=== PATIENT | female | born 1950 | race Caucasian/White ===

== ENCOUNTER → 2017-10-17 08:38 | Outpatient (CLI) | payer OTHER, SELFPAY ==
[2017-10-17 11:02] LABS: Anion Gap 6 (5-15); BUN 13 mg/dL (7-18); BUN/Creat Ratio 12.4 RATIO (10-20); Calcium,Total 8.7 mg/dL (8.5-10.1); Chloride 106 mmol/L (98-107); Cholesterol 219 mg/dL (200); Creatinine, Serum 1.05 mg/dL (0.55-1.02); EST Glomerular Filtration Rate 56 mL/min (>60); Est Glom Filt Rate - Afr Amer 68 mL/min (>60); Glucose 91 mg/dL (74-106); High Density Lipoprotein 78 mg/dL; Potassium 3.4 mmol/L (3.5-5.1); Sodium Level 141 mmol/L (136-145); Triglycerides 217 mg/dL; Very Low Density Lipoprotein 43 mg/dL (5-40)
== END ==
PROVIDERS: Family Provider Internal Medicine; PCP Internal Medicine; Visit Provider Internal Medicine
DX: I87.2 Venous insufficiency (chronic) (peripheral) (principal); E66.9 Obesity, unspecified
CPT/HCPCS: 36415; 80048; 80061

== ENCOUNTER → 2017-10-30 12:40 | Outpatient (CLI) | payer OTHER, SELFPAY | PROVIDERS: Family Provider Internal Medicine; PCP Internal Medicine; Visit Provider Internal Medicine | DX: G47.30 Sleep apnea, unspecified (principal) | CPT/HCPCS: 95806 ==

== ENCOUNTER → 2017-11-13 10:00 | Outpatient (CLI) | payer MEDICARE, SELFPAY ==
[2017-11-13 12:03] LABS: Absolute Lymphocyte Count 2.59 X10^3/ul (0.83-4.51); Absolute Neutrophil Count 4.7 X10^3/uL (2.0-7.7); Basophil# 0.02 X10^3/uL; Basophil% 0.2 % (0-1); Eosinophils% 2.4 % (0-5); Hematocrit 40.2 % (37-47); Hemoglobin 13.5 g/dl (12.0-15.0); Lymphocyte # 2.59 X10^3/ul (4.0); Lymphocyte % 31.5 % (19-41); Mean Corp Hgb Conc 33.6 g/gl (32-36); Mean Corpuscular Hgb 31.2 pg (27.0-32.0); Mean Corpuscular Volume 92.8 fL (81-99); Mean Platelet Vol. 9.8 fl (6.2-12.0); Monocyte% 8.5 % (0-10); Neutrophil # 4.69 X10^3/uL (2.7-7.7); Neutrophil % 57.3 % (47-70); Platelet Count 214 K/mm3 (150-450); RBC Distribution Width CV 12.5 % (11.6-14.6); RBC Distribution Width SD 41.5 fl (35.1-43.9); Red Blood Count 4.33 M/mm3 (4.2-5.4); White Blood Count 8.2 K/mm3 (4.4-11.0)
[2017-11-13 12:05] LABS: POSITIVE COUNT NO; POSITIVE DIFFERENTIAL NO; POSITIVE MORPHOLOGY NO
[2017-11-13 12:30] LABS: Hemoglobin A1c 5.5 % (4.2-6.3); PTHIN 61.5 pg/mL (18.4-80.1); Vitamin B12 421 pg/mL (211-911); Vitamin D,25 Hydroxy 15.9 ng/mL (29.95-100.01)
[2017-11-13 13:12] LABS: ALB/GLOB Ratio 0.8 RATIO (0.9-2.4); AST(SGOT) 15 U/L (15-37); Alanine Aminotransfer ALT/SGPT 19 U/L (13-56); Albumin, Serum 3.1 g/dL (3.2-5.0); Alkaline Phosphatase 85 U/L (45-117); Anion Gap 8 (5-15); BUN 18 mg/dL (7-18); BUN/Creat Ratio 17.1 RATIO (10-20); Chloride 103 mmol/L (98-107); Cholesterol 228 mg/dL (200); Creatinine, Serum 1.05 mg/dL (0.55-1.02); EST Glomerular Filtration Rate 56 mL/min (>60); Est Glom Filt Rate - Afr Amer 68 mL/min (>60); Ferritin 81 ng/mL (8-252); Globulin 4.1 g/dL (2.2-4.2); Glucose 78 mg/dL (74-106); High Density Lipoprotein 85 mg/dL; Iron 92 ug/dL (50-170); Iron Binding Capacity,Total 323 ug/dL (250-450); PERCENT IRON SATURATION 28.5 % (15.0-55.0); Potassium 3.1 mmol/L (3.5-5.1); Protein, Total 7.2 g/dL (6.4-8.2); Sodium Level 141 mmol/L (136-145); T4 Free Direct 1.13 ng/dL (0.76-1.46); Thyroid Stim Hormone (TSH) 2.27 uIU/mL (0.358-3.74); Triglycerides 178 mg/dL; Very Low Density Lipoprotein 36 mg/dL (5-40)
[2017-11-17 09:56] LABS: Copper, Serum or Plasma 122 ug/dL (72-166); Cotinine Screen Blood None Detected (.); Nicotine Blood None Detected (.); Vitamin A, Retinol 45.3 ug/dL (36.4-108.0); Zinc, Plasma or Serum 70 ug/dL (56-134)
[2017-11-21 16:26] LABS: Cannabinoid Negative (Cutoff=10)
== END ==
PROVIDERS: Family Provider Internal Medicine; PCP Internal Medicine
DX: M06.9 Rheumatoid arthritis, unspecified (principal); I10 Essential (primary) hypertension; R60.9 Edema, unspecified; R63.8 Other symptoms and signs concerning food and fluid intake; E55.9 Vitamin D deficiency, unspecified; E66.01 Morbid (severe) obesity due to excess calories; R73.9 Hyperglycemia, unspecified; M54.5 Low back pain; G25.81 Restless legs syndrome; G47.19 Other hypersomnia; K21.9 Gastro-esophageal reflux disease without esophagitis; Z98.84 Bariatric surgery status
CPT/HCPCS: 36415; 80053; 80061; 80307; 82306; 82525; 82607; 82728; 82746; 83036; 83540; 83550; 83970; 84425; 84439; 84443; 84590; 84630; 85025; 86140; G0478

== ENCOUNTER → 2017-11-14 09:35 | Outpatient (CLI) | payer MEDICARE, SELFPAY | PROVIDERS: Family Provider Internal Medicine; PCP Internal Medicine | DX: M06.9 Rheumatoid arthritis, unspecified (principal); I10 Essential (primary) hypertension; G25.81 Restless legs syndrome; M54.5 Low back pain; R60.9 Edema, unspecified; K21.9 Gastro-esophageal reflux disease without esophagitis; G47.19 Other hypersomnia; Z98.84 Bariatric surgery status ==

== ENCOUNTER → 2018-06-04 15:57 | Outpatient (CLI) | payer MEDICARE, SELFPAY ==
[2018-06-04 10:34] VITALS: BMI 29.8
[2018-06-04 16:21] LABS: Bacteria 0 SEEN /hpf (None Seen); Mucous, Urine 0 SEEN /hpf (<or=2+); Red Blood Cells-Urine 0 SEEN /hpf (0-5); Squamous Epithelial Cells - UA 0 SEEN /hpf (5-10)
[2018-06-04 16:38] LABS: Color, Urine Yellow (Yellow); Glucose, Dipstick Normal (Normal); Ketone-Dipstick Negative (Negative); Leukocyte Esterase-Dipstick 500 /ul (Negative); Nitrite-Dipstick Positive (Negative); Occult Blood-Urine 250 /ul (Negative); Protein-Dipstick 30 mg/dl (Negative); Urine Bilirubin Dipstick Negative (Negative); Urine Clarity Cloudy (Clear); Urine Urobilinogen Normal (Normal)
[2018-06-04 16:53] LABS: White Blood Cells >100 SEEN /hpf (0-5)
--- OUTSIDE RECORDS SUMMARY | 2018-08-09 15:32 | XMS RPT_ITS ---
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 Dispense: 90 Days ; #:90 Capsule Delayed Release; Refill: 3;For: GERD without esophagitis; RACQUEL = N; Verified Transmission to [facility] #0059; Last Updated By: Allyn Serrato; 09/22/2015 2:41:32 PM Omeprazole 40 MG Oral Capsule Delayed Release; TAKE 1 CAPSULE Daily Open capsule, sprinkle in SF applesauce or pudding, swallow. DO NOT CHEW; Therapy: 72Ihg7757 to (Evaluate:21Bkm6917) Requested for: 12Kbr5707; Last Rx:[id number] Ordered Rx By: Leann Thompson; Dispense: 30 Days ; #:30 Capsule Delayed Release; Refill: 2;For: GERD without esophagitis, Post-operative nausea and vomiting; RACQUEL = N; Verified Transmission to [facility] #3321 Calcium 600 MG Oral Tablet; Therapy: 75Opy2566 to Recorded Dispense: 0 Days ; #: Sufficient Tablet; Refill: 0; RACQUEL = N; Record; Last Updated By: Yuliana Mckeon; 05/08/2018 10:53:48 AM Multi Vitamin Oral Tablet; Therapy: 94Ago3669 to Recorded Dispense: 0 Days ; #: Sufficient Tablet; Refill: 0; RACQUEL = N; Record; Last Updated By: Yuliana Mckeon; 05/08/2018 10:53:48 AM Provider Impressions NAME: Celina Judithmarisabel DATE: 05.08.18 : [birth year] Surgery Date: 02.12.18 Surgeon: Jay Procedure: sleeve gastrectomy ASSESSMENT: Current weight: 176.0 Ht: 64.0 in. BMI: 30.2 Previous weight: 186.8 03.24.18 Initial start weight: 219.5 11.07.17 EBW: 74.5 Total we74.5ight change: 43.5 %EBW Lost: 58.3% PROGRESS: Nutrition Interventions for last encounter (date: 03.24.18) 1.You are not meeting your protein needs. Eat foods high in protein to help you meet your goal. Your snacks and meals should contain high protein foods. 2.Eat 60-70 g of protein per day 3.Continue to drink 64 oz. of zero calorie beverages per day 4.Continue no drinking 30 min before, during the meal and for 30 minutes after the meal 5.Continue to follow vit/min regimen. You are not taking enough calcium. Your goal is 9811-5418 mg per day. Take enough calcium to meet that goal 6.Continue to exercise. Change up your routine. Make it harder to do and add in strength training. CHANGES IN TREATMENT: Patient met goals: Partially Actions to meet previous goals: 1.Find time to exercise at least 3x/week 24 hour food recall: Pt on regular diet; consumes >64 oz protein and 64 oz fluid Breakfast: 2 egg omelet with peppers and onions Snack: none Lunch: 4 oz tuna and c green beans Snack: cheese stick Dinner: 4 oz chicken breast, c sweet potato, broccoli Snack: c cottage cheese Beverages: water or Crystal lite Alcohol: none Vitamins: 2 MVI, 1200 mg calcium, B12 Medications: see list Physical Activity: walking, but not much lately READINESS TO LEARN: Motivation to learn: Interested Understanding of instruction: Good Anticipated Compliance: Good Family Support: Unable to assess-family not present Patient presents with post-op weight loss surgery sleeve gastrectomy. Patient has lost 43.5 pounds since initial assessment accounting for 58.3% loss excess body weight. Tolerating a regular diet withou t difficulty. Protein intake is adequate for post-op individual. Fluid consumption is adequate. Patient is supplementing recommended vitamin/minerals. Pt states that raw veggies and fresh fruit cause di arrhea. Advised to eat cooked veggies for now and try raw vegies again in a month or so. Pt agree to try recommendations. Malnutrition Screening Significant unintentional weight loss? No Eating less than 75% of usual intake for more than 2 weeks? NO Nutrition Diagnosis: 1.Increased protein and nutrition needs related to altered GI function as evidenced by pt. s/p sleeve gastrectomy. Nutrition Interventions: 1.Modify type and amount of food and nutrients within meals and snacks. 2.Comprehensive Nutrition Education -Nutrition education materials: none Recommendations: 1.Continue to eat 60-70 g of protein per day 2.Continue to drink 64 oz. of zero calorie beverages per day 3.Continue no drinking 30 min before, during the meal and for 30 minutes after the meal 4.Continue to follow vit/min regimen 5.Find some to exercise at 3 times per week. Nutrition Monitoring and Evaluation: Weight loss1-2 pounds per week Criteria: weight check, food recall Need for Follow-up: 6 months post op Livia FREIRE, [facility] Bariatric Surgery Dietitian Patient Discussion/Summary Recommendations: 1.Continue to eat 60-70 g of protein per day 2.Continue to drink 64 oz. of zero calorie beverages per day 3.Continue no drinking 30 min before, during the meal and for 30 minutes after the meal 4.Continue to follow vit/min regimen 5.Find some to exercise at 3 times per week. Nutrition Monitoring and Evaluation: Weight loss1-2 pounds per week Criteria: weight check, food recall Need for Follow-up: 6 months post op Livia FREIRE, [facility] Bariatric Surgery Dietitian . Signatures Electronically signed by : Livia Canseco RD; May 08 2018 1:21PM EST (Author) BARIATRIC SURGERY - Observed: 05/08/2018 Status: UNK Source: [facility] 11:45 AM HOSPITALS REPOSITORY Chief Complaint The patient is having the following problems: patient states she is having diarrhea and cramping. The patient is being seen today for a 3 month post-op visit. Type of surgery: Sleeve Gastrectomy. Three-month postop visit after gastric sleeve History of Present Illness This is the patient's 3 month post op visit. Weight: Inital Weight: 219 lbs Current Weight: 176.4 lbs Total Weight Lost: 43 lbs. Food: Does not drink soda Breakfast: two wgg omlet Eating problems: no Lunch: 4oz tuna and green beans Snack: 1/2 cup of cottage chesse Time to eat meals: 20-30 minutes Dinner: grilled chicken breast , 1/2 sweet potato and califlower Fluid intake: 64 oz Diet Stage: Regular food. The patient exercises infrequently. 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 Exercise includes walking. 2x a week. Diet history reviewed and discussed with the patient. Weight loss/gains to date discussed with the patient. 67-year-old female status post gastric sleeve 3 months ago here for follow-up Review of Systems Constitutional: no chills, no fever and no night sweats. Eyes: no blurred vision and no eyesight problems. ENT: no hearing loss, no nasal congestion, no nasal discharge, no hoarseness and no sore throat. Cardiovascular: no chest pain, no intermittent leg claudication, no lower extremity edema, no palpitations and no syncope. Respiratory: no cough, no shortness of breath during exertion, no shortness of breath at rest and no wheezing. Gastrointestinal: no abdominal pain, no blood in stools, no constipation, no diarrhea, no melena, no nausea, no rectal pain and no vomiting. Genitourinary: no dysuria, no change in urinary frequency, no urinary hesitancy, no feelings of urinary urgency and no vaginal discharge. Musculoskeletal: no arthralgias, no back pain and no myalgias. Integumentary: no new skin lesions and no rashes. Neurological: no difficulty walking, no headache, no limb weakness, no numbness and no tingling. Psychiatric: no anxiety, no depression, no anhedonia and no substance use disorders. Endocrine: no recent weight gain and no recent weight loss. Hematologic/Lymphatic: no tendency for easy bruising and no swollen glands. Active Problems Acute postoperative pain of abdomen (338.18,789.00) (G89.18,R10.9) Bariatric surgery status (V45.86) (Z98.84) Benign hypertension (401.1) (I10) Edema (782.3) (R60.9) Excessive daytime sleepiness (780.54) (G47.19) GERD without esophagitis (530.81) (K21.9) Hernia, hiatal (553.3) (K44.9) Low back pain (724.2) (M54.5) Morbidly obese (278.01) (E66.01) Osteoporosis screening (V82.81) (Z13.820) Post-operative nausea and vomiting (787.01) (R11.2,Z98.890) Pre-bariatric surgery nutrition evaluation (V65.3) (Z71.3) Preoperative clearance (V72.84) (Z01.818) Rheumatoid arthritis (714.0) (M06.9) RLS (restless legs syndrome) (333.94) (G25.81) Rosacea (695.3) (L71.9) S/P laparoscopic cholecystectomy (V45.89) (Z90.49) 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) (Z98.84) S/P total abdominal hysterectomy (V88.01) (Z90.710) Vitamin D deficiency (268.9) (E55.9) Surgical History History of Breast Surgery Reduction Procedure 1998 History of Cervical Surgery (Fish Bin Tender) removal 2002 History of Gallbladder Surgery 2006 History of Gastrectomy Sleeve Laparoscopic History of Knee Arthroplasty bilateral 2000 History of Knee Replacement bilateral 2004 History of Rotator Cuff Repair 2013 and 2015 History of Total Abdominal Hysterectomy 2001 Family History Family history of lymphoma (V16.7) (Z80.7) Family history of substance abuse (V17.0) (Z81.4) Family history of arthritis (V17.7) (Z82.61) Family history of arthritis (V17.7) (Z82.61) Family history of arthritis (V17.7) (Z82.61) Family history of arthritis (V17.7) (Z82.61) Social History Never smoker Occasional alcohol use Occasional caffeine 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 Allergies No Known Drug Allergies Recorded By: Savannah Whaley; 09/22/2015 2:24:50 PM Current Meds Acetaminophen Extra Strength 500 MG/15ML Oral Liquid; TAKE 30 ML Every 8 hours as needed for pain; Therapy: 83Puz1082 to (Evaluate:78Nkh6440) Requested for: 92Drh3208; Last Rx:[id number] Ordered Rx By: Leann Thompson; Dispense: 8 Days ; #:3 X 237 ML Bottle; Refill: 1;For: Acute postoperative pain of abdomen, Bariatric surgery status; RACQUEL = N; Verified Transmission to [facility] #3321 Lansoprazole 30 MG Oral Capsule Delayed Release; TAKE 1 CAPSULE DAILY; Therapy: 47Tdv9479 to (Evaluate:16Sep2016) Requested for: 27Njj4547; Last Rx:[id number] Ordered Rx By: Daina Clark; Dispense: 90 Days ; #:90 Capsule Delayed Release; Refill: 3;For: GERD without esophagitis; RACQUEL = N; Verified Transmission to [facility] #1779; Last Updated By: Myke Serrato; 09/22/2015 2:41:32 PM Omeprazole 40 MG Oral Capsule Delayed Release; TAKE 1 CAPSULE Daily Open capsule, sprinkle in SF applesauce or pudding, swallow. DO NOT CHEW; Therapy: 55Arx1785 to (Evaluate:69Tyf7191) Requested for: 54Wpp7630; Last Rx:[id number] Ordered Rx By: Leann Thompson; Dispense: 30 Days ; #:30 Capsule Delayed Release; Refill: 2;For: GERD without esophagitis, Post-operative nausea and vomiting; RACQUEL = N; Verified Transmission to [facility] #3321 Ondansetron 4 MG Oral Tablet Disintegrating; TAKE 4 MG Every 6 hours PRN; Therapy: 10Dod7057 to (Last Rx:[id number]) Requested for: 25Itn6110 Ordered Rx By: Leann Thompson; Dispense: 0 Days ; #:30 Tablet Disintegrating; Refill: 1;For: Post-operative nausea and vomiting; RACQUEL = N; Verified Transmission to [facility] #3321 Vitamin D (Ergocalciferol) 28714 UNIT Oral Capsule; Take 1 capsule TWICE weekly for 3 mo; Therapy: 55Thk6066 to (Last Rx:[id number]) Requested for: 29Gpk5700 Ordered Rx By: Leann Thompson; Dispense: 0 Days ; #:8 Capsule; Refill: 2;For: Vitamin D deficiency; RACQUEL = N; Verified Transmission to [facility] #7978 Physical Exam Abdominal exam: soft and nontender. The surgical incision site is clean, dry and intact. Post-op, the patient is doing well, has excellent pain control and is showing no signs of infection. Instructions / Recommendations: instructed to call the office for concerns, questions, or problems. Diagnoses/Problems Bariatric surgery status (V45.86) (Z98.84) 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) (Z98.84) Provider Impressions Doing well overall Denies any nausea vomiting chest pain GERD abdominal pain Tolerating diet Some exercise Takes her supplements and PPI Examination is benign Recommendations: Continue low-carb diet Advance activity and increase exercise Continue supplements Okay to wean off PPI Follow-up with dietitian Next visit 3 months Bariatric labs Patient Discussion/Summary 3 Month P/O Visit You are 3 months s/p Gastric Sleeve Please have your 3 month lab work completed today, we will call with any abnormal results. Be sure to take your multivitamins, your B12 and your calcium daily. Continue to work on exercise, increase the intensity and variety of your exercise routine, aim for 300mins a week total. Come to support groups. Follow-up with the [employer] Professor as needed. Follow-up in 3 months for your 6 month visit. Signatures Electronically signed by : Leann Thompson MD; May 08 2018 11:45AM EST (Author) OBSOLETE Observed: 04/07/2018 Status: COMPLETED Source: [facility] 12:00 AM CLINIC OTHER CAMPUS REPOSITORY Refill (DARRENBA) CELINA PAT ([id number]) 1950 F T Date Time Provider Department 04/07/18 MICHAEL LOPEZ JR During your visit today, we recorded the following information about you: Penelope Beck CMA 04/07/2018 4:33 PM Signed Name: Pharmacy called today requesting medications refill(s). Patient's : 1950 Allergies: Codeine; Demerol [Meperidine (Pf)]; Sulfa (Sulfonamide Antibiotics) (home) [phone] (cell) Last appointment : 02/11/2018 The patients preferred pharmacy has been captured for this encounter. Patient phones requesting refills as follows: Pending Prescriptions Disp Refills GABAPENTIN 300 MG CAPSULE 180 capsule 0 Sig: TAKE 2 CAPSULES BY MOUTH AT BEDTIME IF NEEDED CAN INCREASE TO 4 CAPSULES RACQUEL: Yes Please review and advise. MARGOTH Davis RN 04/08/2018 9:43 AM Signed Left a message for patient to call back regarding: How is she taking the medication?? Is she out of medication? Awaiting return call. ELVIS Mcmullen RN 04/08/2018 9:49 AM Signed Patient returned call. Patient states I am good on medication and don't need a refill. Maggy Harris RN Allergies As of Date: 04/07/2018 Noted Allergy Reaction CODEINE 09/28/2002 Comments: nausea, vomiting DEMEROL (MEPERIDINE (PF)) 10/08/2005 SULFA (SULFONAMIDE ANTIBIOTICS) 09/28/2002 Comments: nausea, vomiting Date Reviewed: 02/11/2018 Reviewed by: Michael Lopez Jr. - Fully Assessed Reason for Visit: Refill Request [94] Prescriptions as of 04/07/2018 Sig: GABAPENTIN 300 MG CAPSULE Take 2 capsules by mouth lyubov* DEXAMETHASONE 4 MG/ML INJECTI* 4 mg as directed. 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 Restless leg syndrome [G25.81] Vitamin D deficiency [E55.9] Peroneal tendinitis of right lower extremity [M*INVALID FOR* Encounter Status:Closed by MAGGY HARRIS RN on 04/08/18 DIETITION NOTE Observed: 03/25/2018 Status: UNK Source: [facility] 9:19 AM [facility] REPOSIT[facility] Chief Complaint obesity 6 week post op nutrition follow up Active Problems Acute postoperative pain of abdomen (338.18,789.00) (G89.18,R10.9) Bariatric surgery status (V45.86) (Z98.84) Benign hypertension (401.1) (I10) Edema (782.3) (R60.9) Excessive daytime sleepiness (780.54) (G47.19) GERD without esophagitis (530.81) (K21.9) Hernia, hiatal (553.3) (K44.9) Low back pain (724.2) (M54.5) Morbidly obese (278.01) (E66.01) Osteoporosis screening (V82.81) (Z13.820) Post-operative nausea and vomiting (787.01) (R11.2,Z98.890) Pre-bariatric surgery nutrition evaluation (V65.3) (Z71.3) Preoperative clearance (V72.84) (Z01.818) Rheumatoid arthritis (714.0) (M06.9) RLS (restless legs syndrome) (333.94) (G25.81) Rosacea (695.3) (L71.9) S/P laparoscopic cholecystectomy (V45.89) (Z90.49) 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) (Z98.84) S/P total abdominal hysterectomy (V88.01) (Z90.710) Vitamin D deficiency (268.9) (E55.9) Surgical History History of Breast Surgery Reduction Procedure 1998 History of Cervical Surgery (Fish Bin Tender) removal 2001 History of Gallbladder Surgery 2006 History of Gastrectomy Sleeve Laparoscopic History of Knee Arthroplasty bilateral 2000 History of Knee Replacement bilateral 2004 History of Rotator Cuff Repair 2013 and 2015 History of Total Abdominal Hysterectomy 2001 Family History Family history of lymphoma (V16.7) (Z80.7) Family history of substance abuse (V17.0) (Z81.4) Family history of arthritis (V17.7) (Z82.61) Family history of arthritis (V17.7) (Z82.61) Family history of arthritis (V17.7) (Z82.61) Family history of arthritis (V17.7) (Z82.61) Social History Never smoker Occasional alcohol use 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 caffeine 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 Allergies No Known Drug Allergies Recorded By: Savannah Whaley; 09/22/2015 2:24:50 PM Current Meds Acetaminophen Extra Strength 500 MG/15ML Oral Liquid; TAKE 30 ML Every 8 hours as needed for pain; Therapy: 86Uxv3969 to (Evaluate:88Skw8321) Requested for: 90Saw5197; Last Rx:[id number] Ordered Rx By: Leann Thompson; Dispense: 8 Days ; #:3 X 237 ML Bottle; Refill: 1;For: Acute postoperative pain of abdomen, Bariatric surgery status; RACQUEL = N; Verified Transmission to [facility]3321 Lansoprazole 30 MG Oral Capsule Delayed Release (Prevacid); TAKE 1 CAPSULE DAILY; Therapy: 57Llx7749 to (Evaluate:10Dit4175) Requested for: 59Ulx9574; Last Rx:[id number] Ordered Rx By: Daina Clark; Dispense: 90 Days ; #:90 Capsule Delayed Release; Refill: 3;For: GERD without esophagitis; RACQUEL = N; Verified Transmission to [facility] #8049; Last Updated By: Allyn Serrato; 09/22/2015 2:41:32 PM Omeprazole 40 MG Oral Capsule Delayed Release; TAKE 1 CAPSULE Daily Open capsule, sprinkle in SF applesauce or pudding, swallow. DO NOT CHEW; Therapy: 81Ape3108 to (Evaluate:56Tlz1643) Requested for: 31Ucr4809; Last Rx:[id number] Ordered Rx By: Leann Thompson; Dispense: 30 Days ; #:30 Capsule Delayed Release; Refill: 2;For: GERD without esophagitis, Post-operative nausea and vomiting; RACQUEL = N; Verified Transmission to [facility]3321 Ondansetron 4 MG Oral Tablet Disintegrating; TAKE 4 MG Every 6 hours PRN; Therapy: 12Psj6277 to (Last Rx:[id number]) Requested for: 50Wwf6655 Ordered Rx By: Leann Thompson; Dispense: 0 Days ; #:30 Tablet Disintegrating; Refill: 1;For: Post-operative nausea and vomiting; RACQUEL = N; Verified Transmission to [facility]3321 Vitamin D (Ergocalciferol) 60995 UNIT Oral Capsule; Take 1 capsule TWICE weekly for 3 mo; Therapy: 44Lea3177 to (Last Rx:[id number]) Requested for: 52Jdy3248 Ordered Rx By: Leann Thompson; Dispense: 0 Days ; #:8 Capsule; Refill: 2;For: Vitamin D deficiency; RACQUEL = N; Verified Transmission to [facility] #3321 Estradiol 1 MG Oral Tablet; TAKE 1 TABLET BY MOUTH ONCE DAILY; Therapy: 70Xiz5851 to Recorded Rx By: ADELAIDA; Dispense: 90 Days ; #:90; Refill: 0; RACQUEL = N; Record; Last Updated By: Compa Rocha; 11/15/2017 10:23:23 AM Provider Impressions NAME: Celina Pat DATE: 03.24.18 : 3 Surgery Date: 02.12.18 Surgeon: Jay Procedure: sleeve gastrectomy ASSESSMENT: Current weight: 186.8 Ht: 64.0 in. BMI: 32.1 Previous weight: 210.2 02.20.18 Initial start weight: 219.5 EBW: 74.5 Total weight change: 32.7 %EBW Lost: 43.8% PROGRESS: Nutrition Interventions for last encounter (date: 02.20.18) 1.Increase protein intake. Eat Lebanese yogurt and blended cottage cheese to help you meet your goal. Drink your protein shakes to meet your goal of 60-70 g of protein per day. Begin measuring how much pro tein you can eat on the soft diet so that you know when to start weaning off of your protein shakes. 2.Increase your fluid intake. Keep your drink with you at all times to remind you to sip. Drink 64 oz. of zero calorie beverages per day 3.Continue no drinking 30 min before, during the meal and for 30 minutes after the meal 4.Continue to exercise 5.Advance to the puree diet for 1 week, then soft food for 3 weeks 6.Remember to eat slowly and chew thoroughly 7.Try one new food at a time to test for any intolerances. 8.Take all of your vitamins and minerals. Take enough calcium to meet your goal of 1200-1500mg per day CHANGES IN TREATMENT: Patient met goals: Partially Actions to meet previous goals: 1.You are not meeting your protein needs. Eat foods high in protein to help you meet your goal. Your snacks and meals should contain high protein foods. 2.You are not taking enough calcium. Your goal is 2468-7368 mg per day. Take enough calcium to meet that goal. 24 hour food recall: Pt on a soft diet; consumes <40 g protein daily and 64 oz fluid daily Breakfast: 1 egg, c applesauce, green peppers and onions Snack: none Lunch: 3 oz tuna w/ buckley and 5 saltines Snack: 1 bag 100 anil popcorn Dinner: 2 oz meatloaf, c sweet potato, c green beans Snack: c applesauce Beverages: water, Crystal light Alcohol: none Vitamins: 2 MVI, 400 mg calcium, B12 Medications: see list Physical Activity: walking on treadmill for 30 min 4x/week READINESS TO LEARN: Motivation to learn: Interested Understanding of instruction: Good Anticipated Compliance: Good Family Support: Unable to assess-family not present Patient presents with post-op weight loss surgery sleeve gastrectomy. Patient has lost 32.7 pounds since initial assessment accounting for 43.8% loss excess body weight. Tolerating a soft/regular diet w ithout difficulty. Protein intake is not adequate for post-op individual. Fluid consumption is adequate. Patient is not supplementing recommended vitamin/minerals. Reminded pt that she needs to take 120 0-1500 mg of calcium citrate daily. Pt states that she will purchase the [employer] brand soft chew and take 3 per day which will be 1500 mg. Review of intake shows she is eating foods low in protein and not u tilizing the space in her sleeve efficiently. Advised pt to stop eating popcorn and crackers. Reminded pt to eat protein first, veggies second and starch last if she has room. Advised to start changing up exercise by making it more intense and adding in strength training. Otherwise pt states no concerns/difficulties at this time. Malnutrition Screening Significant unintentional weight loss? n/a Eating less than 75% of usual intake for more than 2 weeks? n/a Nutrition Diagnosis: 1.Increased protein and nutrition needs related to altered GI function as evidenced by pt. s/p sleeve gastrectomy. 2.Food- and nutrition-related knowledge deficit related to lack of prior exposure to surgical weight loss information as evidenced by diet recall. Nutrition Interventions: 1.Modify type and amount of food and nutrients within meals and snacks. 2.Comprehensive Nutrition Education -Nutrition education materials: none Recommendations: 1.You are not meeting your protein needs. Eat foods high in protein to help you meet your goal. Your snacks and meals should contain high protein foods. 2.Eat 60-70 g of protein per day 3.Continue to drink 64 oz. of zero calorie beverages per day 4.Continue no drinking 30 min before, during the meal and for 30 minutes after the meal 5.Continue to follow vit/min regimen. You are not taking enough calcium. Your goal is 4289-2104 mg per day. Take enough calcium to meet that goal 6.Continue to exercise. Change up your routine. Make it harder to do and add in strength training. Nutrition Monitoring and Evaluation: Weight loss1-2 pounds per week Criteria: weight check, food recall Need for Follow-up: 3 month post op nutrition follow up Livia FREIRE, [facility] Bariatric Surgery Dietitian Patient Discussion/Summary Recommendations: 1.You are not meeting your protein needs. Eat foods high in protein to help you meet your goal. Your snacks and meals should contain high protein foods. 2.Eat 60-70 g of protein per day 3.Continue to drink 64 oz. of zero calorie beverages per day 4.Continue no drinking 30 min before, during the meal and for 30 minutes after the meal 5.Continue to follow vit/min regimen. You are not taking enough calcium. Your goal is 6297-5251 mg per day. Take enough calcium to meet that goal 6.Continue to exercise. Change up your routine. Make it harder to do and add in strength training. Nutrition Monitoring and Evaluation: Weight loss1-2 pounds per week Criteria: weight check, food recall Need for Follow-up: 3 month post op nutrition follow up Livia Canseco RDN , [facility] Bariatric Surgery Dietitian . Signatures Electronically signed by : Livia Canseco RD; Mar 25 2018 9:19AM EST (Author) BARIATRIC SURGERY - Observed: 03/24/2018 Status: UNK Source: [facility] FOLLOW-UP 11:07 AM HOSPITALS REPOSITORY Chief Complaint The patient is being seen today for a 6 week post-op visit. History of Present Illness This is the patient's 6 week post op visit. Weight: Inital Weight: 219 lbs Last Visit Weight: 210 lbs Current Weight: 186 lbs Total Weight Lost: 33 lbs. Food: Does not drink soda Breakfast: 1A, half a cup of applesauce Snack: Green pepper and onion Eating problems: no Lunch: 3 ounces of tuna with 5 saltine crackers Snack: Applesauce Time to eat meals: 20-30 minutes Dinner: 12 ounce slice of meat loaf half a cup this week potatoes half a cup of green P Fluid intake: 64 oz Diet Stage: Regular food. The patient exercises 3 times oer weel times per week. Exercise includes aerobic conditioning. Diet history reviewed and discussed with the patient. Weight loss/gains to date discussed with the patient. 67-year-old 6 weeks status post gastric sleeve for follow- up. Patient is doing well she has no complaints she is exercising. She is taking her multivitamins she is taking her omeprazole. She is not havi ng any pain. In review of the patient's diet she does need to increase her protein. Patient is working with dietitian. Review of Systems Constitutional: as noted in HPI. Active Problems Acute postoperative pain of abdomen (338.18,789.00) (G89.18,R10.9) Bariatric surgery status (V45.86) (Z98.84) Benign hypertension (401.1) (I10) Edema (782.3) (R60.9) Excessive daytime sleepiness (780.54) (G47.19) GERD without esophagitis (530.81) (K21.9) Hernia, hiatal (553.3) (K44.9) Low back pain (724.2) (M54.5) Morbidly obese (278.01) (E66.01) Osteoporosis screening (V82.81) (Z13.820) Post-operative nausea and vomiting (787.01) (R11.2,Z98.890) Pre-bariatric surgery nutrition evaluation (V65.3) (Z71.3) Preoperative clearance (V72.84) (Z01.818) Rheumatoid arthritis (714.0) (M06.9) RLS (restless legs syndrome) (333.94) (G25.81) Rosacea (695.3) (L71.9) S/P laparoscopic cholecystectomy (V45.89) (Z90.49) 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) (Z98.84) S/P total abdominal hysterectomy (V88.01) (Z90.710) Vitamin D deficiency (268.9) (E55.9) Surgical History History of Breast Surgery Reduction Procedure 1998 History of Cervical Surgery (Fish Bin Tender) removal 2002 History of Gallbladder Surgery 2006 History of Gastrectomy Sleeve Laparoscopic History of Knee Arthroplasty bilateral 2000 History of Knee Replacement bilateral 2004 History of Rotator Cuff Repair 2013 and 2015 History of Total Abdominal Hysterectomy 2001 Family History Family history of lymphoma (V16.7) (Z80.7) Family history of substance abuse (V17.0) (Z81.4) Family history of arthritis (V17.7) (Z82.61) Family history of arthritis (V17.7) (Z82.61) Family history of arthritis (V17.7) (Z82.61) Family history of arthritis (V17.7) (Z82.61) Social History Never smoker Occasional alcohol use Occasional caffeine 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 Allergies No Known Drug Allergies Recorded By: Savannah Whaley; 09/22/2015 2:24:50 PM Current Meds Acetaminophen Extra Strength 500 MG/15ML Oral Liquid; TAKE 30 ML Every 8 hours as needed for pain; Therapy: 89Tzd0157 to (Evaluate:62Wan9476) Requested for: 54Ysz6244; Last Rx:[id number] Ordered Rx By: Leann Thompson; Dispense: 8 Days ; #:3 X 237 ML Bottle; Refill: 1;For: Acute postoperative pain of abdomen, Bariatric surgery status; RACQUEL = N; Verified Transmission to [facility] Lansoprazole 30 MG Oral Capsule Delayed Release; TAKE 1 CAPSULE DAILY; Therapy: 24Egf4961 to (Evaluate:16Sep2016) Requested for: 68Lgh2682; Last Rx:[id number] Ordered Rx By: Daina Clark; Dispense: 90 Days ; #:90 Capsule Delayed Release; Refill: 3;For: GERD without esophagitis; RACQUEL = N; Verified Transmission to [facility] #[id number]; Last Updated By: Allyn Serrato reScrijarrod; 09/22/2015 2:41:32 PM Omeprazole 40 MG Oral Capsule Delayed Release; TAKE 1 CAPSULE Daily Open capsule, sprinkle in SF applesauce or pudding, swallow. DO NOT CHEW; Therapy: 27Znx5696 to (Evaluate:15Quv8161) Requested for: 53Ics9594; Last Rx:[id number] Ordered Rx By: Leann Thompson; Dispense: 30 Days ; #:30 Capsule Delayed Release; Refill: 2;For: GERD without esophagitis, Post-operative nausea and vomiting; RACQUEL = N; Verified Transmission to [facility] Ondansetron 4 MG Oral Tablet Disintegrating; TAKE 4 MG Every 6 hours PRN; Therapy: 35Keb4839 to (Last Rx:[id number]) Requested for: 58Spl3797 Ordered Rx By: Leann Thompson; Dispense: 0 Days ; #:30 Tablet Disintegrating; Refill: 1;For: Post-operative nausea and vomiting; RACQUEL = N; Verified Transmission to [facility] Vitamin D (Ergocalciferol) 66501 UNIT Oral Capsule; Take 1 capsule TWICE weekly for 3 mo; Therapy: 60Xkz6720 to (Last Rx:[id number]) Requested for: 09War8769 Ordered Rx By: Leann Thompson; Dispense: 0 Days ; #:8 Capsule; Refill: 2;For: Vitamin D deficiency; RACQUEL = N; Verified Transmission to [facility] Estradiol 1 MG Oral Tablet; TAKE 1 TABLET BY MOUTH ONCE DAILY; Therapy: 91Pkv3548 to Recorded Rx By: ADELAIDA; Dispense: 90 Days ; #:90; Refill: 0; RACQUEL = N; Record; Last Updated By: Compa Rocha; 11/15/2017 10:23:23 AM Vitals Vital Signs Recorded: 24Mar2018 11:05AM Muyfhqdd645 Zqvtnxmtb54 Height5 ft 4 in Tmawbw206 lb BMI Gzpgiwgmpf77.93 BSA Calculated1.9 Physical Exam Eyes: Conjunctiva non-icteric and eye lids are without obvious rash or drooping. Pupils are symmetric. Ears, Nose, Mouth, and Throat: External ears and nose appear to be without deformity or rash. No lesions or masses noted. Hearing is grossly intact. Neck:. No JVD noted, tracheal position is midline. No thyromegaly, no thyroid nodules Head and Face: Examination of the head and face revealed no abnormalities. Respiratory: No gasping or shortness of breath noted, no use of accessory muscles noted. Clear to auscultate bilaterally Cardiovascular: Examination for edema is normal. Regular rate and rhythm S1-S2 without murmurs GI: Abdomen nontender to palpation. Soft nontender bowel sounds present no hepatosplenomegaly, incisions are well-healed there are no hernias present patient has no pain on palpation Skin: No rashes or open lesions/ulcers identified on skin. Musk: Digits/nails show no clubbing or cyanosis. No asymmetry or masses noted of the musculature. Examination of the muscles/joints/bones show normal range of motion. Gait is grossly normally. Neurologic: Cranial nerves II-XII intact, motor strength 5/5 muscle strength of the lower extremities bilaterally and equal. Diagnoses/Problems 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) (Z98.84) Vitamin D deficiency (268.9) (E55.9) Provider Impressions 67-year-old female 6 weeks status post gastric sleeve. Patient's doing well. She has no complaints. Continue omeprazole Continue multivitamins, B12 and calcium Continue exercise Follow-up at 3 months Patient Discussion/Summary 6 Weeks P/O visit You are doing great six weeks s/p VSG/RYGBP Remember the Rules of 30 and 60. Remember to increase your fluids and protein to goals Do not eat and drink at the same time. Advance your diet according to the diet guidelines to regular food. See the data storage specialist as scheduled regularly. Slowly increase your exercise and activity, as you get all your protein you will be able to have more energy. Take your omeprazole, open the capsule and sprinkle onto applesauce. Do not swallow whole. Take your Multivitamin, B12 and calcium tablets. Follow-up in 6 weeks for your 3 month visit, we will draw labs at that time. Signatures Electronically signed by : JONO Stallings; Mar 24 2018 11:07AM EST (Author) INTERNAL MEDICINE Observed: 03/21/2018 Status: F Source: [facility] OFFICE VISIT 12:[address] [facility] [address] [place] [address] [place] [address] OFFICE VISIT Date of Service: 03/21/18 MR#: [id number] Acct: [id number] Name: CELINA PAT Rep #: [id number] : [id number] Provider: Swathi Lagunas MD Age/Sex: 67/F Location[place] [facility] Status: Signed Intake Vital Signs03/21/18 Height 5 ft 4 in 03/21/18 Weight: 191 lb 03/21/18 Body Mass Index (BMI) 32.8 03/21/18 Blood Pressure 113/72 03/21/18 Blood Pressure Location Lt brachial Intake Visit Reasons: 2 mo f/u Chief Complaint: 2 month FU - Post surgery Is patient in pain?: No Allergies adhesive tape Allergy (Intermediate, Verified 03/21/18 09:56) blisters Medications lansoprazole 30 mg capsule,delayed release 30 mg PO QDAY #90 cap 08/30/17 [Rx Confirmed 01/17/18] PFSH Medical History Arthritis (Acute) Back pain (Acute) History of hysterectomy (Acute) IBS (irritable bowel syndrome) (Acute) gallbladder removed (Acute) right rotaor cuff repair (Acute) Cancer, skin, squamous cell (Resolved) Gout (Resolved) Surgical History History of bilateral knee replacement (Acute) History of sleeve gastrectomy (Acute) Hx of breast reduction, elective (Acute) Status post left rotator cuff repair (Acute) Family History Mother Hypertension COPD (chronic obstructive pulmonary disease) Father Cancer lyphoma Grandmother Cancer, Onset Age: 90 Social History Smoking Status: Never smoker alcohol intake: current alcohol intake frequency: a few times a month Alcohol type: hard liquor substance use type: does not use what type of physical activity do you participate in: walking frequency: daily HPI HPI Chief Complaint: 2 month FU - Post surgery Details: CELINA PAT, is a 67yo F who presents to the office today for follow-up status post recent sleeve gastrectomy. She has done well since surgery. Initially had episodes of diarrhea however, this is said to have resolved. She denies any significant abdominal pain. She is tolerating her diet. ROS Const Constitutional: No chills, fatigue, fever(s), frequent falls, malaise, weakness, sleep problems or change in appetite Eyes Eyes: No blurry vision, change in vision, double vision, discharge or visual disturbances ENT ENT: No abnormal hearing, ear pain, ear pressure, tinnitus or dizziness/vertigo Resp Respiratory: No cough, shortness of breath or wheezing Cardio Cardiology: No chest pain at rest, chest pain with exertion, shortness of breath, dyspnea on exertion, generalized swelling, irregular heart rhythm, lightheadedness, orthopnea, fast heart rate or palpitations Gastro GI: No abdominal pain, change in bowel habits, constipation, diarrhea, nausea/dyspepsia or vomiting Genitourinary-Female: No difficulty urinating, burning urination, painful urination, urinary incontinence, urinary frequency, urinary urgency, urinary hesitancy, urinary retention, Frequent nighttime urination/ nocturia, sexual problems, genital lesions, abnormal vaginal bleeding, pelvic pain, vaginal dryness, vaginal odor or Vaginal Itching Musc Musculoskeletal: No joint pain, back pain, joint swelling, limited range of motion, numbness or tingling Skin Skin: No change in skin color, itching, rash or wounds Breast Breast: No breast lump or breast pain Neuro Neurology: No frequent falls, weakness, abnormal hearing, numbness, tingling, unsteady gait/balance, dizziness, loss of vision, memory loss or visual disturbances Psych Psychiatric: No memory loss, No anxiety, No change in appetite, No depression, No Thoughts of harming yourself/Others Endo Endocrine: No fatigue, heat intolerance, increased thirst/drinking, increased hunger or increased urination Aller/Imm Allergy/Immunologic: No wheezing, itchy eyes or seasonal allergy symptoms Patricio/Lymp Hematologic/Lymphatic: No easy bleeding, easy bruising or enlarged lymph nodes Exam Const General: cooperative, no acute distress Orientation: alert, awake, oriented x3 HENMT Head: normal to inspection, atraumatic, normocephalic Ears: hearing grossly normal bilaterally Neck Neck: normal visual inspection, full ROM Resp Effort AND Inspection: normal respiratory effort, able to speak in complete sentences Auscultation: Bilateral: Clear to Auscultation Cardio Rate: regular rate Rhythm: regular rhythm Heart Sounds: S1 normal, S2 normal GI Inspection: normal to inspection, obesity Palpation: soft, no hepatosplenomegaly Neuro General: alert, awake, oriented x3 Cranial Nerves: CN's II-XI intact bilaterally Extrem General: no clubbing, cyanosis or edema Other: Psych Appearance: grossly normal Mood: congruent mood Affect: normal affect Assessment AND Plan 1. Obesity (BMI 30-39.9) E66.9 Plan Status post recent sleeve gastrectomy. She has done well. No concerns at this time. Has lost about 20 pounds. Continue current management per bariatric surgery 2. Restless leg syndrome G25.81 Plan Plan was to switch to Requip due to upcoming surgery however, patient continue gabapentin. No concerns at this time. Continue current management. 3. Right ankle pain M25.571 Plan Resolved. During her postop. She was at rest most times and subsequently did not have any pain. She has been exercising on her treadmill about 4-5 times weekly and still has not had any pain. Will monitor. 4. Healthcare maintenance Z00.00 Plan Status post hysterectomy about 20 years ago. Mammogram ordered. Patient declined flu shot. This note was generated with [employer] dictation software. It may contain incorrect words, spelling, and punctuation that were not noted in checking the note before signing. Plan Detail Other Orders Orders: Coding Level of Care Code Off vis,est,level 3 Diagnoses Obesity (BMI 30-39.9) E66.9 Restless leg syndrome G25.81 Right ankle pain M25.571 Healthcare maintenance Z00.00 03/21/18 1220 <Electronically signed by Swathi Lagunas MD> Date Swathi Lagunas MD Cosigner Signature: Date (if applicable) CC: DIETITION NOTE Observed: 02/20/2018 Status: UNK Source: [place] 12:14 PM HOSPITALS REPOSITORY Chief Complaint obesity 1 week post op nutrition followup Active Problems Acute postoperative pain of abdomen (338.18,789.00) (G89.18,R10.9) Bariatric surgery status (V45.86) (Z98.84) Benign hypertension (401.1) (I10) Edema (782.3) (R60.9) Excessive daytime sleepiness (780.54) (G47.19) GERD without esophagitis (530.81) (K21.9) Hernia, hiatal (553.3) (K44.9) Low back pain (724.2) (M54.5) Morbidly obese (278.01) (E66.01) Osteoporosis screening (V82.81) (Z13.820) Post-operative nausea and vomiting (787.01) (R11.2,Z98.890) Pre-bariatric surgery nutrition evaluation (V65.3) (Z71.3) Preoperative clearance (V72.84) (Z01.818) Rheumatoid arthritis (714.0) (M06.9) RLS (restless legs syndrome) (333.94) (G25.81) Rosacea (695.3) (L71.9) S/P laparoscopic cholecystectomy (V45.89) (Z90.49) 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) (Z98.84) S/P total abdominal hysterectomy (V88.01) (Z90.710) Vitamin D deficiency (268.9) (E55.9) Surgical History History of Breast Surgery Reduction Procedure 1998 History of Cervical Surgery (Fish Bin Tender) removal 2001 History of Gallbladder Surgery 2006 History of Gastrectomy Sleeve Laparoscopic History of Knee Arthroplasty bilateral 2000 History of Knee Replacement bilateral 2004 History of Rotator Cuff Repair 2013 and 2015 History of Total Abdominal Hysterectomy 2001 Family History Family history of lymphoma (V16.7) (Z80.7) Family history of substance abuse (V17.0) (Z81.4) Family history of arthritis (V17.7) (Z82.61) Family history of arthritis (V17.7) (Z82.61) Family history of arthritis (V17.7) (Z82.61) Family history of arthritis (V17.7) (Z82.61) Social History Never smoker Occasional alcohol use 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 caffeine 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 Allergies No Known Drug Allergies Recorded By: Savannah Whaley; 09/22/2015 2:24:50 PM Current Meds Acetaminophen Extra Strength 500 MG/15ML Oral Liquid; TAKE 30 ML Every 8 hours as needed for pain; Therapy: 08Abv4581 to (Evaluate:67Eoy3172) Requested for: 72Xmt8244; Last Rx:[id number] Ordered Rx By: Leann Thompson; Dispense: 8 Days ; #:3 X 237 ML Bottle; Refill: 1;For: Acute postoperative pain of abdomen, Bariatric surgery status; RACQUEL = N; Verified Transmission to [facility] Lansoprazole 30 MG Oral Capsule Delayed Release (Prevacid); TAKE 1 CAPSULE DAILY; Therapy: 02Ghc5659 to (Evaluate:70Uuz6614) Requested for: 50Ewb5196; Last Rx:[id number] Ordered Rx By: Daina Clark; Dispense: 90 Days ; #:90 Capsule Delayed Release; Refill: 3;For: GERD without esophagitis; RACQUEL = N; Verified Transmission to [facility] #2009; Last Updated By: Allyn Serrato; 09/22/2015 2:41:32 PM Omeprazole 40 MG Oral Capsule Delayed Release; TAKE 1 CAPSULE Daily Open capsule, sprinkle in SF applesauce or pudding, swallow. DO NOT CHEW; Therapy: 06Fzs6690 to (Evaluate:37Kfv2636) Requested for: 42Hkb3915; Last Rx:[id number] Ordered Rx By: Leann Thompson; Dispense: 30 Days ; #:30 Capsule Delayed Release; Refill: 2;For: GERD without esophagitis, Post-operative nausea and vomiting; RACQUEL = N; Verified Transmission to [facility] Ondansetron 4 MG Oral Tablet Disintegrating; TAKE 4 MG Every 6 hours PRN; Therapy: 21Tol5659 to (Last Rx:[id number]) Requested for: 11Lla4773 Ordered Rx By: Leann Thompson; Dispense: 0 Days ; #:30 Tablet Disintegrating; Refill: 1;For: Post-operative nausea and vomiting; RACQUEL = N; Verified Transmission to [facility] Vitamin D (Ergocalciferol) 50930 UNIT Oral Capsule; Take 1 capsule TWICE weekly for 3 mo; Therapy: 48Edz4242 to (Last Rx:[id number]) Requested for: 12Scs4319 Ordered Rx By: Leann Thompson; Dispense: 0 Days ; #:8 Capsule; Refill: 2;For: Vitamin D deficiency; RACQUEL = N; Verified Transmission to [facility] Estradiol 1 MG Oral Tablet; TAKE 1 TABLET BY MOUTH ONCE DAILY; Therapy: 76Zmq7878 to Recorded Rx By: ADELAIDA; Dispense: 90 Days ; #:90 TABS; Refill: 0; RACQUEL = N; Record; Last Updated By: Compa Rocha; 11/15/2017 10:23:23 AM Provider Impressions NAME: Celina Pat DATE: 02.20.18 : [birth year] Surgery Date: 02.12.18 Surgeon: Kalen Procedure: sleeve gastrectomy ASSESSMENT: Current weight: 210.2Ht: 64 in. BMI: 36.1 Previous weight:209.5 9.13.18 Initial start weight: 219.5 6.21.18 EBW: 74.5 Total weight change: 9.3 %EBW Lost: 12.5% PROGRESS: Nutrition Interventions for last encounter (date): 1.Drink 64 oz of fluid daily. 2.Drink 60-70 g of protein daily 3.Take 2 chewable MVI, 4560-3286 mg calcium citrate, 500 mcg B12 and 50 mg B1 daily 4.Exercise as tolerated. CHANGES IN TREATMENT: Patient met goals:Partially Actions to meet previous goals: 1.Drink 64 oz of fluid daily. 2.Drink 60-70 g of protein daily 3.Take 9828-8646 mg calcium citrate daily 24 hour food recall: Pt on a full liquid diet; consumes 45 g protein and 50 oz fluid daily Beverages: protein shakes, water, herbal tea Alcohol: none Vitamins: 2 MVI, 1000 mg calcium and B12 Medications: see list Physical Activity: walking READINESS TO LEARN: Motivation to learn: Interested Understanding of instruction: Good Anticipated Compliance: Good Family Support: Unable to assess-family not present Patient presents with post-op weight loss surgery sleeve gastrectomy. Patient has lost 9.3 pounds since initial assessment accounting for 12.5% loss excess body weight. Tolerating full liquid diet witho ut difficulty. Protein intake is not adequate for post-op individual. Fluid consumption is not adequate. Patient is supplementing recommended vitamin/minerals but will need to increase calcium to meet h er goal of 1200-1500mg per day. Pt reports that she is having a hard time meeting fluid and protein goals. Pt did not bring anything with her to drink. Reminded her to keep a beverage in hand to remind her to keep sipping. Pt states that she does not like the taste of her protein shake and has tried others and does not like those either. Advised to find one she likes and drink enough to meet goal of 6 0-70 g per day. Suggested eating some Lebanese yogurt and blended cottage cheese to help increase protein intake. Reviewed the puree and soft food diets. Reminded pt. to eat slowly, chew thoroughly and to try one new food at a time. Malnutrition Screening Significant unintentional weight loss? n/a Eating less than 75% of usual intake for more than 2 weeks? n/a Nutrition Diagnosis: 1.Increased protein and nutrition needs related to altered GI function as evidenced by pt. s/p sleeve gastrectomy. Nutrition Interventions: 1.Modify type and amount of food and nutrients within meals and snacks. 2.Comprehensive Nutrition Education Recommendations: 1.Increase protein intake. Eat Lebanese yogurt and blended cottage cheese to help you meet your goal. Drink your protein shakes to meet your goal of 60-70 g of protein per day. Begin measuring how much pro tein you can eat on the soft diet so that you know when to start weaning off of your protein shakes. 2.Increase your fluid intake. Keep your drink with you at all times to remind you to sip. Drink 64 oz. of zero calorie beverages per day 3.Continue no drinking 30 min before, during the meal and for 30 minutes after the meal 4.Continue to exercise 5.Advance to the puree diet for 1 week, then soft food for 3 weeks 6.Remember to eat slowly and chew thoroughly 7.Try one new food at a time to test for any intolerances. 8.Take all of your vitamins and minerals. Take enough calcium to meet your goal of 1200-1500mg per day Nutrition Monitoring and Evaluation: 1-2 pounds weight loss per week Criteria: weight check, food recall Need for Follow-up: 6 weeks post op Livia FREIRE, [facility] Bariatric Surgery Dietitian Patient Discussion/Summary Recommendations: 1.Increase protein intake. Eat Lebanese yogurt and blended cottage cheese to help you meet your goal. Drink your protein shakes to meet your goal of 60-70 g of protein per day. Begin measuring how much pro tein you can eat on the soft diet so that you know when to start weaning off of your protein shakes. 2.Increase your fluid intake. Keep your drink with you at all times to remind you to sip. Drink 64 oz. of zero calorie beverages per day 3.Continue no drinking 30 min before, during the meal and for 30 minutes after the meal 4.Continue to exercise 5.Advance to the puree diet for 1 week, then soft food for 3 weeks 6.Remember to eat slowly and chew thoroughly 7.Try one new food at a time to test for any intolerances. 8.Take all of your vitamins and minerals. Take enough calcium to meet your goal of 1200-1500mg per day Nutrition Monitoring and Evaluation: 1-2 pounds weight loss per week Criteria: weight check, food recall Need for Follow-up: 6 weeks post op Livia FREIRE, [facility] Bariatric Surgery Dietitian .. End of Encounter Meds Acetaminophen Extra Strength 500 MG/15ML Oral Liquid; TAKE 30 ML Every 8 hours as needed for pain; Therapy: 67Zyq9714 to (Evaluate:71Tqy9134) Requested for: 93Ylq3824; Last Rx:[id number] Ordered Estradiol 1 MG Oral Tablet; TAKE 1 TABLET BY MOUTH ONCE DAILY; Therapy: 90Lro3538 to Recorded Lansoprazole 30 MG Oral Capsule Delayed Release (Prevacid); TAKE 1 CAPSULE DAILY; Therapy: 59Tlt6110 to (Evaluate:97Yhs9466) Requested for: 18Gyq5468; Last Rx:[id number] Ordered Omeprazole 40 MG Oral Capsule Delayed Release; TAKE 1 CAPSULE Daily Open capsule, sprinkle in SF applesauce or pudding, swallow. DO NOT CHEW; Therapy: 89Dsc3042 to (Evaluate:46Rhs8296) Requested for: 15Ugz6474; Last Rx:[id number] Ordered Ondansetron 4 MG Oral Tablet Disintegrating; TAKE 4 MG Every 6 hours PRN; Therapy: 34Tni0166 to (Last Rx:57Viv2576) Requested for: 13Caa9207 Ordered Vitamin D (Ergocalciferol) 84743 UNIT Oral Capsule; Take 1 capsule TWICE weekly for 3 mo; Therapy: 48Shf8494 to (Last Rx:02Pwj9670) Requested for: 73Mdv1831 Ordered Signatures Electronically signed by : Livia Canseco RD; Feb 20 2018 12:14PM EST (Author) BARIATRIC SURGERY - Observed: 02/20/2018 Status: UNK Source: [place] FOLLOW-UP 10:17 AM [facility] Chief Complaint The patient is having the following problems: trying to get all 64 oz of fluids in trying to get her protein in slight pain. The patient is being seen today 1 week. Type of surgery: Sleeve Gastrectomy. Concerns: diarrhea only yesterday also rash around her beely thinks its from the binder. 1 week pov History of Present Illness Weight: Inital Weight: 219.5 lbs Current Weight: 210 lbs Total Weight Lost: 9.5 lbs. Food: Breakfast: protein shake Snack: jello Eating problems: trying to do everything she is supposed to be doing Lunch: broth Snack: shake Dinner: sheke Snack: jello/pudding Fluid intake: 50 oz Exercise includes walking. 67 yo F, here today for her 1 week post-op visit s/p VSG with hiatal hernia repair. Review of Systems Constitutional: no chills, no fever and no night sweats. Eyes: no blurred vision and no eyesight problems. ENT: no hearing loss, no nasal congestion, no nasal discharge, no hoarseness and no sore throat. Cardiovascular: no chest pain, no intermittent leg claudication, no lower extremity edema, no palpitations and no syncope. Respiratory: no cough, no shortness of breath during exertion, no shortness of breath at rest and no wheezing. Gastrointestinal: no abdominal pain, no blood in stools, no constipation, no diarrhea, no melena, no nausea, no rectal pain and no vomiting. Genitourinary: no dysuria, no change in urinary frequency, no urinary hesitancy, no feelings of urinary urgency and no vaginal discharge. Musculoskeletal: no arthralgias, no back pain and no myalgias. Integumentary: no new skin lesions and no rashes. Neurological: no difficulty walking, no headache, no limb weakness, no numbness and no tingling. Psychiatric: no anxiety, no depression, no anhedonia and no substance use disorders. Endocrine: no recent weight gain and no recent weight loss. Hematologic/Lymphatic: no tendency for easy bruising and no swollen glands. 10-point ROS negative other than noted in HPI. Active Problems Acute postoperative pain of abdomen (338.18,789.00) (G89.18,R10.9) Bariatric surgery status (V45.86) (Z98.84) Benign hypertension (401.1) (I10) Edema (782.3) (R60.9) Excessive daytime sleepiness (780.54) (G47.19) GERD without esophagitis (530.81) (K21.9) Hernia, hiatal (553.3) (K44.9) Low back pain (724.2) (M54.5) Morbidly obese (278.01) (E66.01) Osteoporosis screening (V82.81) (Z13.820) Post-operative nausea and vomiting (787.01) (R11.2,Z98.890) Pre-bariatric surgery nutrition evaluation (V65.3) (Z71.3) Preoperative clearance (V72.84) (Z01.818) Rheumatoid arthritis (714.0) (M06.9) RLS (restless legs syndrome) (333.94) (G25.81) Rosacea (695.3) (L71.9) S/P laparoscopic cholecystectomy (V45.89) (Z90.49) S/P total abdominal hysterectomy (V88.01) (Z90.710) Vitamin D deficiency (268.9) (E55.9) Surgical History History of Breast Surgery Reduction Procedure 1999 History of Cervical Surgery (Fish Bin Tender) removal 2002 History of Gallbladder Surgery 2006 History of Gastrectomy Sleeve Laparoscopic History of Knee Arthroplasty bilateral 2000 History of Knee Replacement bilateral 2004 History of Rotator Cuff Repair 2013 and 2015 History of Total Abdominal Hysterectomy 2001 Family History Family history of lymphoma (V16.7) (Z80.7) Family history of substance abuse (V17.0) (Z81.4) Family history of arthritis (V17.7) (Z82.61) Family history of arthritis (V17.7) (Z82.61) Family history of arthritis (V17.7) (Z82.61) Family history of arthritis (V17.7) (Z82.61) Social History Never smoker Occasional alcohol use Occasional caffeine 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 Allergies No Known Drug Allergies Recorded By: Savannah Whaley; 09/22/2015 2:24:50 PM Current Meds Gabapentin 300 MG Oral Capsule; TAKE 1 CAPSULE 3 times daily open capsule, sprinkle over SF applesauce or pudding and swallow; Therapy: 16Vai8584 to (Evaluate:93Tsa3159) Requested for: 15Zut5714; Last Rx:[id number] Ordered Rx By: Leann Thompson; Dispense: 7 Days ; #:21 Capsule; Refill: 0;For: Acute postoperative pain of abdomen; RACQUEL = N; Verified Transmission to [facility] Acetaminophen Extra Strength 500 MG/15ML Oral Liquid; TAKE 30 ML Every 8 hours as needed for pain; Therapy: 35Rob0767 to (Evaluate:37Guv9309) Requested for: 75Cmv6019; Last Rx:[id number] Ordered Rx By: Leann Thompson; Dispense: 8 Days ; #:3 X 237 ML Bottle; Refill: 1;For: Acute postoperative pain of abdomen, Bariatric surgery status; RACQUEL = N; Verified Transmission to [facility] OxyCODONE HCl - 5 MG/5ML Oral Solution; TAKE 5 ML Every 4 hours PRN pain alternate with tylenol and heating pad; Therapy: 63Zpf9742 to (Evaluate:19Pev1325); Last Rx:49Mbd3925 Ordered Rx By: Leann Thompson; Dispense: 6 Days ; #:180 ML; Refill: 0;For: Acute postoperative pain of abdomen, Bariatric surgery status; RACQUEL = N; Print Rx Triamterene-HCTZ 75-50 MG Oral Tablet; TAKE 1 TABLET DAILY; Therapy: 64Qwf5831 to (Evaluate:16Sep2016) Requested for: 32Cvm9152; Last Rx:[id number] Ordered Rx By: Daina Clark; Dispense: 90 Days ; #:90 Tablet; Refill: 3;For: Benign hypertension, Edema; RACQUEL = N; Verified Transmission to [facility] #24[facility]; Last Updated By: Porter + Sail; 02/20/2018 9:53:59 AM Lansoprazole 30 MG Oral Capsule Delayed Release; TAKE 1 CAPSULE DAILY; Therapy: 22Ykn9636 to (Evaluate:16Sep2016) Requested for: 09Cpk9628; Last Rx:64Ero3587 Ordered Rx By: Daina Clark; Dispense: 90 Days ; #:90 Capsule Delayed Release; Refill: 3;For: GERD without esophagitis; RACQUEL = N; Verified Transmission to [facility] #24[facility]; Last Updated By: Idea Shower; 09/22/2015 2:41:32 PM Omeprazole 40 MG Oral Capsule Delayed Release; TAKE 1 CAPSULE Daily Open capsule, sprinkle in SF applesauce or pudding, swallow. DO NOT CHEW; Therapy: 37Hza2561 to (Evaluate:08Vir3155) Requested for: 01Dyz3837; Last Rx:[id number] Ordered Rx By: Leann Thompson; Dispense: 30 Days ; #:30 Capsule Delayed Release; Refill: 2;For: GERD without esophagitis, Post-operative nausea and vomiting; RACQUEL = N; Verified Transmission to [facility] Ondansetron 4 MG Oral Tablet Disintegrating; TAKE 4 MG Every 6 hours PRN; Therapy: 21Vsi2817 to (Last Rx:37Roa3910) Requested for: 78Pxx2708 Ordered Rx By: Leann Thompson; Dispense: 0 Days ; #:30 Tablet Disintegrating; Refill: 1;For: Post-operative nausea and vomiting; RACQUEL = N; Verified Transmission to [facility] Vitamin D (Ergocalciferol) 09438 UNIT Oral Capsule; Take 1 capsule TWICE weekly for 3 mo; Therapy: 07Cfd3436 to (Last Rx:13Qdo5803) Requested for: 68Vjn0193 Ordered Rx By: Leann Thompson; Dispense: 0 Days ; #:8 Capsule; Refill: 2;For: Vitamin D deficiency; RACQUEL = N; Verified Transmission to [facility] Estradiol 1 MG Oral Tablet; TAKE 1 TABLET BY MOUTH ONCE DAILY; Therapy: 53Fwc5296 to Recorded Rx By: ADELAIDA; Dispense: 90 Days ; #:90 TABS; Refill: 0; RACQUEL = N; Record; Last Updated By: Compa Rocha; 11/15/2017 10:23:23 AM Vitals Vital Signs Recorded: 20Feb2018 09:49AM Heart Rate64 Qdmwbhai325 Pkroajfbe44 Height5 ft 4 in Uovbvr063 lb 2 oz BMI Gldrhrwrqy07.07 BSA Calculated2 Physical Exam Abdominal exam: soft and nontender. The surgical incision site is clean, dry and intact. Post-op, the patient is doing well, has excellent pain control and is showing no signs of infection. Instructions / Recommendations: instructed to call the office for concerns, questions, or problems. Diagnoses/Problems Bariatric surgery status (V45.86) (Z98.84) Hernia, hiatal (553.3) (K44.9) 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) (Z98.84) History of Gastrectomy Sleeve Laparoscopic Provider Impressions doing well no acute issues exam benign incisions CDI recs: advance diet increase activity cont suppleemnts PPI RTC 5 weeks Patient Discussion/Summary You are doing great! You may shower, let soap and water run over incisions, pat dry. Things will get easier over time. Remember to increase your fluids and protein to goals follow the rules of 30 and 60! Do not eat and drink at the same time. Advance your diet to full liquids/pureed foods according to the diet guidelines. See the data storage specialist as must as you need too. Slowly increase your exercise and activity, as you get all your protein you will be able to have more energy. Take your omeprazole, open the capsule and sprinkle onto applesauce. Do not swallow whole. Take your Multivitamin, B12 and calcium tablets. Follow-up in 5 weeks for your 6 week post op visit. End of Encounter Meds Acetaminophen Extra Strength 500 MG/15ML Oral Liquid; TAKE 30 ML Every 8 hours as needed for pain; Therapy: 46Nnr0400 to (Evaluate:10Zao4978) Requested for: 69Rav8072; Last Rx:[id number] Ordered Estradiol 1 MG Oral Tablet; TAKE 1 TABLET BY MOUTH ONCE DAILY; Therapy: 34Ryq2595 to Recorded Lansoprazole 30 MG Oral Capsule Delayed Release (Prevacid); TAKE 1 CAPSULE DAILY; Therapy: 04Elb9633 to (Evaluate:61Ixr2486) Requested for: 23Lwp4324; Last Rx:55Ckz8813 Ordered Omeprazole 40 MG Oral Capsule Delayed Release; TAKE 1 CAPSULE Daily Open capsule, sprinkle in SF applesauce or pudding, swallow. DO NOT CHEW; Therapy: 32Cma2751 to (Evaluate:01Ena5671) Requested for: 68Bfx2705; Last Rx:10Rmb8649 Ordered Ondansetron 4 MG Oral Tablet Disintegrating; TAKE 4 MG Every 6 hours PRN; Therapy: 64Esh0918 to (Last Rx:59Div7966) Requested for: 10Ffh3397 Ordered Vitamin D (Ergocalciferol) 31056 UNIT Oral Capsule; Take 1 capsule TWICE weekly for 3 mo; Therapy: 98Ifi4163 to (Last Rx:46Hyj2335) Requested for: 53Cki9762 Ordered Signatures Electronically signed by : Leann Thompson MD; Feb 20 2018 10:17AM EST (Author) DISCHARGE SUMMARY Observed: 02/14/2018 Status: F Source: [place] 9:10 AM [facility] Patient: CELINA [address] MR#: [id number] [place], [place] [address] : 1950 Ord[address] Hung: Dept: PDOC Loc: 2JNT 205-1 Discharge Summary Service Dt: 02/14/18 Report#: [id number] Adm Dt: 02/12/18 Dis Dt: Discharge Summary - Narrative Summary Hospital Course: Patient underwent laparoscopic sleeve gastrectomy on 02/12/18 for morbid obesity. Postoperatively she had some hypotension to systolic of 80s and a bump in her creatinine as well as hypokalemia. She received 1.5L bolus and 80meq of KCl. UGI with no leak and tolerating bariatric FLD prior to discharge. Pain controlled, ambulating, voiding. - Vital Signs Vitals: Vital Signs (last response) Temperature 37.1 C 02/14/18 06:00 Pulse/Heart Rate 63 02/14/18 06:00 Respiratory Rate 16 02/14/18 06:00 Blood Pressure 101/63 02/14/18 06:00 O2 Sat by Pulse Oximetry 95 02/14/18 06:00 - Objective Narrative Patient Exam: Gen- awake, alert CV- RRR Lungs- unlabored Abd- soft, NTND, incisions c/d/i Extr- warm - Disposition Disposition: TO HOME - Other Patient Information Activity: Activity Ordered Ambulate in [place] Diet: Diet Full Liquid Diet - Consistency Start Ngozi Feb 13 Lunch Referrals: Leann Thompson MD [Courtesy] - (9:30am on 02/20/[address] 10:00 am on 02/20/[address] Thompson) - Discharge Medications Meds: Home Medications Medication Instructions Recorded Estrogens, Conjugated 1 tab PO DAILY 12/12/17 Gabapentin [Neurontin] 600 mg PO QHS 12/12/17 SURGICAL PROGRESS Observed: 02/14/2018 Status: F Source: [place]AR[place] NOTE 8:42 AM [facility] Patient: CELINA [address] [facility] MR#: [id number] [place], [place] [address] : 1950 Ord[address] : Dept: PDOC Loc: 2JNT 205-1 Surgical Progress Note Service Dt: 02/14/18 Report#: [id number] Adm Dt: 02/12/18 Dis Dt: Surgical Progress Note - Patient Visit Reason Visit Reason: MORBID OBESITY - Chief Complaint Chief Complaint: No acute events overnight. Blood pressure improving. Give 500cc bolus and 40meq K last night after pm labs. Tolerating PO, ambulating, voiding - I O/Vital Signs I O/VS: Intake/Output/Wt 02/11/18 02/12/18 02/13/18 02/14/18 23:59 23:59 23:59 23:59 Intake Total 1700 4867.5 1220 Output Total 100 575 Balance 1600 4292.5 1220 Intake: Intake 400 4507.5 1100 Kefzol Bag 2 GM In Iso- 100 Osmotic Dextrose 100 ml @ 200 mls/hr IVPB ONCE@ 2257 ONE Rx#:[id number] Lactated Ringers Solution 1557.5 1000 1,000 ml @ 150 mls/hr IV .Q6H40M PATTI Rx#:[id number] Lactated Ringers Solution 500 500 ml @ Wide Open IV . Q0M ONE Rx#:[id number] Potassium Chloride 40 mEq 100 IVPB Bolus (100 ml) 40 meq In 100 ml @ 25 mls/hr IVPB .Q4H ONE Rx#: [id number] Anesthesia Fluid Intake 1300 in OR Oral 360 120 Output: Urine 575 Void 575 Estimated Blood Loss 100 Vital Signs (last 24 hrs) Temp Pulse Resp BP Pulse Ox 02/14/18 06:00 37.1 C 63 16 101/63 95 02/14/18 02:00 36.4 C L 67 18 97/61 94 02/13/18 22:30 75 111/63 02/13/18 22:00 75 02/13/18 20:51 37.2 C 69 20 92/59 L 02/13/18 18:00 37.5 C 71 20 101/61 93 02/13/18 16:00 66 20 94/62 95 02/13/18 14:00 36.5 C 78 20 94/62 91 L 02/13/18 12:00 37.2 C 67 20 113/71 96 - Objective Narrative Patient Exam: gen- awake, alert cv- rrr lungs-unlabored breathing abd- soft, NTND, incisions c/d/i extr- warm - Lab Diagnostic Data Diagrams: 02/14/18 06:34 02/14/18 06:34 Labs: Hematology (last 24 hrs) 02/14/18 02/13/18 06:34 18:12 WBC 7.6 9.4 RBC 3.54 L 3.54 L Hgb 10.9 L 10.8 L Hct 33.6 L 33.3 L MCV 94.9 94.1 MCH 30.8 30.5 MCHC 32.4 L 32.4 L RDW 12.4 12.3 Plt Count 193 190 MPV 9.6 9.5 Immature Gran % (Auto) 0.3 0.2 Neut % (Auto) 50 56 Lymph % (Auto) 40 35 Swisher % (Auto) 7 7 Eos % (Auto) 2 1 Baso % (Auto) 0 0 Nucleat RBC Rel Count 0.0 0.0 Immature Gran # (Auto) 0.0 0.0 Neut # (Auto) 3.8 5.3 Lymph # (Auto) 3.0 3.3 Swisher # (Auto) 0.6 0.7 Eos # (Auto) 0.2 0.1 Baso # (Auto) 0.0 L 0.0 L Chemistry (last 24 hrs) 02/14/18 02/13/18 06:34 18:12 Sodium 144 140 Potassium 3.9 3.2 L Chloride 107 104 Carbon Dioxide 31 29 Anion Gap 9.9 L 10.2 BUN 12 15 Creatinine 1.16 H 1.19 H Estim Creat Clear Calc 42 L 41 L Est GFR ( Amer) >60 >60 Est GFR (Non-Af Amer) >60 >60 Fasting Glucose 79 97 Calcium 8.2 L 8.2 L - Medications Meds: Current Medications Heparin Sodium (Heparin Sodium) 5,000 units SC Q8 [facility] Last Admin: 02/14/18 06:13 Dose: 5,000 units Pantoprazole Sodium 40 mg/ (Sodium Chloride) 10 mls @ 300 mls/hr IV DAILY [facility] PRN Reason: Protocol Stop: 02/15/18 08:59 Last Admin: 02/13/18 08:49 Dose: 300 mls/hr Lactated Ringer's (Lactated Ringers Solution) 1,000 mls @ 150 mls/hr IV .Q6H40M [facility] Last Admin: 02/14/18 06:13 Dose: 150 mls/hr Metoclopramide HCl (Reglan) 10 mg IV Q6 PRN PRN Reason: Nausea/vomiting Morphine Sulfate (Morphine Sulfate) 2 mg IV Q2 PRN PRN Reason: Pain-moderate (4-6/10) Last Admin: 02/12/18 19:03 Dose: 2 mg Ondansetron HCl (Zofran) 4 mg IV Q6 [facility] Last Admin: 02/14/18 06:13 Dose: 4 mg Oxycodone HCl (Roxicodone Hcl) 5 - 10 mg PO Q4 PRN PRN Reason: Pain Last Admin: 02/14/18 06:13 Dose: 10 mg Allergies/Adv: Allergies Allergy/AdvReac Type Severity Reaction Status Date / Time No Known Allergies Allergy Unverified 12/12/17 11:13 - Comments Impression Comments: 67yo F POD2 s/p laparoscopic sleeve gastrectomy creatinine down this morning after fluid boluses yesterday potassium up to 3.9, s/p 80meq of KCl tolerating bariatric FLD ambulating pain controlled d/c home today COMPLETE BLOOD COUNT Collected: 02/14/2018 Status: F Source: [place] W/DIFF $$ 6:34 AM [facility] REPOSITORY TYPE CODE TESTS RESULT OUT OF REFERENCE UNITS RANGE LAB WBC 4.0-11.0 10 3/uL White Blood Count 7.6 LAB RBC 4.2-5.4 10 6/uL Low Red Blood Count 3.54 LAB HGB 12.0-16.0 g/dL Low Hemoglobin 10.9 LAB HCT 35-47 % Low Hematocrit 33.6 LAB MCV 80-100 fL Mean Corpuscular Volume 94.9 LAB MCH 27-34 pg Mean Corpuscular 30.8 Hemoglobin LAB MCHC 33-37 g/dL Low Mean Corpuscular Hgb 32.4 Conc LAB RDW 11.5-14.5 % Red Cell Distribution Width 12.4 LAB PLT 150-400 10 3/uL Platelet Count 193 LAB MPV 7.4-10.4 fL Mean Platelet Volume 9.6 LAB NE% 42-76 % Neutrophils (Auto) 50 LAB LY% 24-44 % Lymphocytes (Auto) 40 LAB MO% 1-8 % Monocytes (Auto) 7 LAB EO% 0-3 % Eosinophils (Auto) 2 LAB BA% 0-1 % Basophils (Auto) 0 LAB IG% 0.0-0.9 % Immature Granulocytes 0.3 (Auto) LAB NRBC% 0.0-0.0 % Nucleated RBC 0.0 LAB NE# 1.8-7.0 10 3/uL Neutrophils # (Auto) 3.8 LAB LY# 1-3.5 10 3/uL Lymphocytes # (Auto) 3.0 LAB MO# 0.04-0.9 10 3/uL Monocytes # (Auto) 0.6 LAB EO# 0.03-0.6 10 3/uL Eosinophils # (Auto) 0.2 LAB BA# 0.04-0.9 10 /uL Low Basophils # (Auto) 0.0 LAB IG# 10 3/uL Immature Gran# (Auto) 0.0 Performed By: #### CBC, BMP #### [address] [address] BASIC METABOLIC PANEL Collected: 02/14/2018 Status: F Source: [place] $$$ 6:34 AM [facility] REPOSITORY TYPE CODE TESTS RESULT OUT OF REFERENCE UNITS RANGE LAB NA 136-145 mmol/L Sodium 144 LAB K 3.5-5.3 mmol/L Potassium 3.9 LAB CL 98-107 mmol/L Chloride $ 107 LAB CO2 21-32 mmol/L Carbon Dioxide 31 $ LAB AGAP 10-20 mmol/L Low Anion Gap 9.9 LAB BUN 6-23 mg/dL Blood Urea Nitrogen 12 Result Comment: Please note new reference range as of September. LAB CRET 0.50-1.05 mg/dL Creatinine High 1.16 Result Comment: Please note new reference range as of September. LAB GFRAA GFR () >60 LAB GFRNAA GFR (Non ) >60 Result Comment: eGFR Units of measure: mL/min/1.73 m 2 LAB ECRCL 75-115 mL/min Estimated Low Creatinine Clearance 42 LAB GLUF 74-99 mg/dL Glucose, Fasting 79 LAB CA 8.6-10.3 mg/dL Calcium $ Low 8.2 Result Comment: Please note new reference range as of September. Performed By: #### CBC, BMP #### [address] [address] COMPLETE BLOOD COUNT Collected: 02/13/2018 Status: F Source: [place] W/DIFF $$ 6:12 PM [facility] REPOSITORY Order Comment: K STILL RUNNING. RETIME TO 1800 PER RN TYPE CODE TESTS RESULT OUT OF REFERENCE UNITS RANGE LAB WBC 4.0-11.0 10 3/uL White Blood Count 9.4 LAB RBC 4.2-5.4 10 6/uL Low Red Blood Count 3.54 LAB HGB 12.0-16.0 g/dL Low Hemoglobin 10.8 LAB HCT 35-47 % Low Hematocrit 33.3 LAB MCV 80-100 fL Mean Corpuscular Volume 94.1 LAB MCH 27-34 pg Mean Corpuscular 30.5 Hemoglobin LAB MCHC 33-37 g/dL Low Mean Corpuscular Hgb 32.4 Conc LAB RDW 11.5-14.5 % Red Cell Distribution Width 12.3 LAB PLT 150-400 10 3/uL Platelet Count 190 LAB MPV 7.4-10.4 fL Mean Platelet Volume 9.5 LAB NE% 42-76 % Neutrophils (Auto) 56 LAB LY% 24-44 % Lymphocytes (Auto) 35 LAB MO% 1-8 % Monocytes (Auto) 7 LAB EO% 0-3 % Eosinophils (Auto) 1 LAB BA% 0-1 % Basophils (Auto) 0 LAB IG% 0.0-0.9 % Immature Granulocytes 0.2 (Auto) LAB NRBC% 0.0-0.0 % Nucleated RBC 0.0 LAB NE# 1.8-7.0 10 3/uL Neutrophils # (Auto) 5.3 LAB LY# 1-3.5 10 3/uL Lymphocytes # (Auto) 3.3 LAB MO# 0.04-0.9 10 3/uL Monocytes # (Auto) 0.7 LAB EO# 0.03-0.6 10 3/uL Eosinophils # (Auto) 0.1 LAB BA# 0.04-0.9 10 /uL Low Basophils # (Auto) 0.0 LAB IG# 10 3/uL Immature Gran# (Auto) 0.0 Performed By: #### CBC, BMP #### [facility] [address] [place] [address] BASIC METABOLIC PANEL Collected: 02/13/2018 Status: F Source: [place] $$$ 6:12 PM [facility] REPOSITORY Order Comment: K STILL RUNNING. RETIME TO 1800 PER RN TYPE CODE TESTS RESULT OUT OF REFERENCE UNITS RANGE LAB NA 136-145 mmol/L Sodium 140 LAB K 3.5-5.3 mmol/L Low Potassium 3.2 LAB CL 98-107 mmol/L Chloride $ 104 LAB CO2 21-32 mmol/L Carbon Dioxide 29 $ LAB AGAP 10-20 mmol/L Anion Gap 10.2 LAB BUN 6-23 mg/dL Blood Urea Nitrogen 15 Result Comment: Please note new reference range as of September. LAB CRET 0.50-1.05 mg/dL Creatinine High 1.19 Result Comment: Please note new reference range as of September. LAB GFRAA GFR () >60 LAB GFRNAA GFR (Non ) >60 Result Comment: eGFR Units of measure: mL/min/1.73 m 2 LAB ECRCL 75-115 mL/min Estimated Low Creatinine Clearance 41 LAB GLUF 74-99 mg/dL Glucose, Fasting 97 LAB CA 8.6-10.3 mg/dL Calcium $ Low 8.2 Result Comment: Please note new reference range as of September. Performed By: #### CBC, BMP #### [address] [address] SURGICAL PROGRESS Observed: 02/13/2018 Status: F Source: SHARON NOTE 12:58 PM [facility] Patient: CELINA PAT [address] [facility] MR#: [id number] [place], [place] [address] : 1950 Ord[address] : Dept: PDOC Loc: 2JNT 205-1 Surgical Progress Note Service Dt: 02/13/18 Report#: [id number] Adm Dt: 02/12/18 Dis Dt: Surgical Progress Note - Patient Visit Reason Visit Reason: MORBID OBESITY - Review of Systems Constitutional: Reports: no symptoms. Denies: chills, fever Eyes: Reports: no symptoms ENT: Reports: no symptoms Respiratory: Denies: cough, shortness of breath Cardiovascular: Denies: chest pain, palpitations Gastrointestinal: Reports: no symptoms. Denies: nausea, vomiting, diarrhea Genitourinary: Reports: no symptoms Musculoskeletal: Reports: no symptoms Integumentary: Reports: no symptoms Neurological: Denies: weakness, numbness Psychiatric: Reports: no symptoms Endocrine: Reports: no symptoms reported Hematological/Lymphatic: Reports: no symptoms Allergic/Immunologic: Reports: no symptoms - I O/Vital Signs I O/VS: Intake/Output/Wt 02/10/18 02/11/18 02/12/18 02/13/18 23:59 23:59 23:59 23:59 Intake Total 1700 100 Output Total 100 575 Balance 1600 -475 Intake: Intake 400 100 Kefzol Bag 2 GM In Iso- 100 Osmotic Dextrose 100 ml @ 200 mls/hr IVPB ONCE@ 2257 ONE Rx#:[id number] Anesthesia Fluid Intake 1300 in OR Output: Urine 575 Void 575 Estimated Blood Loss 100 Vital Signs (last 24 hrs) Temp Pulse Resp BP Pulse Ox 02/13/18 06:00 37.1 C 60 16 83/53 L 92 02/13/18 02:19 36.5 C 49 L 16 87/61 L 95 02/13/18 00:12 37.0 C 61 16 88/54 L 94 02/12/18 22:51 36.0 C L 70 18 93/64 98 02/12/18 20:57 36.1 C L 62 18 100/70 98 02/12/18 17:50 36.3 C L 63 14 98/68 96 02/12/18 15:30 36.6 C 71 13 115/70 96 02/12/18 15:15 72 11 L 138/76 96 02/12/18 15:00 69 14 137/75 96 02/12/18 14:45 71 14 137/71 98 02/12/18 14:30 36.4 C L 71 18 136/72 99 - Patient Exam General appearance: Positive: alert Limitations: Positive: no limitations HEENT: Positive: head normal inspection Respiratory: Positive: normal lung sounds bilaterally Cardiovascular: Positive: regular rate GI/Abdominal: Positive: soft, nondistended Extremities: Positive: normal inspection Neurological: Positive: alert, oriented X3, CN II-XII intact Integumentary: Positive: warm - Lab Diagnostic Data Diagrams: 02/13/18 07:20 02/13/18 07:20 Labs: Hematology (last 24 hrs) 02/13/18 07:20 WBC 9.0 RBC 3.62 L Hgb 11.3 L D Hct 33.7 L D MCV 93.1 MCH 31.2 MCHC 33.5 RDW 12.2 Plt Count 198 MPV 9.6 Immature Gran % (Auto) 0.3 Neut % (Auto) 71 Lymph % (Auto) 20 L Swisher % (Auto) 8 Eos % (Auto) 0 Baso % (Auto) 0 Nucleat RBC Rel Count 0.0 Immature Gran # (Auto) 0.0 Neut # (Auto) 6.4 Lymph # (Auto) 1.8 Swisher # (Auto) 0.7 Eos # (Auto) 0.0 L Baso # (Auto) 0.0 L Chemistry (last 24 hrs) 02/13/18 07:20 Sodium 140 Potassium 3.0 L Chloride 102 Carbon Dioxide 29 Anion Gap 12.0 BUN 17 Creatinine 1.12 H Estim Creat Clear Calc 43 L Est GFR ( Amer) >60 Est GFR (Non-Af Amer) >60 Fasting Glucose 99 Calcium 8.0 L - Medications Meds: Current Medications Heparin Sodium (Heparin Sodium) 5,000 units SC Q8 [facility] Last Admin: 02/13/18 05:06 Dose: 5,000 units Hydromorphone HCl (Dilaudid) 1 mg IV Q10M PRN PRN Reason: Pain-severe (7-10/10) Stop: 02/13/18 15:02 Pantoprazole Sodium 40 mg/ (Sodium Chloride) 10 mls @ 300 mls/hr IV DAILY [facility] PRN Reason: Protocol Stop: 02/15/18 08:59 Last Admin: 02/13/18 08:49 Dose: 300 mls/hr Lactated Ringer's (Lactated Ringers Solution) 1,000 mls @ 150 mls/hr IV .Q6H40M [facility] Ketorolac Tromethamine (Toradol Inj) 15 mg IV Q6 PRN PRN Reason: Pain-breakthrough Stop: 02/17/18 14:14 Last Admin: 02/13/18 11:46 Dose: 15 mg Meperidine HCl (Demerol) 50 mg IV ONCE PRN PRN Reason: shivering Stop: 02/13/18 15:02 Last Admin: 02/12/18 15:11 Dose: 50 mg Metoclopramide HCl (Reglan) 10 mg IV Q6 PRN PRN Reason: Nausea/vomiting Metoclopramide HCl (Reglan) 10 mg IV ONCE PRN PRN Reason: Nausea/vomiting Stop: 02/13/18 15:02 Morphine Sulfate (Morphine Sulfate) 2 mg IV Q2 PRN PRN Reason: Pain-moderate (4-6/10) Last Admin: 02/12/18 19:03 Dose: 2 mg Morphine Sulfate (Morphine Sulfate) 1 mg IV Q5M PRN PRN Reason: Pain-moderate (4-6/10) Stop: 02/13/18 15:02 Ondansetron HCl (Zofran) 4 mg IV Q6 [facility] Last Admin: 02/13/18 11:48 Dose: 4 mg Oxycodone HCl (Roxicodone Hcl) 5 - 10 mg PO Q4 PRN PRN Reason: Pain Promethazine HCl (Phenergan) 6.25 mg IV ONCE PRN PRN Reason: Nausea/vomiting Stop: 02/13/18 15:02 Last Admin: 02/12/18 14:40 Dose: 6.25 mg Allergies/Adv: Allergies Allergy/AdvReac Type Severity Reaction Status Date / Time No Known Allergies Allergy Unverified 12/12/17 11:13 - Comments Impression Comments: 02/13/18 12:59 doing well hypotension but MAP > 60 and no ALVES, lightheadedness etc UGI negative for leak tolerated clears imp: doing well plan: IL IVF bolus advance diet will consider DC later today vs tomorrow based on progress. BASIC METABOLIC PANEL Collected: 02/13/2018 Status: CANCELLED Source: [facility] $$$ 12:00 PM [facility] REPOSITORY Order Comment: added to L302, also retimed due to pt needing bolus per rn dutch TYPE CODE TESTS RESULT OUT OF REFERENCE UNITS RANGE LAB NA 136-145 Sodium LAB K 3.5-5.1 Potassium LAB CL 98-107 Chloride $ LAB CO2 21-32 Carbon Dioxide $ LAB AGAP Anion Gap LAB BUN 7-18 Blood Urea Nitrogen LAB CRET 0.50-1.05 Creatinine LAB GFRAA GFR () LAB GFRNAA GFR (Non ) LAB ECRCL 75-115 Estimated Creatinine Clearance LAB GLUF 74-106 Glucose, Fasting LAB CA 8.6-10.3 Calcium $ Performed By: #### BMP #### [address] [place] [address] UPPER G.I. SERIES Observed: 02/13/2018 Status: F Source: [facility] 11:13 AM [facility] REPOSITORY [facility] Patient: CELINA PAT [address] [facility] MR#: [id number] [place], [place] [address] : 1950 Ord. : Maria Eugenia Davila MD Dept: Diagnostic Imaging Loc: 2JNT 205-1 DI REPORT Service Dt:02/13/18 Report#: [id number] Adm Dt: 02/12/18 Dis Dt: Comments: STUDY: CR Upper G.I. Series; 02/13/2018 10:55 am INDICATION: Bariatric Surgery Postoperative. COMPARISON: None. ACCESSION NUMBER(S): [id number] ORDERING CLINICIAN: Maria Eugenia Davila TECHNIQUE: Patient was administered approximately 10 mL Gastrografin orally and evaluation of the stomach was performed under fluoroscopy with spot fluoroscopic imaging obtained. FLUOROSCOPY TIME: 2.9 min. FINDINGS: Evidence of gastric sleeve procedure. Approximately half of the administered contrast passes readily from the esophagus into the stomach. The remainder of the administered contrast remains within the distal esophagus with some esophageal retropulsion noted. This contrast did eventually pass into the stomach within approximately 15 min. No definite contrast leakage is identified. There are distended gas-filled loops of bowel throughout the partially visualized abdomen. IMPRESSION: Postoperative changes as described. No definite contrast leakage is identified. Delayed emptying of some of the administered contrast from the esophagus into the stomach although eventually did pass into the stomach within 15 min. This is probably relating to postoperative edema. Correlate clinically and follow-up as indicated. Gas-filled distended bowel loops throughout the partially visualized abdomen for which clinical correlation is recommended. Dictated by: Angel Yarbrough Electronically Signed by: Angel Yarbrough 02/13/2018 11:17 AM COMPLETE BLOOD COUNT Collected: 02/13/2018 Status: F Source: [facility] W/DIFF $$ 7:20 AM [facility] REPOSITORY TYPE CODE TESTS RESULT OUT OF REFERENCE UNITS RANGE LAB WBC 4.0-11.0 10 3/uL White Blood Count 9.0 LAB RBC 4.2-5.4 10 6/uL Low Red Blood Count 3.62 LAB HGB 12.0-16.0 g/dL Low Hemoglobin 11.3 LAB HCT 35-47 % Low Hematocrit 33.7 LAB MCV 80-100 fL Mean Corpuscular Volume 93.1 LAB MCH 27-34 pg Mean Corpuscular 31.2 Hemoglobin LAB MCHC 33-37 g/dL Mean Corpuscular Hgb 33.5 Conc LAB RDW 11.5-14.5 % Red Cell Distribution Width 12.2 LAB PLT 150-400 10 3/uL Platelet Count 198 LAB MPV 7.4-10.4 fL Mean Platelet Volume 9.6 LAB NE% 42-76 % Neutrophils (Auto) 71 LAB LY% 24-44 % Low Lymphocytes (Auto) 20 LAB MO% 1-8 % Monocytes (Auto) 8 LAB EO% 0-3 % Eosinophils (Auto) 0 LAB BA% 0-1 % Basophils (Auto) 0 LAB IG% 0.0-0.9 % Immature Granulocytes 0.3 (Auto) LAB NRBC% 0.0-0.0 % Nucleated RBC 0.0 LAB NE# 1.8-7.0 10 3/uL Neutrophils # (Auto) 6.4 LAB LY# 1-3.5 10 3/uL Lymphocytes # (Auto) 1.8 LAB MO# 0.04-0.9 10 3/uL Monocytes # (Auto) 0.7 LAB EO# 0.03-0.6 10 3/uL Low Eosinophils # (Auto) 0.0 LAB BA# 0.04-0.9 10 /uL Low Basophils # (Auto) 0.0 LAB IG# 10 3/uL Immature Gran# (Auto) 0.0 Performed By: #### CBC, BMP #### [facility] [address] [place] [address] BASIC METABOLIC PANEL Collected: 02/13/2018 Status: F Source: [place] $$$ 7:20 AM [facility] REPOSITORY TYPE CODE TESTS RESULT OUT OF REFERENCE UNITS RANGE LAB NA 136-145 mmol/L Sodium 140 LAB K 3.5-5.3 mmol/L Low Potassium 3.0 LAB CL 98-107 mmol/L Chloride $ 102 LAB CO2 21-32 mmol/L Carbon Dioxide 29 $ LAB AGAP 10-20 mmol/L Anion Gap 12.0 LAB BUN 6-23 mg/dL Blood Urea Nitrogen 17 Result Comment: Please note new reference range as of September. LAB CRET 0.50-1.05 mg/dL Creatinine High 1.12 Result Comment: Please note new reference range as of September. LAB GFRAA GFR () >60 LAB GFRNAA GFR (Non ) >60 Result Comment: eGFR Units of measure: mL/min/1.73 m 2 LAB ECRCL 75-115 mL/min Estimated Low Creatinine Clearance 43 LAB GLUF 74-99 mg/dL Glucose, Fasting 99 LAB CA 8.6-10.3 mg/dL Calcium $ Low 8.0 Result Comment: Please note new reference range as of September. Performed By: #### CBC, BMP #### [facility] [address] [place], [place] [id number] POST-ANESTHESIA CARE NOTE Observed: 02/12/2018 Status: F Source: [facility] 4:37 PM [facility] Patient: CELINA PAT MR#: [id number] [place], [place] [address] : 1950 Ord. .: Dept: PDOC Loc: 2JNT 205-1 Procedure Note Service Dt: 02/12/18 Report#: [id number] Adm Dt: 02/12/18 Dis Dt: Anesthesia DC Evaluation - Discharge Evaluation Anesthesia Discharge Evaluation: Inpatient - Vital Signs Vital Signs: Vital Signs (last response) Temperature 36.6 C 02/12/18 15:30 Pulse/Heart Rate 71 02/12/18 15:30 Respiratory Rate 13 02/12/18 15:30 Blood Pressure 115/70 02/12/18 15:30 O2 Sat by Pulse Oximetry 96 02/12/18 15:30 - Airway Airway: Patient with unassisted respiration(s) - Cardiovascular Cardiovascular: CV stable without support - Mental Status Mental Status: Awake and oriented X 3 - Pain Pain: Adequately controlled - Nausea/Vomiting Nausea/Vomiting: Absent - Post-Op Hydration Post-Op Hydration: IV fluids infusing per orders POST PROCEDURE Observed: 02/12/2018 Status: F Source: [facility] PROGRESS NOTE 2:11 PM [facility] Patient: CELINA PAT MR#: [id number] [place], [place] [address] : 1950 Ord. : Dept: PDOC Loc: 1PACUHLD PACU2-2 Post Procedure Progress Note Service Dt: 02/12/18 Report#: [id number] Adm Dt: 02/12/18 Dis Dt: Immediate Post-Procedure - Progress Note Pre-Op Diagnosis: morbid obesity, hiatal hernia Post-Op Diagnosis: morbid obesity, hiatal hernia Procedure Description: laparoscopic sleeve gastrectomy and hiatal hernia repair Type of Anesthesia: General Surgeon: Leann Thompson Assistants: Maria Eugenia Davila Assistants: Cem Calzada Complications: No Specimen(s) Removed: Yes Specify: stomach Blood Administered: No EBL (ml amount): 50cc Condition of Patient: Good OPERATIVE REPORT Observed: 02/12/2018 Status: F Source: [facility] 12:00 AM [facility] Patient: CELINA [address] MR#: [id number] [place] [address] : 1950 [address] Leann Thompson MD Dept: Transcribed Reports Loc: 2JNT 205-1 Operative Report Service Dt: 02/12/18 Report#: [id number] Adm Dt: 02/12/18 Dis Dt: 02/14/18 OPERATIVE REPORT SURGEON: Leann Thompson MD ANESTHESIOLOGIST: DENTAL HYGIENIST MOBILE COORDINATOR(S): ECHO VASCULAR TECH SURGEON: Dr. Davila. PREOPERATIVE DIAGNOSES: 1. Morbid obesity. 2. Hiatal hernia. POSTOPERATIVE DIAGNOSES: 1. Morbid obesity. 2. Hiatal hernia. OPERATION PERFORMED: Laparoscopic sleeve gastrectomy with hiatal hernia repair with intraoperative endoscopy and tap block. ANESTHESIA: GETT COMPLICATIONS: None. DISPOSITION: To recovery room. CONDITION: Stable. ESTIMATED BLOOD LOSS: Minimal. FLUIDS GIVEN: Crystalloids. SPECIMEN: Stomach. DRAINS: None. CLINICAL NOTE: Details of the Procedure: The patient is a 67-year-old female with morbid obesity with hiatal hernia, who was scheduled on elective basis for a sleeve gastrectomy and hiatal hernia repair. PROCEDURE: On the day of surgery, after verification of informed consent, she was given subq heparin and preoperative antibiotics. She was taken to the OR, placed in supine position on the table. SCDs were placed. Time-out was done. General anesthesia was established. Standard, sterile preparation and draping of abdominal wall was performed. Entry into abdominal cavity was obtained using 5 mm optical trocar in the left upper quadrant without technical problems. Pneumoperitoneum was established to 15 mmHg. There were no iatrogenic injuries at the entry site. A 15 mm port was placed supraumbilical area, 5 mm port in the right upper quadrant and 5 mm port in the left anterior axillary line areas. A Nathansen liver retractor was placed through the epigastrium. A moderate to large hiatal hernia was obvious with intercrural diameter of 4-5 cm. The upper portion of the stomach was herniating through the hiatus. Dissection was started on the greater curvature of stomach and omentum was dissected from prepyloric area all the way to the fundus. Fundus was then completely mobilized and attachments of the fundus to the short gastric vessels were divided and then dissection was done to the right of the left briana and phrenoesophageal membrane and hernia sac was divided and the stomach was reduced back into abdominal cavity. Dissection was continued anteriorly. Phrenoesophageal membrane and hernia sac was divided and then dissection was completed medial to the right briana. Once this dissection was done, now posterior dissection was done in similar fashion and attachments of the hernia sac in that area were taken down. After circumferential dissection, we made sure that the vagus nerves were identified and preserved. There was a vessel in the hepatogastric ligament, which was left intact and dissection was done proximal and distal to that blood vessel in the hepatogastric ligament to gain access to the right briana. After the dissection was completed, a Dowell drain was passed around the GE junction area and then distal 5-6 cm esophagus in the lower chest was circumferentially dissected. There was evidence of scarring in that area, likely from previous reflux from inflammation from the reflux, etc. Once all the dissection was completed and we made sure at least 3 cm intraabdominal esophageal length was obtained. Now the residual attachments of the fundus to the medial corner of the spleen were taken down after dissection was completed. Now, cruroplasty was performed. Three [id number] Surgidac 0 sutures were placed using EndoStitch device posteriorly. A 36 Macedonian ViSiGi tube was passed through the esophagus to calibrate and enough space was left around the esophagus to make sure no narrowing was created. Now, a sleeve gastrectomy was created around the outer edge of the ViSiGi tube starting 5 cm from the pylorus. First Tri-Staple black load was fired, second black load was fired against the incisura and then serially purple loads all the way to the angle of His. Staple lines were inspected. No technical issues were noted and a leak test was performed through the ViSiGi tube. Pylorus was occluded. Sleeve was submerged underwater. Good amount of air was insufflated through the ViSiGi tube and good distention of the sleeve was obtained. There was no evidence of any air bubbles. The tube was removed and a gastroscope was passed and at this point the omentopexy was done to keep the sleeve into the abdominal cavity to prevent its herniation. Four interrupted 2-0 Polysorb sutures were placed at the staple line junctions and thus tacked edge of the omentum to the staple line of the sleeve. Once this was accomplished, now gastroscopy was performed. Pylorus was occluded. Once again, the scope was advanced all the way to the gastric antrum. There was no evidence of any air bubbles. There was no evidence of any internal bleeding, narrowing or kinks. Scope was removed. Fluid was aspirated. Tap block was performed in the anterior lines on both sides. The specimen was extracted through the 15-mm port site and fascial defect was closed with 2 interrupted 0 Vicryl sutures using suture passer under laparoscopic vision. After final satisfactory examination of abdominal cavity, trocars were removed. Liver retractor was removed. Pneumoperitoneum was discontinued. Specimen extraction site was copiously irrigated. Skin was closed with 4-0 Biosyn. Dermabond was applied. The patient tolerated the operation well, was extubated in the OR and transferred to recovery room in stable condition. Leann Thompson MD D#: [id number] C#: [id number] <Electronically signed by Leann Thompson MD> 02/19/18 1047 PATRICKOV Observed: 02/11/2018 Status: COMPLETED Source: [facility] 10:40 AM [facility] REPOSITORY Office Visit (NSAGBA) CELINA PAT ([id number]) 1950 [facility] Date Time Provider Department 02/11/18 10:40 AM MICHAEL LOPEZ JR During your visit today, we recorded the following information about you: Pulse Respiration Blood pressure Weight 65/minute 16/minute 115/82 94.3 kg Height 1.626 m Michael Lopez MD 02/11/2018 11:07 AM Signed ESTABLISHED PATIENT VISIT HISTORY OF PRESENT ILLNESS: Celina Pat is a 67 year old female, There were no vitals taken for this visit. with a PMH significant for: 1. RLS (restless legs syndrome) - ICD9: 333.94, ICD10: G25.81 Overall patient doing well with controlled symptoms on Gabapentin 600mg (1-2 tabs) QHS at time of last visit.. 2. Back pain (lumbar without radiation of claudication) Exacerbation of chronic condition at time of last visit. Follows with pain mgmt (Dr. Rachel). Patient reports she is doing well. Only needing gabapentin 600mg QHS for the RLS. Patient states she is to have gastric sleeve placed tomorrow. Also to have hiatal hernia repair. She states she can no longer take large pills anymore. Thus will need capsules or liquid. Still having low back pain. She is still getting injection therapy. Uses lidocaine patches. She does not want to be on pain pills daily. She will consider gabapentin through the day if pain worse. REVIEW OF SYSTEMS GENERAL:No weight loss, malaise or fevers. HEENT:Negative for frequent or significant headaches, No changes in hearing or vision, no nose bleeds or other nasal problems NECK:Negative for lumps, goiter, pain and significant neck swelling RESPIRATORY: Negative for cough, wheezing or shortness of breath. CARDIOVASCULAR: Negative for chest pain, leg swelling or palpitations. GASTROINTESTINAL: Negative for abdominal discomfort, blood in stools or black stools or change in bowel habits GENITOURINARY: No history of dysuria, frequency or incontinence MUSCULOSKELETAL: Negative for joint pain or swelling, back pain or muscle pain. NEUROLOGIC:Negative for focal numbness or weakness, headaches and dizziness or syncope, vision changes, speech/languag changes - EXCEPT that as per HPI above. SKIN:Negative for lesions, rash, and itching. PSYCHIATRIC: Negative for sleep disturbance, mood disorder and recent psychosocial stressors. HEMATOLOGIC/LYMPHATIC/IMMUNOLOGIC:Negative for prolonged bleeding, bruising easily or swollen nodes. ENDOCRINE: Negative for cold or heat intolerance, polyuria, polydipsia and goiter. The remainder of the ROS was reviewed and is negative. LAB/IMAGING: Those performed since patient's last visit have been reviewed. WBC (k/uL) Date Value 09/13/2016 7.53 RBC (m/uL) Date Value 09/13/2016 4.88 Hemoglobin (g/dL) Date Value 09/13/2016 15.1 Hematocrit (%) Date Value 09/13/2016 46.3 (H) MCV (fL) Date Value 09/13/2016 94.9 MCH (pG) Date Value 09/13/2016 30.9 MCHC (g/dL) Date Value 09/13/2016 32.6 RDW-CV (%) Date Value 09/13/2016 12.2 Platelet Count (k/uL) Date Value 09/13/2016 254 MPV (fL) Date Value 09/13/2016 9.9 Glucose (mg/dL) Date Value 09/13/2016 88 BUN (mg/dL) Date Value 09/13/2016 13 Creatinine (mg/dL) Date Value 09/13/2016 1.07 (H) Sodium (mmol/L) Date Value 09/13/2016 142 Potassium (mmol/L) Date Value 09/13/2016 3.2 (L) Chloride (mmol/L) Date Value 09/13/2016 101 CO2 (mmol/L) Date Value 09/13/2016 30 Calcium (mg/dL) Date Value 09/13/2016 9.3 Hep C Antibody IA (no units) Date Value 09/13/2016 Negative MEDICATIONS: gabapentin (NEURONTIN) 600 mg tablet Take 1-2 tablets by mouth daily at bedtime for 90 days. dexamethasone sodium phosphate (DECADRON) 4 mg/mL injection 4 mg as directed. for use by physical therapist for iontophoresis triamterene-hydrochlorothiazide (MAXZIDE) 75-50 mg per tablet Take 1 tablet by mouth once daily. lansoprazole (PREVACID) 30 mg capsule Take 1 capsule by mouth once daily. estradiol (ESTRACE) 1 mg tablet Take 1 tablet by mouth once daily. HISTORIES PAST MEDICAL HISTORY Diagnosis Date - Esophageal reflux Resolved - Generalized osteoarthrosis, unspecified site knee(BOTH) says RA on plaquenil as well - hx of BABITA resolved with sling - Other specified disorder of gallbladder - Postmenopausal HRT (hormone replacement therapy) 06/2014 normal E2 - Restless leg syndrome - Rheumatoid disease (HCC) sees local rheum was on MTX then plaquenil - Rosacea on tx - Rotator cuff disorder bilateral - Ruptured disk L1 - Squamous cell skin cancer - Symptomatic states associated with artificial menopause 2000 fibroids - Unspecified constipation - Vitamin D deficiency 06/2014 22.7 FAMILY HISTORY Problem Relation Age of Onset - Cancer Father - Macular Degen Paternal Grandfather - Stroke Paternal Aunt - Macular Degen Paternal Aunt - Heart Paternal Uncle SOCIAL HISTORY Social History Substance Use Topics - Smoking status: Never Smoker - Smokeless tobacco: Never Used - Alcohol use 1.5 oz/week 1 Glasses of Wine (5oz) per week PHYSICAL EXAMINATION Blood pressure 115/82, pulse 65, resp. rate 16, height 5' 4 (1.626 m), weight 208 lb (94.3 kg), SpO2 97 %. GENERAL EXAM: General appearance: NAD, pleasant. HEENT: NC/AT, nasal congestion absent, no oral lesions, membranes moist. NECK: No masses, supple. Lungs: CTA bilaterally. CV: RRR nl S1, S2. No carotid bruits. Abd: Soft, nontender, nondistended. Bowel sounds present. Extr: No cyanosis, clubbing or edema. Extremity pulses palpable and normal. Skin: Cool to touch. NEUROLOGICAL EXAM: General: Awake, alert, oriented x3 (person,place,time), speech fluent, no dysarthria; comprehension, naming, repetition intact. Short and group home memory intact. Fund of knowledge grossly normal by MOCA. CN: PERRL, fundi appear normal including no evidence of papilledema, EOMI and without nystagmus, VFF to confrontation, facial sensation and strength are normal and symmetric, hearing is intact to finger rub bilaterally, palate and tongue movements are intact and symmetric. SCM and trapezius strength normal. Motor: Normal tone, bulk and strength (5/5) bilaterally (throughout extremities x4). Reflexes: 2/4 and symmetric, plantar stimulation is flexor. Coordination: FNF, POOJA, HTS intact. No tremors. Sensation: LT, PP, vibration, temperature intact throughout. No evidence of neglect. Gait: Narrow based and stable with normal stride and arm swing. Normal tandem. Romberg normal. Assessment and Plan: ASSESSMENT/PLAN: 1. RLS (restless legs syndrome) - ICD9: 333.94, ICD10: G25.81 (primary diagnosis) Will continue gabapentin 600mg nightly (with occasional use of 1200mg prn). Will change from tablets to capsules due to GI issues above. If needed will change to liquid. Advised patient to inform those doing surgery and caring for patient in hospital need for meds while inpt. Can use ativan prn for symptoms if not po meds allowed. 2. Chronic low back pain, unspecified back pain laterality, with sciatica presence unspecified - ICD9: 724.2, 338.29, ICD10: M54.5, G89.29 Follows with pain mgmt. However, consider increasing gabapentin to all day med if needed for back pain. Does not want surgery. Michael Lopez MD I spent 25 minutes in the visit, with more than 50% of the total [id number] time of the visit in counseling / coordination of care. Michael Lopez MD 02/11/2018 11:10 AM Signed Addended by: MICHAEL LOPEZ on: 02/11/2018 11:10 AM Modules accepted: Orders Michael Lopez MD 02/11/2018 11:17 AM Signed Addended by: MICHAEL LOPEZ on: 02/11/2018 11:17 AM Modules accepted: Orders Referring Provider: SELF [200] Allergies As of Date: 02/11/2018 Noted Allergy Reaction CODEINE 09/28/2002 Comments: nausea, vomiting DEMEROL (MEPERIDINE (PF)) 10/08/2005 SULFA (SULFONAMIDE ANTIBIOTICS) 09/28/2002 Comments: nausea, vomiting Date Reviewed: 02/11/2018 Reviewed by: Michael Lopez Jr. - Fully Assessed Reason for Visit: Follow Up [171] Primary Visit Diagnosis:RLS (restless legs syndrome) [G25.81] Other Visit Diagnosis:Chronic low back pain, unspecified back pain laterality, with sciatica presence unspecified [M54.5, G89.29] Order(s):gabapentin (NEURONTIN) 300 mg capsuleTake 2 capsules by mouth daily at bedtime for 90 days. If needed can increase to 4 capsules at bedtime.Disp: 180 capsuleRfl: 0 Prescriptions as of 02/11/2018 Sig: TRIAMTERENE 75 MG-HYDROCHLORO* Take 1 tablet by mouth once d* LANSOPRAZOLE 30 MG CAPSULE,DE* Take 1 capsule by mouth once * ESTRADIOL 1 MG TABLET Take 1 tablet by mouth once d* GABAPENTIN 300 MG CAPSULE Take 2 capsules by mouth lyubov* DEXAMETHASONE 4 MG/ML INJECTI* 4 mg as directed. 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 Restless leg syndrome [G25.81] Vitamin D deficiency [E55.9] Peroneal tendinitis of right lower extremity [M*INVALID FOR* Prescriptions ordered this encounter Disp Refills Start End GABAPENTIN 300 MG CAPSULE 180 * 0 02/11/2018 02/11/2018 Route: ORAL Sig: Take 2 capsules by mouth daily at bedtime for 90 days. If needed can increase to 4 capsules at bedtime. GABAPENTIN 300 MG CAPSULE 180 * 0 02/11/2018 05/12/2018 Route: ORAL Sig: Take 2 capsules by mouth daily at bedtime for 90 days. If needed can increase to 4 capsules at bedtime. Medications Discontinued During This Encounter gabapentin (NEURONTIN) 600 mg tablet 180 * 0 11/27/2017 02/11/2018 Route: ORAL Sig: Take 1-2 tablets by mouth daily at bedtime for 90 days. Disc: Reason for discontinue is not on file. gabapentin (NEURONTIN) 300 mg capsule 180 * 0 02/11/2018 02/11/2018 Route: ORAL Sig: Take 2 capsules by mouth daily at bedtime for 90 days. If needed can increase to 4 capsules at bedtime. Disc: Reason for discontinue is not on file. Disposition: Return in about 1 year (around 02/11/2019). Follow-up and Disposition History Recorded Encounter Status:Closed by MICHAEL LOPEZ on 02/11/18 PROGRESS Observed: 02/11/2018 Status: COMPLETED Source: [place] 8:22 AM CLINIC OTHER CAMPUS REPOSITORY HNO ID: [id number] Author: Michael Lopez Jr. Service: (none) Author Type: Physician Type: Progress Notes Filed: 02/11/2018 11:07 AM Note Text: ESTABLISHED PATIENT VISIT HISTORY OF PRESENT ILLNESS: Celina Pat is a 67 year old female, There were no vitals taken for this visit. with a PMH significant for: 1. RLS (restless legs syndrome) - ICD9: 333.94, ICD10: G25.81 Overall patient doing well with controlled symptoms on Gabapentin 600mg (1-2 tabs) QHS at time of last visit.. 2. Back pain (lumbar without radiation of claudication) Exacerbation of chronic condition at time of last visit. Follows with pain mgmt (Dr. Rachel). Patient reports she is doing well. Only needing gabapentin 600mg QHS for the RLS. Patient states she is to have gastric sleeve placed tomorrow. Also to have hiatal hernia repair. She states she can no longer take large pills anymore. Thus will need capsules or liquid. Still having low back pain. She is still getting injection therapy. Uses lidocaine patches. She does not want to be on pain pills daily. She will consider gabapentin through the day if pain worse. REVIEW OF SYSTEMS GENERAL:No weight loss, malaise or fevers. HEENT:Negative for frequent or significant headaches, No changes in hearing or vision, no nose bleeds or other nasal problems NECK:Negative for lumps, goiter, pain and significant neck swelling RESPIRATORY: Negative for cough, wheezing or shortness of breath. CARDIOVASCULAR: Negative for chest pain, leg swelling or palpitations. GASTROINTESTINAL: Negative for abdominal discomfort, blood in stools or black stools or change in bowel habits GENITOURINARY: No history of dysuria, frequency or incontinence MUSCULOSKELETAL: Negative for joint pain or swelling, back pain or muscle pain. NEUROLOGIC:Negative for focal numbness or weakness, headaches and dizziness or syncope, vision changes, speech/languag changes - EXCEPT that as per HPI above. SKIN:Negative for lesions, rash, and itching. PSYCHIATRIC: Negative for sleep disturbance, mood disorder and recent psychosocial stressors. HEMATOLOGIC/LYMPHATIC/IMMUNOLOGIC:Negative for prolonged bleeding, bruising easily or swollen nodes. ENDOCRINE: Negative for cold or heat intolerance, polyuria, polydipsia and goiter. The remainder of the ROS was reviewed and is negative. LAB/IMAGING: Those performed since patient's last visit have been reviewed. WBC (k/uL) Date Value 09/13/2016 7.53 RBC (m/uL) Date Value 09/13/2016 4.88 Hemoglobin (g/dL) Date Value 09/13/2016 15.1 Hematocrit (%) Date Value 09/13/2016 46.3 (H) MCV (fL) Date Value 09/13/2016 94.9 MCH (pG) Date Value 09/13/2016 30.9 MCHC (g/dL) Date Value 09/13/2016 32.6 RDW-CV (%) Date Value 09/13/2016 12.2 Platelet Count (k/uL) Date Value 09/13/2016 254 MPV (fL) Date Value 09/13/2016 9.9 Glucose (mg/dL) Date Value 09/13/2016 88 BUN (mg/dL) Date Value 09/13/2016 13 Creatinine (mg/dL) Date Value 09/13/2016 1.07 (H) Sodium (mmol/L) Date Value 09/13/2016 142 Potassium (mmol/L) Date Value 09/13/2016 3.2 (L) Chloride (mmol/L) Date Value 09/13/2016 101 CO2 (mmol/L) Date Value 09/13/2016 30 Calcium (mg/dL) Date Value 09/13/2016 9.3 Hep C Antibody IA (no units) Date Value 09/13/2016 Negative MEDICATIONS: gabapentin (NEURONTIN) 600 mg tablet Take 1-2 tablets by mouth daily at bedtime for 90 days. dexamethasone sodium phosphate (DECADRON) 4 mg/mL injection 4 mg as directed. for use by physical therapist for iontophoresis triamterene-hydrochlorothiazide (MAXZIDE) 75-50 mg per tablet Take 1 tablet by mouth once daily. lansoprazole (PREVACID) 30 mg capsule Take 1 capsule by mouth once daily. estradiol (ESTRACE) 1 mg tablet Take 1 tablet by mouth once daily. HISTORIES PAST MEDICAL HISTORY Diagnosis Date - Esophageal reflux Resolved - Generalized osteoarthrosis, unspecified site knee(BOTH) says RA on plaquenil as well - hx of BABITA resolved with sling - Other specified disorder of gallbladder - Postmenopausal HRT (hormone replacement therapy) 06/2014 normal E2 - Restless leg syndrome - Rheumatoid disease (HCC) sees local rheum was on MTX then plaquenil - Rosacea on tx - Rotator cuff disorder bilateral - Ruptured disk L1 - Squamous cell skin cancer - Symptomatic states associated with artificial menopause 2000 fibroids - Unspecified constipation - Vitamin D deficiency 06/2014 22.7 FAMILY HISTORY Problem Relation Age of Onset - Cancer Father - Macular Degen Paternal Grandfather - Stroke Paternal Aunt - Macular Degen Paternal Aunt - Heart Paternal Uncle SOCIAL HISTORY Social History Substance Use Topics - Smoking status: Never Smoker - Smokeless tobacco: Never Used - Alcohol use 1.5 oz/week 1 Glasses of Wine (5oz) per week PHYSICAL EXAMINATION Blood pressure 115/82, pulse 65, resp. rate 16, height 5' 4 (1.626 m), weight 208 lb (94.3 kg), SpO2 97 %. GENERAL EXAM: General appearance: NAD, pleasant. HEENT: NC/AT, nasal congestion absent, no oral lesions, membranes moist. NECK: No masses, supple. Lungs: CTA bilaterally. CV: RRR nl S1, S2. No carotid bruits. Abd: Soft, nontender, nondistended. Bowel sounds present. Extr: No cyanosis, clubbing or edema. Extremity pulses palpable and normal. Skin: Cool to touch. NEUROLOGICAL EXAM: General: Awake, alert, oriented x3 (person,place,time), speech fluent, no dysarthria; comprehension, naming, repetition intact. Short and long term care administrator memory intact. Fund of knowledge grossly normal by MOCA. CN: PERRL, fundi appear normal including no evidence of papilledema, EOMI and without nystagmus, VFF to confrontation, facial sensation and strength are normal and symmetric, hearing is intact to finger rub bilaterally, palate and tongue movements are intact and symmetric. SCM and trapezius strength normal. Motor: Normal tone, bulk and strength (5/5) bilaterally (throughout extremities x4). Reflexes: 2/4 and symmetric, plantar stimulation is flexor. Coordination: FNF, POOJA, HTS intact. No tremors. Sensation: LT, PP, vibration, temperature intact throughout. No evidence of neglect. Gait: Narrow based and stable with normal stride and arm swing. Normal tandem. Romberg normal. Assessment and Plan: ASSESSMENT/PLAN: 1. RLS (restless legs syndrome) - ICD9: 333.94, ICD10: G25.81 (primary diagnosis) Will continue gabapentin 600mg nightly (with occasional use of 1200mg prn). Will change from tablets to capsules due to GI issues above. If needed will change to liquid. Advised patient to inform those doing surgery and caring for patient in hospital need for meds while inpt. Can use ativan prn for symptoms if not po meds allowed. 2. Chronic low back pain, unspecified back pain laterality, with sciatica presence unspecified - ICD9: 724.2, 338.29, ICD10: M54.5, G89.29 Follows with pain mgmt. However, consider increasing gabapentin to all day med if needed for back pain. Does not want surgery. Michael Lopez MD I spent 25 minutes in the visit, with more than 50% of the total [id number] time of the visit in counseling / coordination of care. HISTORY AND PHYSICAL Observed: 01/31/2018 Status: F Source: [facility] 8:10 AM [facility] REPOSITORY [facility] Patient: CELINA PAT7 [facility] MR#: [id number] [place], [place] [address] : 1950 OrdShanti Hung: Dept: PDOC Loc: PAT History Physical Service Dt: 01/31/18 Report#: [id number] Adm Dt: 01/30/18 Dis Dt: History and Physical - Date of Service Date of Service: 01/31/18 - PCP/Chief Complaint Chief Complaint: morbid obesity - Patient Information HPI/ROS/Exam: 67 yo female desire weight loss surgery.Patient has tried Weight Watcher's and a hospital supervised diet and loses only small amounts of weight and gains weight back.Has BMI 35.94. Has medical h/o HTN,RA,DONAVAN and GERD.Had EGD as part of pre op work up and hiatal hernia noted.Scheduled for laparoscopic sleeve gastrectomy /hiatal hernia repair. Cardiac: Edema, HTN Other Neurological Hx: RLS Respiratory: Sleep Apnea GI: Gall Bladder Removed (2005), GERD, Hiatal Hernia Other GI HX: EGD , Female: Breast Surgery (reduction 1998), Fish Bin Tender Surgery (cervical surgery 2001) , Hysterectomy (2000) Musculoskeletal: Knee replacement, left, Knee replacement, right, Orthopedic surgery (bilateral rotator cuff repair), Osteoarthritis, Rheumatoid Arthritis - Past Surgical History Surgical: EGD,breast reduction,cervical surgery,cholecystectomy,bilateral TKR,bilateral rotator cuff repair,BC severe post op N V - Social History Smoking Status: Never smoker Does Patient Dip or Chew Tobacco: No Alcohol Use: Yes Frequency: social Use of Substances/Recreational Drugs: No - Family Health History Father Family Member Hx: Cancer (lymphoma) Mother Family Member Hx: No Medical History - Allergies Allergies/Adverse Reactions: Allergies No Known Allergies Allergy (Unverified 12/12/17 11:13) - Medications Home Medications: Estrogens, Conjugated 1 tab PO DAILY 12/12/17 [History Last Taken Unknown] Gabapentin [Neurontin] 600 mg PO QHS 12/12/17 [History Last Taken Unknown] Hydrochlorothiazide 1 tab PO DAILY 12/12/17 [History Last Taken Unknown] Lansoprazole [Prevacid] 30 mg PO DAILY 12/12/17 [History Last Taken Unknown] - Diagnostic Studies Lab Data: Labs (last 24 hrs) 01/30/18 01/30/18 15:00 14:00 WBC 8.4 RBC 4.50 Hgb 13.8 Hct 42.1 MCV 93.6 MCH 30.7 MCHC 32.8 L RDW 12.2 Plt Count 247 MPV 9.4 Immature Gran % (Auto) 0.2 Neut % (Auto) 57 Lymph % (Auto) 36 Swisher % (Auto) 5 Eos % (Auto) 1 Baso % (Auto) 1 Nucleat RBC Rel Count 0.0 Immature Gran # (Auto) 0.0 Neut # (Auto) 4.7 Lymph # (Auto) 3.0 Swisher # (Auto) 0.4 Eos # (Auto) 0.1 Baso # (Auto) 0.1 Sodium 139 Potassium 3.7 Chloride 98 Carbon Dioxide 29 Anion Gap 15.7 BUN 22 Creatinine 1.05 Estim Creat Clear Calc No Ht and/or Wt Est GFR ( Amer) >60 Est GFR (Non-Af Amer) >60 Fasting Glucose 88 Calcium 9.3 Total Bilirubin 0.4 AST 17 ALT 13 Alkaline Phosphatase 85 Total Protein 7.6 Albumin 4.1 Urine Color Yellow Urine Clarity Clear Urine pH 6.0 Ur Specific Dorr 1.012 Urine Protein Negative Urine Glucose (UA) Negative Urine Ketones Negative Urine Blood Negative Urine Nitrate Negative Urine Bilirubin Negative Urine Urobilinogen Normal Ur Leukocyte Esterase Negative Urine RBC 0 Urine WBC 1-2 Ur Squamous Epith Cells Rare EKG: on chart - Subjective Narrative ROS: Review of Systems completed. 67 yo desire weight loss require surgical intervention - Vital Signs Vitals: 5'4 95 kg 36.7 64 146/87 99%RA - Objective Narrative Patient Exam: 67 yo is medically appropriate for scheduled procedure - Physical Exam Constitutional: Positive: alert, in no apparent distress HEENT: Positive: head normal inspection Neck: Positive: Supple Adenopathy: Positive: No Regional Adenopathy Respiratory: Positive: normal lung sounds bilaterally Cardiovascular: Positive: regular rate, normal rhythm, +S1, +S2, other (no c/o chest pain) GI/Abdominal: Positive: soft, nontender, nondistended : Positive: deferred Extremities: Positive: no edema Neurological: Positive: alert, oriented X3 Integumentary: Positive: warm, dry Psychiatric: Positive: normal affect, normal mood - Assessment and Plan (1) Morbid obesity Status: Acute Plan: 01/31/18 08:20 02/12/18 laparoscopic sleeve gastrectomy /hiatal hernia repair - Comments Impression Comments: 01/31/18 08:26 67 yo scheduled for surgery with Dr Thompson is medically appropriate for procedure.Patient denies acute cardiac issues.Has cardiac clearance from Dr Rocha Review and update is required if H P is greater than twenty- four hours. The patient was examined, the H P was reviewed. __ No Changes __ Changes noted below: Date/Time Attending Physician URINALYSIS Collected: 01/30/2018 Status: F Source: [facility] 3:00 PM [facility] REPOSITORY TYPE CODE TESTS RESULT OUT OF REFERENCE UNITS RANGE LAB UCOL Color, Urine Yellow LAB [facility] Clarity, Urine Clear LAB UPH 5.0-9.0 pH, Urine 6.0 LAB USPG 1.000-1.030 Specific Dorr, Urine 1.012 LAB UTP Negative Protein, Urine Negative LAB UGL Negative Glucose, Urine Negative LAB UKET Negative Ketones, Urine Negative LAB UBLD Negative Urine Blood Negative LAB UNIT Negative Nitrates, Urine Negative LAB UBIL Negative Bilirubin, Urine Negative LAB UROB <2.0 mg/dL Urobilinogen, Normal Urine LAB ULEU Negative Leukocyte Negative Esterase, Urine LAB URBC 0-3 /HPF RBC, 0 Urine LAB UWBC 0-2 /HPF WBC, Urine 1-2 LAB EPI 0-5 /HPF Epithelial Cells Rare Performed By: #### UR #### [facility] [address] [place] [address] COMPLETE BLOOD COUNT Collected: 01/30/2018 Status: F Source: [place] W/DIFF $$ 2:00 PM [facility] REPOSITORY TYPE CODE TESTS RESULT OUT OF REFERENCE UNITS RANGE LAB WBC 4.0-11.0 10 3/uL White Blood Count 8.4 LAB RBC 4.2-5.4 10 6/uL Red Blood Count 4.50 LAB HGB 12.0-16.0 g/dL Hemoglobin 13.8 LAB HCT 35-47 % Hematocrit 42.1 LAB MCV 80-100 fL Mean Corpuscular Volume 93.6 LAB MCH 27-34 pg Mean Corpuscular 30.7 Hemoglobin LAB MCHC 33-37 g/dL Low Mean Corpuscular Hgb 32.8 Conc LAB RDW 11.5-14.5 % Red Cell Distribution Width 12.2 LAB PLT 150-400 10 3/uL Platelet Count 247 LAB MPV 7.4-10.4 fL Mean Platelet Volume 9.4 LAB NE% 42-76 % Neutrophils (Auto) 57 LAB LY% 24-44 % Lymphocytes (Auto) 36 LAB MO% 1-8 % Monocytes (Auto) 5 LAB EO% 0-3 % Eosinophils (Auto) 1 LAB BA% 0-1 % Basophils (Auto) 1 LAB IG% 0.0-0.9 % Immature Granulocytes 0.2 (Auto) LAB NRBC% 0.0-0.0 % Nucleated RBC 0.0 LAB NE# 1.8-7.0 10 3/uL Neutrophils # (Auto) 4.7 LAB LY# 1-3.5 10 3/uL Lymphocytes # (Auto) 3.0 LAB MO# 0.04-0.9 10 3/uL Monocytes # (Auto) 0.4 LAB EO# 0.03-0.6 10 3/uL Eosinophils # (Auto) 0.1 LAB BA# 0.04-0.9 10 /uL Basophils # (Auto) 0.1 LAB IG# 10 3/uL Immature Gran# (Auto) 0.0 Performed By: #### CBC, PTINR, CMP12 #### [facility] [address] [place] [address] PROTIME INR Collected: 01/30/2018 Status: F Source: [facility] 2:00 PM [facility] REPOSITORY TYPE CODE TESTS RESULT OUT OF REFERENCE UNITS RANGE LAB PT 9.8-12.7 sec Prothrombin Time $$ 10.3 Result Comment: Please note new reference range OF 06/18/2017 LAB INR 0.9-1.1 INR 0.9 Result Comment: Please note new reference range OF 06/18/2017 Performed By: #### CBC, PTINR, CMP12 #### [address] [address] COMPREHENSIVE METABOLIC Collected: 01/30/2018 Status: F Source: [facility] PANEL 2:00 PM [facility] REPOSITORY TYPE CODE TESTS RESULT OUT OF REFERENCE UNITS RANGE LAB NA 136-145 mmol/L Sodium 139 LAB K 3.5-5.3 mmol/L Potassium 3.7 LAB CL 98-107 mmol/L Chloride $ 98 LAB CO2 21-32 mmol/L Carbon Dioxide 29 $ LAB AGAP 10-20 mmol/L Anion Gap 15.7 LAB BUN 6-23 mg/dL Blood Urea Nitrogen 22 Result Comment: Please note new reference range as of September. LAB CRET 0.50-1.05 mg/dL Creatinine 1.05 Result Comment: Please note new reference range as of September. LAB GFRAA GFR () >60 LAB GFRNAA GFR (Non ) >60 Result Comment: eGFR Units of measure: mL/min/1.73 m 2 LAB GLUF 74-99 mg/dL Glucose, Fasting 88 LAB CA 8.6-10.3 mg/dL Calcium $ 9.3 Result Comment: Please note new reference range as of September. LAB TBIL 0.0-1.2 mg/dL Total Bilirubin 0.4 LAB AST 9-39 U/L Aspartate Amino Transferase $ 17 Result Comment: Please note new reference range as of September. LAB ALT 4-45 U/L Alanine Aminotransferase $ 13 Result Comment: Please note new reference range as of September. LAB TP 6.4-8.2 g/dL Total Protein 7.6 LAB ALB 3.4-5.0 g/dL Albumin, Serum $ 4.1 LAB ALKP 33-136 U/L Alkaline Phosphatase $ 85 Result Comment: Please note new reference range as of September. Performed By: #### CBC, PTINR, CMP12 #### [facility] [address] [place] [address] Observed: 01/30/2018 Status: F Source: [facility] BLOOD BANK REPORT 2:00 [facility] REPOSITORY RUN DATE: 01/30/18 [facility] LAB LIVE PAGE 1 RUN TIME: 1855 Specimen Inquiry PATIENT: CELINA PAT ACCT: [id number] LOC: U: [id number] AGE/SX: 67/F ROOM: RE02/12/[address]: Leann Thompson MD : 1950 BED: DIS: STATUS: PRE IN TLOC: SPEC #: [id number] NU: 01/30/18 STATUS: SUNIL REEvelin #: [id number] RECD: 01/30/18-[address]: Leann Thompson MD ENTERED: 01/30/18-[address]: ORD PRODS: (NO ORDERED PRODUCTS) ORD TESTS: TS, ABO/Rh (RPT) COMMENTS: Spec expiration changed by [email or web address] on 01/30/18 Reason: PAT SURG DATE 02/12/18 Test Result Flag Reference ABO/Rh Type > Blood Type B POS ABO/Rh (RPT) > Repeat ABO/Rh B POS > Antibody Screen NEGATIVE END OF REPORT Performed By: #### NEVAEH #### [facility] [address] [place] [address] BARIATRIC SURGERY - Observed: 01/30/2018 Status: UNK Source: [facility] PRE [facility] 12:25 PM [facility] REPOSIT[facility] Chief Complaint The patient is being seen for a pre op visit, surgery is scheduled for. Type of surgery: Sleeve Gastrectomy. surgery date: 02/12/18 Concerns: with hiatal hernia repair. History of Present Illness The patient is scheduled for sleeve gastrectomy on 02/12/18. the patient's weight was 219.5 at initial visit. The following clearances were received Cardiac and Psych. 67 yo F, BMI of 37, here today for her final pre-op visit for a scheduled Sleeve gastrectomy with hiatal hernia repair on 02/12. She has PMHx significant for Obesity, HTN, GERD, Edema, Low Back Pain, Ost eoporosis, Rheumatoid Arthritis, RLS Patient has a PSH significant for Breast Reduction, Cervical Surgery, Gallbladder Surgery, Knee Arthroscopy, Total Hysterectomy, Knee Replacement, Rotator Cuff Repair She has been medically optimized and cleared for surgery. PCP: supportive Psych: Tamiko Parada- cleared Cardiac: cleared- low risk Dr. Rocha Sleep Study: very mild results, no need to repeat, no equipment Labs: Mild abnormalities, repeat in PAT Vitamin D low- supplemented Tox, H pylori and Nicotine negative Crp 15.9- RA EKG: NSR EGD: 12/06/17 Regular z line @ 35cm, CP at 38 CM,with medium sized hiatal hernia, diffuse mild inflammation with erythema, single 3mm semi- sessile polyp. Path: negative. Review of Systems Constitutional: no chills, no fever and no night sweats. Eyes: no blurred vision and no eyesight problems. ENT: no hearing loss, no nasal congestion, no nasal discharge, no hoarseness and no sore throat. Cardiovascular: no chest pain, no intermittent leg claudication, no lower extremity edema, no palpitations and no syncope. Respiratory: no cough, no shortness of breath during exertion, no shortness of breath at rest and no wheezing. Gastrointestinal: no abdominal pain, no blood in stools, no constipation, no diarrhea, no melena, no nausea, no rectal pain and no vomiting. Genitourinary: no dysuria, no change in urinary frequency, no urinary hesitancy, no feelings of urinary urgency and no vaginal discharge. Musculoskeletal: no arthralgias, no back pain and no myalgias. Integumentary: no new skin lesions and no rashes. Neurological: no difficulty walking, no headache, no limb weakness, no numbness and no tingling. Psychiatric: no anxiety, no depression, no anhedonia and no substance use disorders. Endocrine: no recent weight gain and no recent weight loss. Hematologic/Lymphatic: no tendency for easy bruising and no swollen glands. 10-point ROS negative other than noted in HPI. Active Problems Bariatric surgery status (V45.86) (Z98.84) Benign hypertension (401.1) (I10) Edema (782.3) (R60.9) Excessive daytime sleepiness (780.54) (G47.19) GERD without esophagitis (530.81) (K21.9) Low back pain (724.2) (M54.5) Morbidly obese (278.01) (E66.01) Osteoporosis screening (V82.81) (Z13.820) Preoperative clearance (V72.84) (Z01.818) Rheumatoid arthritis (714.0) (M06.9) RLS (restless legs syndrome) (333.94) (G25.81) Rosacea (695.3) (L71.9) S/P laparoscopic cholecystectomy (V45.89) (Z90.49) S/P total abdominal hysterectomy (V88.01) (Z90.710) Vitamin D deficiency (268.9) (E55.9) Surgical History History of Breast Surgery Reduction Procedure 1999 History of Cervical Surgery (Fish Bin Tender) removal 2002 History of Gallbladder Surgery 2006 History of Knee Arthroplasty bilateral 2000 History of Knee Replacement bilateral 2004 History of Rotator Cuff Repair 2013 and 2015 History of Total Abdominal Hysterectomy 2001 Family History Family history of lymphoma (V16.7) (Z80.7) Family history of substance abuse (V17.0) (Z81.4) Family history of arthritis (V17.7) (Z82.61) Family history of arthritis (V17.7) (Z82.61) Family history of arthritis (V17.7) (Z82.61) Family history of arthritis (V17.7) (Z82.61) Social History Never smoker Occasional alcohol use Occasional caffeine 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 Allergies No Known Drug Allergies Recorded By: Savannah Whaley; 09/22/2015 2:24:50 PM Current Meds Triamterene-HCTZ 75-50 MG Oral Tablet; TAKE 1 TABLET DAILY; Therapy: [id number] to (Evaluate:16Sep2016) Requested for: 59Yat1733; Last Rx:[id number] Ordered Rx By: Daina Clark; Dispense: 90 Days ; #:90 Tablet; Refill: 3;For: Benign hypertension, Edema; RACQUEL = N; Verified Transmission to [facility]ARM[facility] #[id number]; Last Updated By: Porter + Sail; 09/22/2015 2:43:18 PM Lansoprazole 30 MG Oral Capsule Delayed Release; TAKE 1 CAPSULE DAILY; Therapy: [id number] to (Evaluate:16Sep2016) Requested for: 22Veh9906; Last Rx:[id number] Ordered Rx By: Daina Clark; Dispense: 90 Days ; #:90 Capsule Delayed Release; Refill: 3;For: GERD without esophagitis; RACQUEL = N; Verified Transmission to [facility]/PHARMACY #2469; Last Updated By: Porter + Sail; 09/22/2015 2:41:32 PM Vitamin D (Ergocalciferol) 66596 UNIT Oral Capsule; Take 1 capsule TWICE weekly for 3 mo; Therapy: 75Nio0656 to (Last Rx:[id number]) Requested for: [id number] Ordered Rx By: Leann Thompson; Dispense: 0 Days ; #:8 Capsule; Refill: 2;For: Vitamin D deficiency; RACQUEL = N; Verified Transmission to [facility] #[id number] Estradiol 1 MG Oral Tablet; TAKE 1 TABLET BY MOUTH ONCE DAILY; Therapy: [id number] to Recorded Rx By: ADELAIDA; Dispense: 90 Days ; #:90 TABS; Refill: 0; RACQUEL = N; Record; Last Updated By: Compa Rocha; 11/15/2017 10:23:23 AM Gabapentin 600 MG Oral Tablet; TAKE 1 OR 2 TABLETS BY MOUTH AT BEDTIME; Therapy: 07Aug2016 to Recorded Rx By: PRASANNA; Dispense: 90 Days ; #:180 TABS; Refill: 0; RACQUEL = N; Record; Last Updated By: Paz Koroma; 11/15/2017 9:31:13 AM Vitals Vital Signs Recorded: 60Tge1617 11:41AM Heart Rate74 Tbfooweg352 Okmwoelho93 Height5 ft 4 in Vnrqas773 lb 7 oz BMI Dxrloquxbb14.95 BSA Calculated1.99 Physical Exam General appearance: In no acute distress, well appearing and well nourished. Obese with central distribution. Eyes Conjunctiva and lids: No erythema, swelling or discharge. Ocular Motility Exam: EOMI. Ears, Nose, Mouth, and Throat - External inspection of ears and nose: Normal. Oropharynx: Normal with no erythema, edema, exudate or lesions. Neck - Neck circumference: normal Thyroid Examination: Not enlarged and there were no palpable nodules. Pulmonary - Respiratory effort: Normal respiration. Cardiovascular - Examination of extremities for edema and/or varicosities: No peripheral edema. Abdomen - Abdomen: Non-tender, no abdominal masses. Liver and spleen: No hepato- splenomegaly. Anus, perineum, and rectum: Examination deferred. No hernias appreciated. Lymphatic - Palpation of lymph nodes: No lymphadenopathy. No lymphadema in the lower extremities. Musculoskeletal - Joints, bones, and muscles: Normal. Muscle strength/tone: Normal. Skin - Skin and subcutaneous tissue: Normal without rashes or lesions. Palpation of skin and subcutaneous tissue: Normal. no venous stasis. Neurologic - Cranial Nerve Exam: Normal. Coordination: Normal gait. Psychiatric - Orientation to person, place, and time: Normal. Mood and affect: Normal. Diagnoses/Problems Bariatric surgery status (V45.86) (Z98.84) GERD without esophagitis (530.81) (K21.9) Hernia, hiatal (553.3) (K44.9) Acute postoperative pain of abdomen (338.18,789.00) (G89.18,R10.9) Post-operative nausea and vomiting (787.01) (R11.2,Z98.890) Orders Start: Gabapentin 300 MG Oral Capsule; TAKE 1 CAPSULE 3 times daily open capsule, sprinkle over SF applesauce or pudding and swallow Rx By: Leann Thompson; Dispense: 7 Days ; #:21 Capsule; Refill: 0;For: Acute postoperative pain of abdomen; RACQUEL = N; Verified Transmission to [facility] #3321; Last Updated By: Rojelio Smart[employer]itat; 01/29/2018 11:44:32 AM Start: Acetaminophen Extra Strength 500 MG/15ML Oral Liquid; TAKE 30 ML Every 8 hours as needed for pain Rx By: Leann Thompson; Dispense: 8 Days ; #:3 X 237 ML Bottle; Refill: 1;For: Acute postoperative pain of abdomen, Bariatric surgery status; RACQUEL = N; Verified Transmission to [facility] #3321; Last Updated By: Rojelio [employer]; 01/29/2018 11:44:33 AM Start: OxyCODONE HCl - 5 MG/5ML Oral Solution; TAKE 5 ML Every 4 hours PRN pain alternate with tylenol and heating pad Rx By: Leann Thompson; Dispense: 6 Days ; #:180 ML; Refill: 0;For: Acute postoperative pain of abdomen, Bariatric surgery status; RACQUEL = N; Print Rx; Last Updated By: Yasmine Winston (RN); 01/29/2018 11:43:56 AM Start: Omeprazole 40 MG Oral Capsule Delayed Release; TAKE 1 CAPSULE Daily Open capsule, sprinkle in SF applesauce or pudding, swallow. DO NOT CHEW Rx By: Leann Thompson; Dispense: 30 Days ; #:30 Capsule Delayed Release; Refill: 2;For: GERD without esophagitis, Post-operative nausea and vomiting; RACQUEL = N; Verified Transmission to [facility] #3321; Last Updated By: Rojelio Smart[employer]itat; 01/29/2018 11:44:30 AM Start: Ondansetron 4 MG Oral Tablet Disintegrating; TAKE 4 MG Every 6 hours PRN Rx By: Leann Thompson; Dispense: 0 Days ; #:30 Tablet Disintegrating; Refill: 1;For: Post-operative nausea and vomiting; RACQUEL = N; Verified Transmission to [facility] #3321; Last Updated By: Rojelio [employer]; 01/29/2018 11:44:32 AM Provider Impressions Patient is ready for surgery She is scheduled for sleeve gastrectomy and hiatal hernia. Risk, benefit alternatives were discussed again Questions were answered Perioperative care was discussed Scripts were provided Consent was obtained Diet, exercise, lifestyle modification was emphasized Risks including and not limited to bleeding, infection, leak, sepsis, stricture, need for dilatation, post-op GERD, no weight loss, weight regain, nutritional deficiency, DVT, PE, , hair loss, lose skin, need for further procedures in case any complication arise etc discussed, all questions answered. Will proceed. Patient Discussion/Summary You are scheduled for a: Sleeve Gastrectomy and hiatal hernia with Dr. Thompson on 02/12/18 YOU DO NOT NEED TO DO A BOWEL PREP. You will receive a phone call the day prior to surgery with your OR arrival time. Be sure to read over your Pre-Op book for final preparation for surgery. Make a shopping list and picking supervisor your supplements prior to surgery. You have been provided with a pain Script today- TAKE THIS TODAY to your pharmacy as it may need a prior authorization. Electronic prescriptions were sent to your pharmacy. Prescriptions for Omeprazole (antacid), Enoxaparin (DVT Prophylaxis) and Ondansetron (anti- Nausea), Gabapentin( nerve pain) have been sent to your retail pharmacy. Pick these up, these are for after surgery. Be sure to take the omeprazole, open the capsule and sprinkle over SF applesauce and take every day. DO NOT MISS A DOSE. Call with any questions! [phone] for Yasmine. End of Encounter Meds Acetaminophen Extra Strength 500 MG/15ML Oral Liquid; TAKE 30 ML Every 8 hours as needed for pain; Therapy: 18Fxg9443 to (Evaluate:37Oof3142) Requested for: 82Nqb2336; Last Rx:[id number]; Status: ACTIVE - Retrospective By Protocol Authorization Ordered Estradiol 1 MG Oral Tablet; TAKE 1 TABLET BY MOUTH ONCE DAILY; Therapy: 23Rbe4672 to Recorded Gabapentin 300 MG Oral Capsule; TAKE 1 CAPSULE 3 times daily open capsule, sprinkle over SF applesauce or pudding and swallow; Therapy: 95Xwf8223 to (Evaluate:64Ovy4303) Requested for: 35Chk3287; Last Rx:[id number]; Status: ACTIVE - Retrospective By Protocol Authorization Ordered Gabapentin 600 MG Oral Tablet; TAKE 1 OR 2 TABLETS BY MOUTH AT BEDTIME; Therapy: 07Aug2016 to Recorded Lansoprazole 30 MG Oral Capsule Delayed Release (Prevacid); TAKE 1 CAPSULE DAILY; Therapy: 34Epx0351 to (Evaluate:16Sep2016) Requested for: 84Gvr8028; Last Rx:[id number] Ordered Omeprazole 40 MG Oral Capsule Delayed Release; TAKE 1 CAPSULE Daily Open capsule, sprinkle in SF applesauce or pudding, swallow. DO NOT CHEW; Therapy: 77Djb8160 to (Evaluate:01Sga5458) Requested for: 35Rvv7592; Last Rx:52Twg3571; Status: ACTIVE - Retrospective By Protocol Authorization Ordered Ondansetron 4 MG Oral Tablet Disintegrating; TAKE 4 MG Every 6 hours PRN; Therapy: 57Bjp7034 to (Last Rx:38Hkw8749) Requested for: 77Oja0426; Status: ACTIVE - Retrospective By Protocol Authorization Ordered OxyCODONE HCl - 5 MG/5ML Oral Solution; TAKE 5 ML Every 4 hours PRN pain alternate with tylenol and heating pad; Therapy: 59Iwb9615 to (Evaluate:15Pxq6507); Last Rx:76Fcb6648; Status: ACTIVE - Retrospective By Protocol Authorization Ordered Triamterene-HCTZ 75-50 MG Oral Tablet; TAKE 1 TABLET DAILY; Therapy: 22Kjh4697 to (Evaluate:16Sep2016) Requested for: 83Ygk8922; Last Rx:16Sjb3314 Ordered Vitamin D (Ergocalciferol) 81998 UNIT Oral Capsule; Take 1 capsule TWICE weekly for 3 mo; Therapy: 14Cbd3520 to (Last Rx:29Zui7949) Requested for: 76Khu8661 Ordered Signatures Electronically signed by : Leann Thompson MD; Jan 30 2018 12:25PM EST (Author) PROTIME INR Collected: 01/30/2018 Status: CANCELLED Source: [place] 12:21 PM [facility] REPOSITORY Order Comment: Cancelled via OM: Physician Order TYPE CODE TESTS RESULT OUT OF REFERENCE UNITS RANGE LAB PT 9.8-12.7 Prothrombin Time $$ LAB INR 0.9-1.1 INR Performed By: #### PTINR #### [facility] [address] [place] [address] URINALYSIS Collected: 01/30/2018 Status: CANCELLED Source: [place] 5:50 AM [facility] REPOSITORY Order Comment: Cancelled via OM: Physician Order TYPE CODE TESTS RESULT OUT OF REFERENCE UNITS RANGE LAB UCOL Color, Urine LAB [facility] Clarity, Urine LAB UPH 5.0-9.0 pH, Urine LAB USPG 1.000-1.030 Specific Dorr, Urine LAB UTP Negative Protein, Urine LAB UGL Negative Glucose, Urine LAB UKET Negative Ketones, Urine LAB UBLD Negative Urine Blood LAB UNIT Negative Nitrates, Urine LAB UBIL Negative Bilirubin, Urine LAB UROB <2.0 Urobilinogen, Urine LAB ULEU Negative Leukocyte Esterase, Urine LAB URBC 0-3 RBC, Urine LAB UWBC 0-2 WBC, Urine LAB EPI 0-5 Epithelial Cells LAB RODRIGUE 0 Bacteria, Urine LAB MUCS Mucus, Urine Performed By: #### UR #### [facility] [address] [place] [address] Observed: 01/30/2018 Status: CANCELLED Source: [place] BLOOD BANK REPORT 12:00 AM [facility] REPOSITORY Order Comment: Cancelled via OM: Physician Order RUN DATE: 01/30/18 [facility] LAB LIVE PAGE 1 RUN TIME: 0754 Specimen Inquiry PATIENT: CELINA PAT ACCT: [id number] LOC: U: [id number] AGE/SX: 67/F ROOM: RE02/12/[address]: Leann Thompson MD : 1950 BED: DIS: STATUS: PRE IN TLOC: SPEC #: [id number] NU: 01/30/18-UNK STATUS: CAN REQ #: [id number] RECD: - SUBM DR: Leann Thompson MD ENTERED: 01/30/18-[address]: CARLINE PRODS: (NO ORDERED PRODUCTS) ORD TESTS: TS Test Result Flag Reference CANCELLED Cancelled via OM: Physician Order END OF REPORT Performed By: #### NEVAEH #### [facility] [address] [place] [address] INTERNAL MEDICINE Observed: 01/17/2018 Status: F Source: [place] OFFICE VISIT 5:[address] [facility] [address] [place] [address] OFFICE VISIT Date of Service: 01/17/18 MR#: [id number] Acct: [id number] Name: CELINA PAT Rep #: [id number] : 1950 Provider: Swathi Lagunas MD Age/Sex: 67/F Location: [facility] Status: Signed Intake Vital Signs01/17/18 Height 5 ft 4 in 01/17/18 Weight: 211 lb 01/17/18 Body Mass Index (BMI) 36.2 01/17/18 Blood Pressure 111/77 Intake Visit Reasons: ANKLE PAIN Chief Complaint: Rt. ankle pain. Is patient in pain?: Yes (Rt ankle - goes up to a 10 by end of the day) Pain scale (1-10): 3 Allergies adhesive tape Allergy (Intermediate, Verified 01/17/18 08:17) blisters Medications estradiol 1 mg tablet 1 mg PO QDAY 04/23/17 [History Confirmed 01/17/18] lansoprazole 30 mg capsule,delayed release 30 mg PO QDAY #90 cap 08/30/17 [Rx Confirmed 01/17/18] triamterene 75 mg-hydrochlorothiazide 50 mg tablet 1 tab PO QDAY #90 tab 10/15/17 [Rx Confirmed 01/17/18] gabapentin ER 300 mg tablet,extended release 24 hr 300 mg PO QPM 0 Days #10 tab 01/17/18 [Rx Confirmed 01/17/18] ropinirole 0.25 mg tablet 0.25 mg PO QHS #30 tab 01/17/18 [Rx Confirmed 01/17/18] PFSH Medical History Arthritis (Acute) Back pain (Acute) IBS (irritable bowel syndrome) (Acute) gallbladder removed (Acute) right rotaor cuff repair (Acute) Cancer, skin, squamous cell (Resolved) Gout (Resolved) Surgical History History of bilateral knee replacement (Acute) History of hysterectomy (Acute) Hx of breast reduction, elective (Acute) Status post left rotator cuff repair (Acute) Family History Mother Hypertension COPD (chronic obstructive pulmonary disease) Father Cancer lyphoma Grandmother Cancer, Onset Age: 90 Social History Smoking Status: Never smoker alcohol intake: current alcohol intake frequency: a few times a month Alcohol type: hard liquor substance use type: does not use what type of physical activity do you participate in: walking frequency: daily HPI HPI Chief Complaint: Rt. ankle pain. Details: CELINA PAT, is a 67 F who presents to the office today for follow-up. She reports persistent right ankle/foot pain. She has been seen by 2 podiatrists and has tried both systemic and topical steroids without any significant improvement. Pain is said to significantly impact her daily activities. ROS Const Constitutional: No chills, fatigue, fever(s), frequent falls, malaise, weakness, sleep problems or change in appetite Eyes Eyes: No blurry vision, change in vision, double vision, discharge or visual disturbances ENT ENT: No abnormal hearing, ear pain, ear pressure, tinnitus or dizziness/vertigo Resp Respiratory: No cough, shortness of breath or wheezing Cardio Cardiology: No chest pain at rest, chest pain with exertion, shortness of breath, dyspnea on exertion, generalized swelling, irregular heart rhythm, lightheadedness, orthopnea, fast heart rate or palpitations Gastro GI: No abdominal pain, change in bowel habits, constipation, diarrhea, nausea/dyspepsia or vomiting Genitourinary-Female: No difficulty urinating, burning urination, painful urination, urinary incontinence, urinary frequency, urinary urgency, urinary hesitancy, urinary retention, Frequent nighttime urination/ nocturia, sexual problems, genital lesions, abnormal vaginal bleeding, pelvic pain, vaginal dryness, vaginal odor or Vaginal Itching Musc Musculoskeletal: Positive for joint pain (Rt ankle) and joint swelling (Rt ankle); no back pain, limited range of motion, numbness or tingling Skin Skin: No change in skin color, itching, rash or wounds Breast Breast: No breast lump or breast pain Neuro Neurology: No frequent falls, weakness, abnormal hearing, numbness, tingling, unsteady gait/balance, dizziness, loss of vision, memory loss or visual disturbances Psych Psychiatric: No memory loss, No anxiety, No change in appetite, No depression, No Thoughts of harming yourself/Others Endo Endocrine: No fatigue, heat intolerance, increased thirst/drinking, increased hunger or increased urination Aller/Imm Allergy/Immunologic: No wheezing, itchy eyes or seasonal allergy symptoms Patricio/Lymp Hematologic/Lymphatic: No easy bleeding, easy bruising or enlarged lymph nodes Exam Const General: cooperative, no acute distress Orientation: alert, awake, oriented x3 HENMT Head: normal to inspection, atraumatic, normocephalic Ears: hearing grossly normal bilaterally Nose: external nose normal Face and sinus: normal facial exam Mouth: oral mucosae normal Neck Neck: normal visual inspection, full ROM Resp Effort AND Inspection: normal respiratory effort, able to speak in complete sentences Auscultation: Bilateral: Clear to Auscultation Cardio Rate: regular rate Rhythm: regular rhythm Heart Sounds: S1 normal, S2 normal GI Inspection: normal to inspection, obesity Palpation: soft, no hepatosplenomegaly Neuro General: alert, awake, oriented x3 Cranial Nerves: CN's II-XI intact bilaterally Extrem Other: Trace bilateral pitting edema extending to the mid stafford. Psych Appearance: grossly normal Mood: congruent mood Affect: normal affect Assessment AND Plan 1. Right ankle pain M25.571 Plan Worsening. Systemic and topical steroids have not helped with symptoms. MRI ordered. Again referred to podiatry. Orders Orders: Referrals: 2. Restless leg syndrome G25.81 Plan Currently on gabapentin however she has been advised to switch her medications due to her impending surgery. Will switch to Requip. She has had success in the past until she developed tolerance. Started 0.25 mg nightly and titrate upwards. Taper off gabapentin. 3. Obesity (BMI 30-39.9) E66.9 Plan Scheduled for surgery on 12 February. Follow-up a month after surgery. 4. Healthcare maintenance Z00.00 Plan Mammogram due in a month. Follows up with Dr. Orlando for her Pap smears. Bone density scan ordered. This note was generated with [employer] dictation software. It may contain incorrect words, spelling, and punctuation that were not noted in checking the note before signing. Plan Detail Other Orders Orders: Other Medications New: Discontinued: Coding Level of Care Code Off vis,est,level 4 Diagnoses Right ankle pain M25.571 Restless leg syndrome G25.81 Obesity (BMI 30-39.9) E66.9 Healthcare maintenance Z00.00 01/17/18 1702 <Electronically signed by Swathi Lagunas MD> Date Swathi Lagunas MD Cosigner Signature: Date (if applicable) CC: GASTROINTESTINAL ENDOSCOPY Observed: 12/13/2017 Status: F Source: [place] 7:56 AM [facility] Dept: Diagnostic Att. Dr.: Leann Thompson MD Gastrointestinal Endoscopy Loc: ENDO Report #: [id number] Adm Dt: 12/13/17 Dis Dt: Patient Name: Celina Pat Procedure Date: 12/13/2017 7:17 AM Date of : 1950 Admit Type: Outpatient Ethnicity: Race: Unknown Attending MD: Leann Thompson MD Procedure: Upper GI endoscopy Indications: Heartburn, Preoperative assessment for bariatric surgery to treat morbid obesity, obesity Providers: Leann Thompson MD (Doctor) General Surgery, Lilia York RN (Nurse) , Roseline Mendez, Trash Hauler Referring: Rema Lagunas Medicines: Midazolam 4 mg IV, Fentanyl 100 micrograms IV Complications: No immediate complications. Procedure: Pre-Anesthesia Assessment: - Prior to the procedure, a History and Physical was performed, and patient medications and allergies were reviewed. The patient is competent. The risks and benefits of the procedure and the sedation options and risks were discussed with the patient. All questions were answered and informed consent was obtained. Patient identification and proposed procedure were verified by the physician, the nurse and the printer repair technician in the pre-procedure area in the procedure room in the endoscopy suite. Mental Status Examination: alert and oriented. Airway Examination: normal oropharyngeal airway and neck mobility. Respiratory Examination: clear to auscultation. CV Examination: normal. Prophylactic Antibiotics: The patient does not require prophylactic antibiotics. Prior Anticoagulants: The patient has taken no previous anticoagulant or antiplatelet agents. ASA Grade Assessment: II - A patient with mild systemic disease. After reviewing the risks and benefits, the patient was deemed in satisfactory condition to undergo the procedure. The anesthesia plan was to use moderate sedation / analgesia (conscious sedation). Immediately prior to administration of medications, the patient was re-assessed for adequacy to receive sedatives. The heart rate, respiratory rate, oxygen saturations, blood pressure, adequacy of pulmonary ventilation, and response to care were monitored throughout the procedure. The physical status of the patient was re- assessed after the procedure. After obtaining informed consent, the endoscope was passed under direct vision. Throughout the procedure, the patient's blood pressure, pulse, and oxygen saturations were monitored continuously. The endoscope was introduced through the mouth, and advanced to the second part of duodenum. The upper GI endoscopy was accomplished without difficulty. The patient tolerated the procedure well. Findings: Esophagus was normal lumen, regular z Line, Z line at 35 CM, Crural pinch at 38 CM c/w medium-sized hiatal hernia. Diffuse mild inflammation characterized by erythema was found in the gastric antrum. Biopsies were taken with a cold forceps for Helicobacter pylori testing. Estimated blood loss was minimal. A single 3 mm semi-sessile polyp with no bleeding and no stigmata of recent bleeding was found on the greater curvature of the stomach closer to antrum. Biopsies were taken with a cold forceps for histology. Estimated blood loss was minimal. A medium-sized hiatal hernia was present on retroflexion. The ampulla, duodenal bulb, first portion of the duodenum and second portion of the duodenum were normal. Moderate Sedation: Moderate (conscious) sedation was administered by the endoscopy nurse and supervised by the endoscopist. The following parameters were monitored: oxygen saturation, heart rate, blood pressure, respiratory rate, EKG, adequacy of pulmonary ventilation, and response to care. Total physician intraservice time was 22 minutes. Impression: - Medium-sized hiatal hernia. - Gastritis. Biopsied. - A single gastric polyp. Biopsied. - Normal ampulla, duodenal bulb, first portion of the duodenum and second portion of the duodenum. Recommendation: - Patient has a contact number available for emergencies. The signs and symptoms of potential delayed complications were discussed with the patient. Return to normal activities tomorrow. Written discharge instructions were provided to the patient. - Discharge patient to home (ambulatory). - Await pathology results. - Return to Bariatric clinic as previously scheduled. - Telephone nurse practitioner for pathology results in 1 week. Procedure Code(s): --- Professional --- 77505, Esophagogastroduodenoscopy, flexible, transoral; with biopsy, single or multiple 95638, Moderate sedation services provided by the same physician or other qualified health long term care pharmacist performing the diagnostic or therapeutic service that the sedation supports, requiring the presence of an independent trained observer to assist in the monitoring of the patient's level of consciousness and physiological status; initial 15 minutes of intraservice time, patient age 5 years or older Diagnosis Code(s): --- Professional --- K44.9, Diaphragmatic hernia without obstruction or gangrene K29.70, Gastritis, unspecified, without bleeding K31.7, Polyp of stomach and duodenum R12, Heartburn Z01.818, Encounter for other preprocedural examination E66.01, Morbid (severe) obesity due to excess calories CPT copyright 2016 [employer]. All rights reserved. The codes documented in this report are preliminary and upon commissioning specialist review may be revised to meet current compliance requirements. Leann Thompson MD 12/13/2017 7:55:48 AM This report has been signed electronically. Number of Addenda: 0 Note Initiated On: 12/13/2017 7:17 AM 0756 CNCO Observed: 12/05/2017 Status: COMPLETED Source: [place] 12:00 AM [facility] REPOSITORY Letter Text Michael Lopez MD [facility] [address] [place] [address] Celina Pat December 05, 2017 Celina Pat [address] [facility] [address] Dear Celina Pat: Due to a change in your provider's schedule, it has become necessary to reschedule the following appointment: Michael Lopez MD Date: 02/11/2018 Time: 10:40 AM We apologize for any inconvenience to you, however your provider would still like to see you. Please call us at [phone] to reschedule your appointment. Sincerely, Appointment Staff OFFICE VISIT Observed: 11/15/2017 Status: UNK Source: [place] (CARDIOLOGY) 10:28 AM [facility]IT[facility] REPOSITORY Chief Complaint CELINA PAT is being seen for a cardiovascular evaluation. History of Present Illness Ms. Pat is a delightful 67-year-old woman who visits us at the [facility] for perioperative cardiovascular risk stratification prior to sleeve gastrectomy (bariatric surgery). In the office today, she states that she's doing well clinically. She denies symptoms of chest pain, shortness of breath, nausea, diaphoresis, palpitations, dizziness, lightheadedness or syncope. She does not have a histor y of epicardial obstructive coronary artery disease, congestive heart failure, valvular heart disease, or cardiac dysrhythmias. Her past medical history is as mentioned below. There are no spiritual/cultural practices/values/needs that are important to know Initial Fall Risk Screening: CELINA has not fallen in the last 6 months. Advance directives: Living Will: No living will on file. Healthcare POA: No healthcare proxy on file. Declaration of Mental Health Treatment: No mental health treatment on file. Domestic Violence Screen: Does not feel threatened or abused physically, emotionally or sexually. Do you feel UNSAFE? The patient feels safe in the home. Depression/Suicide Screening: During the past 2 weeks, the patient has not felt down, depressed or hopeless. During the past 2 weeks, the patient has not felt little interest or pleasure in doing things. She has no thoughts of harming self. She has not had thoughts of harming others. Single alcohol screening question: In the past year the patient has had 5 or more drinks (men) or 4 or more drinks (women)? 0 time(s). Single substance abuse screening question: In the past year the patient has used a recreational drug or used a prescription drug for non-medical reasons? 0 time(s). Procedure or Sedation Areas: patient has not had alcohol, recreational drugs, or prescription drugs for non-medical reasons this morning. Nutrition Screening: In the past month, there was not a day when I or anyone in my family went hungry because there was not enough food. Patient Education: The patient denies that they or the person with them has problems with hearing, speaking, seeing, moving around or learning The patient is comfortable filling out medical forms. Tobacco Screening: CELINA does not use tobacco. Has not used tobacco in the past 6 months. Active Problems Bariatric surgery status (V45.86) (Z98.84) Benign hypertension (401.1) (I10) Edema (782.3) (R60.9) Excessive daytime sleepiness (780.54) (G47.19) GERD without esophagitis (530.81) (K21.9) Low back pain (724.2) (M54.5) Morbidly obese (278.01) (E66.01) Osteoporosis screening (V82.81) (Z13.820) Preoperative clearance (V72.84) (Z01.818) Rheumatoid arthritis (714.0) (M06.9) RLS (restless legs syndrome) (333.94) (G25.81) Rosacea (695.3) (L71.9) S/P laparoscopic cholecystectomy (V45.89) (Z90.49) S/P total abdominal hysterectomy (V88.01) (Z90.710) Surgical History History of Breast Surgery Reduction Procedure 1998 History of Cervical Surgery (Fish Bin Tender) removal 2001 History of Gallbladder Surgery 2006 History of Knee Arthroplasty bilateral 2000 History of Knee Replacement bilateral 2004 History of Rotator Cuff Repair 2013 and 2015 History of Total Abdominal Hysterectomy 2001 Current Meds Triamterene-HCTZ 75-50 MG Oral Tablet; TAKE 1 TABLET DAILY; Therapy: 15Iaa9317 to (Evaluate:16Sep2016) Requested for: 68Yxp8552; Last Rx:[id number] Ordered Rx By: Daina Clark; Dispense: 90 Days ; #:90 Tablet; Refill: 3;For: Benign hypertension, Edema; RACQUEL = N; Verified Transmission to [facility] #[id number]; Last Updated By: Myke Serrato; 09/22/2015 2:43:18 PM Lansoprazole 30 MG Oral Capsule Delayed Release; TAKE 1 CAPSULE DAILY; Therapy: [id number] to (Evaluate:16Sep2016) Requested for: [id number]; Last Rx:[id number] Ordered Rx By: Daina Clark; Dispense: 90 Days ; #:90 Capsule Delayed Release; Refill: 3;For: GERD without esophagitis; RACQUEL = N; Verified Transmission to [id number]; Last Updated By: Allyn Serrato; 09/22/2015 2:41:32 PM Allergies No Known Drug Allergies Recorded By: Savannah Whaley; 09/22/2015 2:24:50 PM Family History Family history of lymphoma (V16.7) (Z80.7) Family history of substance abuse (V17.0) (Z81.4) Family history of arthritis (V17.7) (Z82.61) Family history of arthritis (V17.7) (Z82.61) Family history of arthritis (V17.7) (Z82.61) Family history of arthritis (V17.7) (Z82.61) Social History Never smoker Occasional alcohol use Occasional caffeine 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 Vitals Vital Signs Recorded: 15Nov2017 09:33AM Heart Rate71 Rmjqbjeendm15 Cidtqhej253 Maskkglji33 Height5 ft 4 in Cpbeeh272 lb BMI Chiftlzyes86.56 BSA Calculated2.01 O2 Jesssdynfy51 Physical Exam General: Sitting up comfortably in chair; in no apparent distress. HEENT: Normocephalic; atraumatic. Eyes: Anicteric. Neck: Supple; no thyromegaly; normal jugular venous pressure. Respiratory: Bilateral air entry equal. Cardiovascular: Normal S1, S2; no murmurs auscultated. Abdomen: Nondistended; nontender. Extremities: No peripheral edema present. Neurological: Oriented to time, place, and person; nonfocal. Psychiatric: Normal affect. Results/Data A twelve-lead electrocardiogram in the office today has demonstrated normal sinus rhythm. Diagnoses/Problems Preoperative clearance (V72.84) (Z01.818) Benign hypertension (401.1) (I10) Impressions Ms. Pat does not have a history of epicardial obstructive coronary artery disease, congestive heart failure, valvular heart disease, or cardiac dysrhythmias. Her activity levels are at least 4 metaboli c equivalents. She does not merit downstream workup for cardiovascular risk stratification prior to planned sleeve gastrectomy. Compa Rocha MD, FACP, FACC, [facility] Clinical Nursing Program Managerservice promoter salesperson (Cardiology) Division of Cardiovascular Medicine, Department of Medicine [facility] [employer] Medicine Structural Heart Computing Consultant [facility] Email: [email or web address] Facsimile: Orders Preoperative clearance Electrocardiogram EKG; Status:Complete; Done: 15Nov2017 09:32AM Perform:[facility]; Due:25Ahy0100; Last Updated By:Paz Koroma; 11/15/2017 9:32:21 AM;Ordered; For:Preoperative clearance; Ordered By:Compa Rocha; Unlinked Continue: Estradiol 1 MG Oral Tablet; TAKE 1 TABLET BY MOUTH ONCE DAILY Rx By: ADELAIDA; Dispense: 90 Days ; #:90 TABS; Refill: 0; RACQUEL = N; Record; Last Updated By: Compa Rocha; 11/15/2017 10:23:23 AM Patient Instructions No additional/downstream testing is indicated for cardiovascular risk stratification. We wish you all the best for planned bariatric surgery. Compa Rocha MD, MARIANAP, MARIANAC, [facility] Clinical Nursing Program Managerservice promoter salesperson (Cardiology) Division of Cardiovascular Medicine, Department of Medicine [facility] [employer] [facility] Medicine Structural Heart Computing Consultant [facility] Email: [email or web address] Facsimile: . End of Encounter Meds Lansoprazole 30 MG Oral Capsule Delayed Release (Prevacid); TAKE 1 CAPSULE DAILY; Therapy: 37Hpr6710 to (Evaluate:64Hxz1412) Requested for: 59Mqa1104; Last Rx:[id number] Ordered Triamterene-HCTZ 75-50 MG Oral Tablet; TAKE 1 TABLET DAILY; Therapy: 20Hhz6262 to (Evaluate:64Kkn5755) Requested for: 74Iis1547; Last Rx:[id number] Ordered Signatures Electronically signed by : Compa Rocha MD; Nov 15 2017 10:28AM EST (Author) MISCELLANEOUS LAB Collected: 11/14/2017 Status: F Source: [place] PROCEDURE 9:57 AM [facility] REPOSITORY Order Comment: Test(s) Ordered: H PYLORI BREATH TEST KIT SEND OUT TYPE CODE TESTS RESULT OUT OF RANGE REFERENCE UNITS LAB L801.1541 Normal [facility] LAB TEST Result Comment: TEST RESULT LIMITS H pylori Breath Test Negative Negative [facility] ORIGINAL REPORT ON FILE IN LAB CONTAINS ADDITIONAL TEST SITE INFORMATION. Performed By: #### L801.1541 #### [facility] [address] [place], [address] CBC W/DIFF, AUTOMATED Collected: 11/13/2017 Status: F Source: [place] 10:08 AM [facility] REPOSITORY TYPE CODE TESTS RESULT OUT OF RANGE REFERENCE UNITS LAB L100.1000 4.4-11.0 K/mm3 Normal WBC 8.2 LAB L100.1200 4.2-5.4 M/mm3 Normal RBC 4.33 LAB L100.1300 12.0-15.0 g/dl Normal HGB 13.5 LAB L100.1400 37-47 % Normal HCT 40.2 LAB L100.1500 81-99 fL Normal MCV 92.8 LAB L100.1600 27.0-32.0 pg Normal MCH 31.2 LAB L100.1700 32-36 g/gl Normal MCHC 33.6 LAB L100.1810 11.6-14.6 % Normal RDW CV 12.5 LAB L100.1820 35.1-43.9 fl Normal RDW SD 41.5 LAB L100.1900 150-450 K/mm3 Normal PLT 214 LAB L100.2000 6.2-12.0 fl Normal MPV 9.8 LAB L100.2100 47-70 % Normal NEUT% 57.3 LAB L100.2200 19-41 % Normal LY% 31.5 LAB L100.2300 0-10 % Normal MONO% 8.5 LAB L100.2400 0-5 % Normal EO% 2.4 LAB L100.2500 0-1 % Normal BASO% 0.2 LAB L100.2550 0.0-0.9 % Normal IM GRAN % 0.100 Result Comment: IG% - Immature Granulocytes (promyelocytes, myelocytes and metamyelocytes) > 1% indicates that a LEFT SHIFT is Present. LAB L100.2620 2.0-7.7 X10 3/uL Normal Absolute Neut 4.7 LAB L100.2720 0.83-4.51 X10 3/ul Normal Absolute Lymph 2.59 Performed By: #### L100.0100 #### [facility] [address] [place], [address] HEMOGLOBIN A1C Collected: 11/13/2017 Status: F Source: [place] 10:08 AM [facility] REPOSITORY TYPE CODE TESTS RESULT OUT OF RANGE REFERENCE UNITS LAB L501.9985 4.2-6.3 % Normal HGB A1C 5.5 Performed By: #### L501.9985 #### [facility] [address] [place], [address] PTHIN Collected: 11/13/2017 Status: F Source: [place] 10:08 AM [facility] REPOSITORY TYPE CODE TESTS RESULT OUT OF RANGE REFERENCE UNITS LAB L509.1000 18.4-80.1 pg/mL Normal PTHIN 61.5 Performed By: #### L509.1000 #### [facility] [address] [place], [address] VITAMIN B12 Collected: 11/13/2017 Status: F Source: [place] 10:08 AM [facility] REPOSITORY TYPE CODE TESTS RESULT OUT OF RANGE REFERENCE UNITS LAB L503.0105 211-911 pg/mL Normal Vitamin B12 421 Performed By: #### L503.0105, L506.1000 #### [facility] [address] [place], [address] VITAMIN D,25 HYDROXY Collected: 11/13/2017 Status: F Source: [place] 10:08 AM [facility] REPOSITORY TYPE CODE TESTS RESULT OUT OF REFERENCE UNITS RANGE LAB L506.1000 29.95-100.01 ng/mL Low Vitamin D 15.9 25-OH Result Comment: Vitamin D 25(OH) Status Range Deficiency <20 ng/mL (50nmol/L) Insuffciency 20 - 30 ng/mL (50 - 75 nmol/L) Sufficiency 30 - 100 ng/mL (75 - 250 nmol/L) Toxicity >100 ng/mL (>250 nmol/L) Performed By: #### L503.0105, L506.1000 #### [facility] [address] [place], [place], [address] COMPREHENSIVE METABOLIC Collected: 11/13/2017 Status: F Source: [place] [facility] 10:08 AM [facility] REPOSITORY Order Comment: Comments: [id number] DRUG SCREEN SERUM/WB REF Is Patient Taking Vitamins or Folic Acid Supplements? N TYPE CODE TESTS RESULT OUT OF RANGE REFERENCE UNITS LAB L501.0100 74-106 mg/dL Normal GLU 78 Result Comment: Please note revised GLUCOSE reference range effective 2017. LAB L501.1000 7-18 mg/dL Normal BUN 18 LAB L501.1100 0.55-1.02 mg/dL High CREAT,SERUM 1.05 Result Comment: The validity of the calculated GFR AND GFRAA in patients over 70 years has not been determined. Clinical correlation is essential. LAB L501.1110 >60 mL/min Low EST GFR 56 Result Comment: Non- GFR Calc LAB L501.1115 >60 mL/min Normal EST GFR - AA 68 Result Comment: GFR Calc LAB L501.1300 10-20 RATIO Normal BUN/CRE 17.1 LAB L501.1500 6.4-8.2 g/dL T Normal PROT 7.2 LAB L501.1800 3.2-5.0 g/dL Low ALB 3.1 LAB L501.1950 2.2-4.2 g/dL Normal GLOB 4.1 LAB L501.2000 0.9-2.4 RATIO Low A/G 0.8 LAB L501.2200 8.5-10.1 mg/dL CA Normal 9.0 LAB L501.4100 15-37 U/L Normal AST 15 LAB L501.4305 45-117 U/L Normal ALK P 85 LAB L501.4405 13-56 U/L Normal ALT 19 LAB L501.4600 0.20-1.00 mg/dL T Normal BILI 0.40 LAB L501.5300 136-145 mmol/L NA Normal 141 LAB L501.5600 3.5-5.1 mmol/L Low K 3.1 LAB L501.5900 98-107 mmol/L CL Normal 103 LAB L501.6100 21.0-32.0 mmol/L Normal CO2 30.0 LAB L501.6200 5-15 Normal GAP 8 Performed By: #### L500.4050, L500.4100, L501.6710, L501.9520, L503.6030, L503.6550, L506.0250, L506.0400 #### [facility] [address] [place], [address] LIPID PROFILE Collected: 11/13/2017 Status: F Source: [place] 10:08 AM [facility] REPOSITORY Order Comment: Comments: [id number] DRUG SCREEN SERUM/WB REF Is Patient Taking Vitamins or Folic Acid Supplements? N TYPE CODE TESTS RESULT OUT OF RANGE REFERENCE UNITS LAB L501.4900 200 mg/dL High CHOL 228 Result Comment: <200 mg/dL Desirable 200-240 mg/dL Borderline >240 mg/dL High Risk LAB L501.5000 mg/dL Normal TRIG 178 Result Comment: The drugs N-Acetylcysteine and Metamizole may falsely depress this assay. Serum Triglycerides Reference Interval Normal <150 mg/dL Borderline high 150 - 199 mg/dL High 200 - 499 mg/dL Very High > or = 500 mg/dL LAB L501.6400 mg/dL Normal HDL 85 Result Comment: The drugs N-Acetylcysteine and Metamizole may falsely depress this assay. Reference Range HDL <40 mg/dL Low HDL Cholesterol HDL >or= 60 mg/dL High HDL Cholesterol LAB L501.6500 0-130 mg/dL Normal LDL 107 LAB L501.6600 5-40 mg/dL Normal VLDL 36 Performed By: #### L500.4050, L500.4100, L501.6710, L501.9520, L503.6030, L503.6550, L506.0250, L506.0400 #### [facility] [address] [facility] [address] [place], [place], [address] (648) CRP Collected: 11/13/2017 Status: F Source: [place] 10:08 AM [facility] REPOSITORY Order Comment: Comments: [id number] DRUG SCREEN SERUM/WB REF Is Patient Taking Vitamins or Folic Acid Supplements? N TYPE CODE TESTS RESULT OUT OF RANGE REFERENCE UNITS LAB L501.6710 0.0-3.0 mg/L High 16.50 C-REACTIVE PROT Result Comment: C-Reactive Protein (CRP) provides useful information for the diagnosis, therapy and monitoring of inflammatory processes and associated diseases. For the evaluation of Relative Risk for Cardiovascular Disease, a High Sensitivity CRP (HSCRP) should be ordered. Performed By: #### L500.4050, L500.4100, L501.6710, L501.9520, L503.6030, L503.6550, L506.0250, L506.0400 #### [facility] [address] [facility] [place], [address] THYROID STIM HORMONE Collected: 11/13/2017 Status: F Source: [place] (TSH) 10:08 AM [facility] REPOSITORY Order Comment: Comments: [id number] DRUG SCREEN SERUM/WB REF Is Patient Taking Vitamins or Folic Acid Supplements? N TYPE CODE TESTS RESULT OUT OF RANGE REFERENCE UNITS LAB L501.9520 0.358-3.74 uIU/mL Normal TSH 2.27 Performed By: #### L500.4050, L500.4100, L501.6710, L501.9520, L503.6030, L503.6550, L506.0250, L506.0400 #### [facility] [address] [facility] [place], [place], [address] IRON+IRON BINDING Collected: 11/13/2017 Status: F Source: [place] CAPAC[place] 10:08 AM [facility] REPOSITORY Order Comment: Comments: [id number] DRUG SCREEN SERUM/WB REF Is Patient Taking Vitamins or Folic Acid Supplements? N TYPE CODE TESTS RESULT OUT OF RANGE REFERENCE UNITS LAB L503.6075 250-450 ug/dL TIBC Normal 323 LAB L503.6150 50-170 ug/dL IRON Normal 92 LAB L503.6250 15.0-55.0 % IRON Normal SATURATION 28.5 Performed By: #### L500.4050, L500.4100, L501.6710, L501.9520, L503.6030, L503.6550, L506.0250, L506.0400 #### [facility] [address] [place], [place], [address] (570) FERRITIN Collected: 11/13/2017 Status: F Source: [place] 10:08 AM [facility] REPOSITORY Order Comment: Comments: [id number] DRUG SCREEN SERUM/WB REF Is Patient Taking Vitamins or Folic Acid Supplements? N TYPE CODE TESTS RESULT OUT OF RANGE REFERENCE UNITS LAB L503.6550 8-252 ng/mL Normal FERRITIN 81 Performed By: #### L500.4050, L500.4100, L501.6710, L501.9520, L503.6030, L503.6550, L506.0250, L506.0400 #### [facility] [address] [place], [place], [address] (257) FOLATES, (FOLIC ACID) Collected: 11/13/2017 Status: F Source: [place] 10:08 AM [facility] REPOSITORY Order Comment: Comments: [id number] DRUG SCREEN SERUM/WB REF Is Patient Taking Vitamins or Folic Acid Supplements? N TYPE CODE TESTS RESULT OUT OF RANGE REFERENCE UNITS LAB L506.0250 3.1-55.4 ng/mL Normal FOLATES 19.90 Performed By: #### L500.4050, L500.4100, L501.6710, L501.9520, L503.6030, L503.6550, L506.0250, L506.0400 #### [facility] [address] [place], [place], [address] (918) T4 FREE DIRECT Collected: 11/13/2017 Status: F Source: [place] 10:08 AM [facility] REPOSITORY Order Comment: Comments: [id number] DRUG SCREEN SERUM/WB REF Is Patient Taking Vitamins or Folic Acid Supplements? N TYPE CODE TESTS RESULT OUT OF RANGE REFERENCE UNITS LAB L506.0400 0.76-1.46 ng/dL Normal T4 FREE 1.13 DIRECT Performed By: #### L500.4050, L500.4100, L501.6710, L501.9520, L503.6030, L503.6550, L506.0250, L506.0400 #### [facility] [place], [address] COPPER, SERUM OR Collected: 11/13/2017 Status: F Source: [place] PLASMA 10:08 AM [facility] REPOSITORY Order Comment: Comments: [id number] DRUG SCREEN WB ROONEY RTEMP TYPE CODE TESTS RESULT OUT OF RANGE REFERENCE UNITS LAB L3300.0100 72-166 ug/dL Normal COPPER 122 Result Comment: Detection Limit = 5 Performed By: #### L3300.0100, L3300.8000, L3300.9900, L3400.0920, L3600.3400 #### [facility] (refer to report for specific site) refer to report for address and phone number VITAMIN B1, THIAMINE Collected: 11/13/2017 Status: F Source: [place] 10:08 AM [facility] REPOSITORY Order Comment: Comments: [id number] DRUG SCREEN WB ROONEY RTEMP TYPE CODE TESTS RESULT OUT OF RANGE REFERENCE UNITS LAB L3300.8000 66.5-200.0 nmol/L Normal VIT B1 155.0 Result Comment: This test was developed and its performance characteristics determined by [facility]. It has not been cleared or approved by the Food and Drug Administration. Performed By: #### L3300.0100, L3300.8000, L3300.9900, L3400.0920, L3600.3400 #### [facility] (refer to report for specific site) refer to report for address and phone number ZINC, PLASMA OR Collected: 11/13/2017 Status: F Source: [place] SERUM 10:08 AM [facility] REPOSITORY Order Comment: Comments: [id number] DRUG SCREEN WB ROONEY RTEMP TYPE CODE TESTS RESULT OUT OF RANGE REFERENCE UNITS LAB L3300.9900 56-134 ug/dL Normal ZINC 70 Plasma/Ser Result Comment: Detection Limit = 5 Performed at: [address] [id number] Midwife Practitioner: Michael Godinez MD, Phone: [phone] Performed By: #### L3300.0100, L3300.8000, L3300.9900, L3400.0920, L3600.3400 #### [facility] (refer to report for specific site) refer to report for address and phone number VITAMIN A, RETINOL Collected: 11/13/2017 Status: F Source: [place] 10:08 AM [facility] REPOSITORY Order Comment: Comments: [id number] DRUG SCREEN WB ROONEY RTEMP TYPE CODE TESTS RESULT OUT OF RANGE REFERENCE UNITS LAB L3400.0920 36.4-108.0 ug/dL Normal VIT A, 883192 45.3 Result Comment: Reference intervals for vitamin A determined from National Health and Nutrition Examination Survey, 2870-9685. Individuals with vitamin A less than 20 ug/dL are considered vitamin A deficient and those with serum concentrations less than 10 ug/dL are considered severely deficient. This test was developed and its performance characteristics determined by [facility]. It has not been cleared or approved by the Food and Drug Administration. Performed By: #### L3300.0100, L3300.8000, L3300.9900, L3400.0920, L3600.3400 #### [facility] (refer to report for specific site) refer to report for address and phone number NICOTINE SCREEN BLOOD Collected: 11/13/2017 Status: F Source: [place] 10:08 AM [facility] REPOSITORY Order Comment: Comments: [id number] DRUG SCREEN WB ROONEY RTEMP TYPE CODE TESTS RESULT OUT OF RANGE REFERENCE UNITS LAB L3600.3410 . ng/mL Normal NICOTINE BLD None Detected Result Comment: Nicotine levels greater than 2.0 are consistent with the use of tobacco or tobacco cessation products. LAB L3600.3425 . ng/mL Normal COTININE BLD None Detected Result Comment: Cotinine levels greater than 20.0 are consistent with the use of tobacco or tobacco cessation products. Performed By: #### L3300.0100, L3300.8000, L3300.9900, L3400.0920, L3600.3400 #### [facility] (refer to report for specific site) refer to report for address and phone number CANNABINOID CONF Collected: 11/13/2017 Status: F Source: [place] 10:08 AM [facility] REPOSITORY Order Comment: Comments: [id number] DRUG SCREEN WB ROONEY RTEMP List of Drugs Taken or Suspected? UNK TYPE CODE TESTS RESULT OUT OF REFERENCE UNITS RANGE LAB L3380.4107 Cutoff=10 CANNABINOID Normal Negative Result Comment: Performed at: [facility] [address], [facility], [place] [id number] Midwife Practitioner: Luisito Tolbert MD, Phone: [phone] Performed By: #### L3380.7000 #### [facility] (refer to report for specific site) refer to report for address and phone number MISCELLANEOUS LAB Collected: 11/13/2017 Status: F Source: [place] PROCEDURE 10:08 AM [facility] REPOSITORY Order Comment: Comments: [id number] DRUG SCREEN WB ROONEY RTEMP Test(s) Ordered: [id number] DRUG SCREEN WB ROONEY RTEMP TYPE CODE TESTS RESULT OUT OF RANGE REFERENCE UNITS LAB L801.1541 Normal [facility] LAB TEST Result Comment: TEST RESULT LIMITS Drugs of Abuse Scr ONLY, 10,WB Amphetamines Negative REFERENCE RANGE: thrshold: 50 ng/mL Barbiturates Negative REFERENCE RANGE: thrshold: 100 ng/mL Benzodiazepines Negative REFERENCE RANGE: thrshold: 20 ng/mL Cocaine Metabolite Negative REFERENCE RANGE: thrshold: 25 ng/mL Opiates Negative REFERENCE RANGE: thrshold: 10 ng/mL Oxycodone Negative REFERENCE RANGE: thrshold: 10 ng/mL Phencyclidine Negative REFERENCE RANGE: thrshold: 8 ng/mL THC (Marijuana) Metabolite Negative REFERENCE RANGE: thrshold: 5 ng/mL Methadone Negative REFERENCE RANGE: thrshold: 25 ng/mL Propoxyphene Negative REFERENCE RANGE: thrshold: 50 ng/mL Specimen Type WHOLE BLOOD This specimen was screened by immunoassay at the thresholds listed above. Presumptive positive results have not been confirmed by an alternate method. Please contact the laboratory if confirmatory testing is desired. This test was developed and its performance characteristics determined by [facility]. It has not been cleared or approved by the Food and Drug Administration. [facility]. ORIGINAL REPORT ON FILE IN LAB CONTAINS ADDITIONAL TEST SITE INFORMATION. Performed By: #### L801.1541 #### [facility] [address] [place], [address] BARIATRIC SURGERY - Observed: 11/07/2017 Status: UNK Source: [facility] 2:25 PM [facility]IT[facility] REPOSITORY Chief Complaint The patient is being seen because she is considering bariatric surgery. Type of surgery: Sleeve Gastrectomy. History of Present Illness Their goal for surgery is to lose weight. The patient has tried multiple diets to lose weight including Atkins Diet, Physician's and Weight Watchers Diet. optifast, xenical, cabbage soup diet, xenicl. The patient was most successful with Weight Watchers Diet. The patient considers portion size as their dietary weakness. Severity of obesity is Class 3 which is a BMI of greather than or equal to 40. Ms. Pat is a 67 y.o. female interested in WLS with a medical history significant for Obesity, HTN, GERD, Edema, Low Back Pain, Osteoporosis, Rheumatoid Arthritis, RLS Patient has a PSH significant for Breast Reduction, Cervical Surgery, Gallbladder Surgery, Knee Arthroscopy, Total Hysterectomy, Knee Replacement, Rotator Cuff Repair No history of postoperative wound infection, exposure to MRSA Patient has a Family History significant for lymphoma (father), Arthritis (family), Substance Abuse (brother). Patient is a non smoker, drinks alcohol occasionally, denies illicit drug use, currently , retired GERD well controlled on PPI daily, relates it mostly to food choices, has not had EGD. Review of Systems Constitutional: no chills, no fever and no night sweats. Eyes: no blurred vision and no eyesight problems. ENT: no hearing loss, no nasal congestion, no nasal discharge, no hoarseness and no sore throat. Cardiovascular: no chest pain, no intermittent leg claudication, no lower extremity edema, no palpitations and no syncope. Respiratory: no cough, no shortness of breath during exertion, no shortness of breath at rest and no wheezing. Gastrointestinal: no abdominal pain, no blood in stools, no constipation, no diarrhea, no melena, no nausea, no rectal pain and no vomiting. Genitourinary: no dysuria, no change in urinary frequency, no urinary hesitancy, no feelings of urinary urgency and no vaginal discharge. Musculoskeletal: no arthralgias, no back pain and no myalgias. Integumentary: no new skin lesions and no rashes. Neurological: no difficulty walking, no headache, no limb weakness, no numbness and no tingling. Psychiatric: no anxiety, no depression, no anhedonia and no substance use disorders. Endocrine: no recent weight gain and no recent weight loss. Hematologic/Lymphatic: no tendency for easy bruising and no swollen glands. Active Problems Bariatric surgery status (V45.86) (Z98.84) Benign hypertension (401.1) (I10) Edema (782.3) (R60.9) Excessive daytime sleepiness (780.54) (G47.19) GERD without esophagitis (530.81) (K21.9) Low back pain (724.2) (M54.5) Osteoporosis screening (V82.81) (Z13.820) Preoperative clearance (V72.84) (Z01.818) Rheumatoid arthritis (714.0) (M06.9) RLS (restless legs syndrome) (333.94) (G25.81) Rosacea (695.3) (L71.9) Surgical History History of Breast Surgery Reduction Procedure 1999 History of Cervical Surgery (Fish Bin Tender) removal 2002 History of Gallbladder Surgery 2006 History of Knee Arthroplasty bilateral 2000 History of Knee Replacement bilateral 2004 History of Rotator Cuff Repair 2013 and 2015 History of Total Abdominal Hysterectomy 2001 Family History Family history of lymphoma (V16.7) (Z80.7) Family history of substance abuse (V17.0) (Z81.4) Family history of arthritis (V17.7) (Z82.61) Family history of arthritis (V17.7) (Z82.61) Family history of arthritis (V17.7) (Z82.61) Family history of arthritis (V17.7) (Z82.61) Social History Never smoker Occasional alcohol use Occasional caffeine 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 Allergies No Known Drug Allergies Recorded By: Savannah Whaley; 09/22/2015 2:24:50 PM Current Meds Triamterene-HCTZ 75-50 MG Oral Tablet; TAKE 1 TABLET DAILY; Therapy: 44Mjb8768 to (Evaluate:16Sep2016) Requested for: 46Eyg4025; Last Rx:[id number] Ordered Rx By: Daina Clark; Dispense: 90 Days ; #:90 Tablet; Refill: 3;For: Benign hypertension, Edema; RACQUEL = N; Verified Transmission to [id number]; Last Updated By: Rut SerratoFlocasts; 09/22/2015 2:43:18 PM Lansoprazole 30 MG Oral Capsule Delayed Release; TAKE 1 CAPSULE DAILY; Therapy: 83Fal3258 to (Evaluate:16Sep2016) Requested for: 56Xig3734; Last Rx:[id number] Ordered Rx By: Daina Clark; Dispense: 90 Days ; #:90 Capsule Delayed Release; Refill: 3;For: GERD without esophagitis; RACQUEL = N; Verified Transmission to [facility] #[id number]; Last Updated By: Allyn SerratoriFlocasts; 09/22/2015 2:41:32 PM Doxycycline 40 MG Oral Capsule Delayed Release; 1 po qd; Therapy: [id number] to Recorded Dispense: 0 Days ; #: Sufficient Capsule Delayed Release; Refill: 0; RACQUEL = N; Record; Last Updated By: Savannah Whaley; 11/07/2017 12:32:20 PM Gabapentin 300 MG Oral Capsule; Therapy: [id number] to Recorded Dispense: 0 Days ; #: Sufficient Capsule; Refill: 0; RACQUEL = N; Record; Last Updated By: Savannah Whaley; 09/22/2015 2:24:49 PM Physical Exam General appearance: In no acute distress, well appearing and well nourished. Eyes Conjunctiva and lids: No erythema, swelling or discharge. Ophthalmoscopic examination: Normal fundi and optic discs. Ears, Nose, Mouth, and Throat - External inspection of ears and nose: Normal. Oropharynx: Normal with no erythema, edema, exudate or lesions. Neck - Neck circumference: normal Thyroid Examination: Not enlarged and there were no palpable nodules. Pulmonary - Respiratory effort: Normal respiration. Auscultation of lungs: Clear to auscultation. Cardiovascular - Auscultation of heart: Normal rate and rhythm, no murmurs. Examination of Abdominal Aorta: abdominal aorta was normal. Examination of Pedal Pulses: pedal pulses were normal. Examination of extremities for edema and/or varicosities: No peripheral edema. Abdomen - Abdomen: Non-tender, no abdominal masses. Liver and spleen: No hepato- splenomegaly. Laparoscopy scars on abdomen. Pfannenstiel incision. No evidence of abdominal wall hernia No hernias appreciated. Lymphatic - Palpation of lymph nodes: No lymphadenopathy. No lymphadema in the lower extremities. Musculoskeletal - Bilateral surgical scars over her knees. Joints, bones, and muscles: Normal. Range of motion: Normal. Muscle strength/tone: Normal. Skin - Skin and subcutaneous tissue: Normal without rashes or lesions. Palpation of skin and subcutaneous tissue: Normal. no venous stasis. Neurologic - Cranial Nerve Exam: Normal. Reflexes: Normal. Coordination: Normal gait. Psychiatric - Orientation to person, place, and time: Normal. Mood and affect: Normal. Diagnoses/Problems GERD without esophagitis (530.81) (K21.9) Morbidly obese (278.01) (E66.01) Bariatric surgery status (V45.86) (Z98.84) S/P laparoscopic cholecystectomy (V45.89) (Z90.49) S/P total abdominal hysterectomy (V88.01) (Z90.710) Provider Impressions Patient is candidate for bariatric surgery. I again stressed the bariatric surgery is a total treatment of chronic disease and morbid obesity. Stress the need for lifelong dietary and behavior modificat ion. Stress the goal of 100 2240 minutes per week of cardiovascular exercise. Discussed the option of sleeve gastrectomy Boase versus David-en-Y gastric bypass. In the event of absence of Oneal's esoph eloy would recommend sleeve gastrectomy. Questions answered. Patient Discussion/Summary The following are some lifestyle changes you should begin to prepare you for your. eliminate soda and other carbonated beverages from your diet. Carbonation will not be well tolerated after surgery. Try Propel, Vitamin Water Zero, Sobe Lifewater, Crystal Light or water. Drinking is no t recommended 30 min before eating, during meals or 30 min after meals. Increase fluid consumption of the items in #1 to 64 ounces per day between meals only. exercise daily for 30-60 minutes daily. Aleyda sk walking, bike riding and swimming are all examples of healthy exercise. If you are unable to exercise we recommend seated exercise. take a multivitamin daily. Lose weight. In preparation for your timbo jack it is important that you begin making healthier food choices now. Our dietcian will meet with you to help you select foods lower in calories and higher in nutrition. increase your protein intake to 60 grams per day. slow down your eating. Set your fork or spoon down between bites and chew more. Eat five fruits and vegetables per day. stop smoking. The following are required before surgery: letter from your doctor and or any other physician supporting your decision to have surgery, Psychological Evaluation (Drs. Sanches or Dionne [phone], o r a professional of your choice), nutritional evaluation, sleep study, TSH blood test, Cardiac clearance and H-pylori Blood Test [employer] phone number [phone]. Please fax all documents to the insurance claim representative [phone]. Eliminate any pop, if you havent already, from your diet. Begin an exercise regimen with a daily goal of 1 hour. Start taking a multivitamin daily- Try Flintstones complete. Lose at least 10 lbs. by next visit. End of Encounter Meds Gabapentin 300 MG Oral Capsule; Therapy: 28Gcx2931 to Recorded Lansoprazole 30 MG Oral Capsule Delayed Release (Prevacid); TAKE 1 CAPSULE DAILY; Therapy: 03Caf3692 to (Evaluate:68Mul1273) Requested for: 66Kwd1152; Last Rx:[id number] Ordered Triamterene-HCTZ 75-50 MG Oral Tablet; TAKE 1 TABLET DAILY; Therapy: 71Ynh4838 to (Evaluate:31Akb0526) Requested for: 90Dgu1665; Last Rx:[id number] Ordered Signatures Electronically signed by : John Higuera MD,; Nov 07 2017 2:25PM EST (Author) DIETITION NOTE Observed: 11/07/2017 Status: UNK Source: [place] 2:13 PM [facility] REPOSITORY Chief Complaint obesity initial nutrition assessment Active Problems Bariatric surgery status (V45.86) (Z98.84) Benign hypertension (401.1) (I10) Edema (782.3) (R60.9) Excessive daytime sleepiness (780.54) (G47.19) GERD without esophagitis (530.81) (K21.9) Low back pain (724.2) (M54.5) Morbidly obese (278.01) (E66.01) Osteoporosis screening (V82.81) (Z13.820) Preoperative clearance (V72.84) (Z01.818) Rheumatoid arthritis (714.0) (M06.9) RLS (restless legs syndrome) (333.94) (G25.81) Rosacea (695.3) (L71.9) Surgical History History of Breast Surgery Reduction Procedure 1998 History of Cervical Surgery (Fish Bin Tender) removal 2001 History of Gallbladder Surgery 2006 History of Knee Arthroplasty bilateral 2000 History of Knee Replacement bilateral 2004 History of Rotator Cuff Repair 2013 and 2015 History of Total Abdominal Hysterectomy 2001 Family History Family history of lymphoma (V16.7) (Z80.7) Family history of substance abuse (V17.0) (Z81.4) Family history of arthritis (V17.7) (Z82.61) Family history of arthritis (V17.7) (Z82.61) Family history of arthritis (V17.7) (Z82.61) Family history of arthritis (V17.7) (Z82.61) Social History Never smoker Occasional alcohol use Occasional caffeine 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 Allergies No Known Drug Allergies Recorded By: Savannah Whaley; 09/22/2015 2:24:50 PM Current Meds Triamterene-HCTZ 75-50 MG Oral Tablet; TAKE 1 TABLET DAILY; Therapy: 78Ibt8609 to (Evaluate:16Sep2016) Requested for: 15Mgy0842; Last Rx:[id number] Ordered Rx By: Daina Clark; Dispense: 90 Days ; #:90 Tablet; Refill: 3;For: Benign hypertension, Edema; RACQUEL = N; Verified Transmission to [facility] #[id number]; Last Updated By: Myke Serrato; 09/22/2015 2:43:18 PM Lansoprazole 30 MG Oral Capsule Delayed Release (Prevacid); TAKE 1 CAPSULE DAILY; Therapy: 74Gxs6668 to (Evaluate:43Tlq9066) Requested for: 26Bfq3235; Last Rx:[id number] Ordered Rx By: Daina Clark; Dispense: 90 Days ; #:90 Capsule Delayed Release; Refill: 3;For: GERD without esophagitis; RACQUEL = N; Verified Transmission to [facility] #[id number]; Last Updated By: Allyn Serrato; 09/22/2015 2:41:32 PM Gabapentin 300 MG Oral Capsule; Therapy: [id number] to Recorded Dispense: 0 Days ; #: Sufficient Capsule; Refill: 0; RACQUEL = N; Record; Last Updated By: Savannah Whaley; 09/22/2015 2:24:49 PM Provider Impressions NAME: Celina Pat DATE: 11.07.17 : [birth year] Surgeon: Kalen Patient is considering: sleeve gastrectomy ASSESSMENT: Current weight: 219.5Ht:64.0 in BMI37.7 Initial start weight: 219.5 Pre-Op Excess Body Weight (EBW): 74.5 Target Post-Op weight goal: 171.1-182.2 Food allergies/intolerances: none Chewing/Swallowing/Dentition: has upper dentures; able to chew well Nausea / Vomiting / Hx Gastroparesis: none Diarrhea/ Constipation: none Exercise level: none, has tendonitis in right foot, currently being treated for it. Smoking/Tobacco use: none Vitamins/Minerals supplements: none Medications: see list Past diet attempts: Optifast, RD supervised, PWLC, WW, Atkins, cabbage soup diet, Xenical Hours of sleep/night: 7 24 HOUR RECALL/DIET HISTORY: Breakfast: scrambled egg with [facility] [place], tomato Snack: none Lunch: c macaroni salad Snack: none Dinner: hamburger with tomato, green beans, new red potatoes Snack: Cheetos Night snack: donut- 2-3am Beverages: 12 c carbonated water/day, 1 c skim every other day, 48 oz water/day, 1 c coffee/day Alcohol: occasional glass of wine Person responsible for cooking AND shopping? Self How often do you eat sweet snacks? 2x/day How often do you eat savory snacks? 1x/day How often do you eat out? 1x/week Do you feel overly stuffed? No Binge Eating? No Night Eating? Yes; 3x/week; wakes up to use bathroom and will eat something sweet or leftover pizza Emotional Eating? Yes, eats sweets when bored READINESS TO LEARN: Motivation to learn: Interested Understanding of instruction: Good- scored 22/22 on dietary progression quiz Anticipated Compliance: Good Family Support: Unable to assess-family not present. Pt states that her , Catarino, is supportive. Educational Materials Provided: Pre-op Diet and sample menus Nutrition Guidelines for Gastric Bypass and Sleeve Gastrectomy Schedules for MSWL and bariatric support group 1400 calorie meal plan Goals sheet This session included both group education, discussion and individual assessment. Discussed exercise goals, fluid goals, protein goals, vitamin regimen, and stages 1-4 of the post-op dietary progression in depth. Patient presents with excessive calorie obesity seeking Sleeve Gastrectomy weight loss surgery. Patient was receptive to nutritional recommendations, asked numerous questions, and verbalized understanding of the weight loss surgery diet. Patient expressed understanding about the importance of stri ct dietary compliance post-surgery to avoid nutritional deficiencies and achieve optimal weight loss and verbalized intent to follow dietary recommendations. Pt states that she has tried every diet. She was able to lose but could not maintain. She feels that carbs, grazing and night eating are were downfalls. Pt will work on following a 1400 calorie meal dameon n incorporating healthy carbs and balancing her meals to contain protein. Malnutrition Screening: Significant unintentional weight loss? No Eating less than 75% of usual intake for more than 2 weeks? No Nutrition Diagnosis: 1.Overweight/obesity related to excess energy intake as evidenced by BMI = 35 kg/m2. 2.Food- and nutrition-related knowledge deficit related to lack of prior exposure to surgical weight loss information as evidenced by pt new to surgical program. Nutrition Interventions: 1.Modify type and amount of food and nutrients within meals and snacks. 2.Comprehensive Nutrition Education Recommendations: 1.Follow your 1400 calorie meal plan. Measure all of your food and record daily in a food journal. 2.Structure meal patterns, eating three meals and 1-2 snacks per day. 3.Have a good source of protein at every meal AND snack. Aim for 60-70 grams/day. 4.Drink 64oz of calorie-free, caffeine-free, and non-carbonated beverages. Wean off of carbonation and caffeine. 5.Practice no drinking 30 minutes before meals, nothing with meals and wait 30 minutes after meals to drink again. Make meals last 30 minutes-chew thoroughly. 6.Limit or omit eating out/sweets/savory snacks to 1-2 times per week. 7.Begin taking a multivitamin. 8.Begin doing exercise of choice. Increase physical activity by 10-15 minutes as tolerated to an end goal of 60 minutes 5 x per week. Consistency is the parisi. 9.Start the pre-op diet 2 weeks before surgery and follow the post-op diet progression after surgery Pre-op Goal weight: lose 5% of body weight Nutrition Monitoring and Evaluation: 1-2 pound weight loss per week Criteria: weight check Need for Follow-up: Patient meets NIH guidelines for weight loss surgery and has been thoroughly evaluated and educated on good dietary practices. Patient is capable of following these guidelines pre-and post-surgically. F rom nutrition standpoint, the patient is cleared for weight loss surgery. If the patient desires, may continue to follow-up with the dietitian on a monthly basis until all surgical requirements are met. Livia FREIRE, [facility] Bariatric Surgery Dietitian Patient Discussion/Summary Recommendations: 1.Follow your 1400 calorie meal plan. Measure all of your food and record daily in a food journal. 2.Structure meal patterns, eating three meals and 1-2 snacks per day. 3.Have a good source of protein at every meal AND snack. Aim for 60-70 grams/day. 4.Drink 64oz of calorie-free, caffeine-free, and non-carbonated beverages. Wean off of carbonation and caffeine. 5.Practice no drinking 30 minutes before meals, nothing with meals and wait 30 minutes after meals to drink again. Make meals last 30 minutes-chew thoroughly. 6.Limit or omit eating out/sweets/savory snacks to 1-2 times per week. 7.Begin taking a multivitamin. 8.Begin doing exercise of choice. Increase physical activity by 10-15 minutes as tolerated to an end goal of 60 minutes 5 x per week. Consistency is the parisi. 9.Start the pre-op diet 2 weeks before surgery and follow the post-op diet progression after surgery Pre-op Goal weight: lose 5% of body weight Nutrition Monitoring and Evaluation: 1-2 pound weight loss per week Criteria: weight check Need for Follow-up: Patient meets NIH guidelines for weight loss surgery and has been thoroughly evaluated and educated on good dietary practices. Patient is capable of following these guidelines pre-and post-surgically. F rom nutrition standpoint, the patient is cleared for weight loss surgery. If the patient desires, may continue to follow-up with the dietitian on a monthly basis until all surgical requirements are met. Livia Canseco RDN , [facility] Bariatric Surgery Dietitian .. End of Encounter Meds Gabapentin 300 MG Oral Capsule; Therapy: [id number] to Recorded Lansoprazole 30 MG Oral Capsule Delayed Release (Prevacid); TAKE 1 CAPSULE DAILY; Therapy: [id number] to (Evaluate:16Sep2016) Requested for: 33Dcw3643; Last Rx:[id number] Ordered Triamterene-HCTZ 75-50 MG Oral Tablet; TAKE 1 TABLET DAILY; Therapy: 24Nhu2944 to (Evaluate:34Lic4046) Requested for: [id number]; Last Rx:[id number] Ordered Signatures Electronically signed by : Livia Canseco RD; Nov 07 2017 2:13PM EST (Author) INTERNAL MEDICINE Observed: 10/29/2017 Status: F Source: [place] OFFICE VISIT 1:[address] [facility] [address] [place] [address] [place] [address] OFFICE VISIT Date of Service: 10/15/17 MR#: [id number] Acct: [id number] Name: CELINA PAT Rep #: [id number] : 1950 Provider: Swathi Lagunas MD Age/Sex: 67/F Location: [facility] Status: Signed Intake Vital Signs10/15/17 Height 5 ft 4 in 10/15/17 Weight: 219 lb 10/15/17 Body Mass Index (BMI) 37.5 10/15/17 Blood Pressure 111/75 Intake Visit Reasons: 1 mo fu Chief Complaint: Rt. ankle pain AND also F/U on BP meds Is patient in pain?: Yes (Rt ankle) Pain scale (1-10): 1 Allergies adhesive tape Allergy (Intermediate, Verified 10/15/17 13:53) blisters Medications estradiol 1 mg tablet 1 mg PO QDAY 04/23/17 [History Confirmed 10/15/17] lansoprazole 30 mg capsule,delayed release 30 mg PO QDAY #90 cap 08/30/17 [Rx Confirmed 10/15/17] gabapentin ER 600 mg tablet,extended release 24 hr 600 mg PO BID tab 09/16/17 [History Confirmed 10/15/17] triamterene 75 mg-hydrochlorothiazide 50 mg tablet 1 tab PO QDAY #90 tab 10/15/17 [Rx Confirmed 10/15/17] PFSH Medical History Arthritis (Acute) Back pain (Acute) IBS (irritable bowel syndrome) (Acute) gallbladder removed (Acute) right rotaor cuff repair (Acute) Cancer, skin, squamous cell (Resolved) Gout (Resolved) Surgical History History of bilateral knee replacement (Acute) History of hysterectomy (Acute) Hx of breast reduction, elective (Acute) Status post left rotator cuff repair (Acute) Family History Mother Hypertension COPD (chronic obstructive pulmonary disease) Father Cancer lyphoma Grandmother Cancer, Onset Age: 90 Social History Smoking Status: Never smoker alcohol intake: current alcohol intake frequency: a few times a month Alcohol type: hard liquor substance use type: does not use what type of physical activity do you participate in: walking frequency: daily HPI HPI Chief Complaint: Rt. ankle pain AND also F/U on BP meds Details: CELINA APT, is a 67yo F who presents to the office today for follow up of lower extremity pain and swelling. 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 She was started on a medro dose pack at her last visit however patient states that she did not get much relief. She is also scheduled to follow-up at the [facility]. Patient is considering bariatric surgery. She has tried several programs and medications in the past without any sustained benefits. She currently has a history of sleep apnea and a significant family history of diabetes. ROS Const Constitutional: No chills, fatigue, fever(s), frequent falls, malaise, weakness, sleep problems or change in appetite Eyes Eyes: No blurry vision, change in vision, double vision, discharge or visual disturbances ENT ENT: No abnormal hearing, ear pain, ear pressure, tinnitus or dizziness/vertigo Resp Respiratory: No cough, shortness of breath or wheezing Cardio Cardiology: No chest pain at rest, chest pain with exertion, shortness of breath, dyspnea on exertion, generalized swelling, irregular heart rhythm, lightheadedness, orthopnea, fast heart rate or palpitations Gastro GI: No abdominal pain, change in bowel habits, constipation, diarrhea, nausea/dyspepsia or vomiting Genitourinary-Female: No difficulty urinating, burning urination, painful urination, urinary incontinence, urinary frequency, urinary urgency, urinary hesitancy, urinary retention, Frequent nighttime urination/ nocturia, sexual problems, genital lesions, abnormal vaginal bleeding, pelvic pain, vaginal dryness, vaginal odor or Vaginal Itching Musc Musculoskeletal: Positive for joint pain (Rt ankle - worse when walking) and abnormal walking; no back pain, joint swelling, limited range of motion, numbness, tingling or muscle weakness Skin Skin: No change in skin color, itching, rash or wounds Breast Breast: No breast lump or breast pain Neuro Neurology: Positive for abnormal walking; no frequent falls, weakness, abnormal hearing, numbness, tingling, unsteady gait/balance, dizziness, loss of vision, memory loss or visual disturbances Psych Psychiatric: No memory loss, No anxiety, No change in appetite, No depression, No Thoughts of harming yourself/Others Endo Endocrine: No fatigue, heat intolerance, increased thirst/drinking, increased hunger or increased urination Aller/Imm Allergy/Immunologic: No wheezing, itchy eyes or seasonal allergy symptoms Patricio/Lymp Hematologic/Lymphatic: No easy bleeding, easy bruising or enlarged lymph nodes Exam Const General: cooperative, healthy appearing, comfortable, no acute distress, well groomed [facility] Ears: hearing grossly normal bilaterally, external ears normal Nose: external nose normal Face and sinus: normal facial exam Mouth: oral mucosae normal Eyes General: appearance normal, both eyes and all related structures Neck Neck: normal visual inspection, full ROM Resp Effort AND Inspection: normal respiratory effort, able to speak in complete sentences, symmetric chest movement Auscultation: Bilateral: Clear to Auscultation Cardio Rate: regular rate Rhythm: regular rhythm Heart Sounds: S1 normal, S2 normal GI Inspection: normal to inspection, obesity Palpation: soft, no hepatosplenomegaly Musc Musculoskeletal: No muscle weakness Neuro General: alert, awake, oriented x3, gait normal Cranial Nerves: CN's II-XI intact bilaterally Cognition: normal cognition Speech: speech normal Extrem Other: Trace bilateral pitting edema extending to the mid stafford. Psych Appearance: grossly normal Mood: congruent mood Affect: normal affect Assessment AND Plan 1. Right ankle pain M25.571 Plan Secondary to tendinitis. Persistent. Had been started on Medrol Dosepak however patient states that it had no effect on her pain. History of similar pain on the left for which she was in the context ofstarted on steroid patches which was said to help after about 6 weeks. Recently restarted these on the right and has used for only 2 weeks so far. Continue current management and follow-up with podiatry. Follow-up in 2 months. 2. Venous insufficiency of both lower extremities I87.2 Plan Patient states that she noted worsening swelling with dose adjustments of her triamterene hydrochlorothiazide. Restarted on her previous dose of 75/50 mg. Compression stockings, leg elevation and exercise also recommended. Follow-up at next visit. Orders Orders: 3. Obesity (BMI 30-39.9) E66.9 Plan Patient has tried several weight loss programs without any sustained benefit. Positive history of sleep apnea however not on CPAP. Now open to bariatric surgery. Scheduled to follow-up at the [facility] on 04 November. Lipid profile and BMP ordered per recommendations. Follow-up. This note was generated with [employer] dictation software. It may contain incorrect words, spelling, and punctuation that were not noted in checking the note before signing. Orders Orders: Plan Detail Other Orders Orders: Other Medications New: Discontinued: triamterene-hydrochlorothiazid 50-25 mg Discontinued Reason: Order Chan1 cap PO QDAY ged Coding Level of Care Code Off vis,est,level 3 Diagnoses Right ankle pain M25.571 Venous insufficiency of both lower extremities I87.2 Obesity (BMI 30-39.9) E66.9 10/29/17 1355 <Electronically signed by Swathi Lagunas MD> Date Swathi Bebo Gar Signature: Date (if applicable) CC: BASIC METABOLIC Collected: 10/17/2017 Status: F Source: [place] PROFILE (BMP) 8:45 AM [facility] REPOSITORY Order Comment: Comments: Fasting Comments: Fasting Comments: Fasting TYPE CODE TESTS RESULT OUT OF RANGE REFERENCE UNITS LAB L501.0100 74-106 mg/dL Normal GLU 91 Result Comment: Please note revised GLUCOSE reference range effective 2017. LAB L501.1000 7-18 mg/dL Normal BUN 13 LAB L501.1100 0.55-1.02 mg/dL High CREAT,SERUM 1.05 Result Comment: The validity of the calculated GFR AND GFRAA in patients over 70 years has not been determined. Clinical correlation is essential. LAB L501.1110 >60 mL/min Low EST GFR 56 Result Comment: Non- GFR Calc LAB L501.1115 >60 mL/min Normal EST GFR - AA 68 Result Comment: GFR Calc LAB L501.1300 10-20 RATIO Normal BUN/CRE 12.4 LAB L501.2200 8.5-10.1 mg/dL CA Normal 8.7 LAB L501.5300 136-145 mmol/L NA Normal 141 LAB L501.5600 3.5-5.1 mmol/L Low K 3.4 LAB L501.5900 98-107 mmol/L CL Normal 106 LAB L501.6100 21.0-32.0 mmol/L Normal CO2 29.0 LAB L501.6200 5-15 Normal GAP 6 Performed By: #### L500.2500, L500.4100 #### [facility] [address] [place], [address] LIPID PROFILE Collected: 10/17/2017 Status: F Source: [place] 8:45 AM [facility] REPOSITORY Order Comment: Comments: Fasting Comments: Fasting Comments: Fasting TYPE CODE TESTS RESULT OUT OF RANGE REFERENCE UNITS LAB L501.4900 200 mg/dL High CHOL 219 Result Comment: <200 mg/dL Desirable 200-240 mg/dL Borderline >240 mg/dL High Risk LAB L501.5000 mg/dL High TRIG 217 Result Comment: The drugs N-Acetylcysteine and Metamizole may falsely depress this assay. Serum Triglycerides Reference Interval Normal <150 mg/dL Borderline high 150 - 199 mg/dL High 200 - 499 mg/dL Very High > or = 500 mg/dL LAB L501.6400 mg/dL Normal HDL 78 Result Comment: The drugs N-Acetylcysteine and Metamizole may falsely depress this assay. Reference Range HDL <40 mg/dL Low HDL Cholesterol HDL >or= 60 mg/dL High HDL Cholesterol LAB L501.6500 0-130 mg/dL Normal LDL 98 LAB L501.6600 5-40 mg/dL High VLDL 43 Performed By: #### L500.2500, L500.4100 #### [facility] [address] [place], [address] PROGRESS Observed: 09/27/2017 Status: COMPLETED Source: [place] 11:09 AM [facility] REPOSITORY O ID: [id number] Author: Elis Pack Service: (none) Author Type: Physician Type: Progress Notes Filed: 10/06/2017 10:28 PM Note Text: The patient is seen and examined by Dr. Pack and the following reflects his service. Scribed by Nieves Reardon Ma Celina Pat returns today to follow up/discuss results of their right ankle Do you have a metal allergy?: No Current Dx: Peroneal tendinitis Injury:No Pt. Feels their overall condition is the same. Is the patient having any pain? Yes LOCATION: right ankle PAIN SCALE: 10 on a scale of 0-10 PAIN CHARACTER: burning and stabbing DURATION: (How long have you had the pain?) 2 months FREQUENCY: (How often does the pain occur?) occurs constantly AGGRAVATING FACTORS: activity, standing, walking, evenings, stairs and pain is constant ALLEVIATING FACTORS: resting Medications: See medication reconciliation list in [facility] MEDICATIONS: none Have you ever seen a pain management physician: No Have you ever taken any pain medications (Narcotics): No Current treatment plan includes: Weight Bearing Status: FWB Weight bearing status:Full Ambulatory Aids:N/A Physical Therapy:Not for right ankle. PT for left 2017 Home Exercise Program: No NSAIDS: Ibuprofen 600mg: Taking as directed and feels it is not helping. Pain medication: None Activity Levels: Normal PHYSICAL EXAM: right ankle Physical examination reveals an alert and oriented patient who is in no acute distress while sitting and is of normal mood and affect. Ht 162.6 cm (5' 4) Wt 97.5 kg (215 lb) BMI 36.90 kg/m? Gait Cycle: Normal No, Limp: antalgic:right. Inspection: Alignment: neutral Symmetry: Swelling: yes. Redness: no. Ecchymosis: no Effusion: 0 Palpation: Warmth: no, Tenderness:Yes: Ankle: Peroneal Tendon ROM: Ankle- Normal Foot- Normal. Strength: 5 Stability: Ligamentous instability: no Specialized Tests: negative Neurologic Status: normal. Vascular Status: normal Skin: Normal XRAYS: 3 weeks ago (pt did not bring in films and states xray was normal) DX: Persistent peroneal tendinitis Plan: We discussed immobilization, rest, icing, and iontophoresis. Follow up in 4 weeks HPI explored in detail with patient and edited as necessary. At the conclusion of the visit the patient voiced understanding and agreement with the plan. The patient knows to call us or present to the nearest Emergency Department if the patients pain increases. Patient knows how to reach us if there are any questions or problems. Elis Pack M.D. CNOV Observed: 09/27/2017 Status: COMPLETED Source: [place] 10:00 AM [facility] REPOSITORY Office Visit (MARY) CELINA PAT ([id number]) 1950 [facility] Date Time Provider Department 09/27/17 10:00 AM ELIS PACK During your visit today, we recorded the following information about you: Weight Height 97.5 kg 1.626 m Elis Pack MD 10/06/2017 10:28 PM Signed The patient is seen and examined by Dr. Pack and the following reflects his service. Scribed by Nieves Reardon Ma Celina Pat returns today to follow up/discuss results of their right ankle Do you have a metal allergy?: No Current Dx: Peroneal tendinitis Injury:No Pt. Feels their overall condition is the same. Is the patient having any pain? Yes LOCATION: right ankle PAIN SCALE: 10 on a scale of 0-10 PAIN CHARACTER: burning and stabbing DURATION: (How long have you had the pain?) 2 months FREQUENCY: (How often does the pain occur?) occurs constantly AGGRAVATING FACTORS: activity, standing, walking, evenings, stairs and pain is constant ALLEVIATING FACTORS: resting Medications: See medication reconciliation list in [facility] MEDICATIONS: none Have you ever seen a pain management physician: No Have you ever taken any pain medications (Narcotics): No Current treatment plan includes: Weight Bearing Status: FWB Weight bearing status:Full Ambulatory Aids:N/A Physical Therapy:Not for right ankle. PT for left 2017 Home Exercise Program: No NSAIDS: Ibuprofen 600mg: Taking as directed and feels it is not helping. Pain medication: None Activity Levels: Normal PHYSICAL EXAM: right ankle Physical examination reveals an alert and oriented patient who is in no acute distress while sitting and is of normal mood and affect. Ht 162.6 cm (5' 4) Wt 97.5 kg (215 lb) BMI 36.90 kg/m? Gait Cycle: Normal No, Limp: antalgic:right. Inspection: Alignment: neutral Symmetry: Swelling: yes. Redness: no. Ecchymosis: no Effusion: 0 Palpation: Warmth: no, Tenderness:Yes: Ankle: Peroneal Tendon ROM: Ankle- Normal Foot- Normal. Strength: 5 Stability: Ligamentous instability: no Specialized Tests: negative Neurologic Status: normal. Vascular Status: normal Skin: Normal XRAYS: 3 weeks ago (pt did not bring in films and states xray was normal) DX: Persistent peroneal tendinitis Plan: We discussed immobilization, rest, icing, and iontophoresis. Follow up in 4 weeks HPI explored in detail with patient and edited as necessary. At the conclusion of the visit the patient voiced understanding and agreement with the plan. The patient knows to call us or present to the nearest Emergency Department if the patients pain increases. Patient knows how to reach us if there are any questions or problems. Elis Pack M.D. Referring Provider: SELF [200] Allergies As of Date: 09/27/2017 Noted Allergy Reaction CODEINE 09/28/2002 Comments: nausea, vomiting DEMEROL (MEPERIDINE (PF)) 10/08/2005 SULFA (SULFONAMIDE ANTIBIOTICS) 09/28/2002 Comments: nausea, vomiting Date Reviewed: 09/27/2017 Reviewed by: Nieves Reardon Ma - Fully Assessed Reason for Visit: Established Patient [175] Cmt: right ankle pain Primary Visit Diagnosis:Peroneal tendinitis of right lower extremity [M76.71] Order(s):dexamethasone sodium phosphate (DECADRON) 4 mg/mL injection4 mg as directed. for use by physical therapist for iontophoresisDisp: 30 mLRfl: 2 Prescriptions as of 09/27/2017 Sig: TRIAMTERENE 75 MG-HYDROCHLORO* Take 1 tablet by mouth once d* LANSOPRAZOLE 30 MG CAPSULE,DE* Take 1 capsule by mouth once * ESTRADIOL 1 MG TABLET Take 1 tablet by mouth once d* DEXAMETHASONE 4 MG/ML INJECTI* 4 mg as directed. 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 Restless leg syndrome [G25.81] Vitamin D deficiency [E55.9] Prescriptions ordered this encounter Disp Refills Start End DEXAMETHASONE 4 MG/ML INJECTION SOLU* 30 mL 2 09/27/2017 Route: OTHER Si mg as directed. for use by physical therapist for iontophoresis Medications Discontinued During This Encounter gabapentin (NEURONTIN) 600 mg tablet 180 * 0 07/23/2017 09/27/2017 Sig: TAKE 1 TO 2 TABLETS BY MOUTH AT BEDTIME Disc: Course of therapy completed dexamethasone sodium phosphate (DECA* 30 mL 0 10/29/2016 09/27/2017 Route: OTHER Si mg as directed. for use by physical therapist for iontophoresis Disc: Course of therapy completed Encounter Status:Closed by ELIS PACK MD on 10/06/17 INTERNAL MEDICINE Observed: 09/17/2017 Status: F Source: [place] OFFICE VISIT 3:[address] [facility] [place] [address] [place] [address] OFFICE VISIT Date of Service: 09/16/17 MR#: [id number] Acct: [id number] Name: CELINA PAT Rep #: [id number] : 1950 Provider: Swathi Lagunas MD Age/Sex: 67/F Location: [facility] Status: Signed Intake Vital Signs09/16/17 Height 5 ft 4 in Intake Visit Reasons: ANKLE SWELLING Chief Complaint: Rt. ankle pain Is patient in pain?: Yes (Right ankle) Pain scale (1-10): 5 Allergies adhesive tape Allergy (Intermediate, Verified 04/23/17 10:41) blisters Medications estradiol 1 mg tablet 1 mg PO QDAY 04/23/17 [History Confirmed 04/23/17] lansoprazole 30 mg capsule,delayed release 30 mg PO QDAY #90 cap 08/30/17 [Rx] gabapentin ER 600 mg tablet,extended release 24 hr 600 mg PO BID tab 09/16/17 [History Confirmed 09/16/17] methylprednisolone 4 mg tablets in a dose pack See Label Instructions PO PER PKG DIR #21 tab 09/16/17 [Rx Confirmed 09/16/17] triamterene 50 mg-hydrochlorothiazide 25 mg capsule 1 cap PO QDAY #90 cap 09/16/17 [Rx Confirmed 09/16/17] PFSH Medical History Arthritis (Acute) Back pain (Acute) IBS (irritable bowel syndrome) (Acute) gallbladder removed (Acute) right rotaor cuff repair (Acute) Cancer, skin, squamous cell (Resolved) Gout (Resolved) Surgical History History of bilateral knee replacement (Acute) History of hysterectomy (Acute) Hx of breast reduction, elective (Acute) Status post left rotator cuff repair (Acute) Family History Mother Hypertension COPD (chronic obstructive pulmonary disease) Father Cancer lyphoma Grandmother Cancer, Onset Age: 90 Social History Smoking Status: Never smoker alcohol intake: current alcohol intake frequency: a few times a month Alcohol type: hard liquor substance use type: does not use what type of physical activity do you participate in: walking frequency: daily HPI HPI Chief Complaint: Rt. ankle pain Details: CELINA PAT, is a 67yo F who presents to the office today due to persisting right ankle pain. 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 She reports similar pain in the past which responded well to topical dexamethasone. ROS Const Constitutional: No weight change, body ache, chills, fatigue, sleep problems, fever(s), change in appetite, snoring, weakness, frequent falls, headache(s) or excessive sweating Eyes Eyes: No change in vision, eye pain, light sensitivity or blurry vision ENT ENT: No headache(s), abnormal hearing, ear pain, tinnitus, nasal congestion, sore throat or neck pain Resp Respiratory: No snoring, cough, shortness of breath or wheezing Cardio Cardiology: No excessive sweating, chest pain at rest, chest pain with exertion, shortness of breath, dyspnea on exertion, palpitations, orthopnea or lightheadedness Gastro GI: No abdominal pain, change in bowel habits, constipation, diarrhea, vomiting, nausea/dyspepsia or cramping Genitourinary-Female: No burning urination, painful urination, urinary incontinence, urinary frequency, abnormal vaginal bleeding, pelvic pain or other Musc Musculoskeletal: Positive for other (right ankle pain) and joint swelling (right ankle at night); no neck pain, abnormal walking, joint pain, back pain, limited range of motion, numbness, tingling or muscle weakness Skin Skin: No redness, dry skin, itching, lesions, wounds or rash Neuro Neurology: No weakness, frequent falls, headache(s), abnormal hearing, abnormal walking, numbness, tingling, abnormal speech, dizziness or memory loss Psych Psychiatric: No change in appetite, No memory loss, No anxiety, No depression, No Thoughts of harming yourself/Others Endo Endocrine: No fatigue, excessive sweating, cold intolerance, increased thirst/drinking, heat intolerance, flushing or increased hunger Aller/Imm Allergy/Immunologic: No wheezing, itchy eyes, hives or seasonal allergy symptoms Patricio/Lymp Hematologic/Lymphatic: No easy bleeding, easy bruising or enlarged lymph nodes Exam Const General: cooperative, healthy appearing, comfortable, no acute distress, well groomed [facility] Ears: hearing grossly normal bilaterally, external ears normal Nose: external nose normal Face and sinus: normal facial exam Mouth: oral mucosae normal Eyes General: appearance normal, both eyes and all related structures Neck Neck: normal visual inspection, full ROM Resp Effort AND Inspection: normal respiratory effort, able to speak in complete sentences, symmetric chest movement Auscultation: Bilateral: Clear to Auscultation Cardio Rate: regular rate Rhythm: regular rhythm Heart Sounds: S1 normal, S2 normal GI Inspection: normal to inspection, obesity Auscultation: normal bowel sounds Percussion: normal to percussion Palpation: soft Musc Musculoskeletal: No muscle weakness Neuro General: alert, awake, oriented x3, gait normal Cranial Nerves: CN's II-XI intact bilaterally Cognition: normal cognition Speech: speech normal Extrem General: no clubbing, cyanosis or edema, other (Tenderness below the lateral malleolus of the right foot.) Assessment AND Plan 1. Right ankle pain M25.571 Plan Chronic and persistent. Possibly Tendinitis Followed up with podiatry however, still no relief per patient. Successful resolution with dexamethasone with similar pain on the left. Prescription for Medrol dose pack given. Follow up in 1 month 2. Chronic diarrhea K52.9 Plan Resolved. Stress related. Will monitor. 3. Venous insufficiency of both lower extremities I87.2 Plan Chronic. No recent worsening. Has been on Triamterene - HCTZ ( 75 - 50mg ) for a long time. A new prescription for 50 -25mg given. Follow up in 1 month. This note was generated with [employer] dictation software. It may contain incorrect words, spelling, and punctuation that were not noted in checking the note before signing. Plan Detail Other Medications New: Discontinued: triamterene-hydrochlorothiazid 75-50 mg Discontinued Reason: Order Cha1 tab PO DAILY nged Follow Up 1 Month Coding Level of Care Code Off vis,est,level 4 Diagnoses Right ankle pain M25.571 Chronic diarrhea K52.9 Venous insufficiency of both lower extremities I87.2 09/17/17 1525 <Electronically signed by Efewongbe Oleghe MD> Date Swathi Lagunas MD Cosigner Signature: Date (if applicable) CC: ALLERGIES ALLERGIES DATE TYPE / CODE NAME / CODE REACTION SEVERITY SOURCE 06/09/2018 Drug adhesive blisters [place] Allergy/416 tape/[id number]([facility] 633796([facility]) Repository 12/12/2017 Drug No Known Unknown [facility] Allergy/416 Allergies/S970513 [facility] 020171(SNOM 388(RXNORM) Repository ED CT) 10/08/2005 DRUG/578967 MEPERIDINE (PF) [facility] 003(SNOMED [facility] [place] [facility]) Repository 09/28/2002 DRUG CODEINE [facility] INGREDI/419 [facility] [place] 988360(SNOM Repository ED CT) 09/28/2002 Drug SULFA [facility] Class/63413 (SULFONAMIDE [facility] [place] 1003(SNOMED ANTIBIOTICS) Repository CT) NG/78485391 CODEINE [facility] 6(SNOMED [facility]) Repository NG/39513036 MEPERIDINE (PF) [facility] 6(SNOMED [facility]) Repository NG/61426368 SULFA [facility] 6(SNOMED (SULFONAMIDE [facility]) ANTIBIOTICS) Repository ENCOUNTERS ENCOUNTERS ADMIT/DISCHARGE ACCOUNT NUMBER ADMITTING ENCOUNTER LOCATION SOURCE CLASS 06/09/2018/06/09/19 [id number] Emergency [address] ding:ED Repository 06/04/2018 [id number] Ambulatory [facility] ding:LABSPEC Repository 06/04/2018/06/04/19 [id number] Ambulatory BMSBuilding: [place] Repository 05/08/2018 [id number] Ambulatory [address] [facility] Repository 05/08/2018 [id number] [place], Ambulatory [address] [facility]lica Bolanos [facility] Repository 03/24/2018 [id number] [place], Ambulatory 9545 Ang[address]lica Bolanos [facility] Repository 03/21/2018/03/21/20 [id number] Ambulatory BMSBuilding: [place] 18 BMS.[facility] Repository 02/20/2018 [id number] Ambulatory PCGBuilding: [facility] Repository 02/13/2018 [id number] Ambulatory [address] [place] [address] Repository 02/12/2018 [id number] Ambulatory [address] [place] [address] Repository 02/12/2018/02/15/20 [id number] Jay, Inpatient PCGBuilding: [place] 18 Mujjahid Encounter 2JNTRoom: [facility] 205Bed: [address] [place] [address] Repository 02/12/2018 [id number] Ambulatory [address] [place] [address] Repository 02/11/2018/02/12/20 [id number] Ambulatory [address] Repository 02/11/2018/02/12/20 [id number] Ambulatory [address] MEDICAL Repository CENTERBuildi ng:NEUSAGHB 01/31/2018 [id number] Ambulatory [address] [place] [address] Repository 01/30/2018 [id number] Ambulatory PCGBuilding: [facility] Repository 01/30/2018 [id number] Ambulatory PCGBuilding: [facility] Repository 01/17/2018/01/18/20 [id number] Ambulatory BMSBuilding: [place] 18 BMS.[facility] Repository 01/13/2018/01/14/20 [id number] Ambulatory BMSBuilding: [place] 18 BMS.[facility] Repository 12/13/2017 [id number] Ambulatory [address] [place] [address] Repository 12/13/2017 [id number] Ambulatory PCGBuilding: [facility] Repository 11/15/[id number] Aj Ambulatory [facility] Repository 11/14/2017 [id number] Ambulatory [facility] ding:LAB Repository 11/13/2017 [id number] Ambulatory [facility] ding:MTLAB Repository 11/07/2017 [id number] Ambulatory PCGBuilding: [facility] Repository 10/30/2017 [id number] Ambulatory [facility] ding:SL Repository 10/17/2017 [id number] Ambulatory [place] [facility] ding:MTLAB Repository 10/15/2017/10/16/19 [id number] Ambulatory BMSBuilding: [place] 18 BMS.[facility] Repository 09/27/2017/10/08/19 [id number] Ambulatory [address] Repository 09/16/2017/09/17/19 [id number] Ambulatory BMSBuilding: [place] 18 BMS.[facility] Repository PAYERS PAYERS ENCOUNTER GUARANTOR PAYER SUBSCRIBER SOURCE 06/09/2018 CELINA F [id number] S Primary CELINA F PADODOB: [place], Insurance:[employer] [id number] [facility] [address]Huc: [place] [phone]) [phone] [facility] Number: Repository () [id number] e Date:2360-56-73[address] [address]SM: 06/09/2018 Secondary NOT GIVENUNK [place] Insurance:SELF PAY [facility] Number: Effective Repository Date:2018-06-09 06/04/2018 CELINA F [id number] S Primary CELINA F PADODOB: [place], Insurance:[employer] [id number] [facility] [address]Whl: [facility] Number: Repository () [id number] e Date:1362-55-69[address]X [address], [place] [address]HS: 06/04/2018 Secondary NOT GIVENUNK [place] Insurance:SELF PAY [facility] Number: Effective Repository Date:2018-06-04 06/04/2018 CELINA F [id number] S Primary CELINA F PADODOB: [place], Insurance:[employer] [id number] [facility] [address]Okp: [facility] Number: Repository () [id number] e Date:7395-92-79[place] [address]WD: 06/04/2018 Secondary NOT GIVENUNK [place] Insurance:SELF PAY [facility] Number: Effective Repository Date:2018-06-04 05/08/2018 CELINA PADODOB: Primary CELINA PADODOB: [place] S Insurance:[facility] [id number] [facility] Rep[facility] [place] [id number]: Number: [place] [id number]: () e Date:Plan Name:HealthPO Box () [facility] [place], [place] [address]MH: 05/08/2018 Secondary CELINA PADODOB: [place] Insurance:[facility] [id number] [address] icy Number: S [place] Repository [id number] [place], [place] e Date:Plan [id number]: Name:[address] () 05/08/2018 CELINA PADODOB: Primary CELINA PADODOB: [place] S Insurance:[facility] [id number], [facility] Repository [place] [id number]: Number: [place] [id number] [id number]: (HP) e Date:Plan Name:HealthPO Box () 69[address]C[facility] [place] [address]CE: 05/08/2018 Secondary CELINA PADODOB: [place] Insurance:[facility] [id number] [address] icy Number: S [place] Repository [id number] [place] e Date:Plan [id number]: Name:[place] [address] () 03/24/2018 CELINA PADODOB: Primary CELINA PADODOB: [facility] S Insurance:[facility] [id number] [facility] RDWSHY, icy Number: S [place] Repository [place] [id number]: [id number] [place] e Date:Plan [id number]: () Name:[place] [address] () 03/21/2018 CELINA F [id number] S Primary CELINA F PADODOB: [place] YS [place]DWOOSTJO[place], Insurance:[employer] [id number] Community Hospital [facility] [address]Mgp: [facility] Number: Repository () [id number] e Date:1786-60-07[address], [place] [address]FK: 03/21/2018 Secondary NOT GIVENUNK [place] Insurance:SELF PAY [facility] Number: Effective Repository Date:2018-03-18 02/20/2018 CELINA [id number] Primary CELINA PADODOB: [facility] Insurance:[facility] [id number] General [place] icy Number: [facility] [address]Bkp: (330) [id number] [place], [place] Repository [phone] () e Date:[address] [address]Upf: [phone]) [place], [place] [phone] () [address]HW: 02/13/2018 CELINA PADODOB: Primary CELINA PADODOB: [place] Insurance:[facility] [id number] [facility] Repository [address], [place] Number: [place], [place] [address]Tnn: (330) [id number] [id number]: (HP) e Date:Plan () Name:[facility] Cammy [address], [place] [address]KN: 02/12/2018 CELINA PADODOB: Primary CELINA PADODOB: [place] Insurance:[facility] [id number] [place] [address] icy Number: [place], [place] [id number] [place], [place] [address]Hcc: (971) e Date:Plan [address]Zhc: () Name:[place] [id number] () 02/12/2018 CELINA [id number] [facility] CELINA PADODOB: [facility] Insurance:[facility] [id number] [place] [address] icy Number: [facility] [address]Ahi: (330) [id number] [place], [place] Repository [phone] () e Date:[address] [address]Tkj: [phone]) [address], [place] [phone] () [address]IW: 02/12/2018 CELINA PADODOB: Primary CELINA PADODOB: [place] Insurance:[facility] [id number] [place] [address] icy Number: [place], [place] [id number] [place], [place] [address]Dbz: (636) e Date:Plan [address]Fgj: () Name:[address] () 02/11/2018 CELINA PADODOB: Primary CELINA PADODOB: [facility] Insurance:[employer]IM[employer]IME [id number] [facility] Repository [place], [place] Number: [id number]: (371) [id number] [phone] (HP) e Date: 01/31/2018 CELINA PADODOB: Primary CELINA PADODOB: University Insurance:Self [id number] [facility] PayPolicy Number: ys Repository [place], [place] Effective Date:[place], [place] [address]Sac: (330) Name:[place] [address]Tel: () [phone] () 01/30/2018 CELINA [id number] EAST Primary CELINA PADODOB: [facility] [id number] General [place], [place] icy Number: [facility] [address]Alw: (330) [id number] RDWAxis, [place] Repository [phone] () e Date:[address] [address]Imc: 330) [address], [place] [phone] () [address]NS: 01/30/2018 CELINA [id number] Primary CELINA PADODOB: [facility] [id number] [place], [place] icy Number: [facility] [address]Gbk: [phone]) [id number] [place] Repository [phone] (HP) e Date:[address] [address]Tqv: [phone] [address], [place] [phone] () 10345RQ: 01/17/2018 CELINA F [id number] S Primary CELINA F PADODOB: [place] [facility] Insurance:[employer] [id number] [facility] [address]Wyd: [facility] HMOPolicy Number: Repository (HP) [id number] e Date:4851-53-38OL [address] [address]QB: 01/17/2018 Secondary NOT GIVENUNK [place] Insurance:SELF PAY [facility] Number: Effective Repository Date:2018-01-17 01/13/2018 CELINA F [id number] E Primary CELINA F PADODOB: [place] WREN Insurance:[employer] [id number] Center[facility] [address]Lto: 330 HMOPolic Number: Repository [phone] () Effective Date:2139-58-05WZ [address] [address]BT: 01/13/2018 Secondary NOT GIVENUNK [place] Insurance:SELF PAY [facility] Number: Effective Repository Date:2018-01-13 12/13/2017 CELINA PADODOB: Primary CELINA PADODOB: [place] [id number] Insurance:[facility] [id number] [facility] ic Number: [facility], [id number], [place] [address]Hsf: e Date:[facility] [address]Dfn: Name:[place] [phone] () (HP) 12/13/2017 CELINA [id number] EAST Primary CELINA PADODOB: [place] [facility] Insurance:[facility] [id number] [place] icy Number: [facility] [address]Okj: [phone]) [id number] [place] Repository [phone] (HP) e Date:[address] [address]Lvm: [phone] [phone] [phone] () [address]DR: 11/15/2017 CELINA PADODOB: Primary CELINA PADODOB: [place] [id number] Insurance:[facility] [id number] [place], [place] Number: [facility], [place] [address]Nkx: (330) [id number] [id number]: () e Date:Plan [id number] () Name:[address] [address]KH: 11/14/2017 CELINA F [id number] E Primary CELINA F PADODOB: [place] Insurance:[employer] [id number] [facility] [address]Efz: (129) [facility]: Repository [phone] () [id number] e Date:4642-55-45PS [address] [place] [address]LI: 11/14/2017 Secondary NOT GIVENUNK [place] Insurance:SELF PAY [facility] Number: Effective Repository Date:2017-11-14 11/13/2017 CELINA F [id number] E Primary CELINA F PADODOB: [place] Insurance:[employer] [id number] [facility] [address]Yhn: (455) [facility] Number: Repository [phone] () [id number] e Date:9205-73-22PR [address] [place] [address]OX: 11/13/2017 Secondary NOT GIVENUNK [place] Insurance:SELF PAY [facility] Number: Effective Repository Date:2017-11-13 11/07/2017 CELINA [id number] Primary CELINA PADODOB: [facility] Insurance:[employer] [id number] [place] icy Number: [facility] [id number]: (437) [id number] [place] Repository [phone] () e Date:[address] [address]Ttr: [phone] [phone] () 679[address]OT: 10/30/2017 CELINA F [id number] E Primary CELINA F PADODOB: [place] Insurance:[employer] [id number] icy Number: Hospital [id number]: (330) [id number] Repository [phone] (HP) e Date:4798-38-21VH [address] [address]UL: 10/30/2017 Secondary NOT GIVENUNK [place] Insurance:SELF PAY [facility] Number: Effective Repository Date:2017-10-16 10/17/2017 CELINA F [id number] E Primary CELINA F PADODOB: [place] Insurance:[employer] [id number] [place] icy Number: Hospital [id number]: (330) [id number] Repository [phone] () e Date:5889-93-60NP [address] [address]TT: 10/17/2017 Secondary NOT GIVENUNK [place] Insurance:SELF PAY [facility] Number: Effective Repository Date:2017-10-17 10/15/2017 CELINA F [id number] E Primary CELINA F PADODOB: [place] Insurance:[employer] [id number] [place] icy Number: Hospital [id number]: (330) [id number] Repository [phone] () e Date:9394-33-22TC [address] [address]PF: 10/15/2017 Secondary NOT GIVENUNK [place] Insurance:SELF PAY [facility] Number: Effective Repository Date:2017-10-15 09/16/2017 CELINA F [id number] E Primary CELINA F PADODOB: [place] Insurance:[employer] [id number] icy Number: Hospital [id number]: (330) [id number] Repository [phone] () e Date:4055-59-53GI [address] [address]AU: 09/16/2017 Secondary NOT GIVENUNK [place] Insurance:SELF PAY [facility] Number: Effective Repository Date:2017-09-16
== END ==
PROVIDERS: Family Provider Internal Medicine; PCP Internal Medicine; Referring Provider Nurse Practitioner Family; Visit Provider Nurse Practitioner Family
DX: R30.0 Dysuria (principal)
CPT/HCPCS: 81001; 87086; 87088; 87186

== ENCOUNTER 2018-06-09 12:10 | Emergency (ER) | payer MEDICARE, SELFPAY ==
[2018-06-04 10:34] VITALS: BMI 29.8
[2018-06-09 12:11] VITALS: BP 124/75; PULSE 66; RESP 16; TEMP 36.3; O2SAT 99; BMI 30.1
[2018-06-09 12:13] VITALS: BP 124/75; PULSE 66; RESP 16; TEMP 36.3; O2SAT 99
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
[2018-06-09] MEDS: Diphth,Pertuss(Acell),Tet Vac 0.5 ML Vial IM (13:07)
--- OUTSIDE RECORDS SUMMARY | 2018-08-11 23:41 | XMS RPT_ITS ---
:1950 Author Organization OHIP Support Name Relationship Address Phone CONNOR PAT Unavailable [address] + [place] [address] R Unavailable Unavailable Unavailable CONNOR PAT Unavailable [address] + [place] [address] R Unavailable Unavailable Unavailable CONNOR PAT Unavailable [address] + [place] [address] R Unavailable Unavailable Unavailable PADO, CATARINO Unavailable Unavailable + PADO, CURTIS Unavailable Unavailable + PADO, CATARINO Unavailable Unavailable + PADO, CURTIS Unavailable Unavailable + PADO, CATARINO Unavailable Unavailable + PADO, CURTIS Unavailable Unavailable + ADILIA CONNOR Unavailable [address] + [place] [address] R Unavailable Unavailable Unavailable PADO, CATARINO Unavailable [address] + [place] [address] PADO, CATARINO Unavailable Unavailable + PADO, CURTIS Unavailable Unavailable + PADO, CATARINO Unavailable Unavailable + PADO, CURTIS Unavailable Unavailable + PADO, CATARINO Unavailable [address] + [place] [address] PADO, CATARINO Unavailable Unavailable + PADO, CURTIS Unavailable Unavailable + PADO, CATARINO Unavailable [address] + [place] [address] PADO, CATARINO Unavailable [address] + [place] [address] PADO, CONNOR Unavailable [address] + [place] [address] R Unavailable Unavailable Unavailable PADO, CONNOR Unavailable [address] + [place] [address] R Unavailable Unavailable Unavailable PADO, CATARINO Unavailable Unavailable + PADO CURTIS Unavailable Unavailable + PADO, CATARINO Unavailable [address] [place] + [place] [address] PADO, CATARINO Unavailable Unavailable + PADO, CURTIS Unavailable Unavailable + PADO, CONNOR Unavailable [address] + [place] [address] R Unavailable Unavailable Unavailable PADO, CONNOR Unavailable [address] + [place] [address] R Unavailable Unavailable Unavailable PADO, CONNOR Unavailable [address] + [place] [address] R Unavailable Unavailable Unavailable PADO, CONNOR Unavailable [address] + [place] [address] R Unavailable Unavailable Unavailable PADO, CONNOR Unavailable [address] + [place] [address] R Unavailable Unavailable Unavailable PADO, CONNOR Unavailable [address] + [place] [address] R Unavailable Unavailable Unavailable Care Team Providers Name Role Phone John Higuera Attending Unavailable Leann Thompson Attending Unavailable Leann Thompson Attending Unavailable Leann Thompson Admitting Unavailable Leann Thompson Attending Unavailable Leann Thompson Attending Unavailable Leann Thompsno Attending Unavailable MICHAEL LOPEZ Attending Unavailable IMCA Referring Unavailable IMCA Primary Care Unavailable ELIS PACK Attending Unavailable MICHAEL LOPEZ JR Attending Unavailable Dr. Compa Rocha Admitting Unavailable Dr. Compa Rocha Attending Unavailable *SELF, REFERRED Referring Unavailable Miranda Mustafa Primary Care Unavailable KAISI, MARIA INES Attending Unavailable KAISI, MARIA INES Referring Unavailable Bonezzi, Miranda Zafar Primary Care Unavailable Castillo, Ms. EastmanDamari Attending Unavailable Bonezzi, Miranda Zafar Primary Care Unavailable Bonezzi, Miranda Zafar Primary Care Unavailable Steve-Caicedo, Carline Attending Unavailable Steve-Caicedo, Carline Referring Unavailable Boneinés, Miranda Zafar Primary Care Unavailable Darbydale, Mrs. Cici Vargas Admitting Unavailable Wilner, Mrs. Cici Vargas Attending Unavailable Bonezzi, Dr. Miranda Zafar Primary Care Unavailable Wilner, Mrs. Cici Vargas Admitting Unavailable Darbydale, Mrs. Cici Vargas Attending Unavailable Darbydale, Mrs. Cici Vargas Referring Unavailable Bonezzi, Dr. Miranda Zafar Primary Care Unavailable Abbas, Dr. Noriega Attending Unavailable Bonezzi, Dr. Miranda Zafar Primary Care Unavailable Oleghe, Efewongbe Attending Unavailable [...] Unavailable Oleghe, Efewongbe Referring Unavailable Dani Rivers CHAR DUST CLEANER AND SALVAGER-C Attending Unavailable Oleghe, Efewongbe Referring Unavailable RiversDani CHAR DUST CLEANER AND SALVAGER-C Attending Unavailable Dani Rivers CHAR DUST CLEANER AND SALVAGER-C Referring Unavailable Oleghe, Efewongbe Primary Care Unavailable Oleghe, Efewongbe Primary Care Unavailable Topete, Lencho Attending Unavailable PROBLEMS PROBLEMS DATE TYPE CONDITION / CODE ATTENDING STATUS SOURCE 06/04/2018 Unknown R30.0 - Dysuria / Dani Rivers Active [place] R30.0(ICD-10) CHAR DUST CLE[employer]ER AND SALVAGER-C [facility] Repository 05/08/[address] Jay Active [facility] diagnosis status / [facility] Z98.84(ICD-10) Repository 03/24/2018 Final diagnosis Vitamin D Mrs. Wilner Active [facility] (discharge) deficiency, [facility] unspecified / Repository E55.9(ICD-10) 03/24/2018 Final diagnosis Bariatric surgery Mrs. 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 / [facility] Other G25.81(ICD-10) [place] Repository 02/11/2018 Active Low back pain / PRASANNA OLIVIER, Active [place] M54.5(ICD-10) [facility] Other [place] Repository 02/11/2018 Active Other chronic pain PRASANNA JR, Active Man / G89.29(ICD-10) [facility] Other [place] Repository 02/11/2018 Admitting Robin / MICHAEL LOPEZ Active [place] General diagnosis UNK(Unknown) [facility] Repository 01/17/2018 Unknown M25.571 - Pain in Oleghe, Active [place] right ankle and Efewongbe [facility] joints of right Hospital foot / Repository M25.571(ICD-10) 01/17/2018 Unknown Z78.0 - Oleghe, Active [place] Asymptomatic [facility] menopausal state / Hospital Z78.0(ICD-10) Repository 11/15/2017 Final diagnosis Encounter for akosua Rocha Dr. Active [place] [facility] Z01.818(ICD-10) 11/15/2017 Final diagnosis Essential (primary) Aj, [facility] (discharge) hypertension / [facility] I10(ICD-10) Repository 11/29/2017 Unknown M06.9 - Rheumatoid KOTA CHOI Active [place] arthritis, Community unspecified / Hospital M06.9(ICD-10) Repository 11/01/2017 Unknown G47.30 - Sleep Oleghe, Active [place] apnea, unspecified [facility] / G47.30(ICD-10) Hospital Repository 10/17/2017 Unknown E66.9 - Obesity, Oleghe, Active [place] unspecified / [facility] E66.9(ICD-10) Hospital Repository 10/17/2017 Unknown I87.2 - Venous Oleghe, Active [place] insufficiency [facility] (chronic) Hospital (peripheral) / Repository I87.2(ICD-10) PROCEDURES PROCEDURES No Procedure Records FoundRESULTS RESULTS EMERGENCY DEPARTMENT Observed: 06/09/2018 Status: F Source: [place] SUMMARY 12:[address] [facility] REPOSITORY [facility] Medical Records Department [address] [place] [address] Emergency Department Summary 06/09/18 1226 MR#: [id number] Acct: [id number] Name: CELINA PAT Rep #: [id number] : 1950 67 From: Lencho Topete MD [...] head trauma This note was generated with TripShake dictation software. It may contain incorrect words, [...] your Primary Care Provider. Call [facility] ([phone]) or report to the closest Emergency Room. Call 911 if necessary. 06/09/18 1244 <Electronically signed by Lencho Topete MD> Date Lencho Topete MD Cosigner Signature (If Indicated): Date CC: Swathi Lagunas MD INTERNAL MEDICINE Observed: 06/04/2018 Status: F Source: [place] OFFICE VISIT 5:10 PM [facility] Internal Medicine [address] [address] [place] [address] OFFICE VISIT Date of Service: 06/04/18 MR#: [id number] Acct: [id number] Name: CELINA PAT Rep #: [id number] : 1950 Provider: Dani Rivers NP Age/Sex: 67/F Location: [facility] Status: Signed Intake Vital Signs06/04/18 Height 5 [...] not improved. This note was generated with TripShake dictation software. It may contain incorrect words, [...] 06/04/2018 Status: F Source: [place] 4:[address] [facility] REPOSITORY Order Comment: How was Urine Obtained? INTERNET MARKETING ANALYST TO SPECIFY TYPE CODE TESTS RESULT OUT [...] 0 SEEN Performed By: #### L400.0001 #### [facility] [address] [place], [address] Observed: 06/04/2018 Status: F Source: [place] CULTURE, URINE 4:[address] [facility] REPOSITORY Urine Culture ORGANISM 1: Presumptive E. coli [place] Count >100,000 Presumptive E. coli: REACTION Ampicillin [...] <=20 S (NF) indicates non-formulary drug at [facility]. Approval by Infectious Disease Specialist required before non-formulary drugs may be ordered and/or dispensed. Performed By: #### M100.0650 #### [facility] [address] [place], [address] OBSOLETE Observed: 05/23/2018 Status: COMPLETED Source: [place] 12:00 AM CLINIC OTHER [place] REPOSITORY Refill (KIANA) CELINA PAT ([id number]) 1950 [facility] Date Time Provider Department 05/23/18 MICHAEL LOPEZ JR During your visit today, we recorded the following information about you: Gregory Tijerina MA 05/23/2018 2:27 PM Signed Name: patient requesting medications refill(s). 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 #4169; Last Updated By: Allyn Serrato; 09/22/2015 2:41:32 PM Omeprazole 40 MG Oral Capsule Delayed Release; TAKE 1 CAPSULE Daily Open capsule, sprinkle in SF applesauce or pudding, swallow. DO NOT CHEW; Therapy: 65Ree3549 to (Evaluate:69Imi5613) Requested for: 85Fdf2019; Last Rx:[id number] Ordered Rx By: Leann Thompson; Dispense: 30 Days ; #:30 Capsule Delayed Release; Refill: 2;For: GERD without esophagitis, Post-operative nausea and vomiting; RACQUEL = N; Verified Transmission to [facility] #3321 Calcium 600 MG Oral Tablet; Therapy: 20Lse7753 to Recorded Dispense: 0 Days ; #: Sufficient Tablet; Refill: 0; RACQUEL = N; Record; Last Updated By: Yuliana Mckeon; 05/08/2018 10:53:48 AM Multi Vitamin Oral Tablet; Therapy: 57Ptu8414 to Recorded Dispense: 0 Days ; #: [...] not taking enough calcium. Your goal is 0824-7207 mg per day. Take enough calcium to [...] Follow-up: 6 months post op Livia FREIRE, [facility] Bariatric Surgery Dietitian Patient Discussion/Summary Recommendations: 1.Continue [...] Follow-up: 6 months post op Livia FREIRE, [facility] Bariatric Surgery Dietitian . 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 Lansoprazole 30 MG Oral Capsule Delayed Release; TAKE 1 CAPSULE DAILY; Therapy: 06Bql2627 to (Evaluate:16Sep2016) Requested for: 24Asn1662; Last Rx:97Kfx2681 Ordered Rx By: Daina Clark; Dispense: 90 Days ; #:90 Capsule Delayed Release; Refill: 3;For: GERD without esophagitis; RACQUEL = N; Verified Transmission to [facility] #8339; Last Updated By: Myke Serrato; 09/22/2015 2:41:32 PM Omeprazole 40 MG Oral Capsule Delayed Release; TAKE 1 CAPSULE Daily Open capsule, sprinkle in SF applesauce or pudding, swallow. DO NOT CHEW; Therapy: 78Lsf2969 to (Evaluate:35Aqr2204) Requested for: 25Hmu2841; Last Rx:71Stv5857 Ordered Rx By: Leann Thompson; Dispense: 30 Days ; #:30 Capsule Delayed Release; Refill: 2;For: GERD without esophagitis, Post-operative nausea and vomiting; RACQUEL = N; Verified Transmission to [facility] Ondansetron 4 MG Oral Tablet Disintegrating; TAKE 4 MG Every 6 hours PRN; Therapy: 99Tfl2857 to (Last Rx:33Ury7037) Requested for: 95Xfu1428 Ordered Rx By: Leann Thompson; Dispense: 0 Days ; #:30 Tablet Disintegrating; Refill: 1;For: Post-operative nausea and vomiting; RACQUEL = N; Verified Transmission to [facility]3321 Vitamin D (Ergocalciferol) 11502 UNIT Oral Capsule; Take 1 capsule TWICE weekly for 3 mo; Therapy: 43Mfl5453 to (Last Rx:49Fdx7941) Requested for: 16Byx3163 Ordered Rx By: Leann Thompson; Dispense: 0 Days ; #:8 Capsule; Refill: 2;For: Vitamin D deficiency; RACQUEL = N; Verified Transmission to [facility] #7708 Physical Exam Abdominal exam: soft and nontender. [...] Come to support groups. Follow-up with the Cloth Cutting Inspector as needed. Follow-up in 3 months for your 6 month visit. Signatures Electronically signed by : Leann Thompson MD; May 08 2018 11:45AM EST (Author) OBSOLETE Observed: 04/07/2018 Status: COMPLETED Source: [place] 12:00 AM CLINIC OTHER CAMPUS REPOSITORY Refill (DARRENBA) CELINA PAT ([id number]) 1950 F T Date Time Provider Department 04/07/18 MICHAEL LOPEZ JR During your visit today, we recorded the following information about you: Penelope Beck CMA 04/07/2018 4:33 PM Signed Name: Pharmacy called today requesting medications refill(s). 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3321 Lansoprazole 30 MG Oral Capsule Delayed Release (Prevacid); TAKE 1 CAPSULE DAILY; Therapy: 63Gta5713 to (Evaluate:24Zaq4593) Requested for: 73Onk2308; Last Rx:77Gtq8694 Ordered Rx By: Daina Clark; Dispense: 90 Days ; #:90 Capsule Delayed Release; Refill: 3;For: GERD without esophagitis; RACQUEL = N; Verified Transmission to [facility] #5919; Last Updated By: Allyn Serrato; 09/22/2015 2:41:32 PM Omeprazole 40 MG Oral Capsule Delayed Release; TAKE 1 CAPSULE Daily Open capsule, sprinkle in SF applesauce or pudding, swallow. DO NOT CHEW; Therapy: 07Kci7661 to (Evaluate:24Tym0898) Requested for: 01Sxn1906; Last Rx:49Ptv8855 Ordered Rx By: Leann Thompson; Dispense: 30 Days ; #:30 Capsule Delayed Release; Refill: 2;For: GERD without esophagitis, Post-operative nausea and vomiting; RACQUEL = N; Verified Transmission to [facility]3321 Ondansetron 4 MG Oral Tablet Disintegrating; TAKE 4 MG Every 6 hours PRN; Therapy: 97Mot8537 to (Last Rx:62Nbj9752) Requested for: 13Ntv6553 Ordered Rx By: Leann Thompson; Dispense: 0 Days ; #:30 Tablet Disintegrating; Refill: 1;For: Post-operative nausea and vomiting; RACQUEL = N; Verified Transmission to [facility] Vitamin D (Ergocalciferol) 51339 UNIT Oral Capsule; Take 1 capsule TWICE weekly for 3 mo; Therapy: 45Cqn2040 to (Last Rx:93Cgi6259) Requested for: 10Iol9211 Ordered Rx By: Leann Thompson; Dispense: 0 Days ; #:8 Capsule; Refill: 2;For: Vitamin D deficiency; RACQUEL = N; Verified Transmission to [facility] Estradiol 1 MG Oral Tablet; TAKE 1 TABLET BY MOUTH ONCE DAILY; Therapy: 52Kom4528 to Recorded Rx By: ADELAIDA; Dispense: 90 [...] encounter (date: 02.20.18) 1.Increase protein intake. Eat Ugand[place] yogurt and blended cottage cheese to help [...] not taking enough calcium. Your goal is 1088-9773 mg per day. Take enough calcium to [...] Pt states that she will purchase the [employer] brand soft chew and take 3 per [...] not taking enough calcium. Your goal is 9717-5302 mg per day. Take enough calcium to meet that goal 6.Continue to exercise. Change up your routine. Make it harder to do and add in strength training. Nutrition Monitoring and Evaluation: Weight loss1-2 pounds per week Criteria: weight check, food recall Need for Follow-up: 3 month post op nutrition follow up Livia FREIRE, [facility] Bariatric Surgery Dietitian Patient Discussion/Summary Recommendations: 1.You [...] not taking enough calcium. Your goal is 4137-5450 mg per day. Take enough calcium to meet that goal 6.Continue to exercise. Change up your routine. Make it harder to do and add in strength training. Nutrition Monitoring and Evaluation: Weight loss1-2 pounds per week Criteria: weight check, food recall Need for Follow-up: 3 month post op nutrition follow up Livia Canseco RDN , [facility] Bariatric Surgery Dietitian . 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3321 Lansoprazole 30 MG Oral Capsule Delayed Release; TAKE 1 CAPSULE DAILY; Therapy: 25Bqa9302 to (Evaluate:16Sep2016) Requested for: 71Vnb8688; Last Rx:73Rgv5420 Ordered Rx By: Daina Clark; Dispense: 90 Days ; #:90 Capsule Delayed Release; Refill: 3;For: GERD without esophagitis; RACQUEL = N; Verified Transmission to [facility] #2469; Last Updated By: Allyn Serrato reScrijarrod; 09/22/2015 2:41:32 PM Omeprazole 40 MG Oral Capsule Delayed Release; TAKE 1 CAPSULE Daily Open capsule, sprinkle in SF applesauce or pudding, swallow. DO NOT CHEW; Therapy: 29Vum0731 to (Evaluate:51Qvd2754) Requested for: 98Nwj1839; Last Rx:07Mgf5090 Ordered Rx By: Leann Thompson; Dispense: 30 Days ; #:30 Capsule Delayed Release; Refill: 2;For: GERD without esophagitis, Post-operative nausea and vomiting; RACQUEL = N; Verified Transmission to [facility] Ondansetron 4 MG Oral Tablet Disintegrating; TAKE 4 MG Every 6 hours PRN; Therapy: 79Tek2524 to (Last Rx:58Qhy9398) Requested for: 88Aco6926 Ordered Rx By: Leann Thompson; Dispense: 0 Days ; #:30 Tablet Disintegrating; Refill: 1;For: Post-operative nausea and vomiting; RACQUEL = N; Verified Transmission to [facility] Vitamin D (Ergocalciferol) 42750 UNIT Oral Capsule; Take 1 capsule TWICE weekly for 3 mo; Therapy: 98Iwb5113 to (Last Rx:67Rrz5476) Requested for: 03Miv5603 Ordered Rx By: Leann Thompson; Dispense: 0 Days ; #:8 Capsule; Refill: 2;For: Vitamin D deficiency; RACQUEL = N; Verified Transmission to [facility]3321 Estradiol 1 MG Oral Tablet; TAKE 1 TABLET BY MOUTH ONCE DAILY; Therapy: 79Ijl5547 to Recorded Rx By: ADELAIDA; Dispense: 90 Days ; #:90; Refill: 0; RACQUEL = N; Record; Last Updated By: Compa Rocha; 11/15/2017 10:23:23 AM Vitals Vital Signs Recorded: 24Mar2018 11:05AM Annqibjl258 Xkywaizpx54 Height5 ft 4 in Ekhebl173 lb BMI Aidbybyhqt62.93 BSA Calculated1.9 Physical Exam Eyes: Conjunctiva non-icteric [...] diet guidelines to regular food. See the oil pipe inspector as scheduled regularly. Slowly increase your exercise [...] F Source: [place] OFFICE VISIT 12:20 PM [facility] Internal Medicine [address] [place] [address] OFFICE VISIT Date of Service: 03/21/18 MR#: [id number] Acct: [id number] Name: CELINA PAT Rep #: [id number] : 1950 Provider: Swathi Lagunas MD Age/Sex: 67/F Location: [facility] Status: Signed Intake Vital Signs03/21/18 Height 5 [...] flu shot. This note was generated with TripShake dictation software. 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 Lansoprazole 30 MG Oral Capsule Delayed Release (Prevacid); TAKE 1 CAPSULE DAILY; Therapy: 72Fwf7713 to (Evaluate:20Rjj8706) Requested for: 22Xfj3020; Last Rx:78Amt5849 Ordered Rx By: Daina Clark; Dispense: 90 Days ; #:90 Capsule Delayed Release; Refill: 3;For: GERD without esophagitis; RACQUEL = N; Verified Transmission to [facility]7559; Last Updated By: Allyn Serrato; 09/22/2015 2:41:32 PM Omeprazole 40 MG Oral Capsule Delayed Release; TAKE 1 CAPSULE Daily Open capsule, sprinkle in SF applesauce or pudding, swallow. DO NOT CHEW; Therapy: 67Rkd8114 to (Evaluate:77Kip0192) Requested for: 12Ygp4248; Last Rx:54Ysz3582 Ordered Rx By: Leann Thompson; Dispense: 30 Days ; #:30 Capsule Delayed Release; Refill: 2;For: GERD without esophagitis, Post-operative nausea and vomiting; RACQUEL = N; Verified Transmission to [facility] Ondansetron 4 MG Oral Tablet Disintegrating; TAKE 4 MG Every 6 hours PRN; Therapy: 87Dvq0969 to (Last Rx:52Mxl1586) Requested for: 11Zwn1467 Ordered Rx By: Leann Thompson; Dispense: 0 Days ; #:30 Tablet Disintegrating; Refill: 1;For: Post-operative nausea and vomiting; RACQUEL = N; Verified Transmission to [facility] #3321 Vitamin D (Ergocalciferol) 84793 UNIT Oral Capsule; Take 1 capsule TWICE weekly for 3 mo; Therapy: 00Ssg0042 to (Last Rx:00Xlm9695) Requested for: 73Bvq5608 Ordered Rx By: Leann Thompson; Dispense: 0 Days ; #:8 Capsule; Refill: 2;For: Vitamin D deficiency; RACQUEL = N; Verified Transmission to [facility] #3321 Estradiol 1 MG Oral Tablet; TAKE 1 TABLET BY MOUTH ONCE DAILY; Therapy: 75Djd7689 to Recorded Rx By: ADELAIDA; Dispense: 90 [...] of protein daily 3.Take 2 chewable MVI, 3276-9520 mg calcium citrate, 500 mcg B12 and 50 mg B1 daily 4.Exercise as tolerated. CHANGES IN TREATMENT: Patient met goals:Partially Actions to meet previous goals: 1.Drink 64 oz of fluid daily. 2.Drink 60-70 g of protein daily 3.Take 8636-0116 mg calcium citrate daily 24 hour food [...] 0-70 g per day. Suggested eating some Ugandan yogurt and blended cottage cheese to help [...] Nutrition Education Recommendations: 1.Increase protein intake. Eat Ugandan yogurt and blended cottage cheese to help [...] Follow-up: 6 weeks post op Livia FREIRE, [facility] Bariatric Surgery Dietitian Patient Discussion/Summary Recommendations: 1.Increase protein intake. Eat Ugandan yogurt and blended cottage cheese to help [...] Follow-up: 6 weeks post op Livia FREIRE, [facility] Bariatric Surgery Dietitian .. End of Encounter Meds Acetaminophen Extra Strength 500 MG/15ML Oral Liquid; TAKE 30 ML Every 8 hours as needed for pain; Therapy: 05Kle0326 to (Evaluate:52Fwj7610) Requested for: 36Hhy2225; Last Rx:09Iss7227 Ordered Estradiol 1 MG Oral Tablet; TAKE 1 TABLET BY MOUTH ONCE DAILY; Therapy: 49Uyw3229 to Recorded Lansoprazole 30 MG Oral Capsule Delayed Release (Prevacid); TAKE 1 CAPSULE DAILY; Therapy: 78Zwa4900 to (Evaluate:35Cav6231) Requested for: 42Agq0951; Last Rx:42Htc3784 Ordered Omeprazole 40 MG Oral Capsule Delayed Release; TAKE 1 CAPSULE Daily Open capsule, sprinkle in SF applesauce or pudding, swallow. DO NOT CHEW; Therapy: 81Rrc7032 to (Evaluate:59Dht1823) Requested for: 79Kec6308; Last Rx:14Fav1883 Ordered Ondansetron 4 MG Oral Tablet Disintegrating; TAKE 4 MG Every 6 hours PRN; Therapy: 47Pyj9411 to (Last Rx:00Con7158) Requested for: 77Arm8804 Ordered Vitamin D (Ergocalciferol) 01112 UNIT Oral Capsule; Take 1 capsule TWICE weekly for 3 mo; Therapy: 97Tbd7108 to (Last Rx:59Hio8035) Requested for: 56Nrs8371 Ordered Signatures Electronically signed by : Livia Canseco RD; Feb 20 2018 12:14PM EST (Author) BARIATRIC SURGERY - Observed: 02/20/2018 Status: UNK Source: [facility] FOLLOW-UP 10:17 AM [facility] REPOSITORY Chief Complaint [...] Reduction Procedure 1999 History of Cervical Surgery (Sash Installer) removal 2002 History of Gallbladder Surgery 2006 [...] Occasional alcohol use 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 #3321 Acetaminophen Extra Strength 500 MG/15ML Oral Liquid; TAKE 30 ML Every 8 hours as needed for pain; Therapy: 40Gkk8798 to (Evaluate:07Fyt7945) Requested for: 46Skk4778; Last Rx:24Oxz8911 Ordered Rx By: Leann Thompson; Dispense: 8 Days ; #:3 X 237 ML Bottle; Refill: 1;For: Acute postoperative pain of abdomen, Bariatric surgery status; RACQUEL = N; Verified Transmission to [facility] #3321 OxyCODONE HCl - 5 MG/5ML Oral Solution; TAKE 5 ML Every 4 hours PRN pain alternate with tylenol and heating pad; Therapy: 64Syo1836 to (Evaluate:28Zkw9575); Last Rx:40Krn1618 Ordered Rx By: Leann Thompson; Dispense: 6 Days ; #:180 ML; Refill: 0;For: Acute postoperative pain of abdomen, Bariatric surgery status; RACQUEL = N; Print Rx Triamterene-HCTZ 75-50 MG Oral Tablet; TAKE 1 TABLET DAILY; Therapy: 82Ced9588 to (Evaluate:16Sep2016) Requested for: 68Gzd1743; Last Rx:68Ejd6748 Ordered Rx By: Daina Clark; Dispense: 90 Days ; #:90 Tablet; Refill: 3;For: Benign hypertension, Edema; RACQUEL = N; Verified Transmission to [facility] #2469; Last Updated By: Omiro; 02/20/2018 9:53:59 AM Lansoprazole 30 MG Oral Capsule Delayed Release; TAKE 1 CAPSULE DAILY; Therapy: 31Zwe8601 to (Evaluate:16Sep2016) Requested for: 81Zlq8505; Last Rx:37Uty7919 Ordered Rx By: Daina Clark; Dispense: 90 Days ; #:90 Capsule Delayed Release; Refill: 3;For: GERD without esophagitis; RACQUEL = N; Verified Transmission to [facility] #2469; Last Updated By: Hydrobolt; 09/22/2015 2:41:32 PM Omeprazole 40 MG Oral Capsule Delayed Release; TAKE 1 CAPSULE Daily Open capsule, sprinkle in SF applesauce or pudding, swallow. DO NOT CHEW; Therapy: 95Geq1241 to (Evaluate:74Joa6569) Requested for: 06Lbz1509; Last Rx:56Urz2534 Ordered Rx By: Leann Thompson; Dispense: 30 Days ; #:30 Capsule Delayed Release; Refill: 2;For: GERD without esophagitis, Post-operative nausea and vomiting; RACQUEL = N; Verified Transmission to [facility] #3321 Ondansetron 4 MG Oral Tablet Disintegrating; TAKE 4 MG Every 6 hours PRN; Therapy: 06Huv5657 to (Last Rx:73Aqx0879) Requested for: 50Xvr2421 Ordered Rx By: Leann Thompson; Dispense: 0 Days ; #:30 Tablet Disintegrating; Refill: 1;For: Post-operative nausea and vomiting; RACQUEL = N; Verified Transmission to [facility] #3321 Vitamin D (Ergocalciferol) 19650 UNIT Oral Capsule; Take 1 capsule TWICE weekly for 3 mo; Therapy: 13Tuj5944 to (Last Rx:81Vkx8254) Requested for: 52Gur0973 Ordered Rx By: Leann Thompson; Dispense: 0 Days ; #:8 Capsule; Refill: 2;For: Vitamin D deficiency; RACQUEL = N; Verified Transmission to [facility] #3321 Estradiol 1 MG Oral Tablet; TAKE 1 TABLET BY MOUTH ONCE DAILY; Therapy: 63Abb1900 to Recorded Rx By: ADELAIDA; Dispense: 90 Days ; #:90 TABS; Refill: 0; RACQUEL = N; Record; Last Updated By: Compa Rocha; 11/15/2017 10:23:23 AM Vitals Vital Signs Recorded: 20Feb2018 09:49AM Heart Rate64 Kvuoklqj097 Ezhcwipij68 Height5 ft 4 in Oinkxn420 lb 2 oz BMI Evxjpdyxjm90.07 BSA Calculated2 Physical Exam Abdominal exam: soft [...] according to the diet guidelines. See the oil pipe inspector as must as you need too. Slowly [...] 8 hours as needed for pain; Therapy: 94Xfo7133 to (Evaluate:91Fln7928) Requested for: 76Zpf9441; Last Rx:71Xaz5426 Ordered Estradiol 1 MG Oral Tablet; TAKE 1 TABLET BY MOUTH ONCE DAILY; Therapy: 73Exz2269 to Recorded Lansoprazole 30 MG Oral Capsule Delayed Release (Prevacid); TAKE 1 CAPSULE DAILY; Therapy: 81Hty3353 to (Evaluate:15Agd5576) Requested for: 57Syl7641; Last Rx:54Nhe7172 Ordered Omeprazole 40 MG Oral Capsule Delayed Release; TAKE 1 CAPSULE Daily Open capsule, sprinkle in SF applesauce or pudding, swallow. DO NOT CHEW; Therapy: 93Xyt5518 to (Evaluate:92Pni9465) Requested for: 79Wgc5117; Last Rx:65Tmh4999 Ordered Ondansetron 4 MG Oral Tablet Disintegrating; TAKE 4 MG Every 6 hours PRN; Therapy: 48Vrf0387 to (Last Rx:44Nox4940) Requested for: 83Lhw2825 Ordered Vitamin D (Ergocalciferol) 92282 UNIT Oral Capsule; Take 1 capsule TWICE weekly for 3 mo; Therapy: 66Aup0355 to (Last Rx:65Bwn5110) Requested for: 86Iif9058 Ordered Signatures Electronically signed by : Leann Thompson MD; Feb 20 2018 10:17AM EST (Author) DISCHARGE SUMMARY Observed: 02/14/2018 Status: F Source: [place] 9:10 AM [facility] Patient: CELINA [address] MR#: [id number] [place], [place] [address] : 1950 Ord[address] Hung: Dept: PDOC Loc: 2JNT 205-1 Discharge Summary Service Dt: 02/14/18 Report#: [id number] Adm Dt: 02/12/18 Dis Dt: Discharge Summary [...] SURGICAL PROGRESS Observed: 02/14/2018 Status: F Source: [place] NOTE 8:42 AM [facility] Patient: CELINA PAT[address] [facility] MR#: [id number] [place], [place] [address] : 1950 Ord. : Dept: PDOC Loc: 2JNT 205-1 Surgical Progress Note Service Dt: 02/14/18 Report#: [id number] Adm Dt: 02/12/18 Dis Dt: Surgical Progress [...] @ 200 mls/hr IVPB ONCE@ 2257 ONE Rx#:[id number] Lactated Ringers Solution 1557.5 1000 1,000 ml @ 150 mls/hr IV .Q6H40M PATTI Rx#:[id number] Lactated Ringers Solution 500 500 ml @ Wide Open IV . Q0M ONE Rx#:[id number] Potassium Chloride 40 mEq 100 IVPB Bolus (100 ml) 40 meq In 100 ml @ 25 mls/hr IVPB .Q4H ONE Rx#: [id number] Anesthesia Fluid Intake 1300 in OR Oral [...] 50 56 Lymph % (Auto) 40 35 Hudson % (Auto) 7 7 Eos % (Auto) 2 1 Baso % (Auto) 0 0 Nucleat RBC Rel Count 0.0 0.0 Immature Gran # (Auto) 0.0 0.0 Neut # (Auto) 3.8 5.3 Lymph # (Auto) 3.0 3.3 Hudson # (Auto) 0.6 0.7 Eos # (Auto) [...] Sodium (Heparin Sodium) 5,000 units SC Q8 [facility] Last Admin: 02/14/18 06:13 Dose: 5,000 units Pantoprazole Sodium 40 mg/ (Sodium Chloride) 10 mls @ 300 mls/hr IV DAILY [facility] PRN Reason: Protocol Stop: 02/15/18 08:59 Last Admin: 02/13/18 08:49 Dose: 300 mls/hr Lactated Ringer's (Lactated Ringers Solution) 1,000 mls @ 150 mls/hr IV .Q6H40M [facility] Last Admin: 02/14/18 06:13 Dose: 150 mls/hr Metoclopramide HCl (Reglan) 10 mg IV Q6 PRN PRN Reason: Nausea/vomiting Morphine Sulfate (Morphine Sulfate) 2 mg IV Q2 PRN PRN Reason: Pain-moderate (4-6/10) Last Admin: 02/12/18 19:03 Dose: 2 mg Ondansetron HCl (Zofran) 4 mg IV Q6 [facility] Last Admin: 02/14/18 06:13 Dose: 4 [...] F Source: [place] W/DIFF $$ 6:34 AM [facility] REPOSITORY TYPE CODE TESTS RESULT OUT [...] 0.0 Performed By: #### CBC, BMP #### [address] [address] BASIC METABOLIC PANEL Collected: 02/14/2018 Status: F Source: [place] $$$ 6:34 AM [facility] REPOSITORY TYPE CODE TESTS RESULT OUT [...] September. Performed By: #### CBC, BMP #### [address] [address] COMPLETE BLOOD COUNT Collected: 02/13/2018 Status: F Source: [place] W/DIFF $$ 6:12 PM [facility] REPOSITORY Order Comment: K STILL RUNNING. [...] 0.0 Performed By: #### CBC, BMP #### [facility] [address] [place] [address] BASIC METABOLIC PANEL Collected: 02/13/2018 Status: F Source: [place] $$$ 6:12 PM [facility] REPOSITORY Order Comment: K STILL RUNNING. [...] September. Performed By: #### CBC, BMP #### [address] [address] SURGICAL PROGRESS Observed: 02/13/2018 Status: F Source: [place] NOTE 12:58 PM [facility] Patient: CELINA PAT [address] [facility] MR#: [id number] [place], [place] [address] : 1950 Ord. : Dept: PDOC Loc: 2JNT 205-1 Surgical Progress Note Service Dt: 02/13/18 Report#: [id number] Adm Dt: 02/12/18 Dis Dt: Surgical Progress [...] @ 200 mls/hr IVPB ONCE@ 2257 ONE Rx#:[id number] Anesthesia Fluid Intake 1300 in OR Output: [...] (Auto) 71 Lymph % (Auto) 20 L Hudson % (Auto) 8 Eos % (Auto) 0 Baso % (Auto) 0 Nucleat RBC Rel Count 0.0 Immature Gran # (Auto) 0.0 Neut # (Auto) 6.4 Lymph # (Auto) 1.8 Hudson # (Auto) 0.7 Eos # (Auto) 0.0 [...] Sodium (Heparin Sodium) 5,000 units SC Q8 [facility] Last Admin: 02/13/18 05:06 Dose: 5,000 units Hydromorphone HCl (Dilaudid) 1 mg IV Q10M PRN PRN Reason: Pain-severe (7-10/10) Stop: 02/13/18 15:02 Pantoprazole Sodium 40 mg/ (Sodium Chloride) 10 mls @ 300 mls/hr IV DAILY [facility] PRN Reason: Protocol Stop: 02/15/18 08:59 Last Admin: 02/13/18 08:49 Dose: 300 mls/hr Lactated Ringer's (Lactated Ringers Solution) 1,000 mls @ 150 mls/hr IV .Q6H40M [facility] Ketorolac Tromethamine (Toradol Inj) 15 mg [...] METABOLIC PANEL Collected: 02/13/2018 Status: CANCELLED Source: [place] $$$ 12:00 PM [facility] REPOSITORY Order Comment: added to L302, [...] Calcium $ Performed By: #### BMP #### [id number] [place] [address] UPPER G.I. SERIES Observed: 02/13/2018 Status: F Source: [facility] 11:13 AM [facility] REPOSITORY [facility] Patient: CELINA PAT [address] [facility] MR#: [id number] [place], [place] [address] : 1950 Ord. : Maria Eugenia Davila MD Dept: Diagnostic Imaging Loc: 2JNT 205-1 DI REPORT Service Dt:02/13/18 Report#: [id number] Adm Dt: 02/12/18 Dis Dt: Comments: STUDY: CR Upper G.I. Series; 02/13/2018 10:55 am INDICATION: Bariatric Surgery Postoperative. COMPARISON: None. ACCESSION NUMBER(S): [id number] ORDERING CLINICIAN: Maria Eugenia Davila TECHNIQUE: Patient [...] F Source: [place] W/DIFF $$ 7:20 AM [facility] REPOSITORY TYPE CODE TESTS RESULT OUT [...] 0.0 Performed By: #### CBC, BMP #### [facility] [address] [place] [address] BASIC METABOLIC PANEL Collected: 02/13/2018 Status: F Source: [place] $$$ 7:20 AM [facility] REPOSITORY TYPE CODE TESTS RESULT OUT [...] September. Performed By: #### CBC, BMP #### [facility] [address] [place], [place] [address] POST-ANESTHESIA CARE NOTE Observed: 02/12/2018 Status: F Source: [place] 4:37 PM [facility] Patient: CELINA PAT MR#: [id number] [place], [place] [address] : 1950 Ord[address] .: Dept: PDOC Loc: 2JNT 205-1 Procedure Note Service Dt: 02/12/18 Report#: [id number] Adm Dt: 02/12/18 Dis Dt: Anesthesia DC [...] POST PROCEDURE Observed: 02/12/2018 Status: F Source: [place] PROGRESS NOTE 2:11 PM [facility] Patient: CELINA PAT MR#: [id number] [place], [place] [address] : 1950 Ord[address] : Dept: PDOC Loc: 1PACUHLD PACU2-2 Post Procedure Progress Note Service Dt: 02/12/18 Report#: [id number] Adm Dt: 02/12/18 Dis Dt: Immediate Post-Procedure [...] OPERATIVE REPORT Observed: 02/12/2018 Status: F Source: [place] 12:[address] [facility] Patient: CELINA [address] MR#: [id number] [place] [address] : 1950 [address] Leann Thompson MD Dept: Transcribed Reports Loc: 2JNT 205-1 Operative Report Service Dt: 02/12/18 Report#: [id number] Adm Dt: 02/12/18 Dis Dt: 02/14/18 OPERATIVE REPORT SURGEON: Leann Thomspon MD ANESTHESIOLOGIST: NON FERROUS MATERIAL HANDLER(S): ASSOCIATION EXECUTIVE SURGEON: Dr. Davila. PREOPERATIVE DIAGNOSES: 1. Morbid [...] briana. After the dissection was completed, a [place] drain was passed around the GE junction [...] was completed. Now, cruroplasty was performed. Three wbvden-gu-kebgc Surgidac 0 sutures were placed using EndoStitch device posteriorly. A 36 Armenian ViSiGi tube was passed through the esophagus [...] in stable condition. Leann Thompson MD D#: [id number] C#: [id number] <Electronically signed by Leann Thompson MD> 02/19/18 1047 PATRICKOV Observed: 02/11/2018 Status: COMPLETED Source: MAN 10:40 AM [facility] REPOSITORY Office Visit (NSAGBA) CELINA PAT ([id number]) 1950 F [facility] Date Time Provider Department 02/11/18 [...] dysarthria; comprehension, naming, repetition intact. Short and senior care memory intact. Fund of knowledge grossly normal [...] with more than 50% of the total kncr-qz-oakl time of the visit in counseling / [...] 02/11/18 PROGRESS Observed: 02/11/2018 Status: COMPLETED Source: [facility] 8:22 AM [facility] REPOSITORY HNO ID: [id number] Author: Michael Lopez Jr. Service: (none) Author [...] dysarthria; comprehension, naming, repetition intact. Short and terminal block assembler memory intact. Fund of knowledge grossly normal [...] for back pain. Does not want surgery. Mihcael Lopez MD I spent 25 minutes in the visit, with more than 50% of the total fvub-ef-kray time of the visit in counseling / coordination of care. HISTORY AND PHYSICAL Observed: 01/31/2018 Status: F Source: [place] 8:10 AM [facility] REPOSITORY [facility] Patient: CELINA PAT[address] [facility] MR#: [id number] [place], [place] [address] : 1950 OrdShanti Hung: Dept: PDOC Loc: PAT History Physical Service Dt: 01/31/18 Report#: [id number] Adm Dt: 01/30/18 Dis Dt: History and [...] EGD , Female: Breast Surgery (reduction 1998), Sash Installer Surgery (cervical surgery 2001) , Hysterectomy (2000) [...] % (Auto) 57 Lymph % (Auto) 36 Hudson % (Auto) 5 Eos % (Auto) 1 Baso % (Auto) 1 Nucleat RBC Rel Count 0.0 Immature Gran # (Auto) 0.0 Neut # (Auto) 4.7 Lymph # (Auto) 3.0 Hudson # (Auto) 0.4 Eos # (Auto) 0.1 [...] Clarity Clear Urine pH 6.0 Ur Specific [place] 1.012 Urine Protein Negative Urine Glucose (UA) [...] Physician URINALYSIS Collected: 01/30/2018 Status: F Source: [place] 3:00 PM [facility] REPOSITORY TYPE CODE TESTS RESULT OUT OF REFERENCE UNITS RANGE LAB UCOL Color, Urine Yellow LAB [facility] Clarity, Urine Clear LAB UPH 5.0-9.0 pH, Urine 6.0 LAB USPG 1.000-1.030 Specific [place], Urine 1.012 LAB UTP Negative Protein, Urine [...] Cells Rare Performed By: #### UR #### [facility] [address] [place] [address] COMPLETE BLOOD COUNT Collected: 01/30/2018 Status: F Source: [place] W/DIFF $$ 2:00 PM [facility] REPOSITORY TYPE CODE TESTS RESULT OUT [...] Performed By: #### CBC, PTINR, CMP12 #### [facility] [address] [place] [address] PROTIME INR Collected: 01/30/2018 Status: F Source: [place] 2:00 PM [facility] REPOSITORY TYPE CODE TESTS RESULT OUT OF REFERENCE UNITS RANGE LAB PT 9.8-12.7 sec Prothrombin Time $$ 10.3 Result Comment: Please note new reference range OF 06/18/2017 LAB INR 0.9-1.1 INR 0.9 Result Comment: Please note new reference range OF 06/18/2017 Performed By: #### CBC, PTINR, CMP12 #### [address] [address] COMPREHENSIVE METABOLIC Collected: 01/30/2018 Status: F Source: [place] PANEL 2:00 PM [facility] REPOSITORY TYPE CODE TESTS RESULT OUT [...] Performed By: #### CBC, PTINR, CMP12 #### [facility] [address] [place] [address] Observed: 01/30/2018 Status: F Source: [facility] BLOOD BANK REPORT 2:00 [facility] REPOSITORY RUN DATE: 01/30/18 [facility] LAB LIVE PAGE 1 RUN TIME: 1855 Specimen Inquiry PATIENT: CELINA PAT ACCT: [id number] LOC: U: [id number] AGE/SX: 67/F ROOM: RE02/12/[address]: Leann Thompson MD : 1950 BED: DIS: STATUS: PRE IN TLOC: SPEC #: [id number] NU: 01/30/18 STATUS: SUNIL REEvelin #: [id number] RECD: 01/30/18-[address]: Leann Thompson MD [...] OF REPORT Performed By: #### NEVAEH #### [facility] [address] [place] [address] BARIATRIC SURGERY - Observed: 01/30/2018 Status: UNK Source: [facility] PRE OP 12:25 PM [facility] REPOSITORY Chief [...] Reduction Procedure 1999 History of Cervical Surgery (Sash Installer) removal 2002 History of Gallbladder Surgery 2006 [...] Occasional alcohol use 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 #2469; Last Updated By: Omiro; 09/22/2015 2:43:18 PM Lansoprazole 30 MG Oral Capsule Delayed Release; TAKE 1 CAPSULE DAILY; Therapy: 53Xni8885 to (Evaluate:16Sep2016) Requested for: 09Mhd5538; Last Rx:41Zyw9701 Ordered Rx By: Daina Clark; Dispense: 90 Days ; #:90 Capsule Delayed Release; Refill: 3;For: GERD without esophagitis; RACQUEL = N; Verified Transmission to [facility]/PHARMACY #2469; Last Updated By: Omiro; 09/22/2015 2:41:32 PM Vitamin D (Ergocalciferol) 50929 UNIT Oral Capsule; Take 1 capsule TWICE weekly for 3 mo; Therapy: 69Auc0241 to (Last Rx:[address]5627) Requested for: 89Aob2475 Ordered Rx By: Leann Thompson; Dispense: 0 Days ; #:8 Capsule; Refill: 2;For: Vitamin D deficiency; RACQUEL = N; Verified Transmission to [facility] #3321 Estradiol 1 MG Oral Tablet; TAKE [...] 11/15/2017 9:31:13 AM Vitals Vital Signs Recorded: 99Uob3591 11:41AM Heart Rate74 Jsqdjxlv372 Yfktbwrwu81 Height5 ft 4 in Kzqeor188 lb 7 oz BMI Ubyqbvtayq40.95 BSA Calculated1.99 Physical Exam General appearance: In [...] abdomen; RACQUEL = N; Verified Transmission to [facility] #3321; Last Updated By: Rojelio [employer]; 01/29/2018 11:44:32 AM Start: Acetaminophen Extra Strength 500 MG/15ML Oral Liquid; TAKE 30 ML Every 8 hours as needed for pain Rx By: Leann Thompson; Dispense: 8 Days ; #:3 X 237 ML Bottle; Refill: 1;For: Acute postoperative pain of abdomen, Bariatric surgery status; RACQUEL = N; Verified Transmission to [facility] #3321; Last Updated By: Rojelio [employer]; 01/29/2018 11:44:33 AM Start: OxyCODONE HCl - [...] vomiting; RACQUEL = N; Verified Transmission to [facility]/PHARMACY #3321; Last Updated By: Rojelio [employer]; 01/29/2018 11:44:30 AM Start: Ondansetron 4 MG Oral Tablet Disintegrating; TAKE 4 MG Every 6 hours PRN Rx By: Leann Thompson; Dispense: 0 Days ; #:30 Tablet Disintegrating; Refill: 1;For: Post-operative nausea and vomiting; RACQUEL = N; Verified Transmission to [facility]/PHARMACY #3321; Last Updated By: Rojelio [employer]; 01/29/2018 11:44:32 AM Provider Impressions Patient is [...] for surgery. Make a shopping list and orange picker your supplements prior to surgery. You have [...] MISS A DOSE. Call with any questions! [phone] for Yasmine. End of Encounter Meds Acetaminophen Extra Strength 500 MG/15ML Oral Liquid; TAKE 30 ML Every 8 hours as needed for pain; Therapy: 23Uzg0195 to (Evaluate:72Boo4498) Requested for: 33Suk0407; Last Rx:69Raq2227; Status: ACTIVE - Retrospective By Protocol Authorization Ordered Estradiol 1 MG Oral Tablet; TAKE 1 TABLET BY MOUTH ONCE DAILY; Therapy: 97Dek7082 to Recorded Gabapentin 300 MG Oral Capsule; TAKE 1 CAPSULE 3 times daily open capsule, sprinkle over SF applesauce or pudding and swallow; Therapy: 93Rwq4036 to (Evaluate:73Uly5758) Requested for: 46Vxw1701; Last Rx:43Nzj6376; Status: ACTIVE - Retrospective By Protocol Authorization Ordered Gabapentin 600 MG Oral Tablet; TAKE 1 OR 2 TABLETS BY MOUTH AT BEDTIME; Therapy: 07Aug2016 to Recorded Lansoprazole 30 MG Oral Capsule Delayed Release (Prevacid); TAKE 1 CAPSULE DAILY; Therapy: 86Bjp9179 to (Evaluate:16Sep2016) Requested for: 63Vqs7496; Last Rx:24Sac2052 Ordered Omeprazole 40 MG Oral Capsule Delayed Release; TAKE 1 CAPSULE Daily Open capsule, sprinkle in SF applesauce or pudding, swallow. DO NOT CHEW; Therapy: 92Vog8495 to (Evaluate:21Thu3478) Requested for: 98Gzo9942; Last Rx:49Khm9896; Status: ACTIVE - Retrospective By Protocol Authorization Ordered Ondansetron 4 MG Oral Tablet Disintegrating; TAKE 4 MG Every 6 hours PRN; Therapy: 15Kht9924 to (Last Rx:00Aat1826) Requested for: 38Bxw6126; Status: ACTIVE - Retrospective By Protocol Authorization Ordered OxyCODONE HCl - 5 MG/5ML Oral Solution; TAKE 5 ML Every 4 hours PRN pain alternate with tylenol and heating pad; Therapy: 96Hdy8944 to (Evaluate:05Dzr2982); Last Rx:08Dic2181; Status: ACTIVE - Retrospective By Protocol Authorization Ordered Triamterene-HCTZ 75-50 MG Oral Tablet; TAKE 1 TABLET DAILY; Therapy: 22Lri4534 to (Evaluate:16Sep2016) Requested for: 13Ezl1086; Last Rx:13Duy6168 Ordered Vitamin D (Ergocalciferol) 81099 UNIT Oral Capsule; Take 1 capsule TWICE weekly for 3 mo; Therapy: 60Baq3786 to (Last Rx:59Anb7360) Requested for: 17Jsr3098 Ordered Signatures Electronically signed by : Leann Thompson MD; Jan 30 2018 12:25PM EST (Author) PROTIME INR Collected: 01/30/2018 Status: CANCELLED Source: [place] 12:21 PM [facility] REPOSITORY Order Comment: Cancelled via OM: Physician Order TYPE CODE TESTS RESULT OUT OF REFERENCE UNITS RANGE LAB PT 9.8-12.7 Prothrombin Time $$ LAB INR 0.9-1.1 INR Performed By: #### PTINR #### [facility] [address] [place] [address] URINALYSIS Collected: 01/30/2018 Status: CANCELLED Source: [place] 5:50 AM [facility] REPOSITORY Order Comment: Cancelled via OM: Physician Order TYPE CODE TESTS RESULT OUT OF REFERENCE UNITS RANGE LAB UCOL Color, Urine LAB [facility] Clarity, Urine LAB UPH 5.0-9.0 pH, Urine LAB USPG 1.000-1.030 Specific [place], Urine LAB UTP Negative Protein, Urine LAB [...] Mucus, Urine Performed By: #### UR #### [facility] [address] [place] [address] Observed: 01/30/2018 Status: CANCELLED Source: [place] BLOOD BANK REPORT 12:00 AM [facility] REPOSITORY Order Comment: Cancelled via OM: Physician Order RUN DATE: 01/30/18 [facility] LAB LIVE PAGE 1 RUN TIME: 0754 Specimen Inquiry PATIENT: CELINA PAT ACCT: [id number] LOC: U: [id number] AGE/SX: 67/F ROOM: RE02/12/[address]: Leann Thompson MD : 1950 BED: DIS: STATUS: PRE IN TLOC: SPEC #: [id number] NU: 01/30/18-UNK STATUS: CAN REQ #: [id number] RECD: - SUBM DR: Leann Thompson MD ENTERED: 01/30/18-[address]: CARLINE PRODS: (NO ORDERED PRODUCTS) ORD TESTS: TS Test Result Flag Reference CANCELLED Cancelled via OM: Physician Order END OF REPORT Performed By: #### NEVAEH #### [facility] [address] [place] [address] INTERNAL MEDICINE Observed: 01/17/2018 Status: F Source: MILES OFFICE VISIT 5:02 PM [facility] Internal Medicine [address] [place] [address] OFFICE VISIT Date of Service: 01/17/18 MR#: [id number] Acct: [id number] Name: CELINA PAT Rep #: [id number] : 1950 Provider: Swathi Lagunas MD Age/Sex: 67/F Location: [facility] Status: Signed Intake Vital Signs01/17/18 Height 5 [...] scan ordered. This note was generated with TripShake dictation software. It may contain incorrect words, [...] GASTROINTESTINAL ENDOSCOPY Observed: 12/13/2017 Status: F Source: EV[place] 7:56 AM [facility] Dept: Diagnostic Att. Dr.: Leann Thompson MD Gastrointestinal Endoscopy Loc: ENDO Report #: [id number] Adm Dt: 12/13/17 Dis Dt: Patient Name: Celina Pat Procedure Date: 12/13/2017 7:17 AM Date of : 1950 Admit Type: Outpatient Ethnicity: Race: Unknown Attending MD: Leann Thompson MD Procedure: Upper GI endoscopy Indications: Heartburn, Preoperative assessment for bariatric surgery to treat morbid obesity, obesity Providers: Leann Thompson MD (Doctor) General Surgery, Lilia York RN (Nurse) , Roseline Mendez, Mechanical System Technician Referring: Rema Lagunas Medicines: Midazolam 4 mg [...] by the physician, the nurse and the thin film technician in the pre-procedure area in the [...] 1 week. Procedure Code(s): --- Professional --- 58607, Esophagogastroduodenoscopy, flexible, transoral; with biopsy, single or multiple 50281, Moderate sedation services provided by the same physician or other qualified health adult caregiver performing the diagnostic or therapeutic service that [...] due to excess calories CPT copyright 2016 [employer]. All rights reserved. The codes documented in this report are preliminary and upon remote inpatient coder review may be revised to meet current compliance requirements. Leann Thompson MD 12/13/2017 7:55:48 AM This report has been signed electronically. Number of Addenda: 0 Note Initiated On: 12/13/2017 7:17 AM 0756 CNCO Observed: 12/05/2017 Status: COMPLETED Source: LONGBRANCH 12:00 AM [facility] REPOSITORY Letter Text Michael Lopez MD [facility] [address] [place] [address] Celina Pat December 05, 2017 Celina Pat [address] [facility] [address] Dear Celina Pat: Due to a change in your provider's schedule, it has become necessary to reschedule the following appointment: Michael Lopez MD Date: 02/11/2018 Time: 10:40 AM We apologize for any inconvenience to you, however your provider would still like to see you. Please call us at [phone] to reschedule your appointment. Sincerely, Appointment Staff OFFICE VISIT Observed: 11/15/2017 Status: UNK Source: [place] (CARDIOLOGY) 10:28 AM [facility] REPOSITORY Chief Complaint CELINA PAT is being seen for a cardiovascular evaluation. History of Present Illness Ms. Pat is a delightful 67-year-old woman who visits us at the [facility] for perioperative cardiovascular risk stratification prior to [...] Reduction Procedure 1998 History of Cervical Surgery (Sash Installer) removal 2001 History of Gallbladder Surgery 2006 History of Knee Arthroplasty bilateral 2000 History of Knee Replacement bilateral 2004 History of Rotator Cuff Repair 2013 and 2015 History of Total Abdominal Hysterectomy 2001 Current Meds Triamterene-HCTZ 75-50 MG Oral Tablet; TAKE 1 TABLET DAILY; Therapy: 73Yhs4885 to (Evaluate:16Sep2016) Requested for: 94Gbu8317; Last Rx:[id number] Ordered Rx By: Daina Clark; Dispense: 90 Days ; #:90 Tablet; Refill: 3;For: Benign hypertension, Edema; RACQUEL = N; Verified Transmission to [facility]; Last Updated By: Myke Serrato; 09/22/2015 2:43:18 PM Lansoprazole 30 MG Oral Capsule Delayed Release; TAKE 1 CAPSULE DAILY; Therapy: 30Zhz3309 to (Evaluate:16Sep2016) Requested for: 22Tmx1715; Last Rx:[id number] Ordered Rx By: Daina Clark; Dispense: 90 Days ; #:90 Capsule Delayed Release; Refill: 3;For: GERD without esophagitis; RACQUEL = N; Verified Transmission to 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 Vitals Vital Signs Recorded: 15Nov2017 09:33AM Heart Rate71 Bpsmjajcvup94 Qrbaplcd582 Hkfalzlhp31 Height5 ft 4 in Grevvw980 lb BMI Aiehwtqhax95.56 BSA Calculated2.01 O2 Sepvgmnxuw12 Physical Exam General: Sitting up comfortably in [...] sleeve gastrectomy. Compa Rocha MD, FACP, FACC, [facility] Clinical Ct Scan Techplant pathology teacher (Cardiology) Division of Cardiovascular Medicine, Department of Medicine [facility] School Medicine Structural Heart Sheet [facility] Vascular [facility] Email: [email or web address] Facsimile: Orders Preoperative clearance Electrocardiogram EKG; Status:Complete; Done: 15Nov2017 09:32AM Perform:[facility]; Due:52Bjw6340; Last Updated By:Paz Koroma; 11/15/2017 9:32:21 AM;Ordered; [...] bariatric surgery. Compa Rocha MD, MARIANAP, MARIANAC, [facility] Clinical Ct Scan Techplant pathology teacher (Cardiology) Division of Cardiovascular Medicine, Department of Medicine [facility] School of Medicine Structural Heart Sheet [facility] Email: [email or web address] Facsimile: . End of Encounter Meds Lansoprazole 30 MG Oral Capsule Delayed Release (Prevacid); TAKE 1 CAPSULE DAILY; Therapy: 56Ohg2077 to (Evaluate:96Tbp7211) Requested for: 95Sqo6999; Last Rx:[id number] Ordered Triamterene-HCTZ 75-50 MG Oral Tablet; TAKE 1 TABLET DAILY; Therapy: 56Jwt8790 to (Evaluate:76Yob2544) Requested for: 96Wbe0277; Last Rx:[id number] Ordered Signatures Electronically signed by : Compa Rocha MD; Nov 15 2017 10:28AM EST (Author) MISCELLANEOUS LAB Collected: 11/14/2017 Status: F Source: [place] PROCEDURE 9:[address] [facility] REPOSITORY Order Comment: Test(s) Ordered: H PYLORI BREATH TEST KIT SEND OUT TYPE CODE TESTS RESULT OUT OF RANGE REFERENCE UNITS LAB L801.1541 Normal [facility] LAB TEST Result Comment: TEST RESULT LIMITS H pylori Breath Test Negative Negative [facility] AT [facility]. ORIGINAL REPORT ON FILE IN LAB CONTAINS ADDITIONAL TEST SITE INFORMATION. Performed By: #### L801.1541 #### [facility] Laboratory [address] [place], [address] CBC W/DIFF, AUTOMATED Collected: 11/13/2017 Status: F Source: MILES 10:[address] [facility] REPOSITORY TYPE CODE TESTS RESULT OUT OF [...] Lymph 2.59 Performed By: #### L100.0100 #### [facility] [address] [place], [address] HEMOGLOBIN A1C Collected: 11/13/2017 Status: F Source: [place]EM[place] 10:[address] [facility] REPOSITORY TYPE CODE TESTS RESULT OUT OF RANGE REFERENCE UNITS LAB L501.9985 4.2-6.3 % Normal HGB A1C 5.5 Performed By: #### L501.9985 #### [facility] [address] [place], [address] PTHIN Collected: 11/13/2017 Status: F Source: [place]EM[place] 10:[address] [facility] REPOSITORY TYPE CODE TESTS RESULT OUT OF RANGE REFERENCE UNITS LAB L509.1000 18.4-80.1 pg/mL Normal PTHIN 61.5 Performed By: #### L509.1000 #### [facility] [address] [place], [address] VITAMIN B12 Collected: 11/13/2017 Status: F Source: [place]EMLOCK 10:[address] [facility] REPOSITORY TYPE CODE TESTS RESULT OUT OF RANGE REFERENCE UNITS LAB L503.0105 211-911 pg/mL Normal Vitamin B12 421 Performed By: #### L503.0105, L506.1000 #### [facility] [address] [place], [address] VITAMIN D,25 HYDROXY Collected: 11/13/2017 Status: F Source: MILES 10:[address] [facility] REPOSITORY TYPE CODE TESTS RESULT OUT OF REFERENCE UNITS RANGE LAB L506.1000 29.95-100.01 ng/mL Low Vitamin D 15.9 25-OH Result Comment: Vitamin D 25(OH) Status Range Deficiency <20 ng/mL (50nmol/L) Insuffciency 20 - 30 ng/mL (50 - 75 nmol/L) Sufficiency 30 - 100 ng/mL (75 - 250 nmol/L) Toxicity >100 ng/mL (>250 nmol/L) Performed By: #### L503.0105, L506.1000 #### [facility] [address] [place], [place], [address] COMPREHENSIVE METABOLIC Collected: 11/13/2017 Status: F Source: [place] [facility] 10:[address] [facility] REPOSITORY Order Comment: Comments: [id number] DRUG SCREEN SERUM/WB REF Is Patient Taking [...] L501.6710, L501.9520, L503.6030, L503.6550, L506.0250, L506.0400 #### [facility] [address] [place], [address] LIPID PROFILE Collected: 11/13/2017 Status: F Source: [place] 10:[address] [facility] REPOSITORY Order Comment: Comments: [id number] DRUG SCREEN SERUM/WB REF Is Patient Taking [...] L501.6710, L501.9520, L503.6030, L503.6550, L506.0250, L506.0400 #### [facility] [address] [facility] [address] [place], [place], [address] (350) CRP Collected: 11/13/2017 Status: F Source: [place] 10:[address] [facility] REPOSITORY Order Comment: Comments: [id number] DRUG SCREEN SERUM/WB REF Is Patient Taking [...] L501.6710, L501.9520, L503.6030, L503.6550, L506.0250, L506.0400 #### [facility] [address] [place], [address] THYROID STIM HORMONE Collected: 11/13/2017 Status: F Source: [place] (TSH) 10:[address] [facility] REPOSITORY Order Comment: Comments: [id number] DRUG SCREEN SERUM/WB REF Is Patient Taking Vitamins or Folic Acid Supplements? N TYPE CODE TESTS RESULT OUT OF RANGE REFERENCE UNITS LAB L501.9520 0.358-3.74 uIU/mL Normal TSH 2.27 Performed By: #### L500.4050, L500.4100, L501.6710, L501.9520, L503.6030, L503.6550, L506.0250, L506.0400 #### [facility] Laboratory [address] [facility] [place], [place], [address] IRON+IRON BINDING Collected: 11/13/2017 Status: F Source: [place] CAPACITY 10:[address] [facility] REPOSITORY Order Comment: Comments: [id number] DRUG SCREEN SERUM/WB REF Is Patient Taking Vitamins or Folic Acid Supplements? N TYPE CODE TESTS RESULT OUT OF RANGE REFERENCE UNITS LAB L503.6075 250-450 ug/dL TIBC Normal 323 LAB L503.6150 50-170 ug/dL IRON Normal 92 LAB L503.6250 15.0-55.0 % IRON Normal SATURATION 28.5 Performed By: #### L500.4050, L500.4100, L501.6710, L501.9520, L503.6030, L503.6550, L506.0250, L506.0400 #### [facility] [address] [place], [place], [address] (365) FERRITIN Collected: 11/13/2017 Status: F Source: [place] 10:[address] [facility] REPOSITORY Order Comment: Comments: [id number] DRUG SCREEN SERUM/WB REF Is Patient Taking Vitamins or Folic Acid Supplements? N TYPE CODE TESTS RESULT OUT OF RANGE REFERENCE UNITS LAB L503.6550 8-252 ng/mL Normal FERRITIN 81 Performed By: #### L500.4050, L500.4100, L501.6710, L501.9520, L503.6030, L503.6550, L506.0250, L506.0400 #### [facility] [address] [place], [place], [address] (558) FOLATES, (FOLIC ACID) Collected: 11/13/2017 Status: F Source: [place] 10:[address] [facility] REPOSITORY Order Comment: Comments: [id number] DRUG SCREEN SERUM/WB REF Is Patient Taking Vitamins or Folic Acid Supplements? N TYPE CODE TESTS RESULT OUT OF RANGE REFERENCE UNITS LAB L506.0250 3.1-55.4 ng/mL Normal FOLATES 19.90 Performed By: #### L500.4050, L500.4100, L501.6710, L501.9520, L503.6030, L503.6550, L506.0250, L506.0400 #### [facility] [address] [place], [place], [address] (344) T4 FREE DIRECT Collected: 11/13/2017 Status: F Source: [place] 10:[address] [facility] REPOSITORY Order Comment: Comments: [id number] DRUG SCREEN SERUM/WB REF Is Patient Taking Vitamins or Folic Acid Supplements? N TYPE CODE TESTS RESULT OUT OF RANGE REFERENCE UNITS LAB L506.0400 0.76-1.46 ng/dL Normal T4 FREE 1.13 DIRECT Performed By: #### L500.4050, L500.4100, L501.6710, L501.9520, L503.6030, L503.6550, L506.0250, L506.0400 #### [facility] [place], [address] COPPER, SERUM OR Collected: 11/13/2017 Status: F Source: [place] PLASMA 10:[address] [facility] REPOSITORY Order Comment: Comments: [id number] DRUG SCREEN WB ROONEY RTEMP TYPE CODE TESTS RESULT OUT OF RANGE REFERENCE UNITS LAB L3300.0100 72-166 ug/dL Normal COPPER 122 Result Comment: Detection Limit = 5 Performed By: #### L3300.0100, L3300.8000, L3300.9900, L3400.0920, L3600.3400 #### [facility] (refer to report for specific site) refer to report for address and phone number VITAMIN B1, THIAMINE Collected: 11/13/2017 Status: F Source: [place] 10:[address] [facility] REPOSITORY Order Comment: Comments: [id number] DRUG SCREEN WB ROONEY RTEMP TYPE CODE [...] PLASMA OR Collected: 11/13/2017 Status: F Source: [place] SERUM 10:[address] [facility] REPOSITORY Order Comment: Comments: [id number] DRUG SCREEN WB ROONEY RTEMP TYPE CODE TESTS RESULT OUT OF RANGE REFERENCE UNITS LAB L3300.9900 56-134 ug/dL Normal ZINC 70 Plasma/Ser Result Comment: Detection Limit = 5 Performed at: [address] [id number] Pastoral Assistant: Michael Godinez MD, Phone: [phone] Performed By: #### L3300.0100, L3300.8000, L3300.9900, L3400.0920, L3600.3400 #### [facility] (refer to report for specific site) refer to report for address and phone number VITAMIN A, RETINOL Collected: 11/13/2017 Status: F Source: [place] 10:[address] [facility] REPOSITORY Order Comment: Comments: [id number] DRUG SCREEN WB ROONEY RTEMP TYPE CODE TESTS RESULT OUT OF RANGE REFERENCE UNITS LAB L3400.0920 36.4-108.0 ug/dL Normal VIT A, 658196 45.3 Result Comment: Reference intervals for vitamin A determined from National Health and Nutrition Examination Survey, 4502-0753. Individuals with vitamin A less than 20 [...] 11/13/2017 Status: F Source: [place] 10:[address] [facility] REPOSITORY Order Comment: Comments: [id number] DRUG SCREEN WB ROONEY RTEMP TYPE CODE [...] CANNABINOID CONF Collected: 11/13/2017 Status: F Source: [place]SE 10:[address] [facility] REPOSITORY Order Comment: Comments: [id number] DRUG SCREEN WB ROONEY RTEMP List of Drugs Taken or Suspected? UNK TYPE CODE TESTS RESULT OUT OF REFERENCE UNITS RANGE LAB L3380.9776 Cutoff=10 CANNABINOID Normal Negative Result Comment: Performed at: [facility] [address], [facility], [place] [id number] Pastoral Assistant: Luisito Tolbert MD, Phone: [phone] Performed By: #### L3380.7000 #### [facility] (refer to report for specific site) refer to report for address and phone number MISCELLANEOUS LAB Collected: 11/13/2017 Status: F Source: [place] PROCEDURE 10:[address] [facility] REPOSITORY Order Comment: Comments: [id number] DRUG SCREEN WB ROOENY RTEMP Test(s) Ordered: [id number] DRUG SCREEN WB ROONEY RTEMP TYPE CODE TESTS RESULT OUT OF RANGE REFERENCE UNITS LAB L801.1541 Normal [facility] LAB TEST Result Comment: TEST RESULT LIMITS [...] Food and Drug Administration. TESTING PERFORMED AT [facility]. ORIGINAL REPORT ON FILE IN LAB CONTAINS ADDITIONAL TEST SITE INFORMATION. 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2469; Last Updated By: Rut SerratoViraloid; 09/22/2015 2:43:18 PM Lansoprazole 30 MG Oral Capsule Delayed Release; TAKE 1 CAPSULE DAILY; Therapy: 51Vqz2149 to (Evaluate:16Sep2016) Requested for: 68Apu6943; Last Rx:75Odg7768 Ordered Rx By: Daina Clark; Dispense: 90 Days ; #:90 Capsule Delayed Release; Refill: 3;For: GERD without esophagitis; RACQUEL = N; Verified Transmission to [facility]24[facility]; Last Updated By: Allyn SerratoriViraloid; 09/22/2015 2:41:32 PM Doxycycline 40 MG Oral Capsule Delayed Release; 1 po qd; Therapy: 35Qfw0281 to Recorded Dispense: 0 Days ; #: Sufficient Capsule Delayed Release; Refill: 0; RACQUEL = N; Record; Last Updated By: Savannah Whaley; 11/07/2017 12:32:20 PM Gabapentin 300 MG Oral Capsule; Therapy: 31Axi8978 to Recorded Dispense: 0 Days ; #: [...] surgery, Psychological Evaluation (Drs. Sanches or Dionne [phone], o r a professional of your choice), nutritional evaluation, sleep study, TSH blood test, Cardiac clearance and H-pylori Blood Test [employer] phone number [phone]. Please fax all documents to the healthcare insurance sales agent [phone]. Eliminate any pop, if you havent already, from your diet. Begin an exercise regimen with a daily goal of 1 hour. Start taking a multivitamin daily- Try Flintstones complete. Lose at least 10 lbs. by next visit. End of Encounter Meds Gabapentin 300 MG Oral Capsule; Therapy: 20Gns3056 to Recorded Lansoprazole 30 MG Oral Capsule Delayed Release (Prevacid); TAKE 1 CAPSULE DAILY; Therapy: 21Rji7986 to (Evaluate:27Jbn3647) Requested for: 48Ztp8828; Last Rx:[id number] Ordered Triamterene-HCTZ 75-50 MG Oral Tablet; TAKE 1 TABLET DAILY; Therapy: 90Sgi3327 to (Evaluate:52Svp6266) Requested for: 69Fpw0578; Last Rx:[id number] Ordered Signatures Electronically signed by : John Higuera MD,; Nov 07 2017 2:25PM EST (Author) DIETITION NOTE Observed: 11/07/2017 Status: UNK Source: [place] 2:13 PM [facility]PITALS REPOSITORY Chief Complaint obesity [...] Reduction Procedure 1998 History of Cervical Surgery (Sash Installer) removal 2001 History of Gallbladder Surgery 2006 [...] Occasional alcohol use 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; Last Updated By: Myke Serrato; 09/22/2015 2:43:18 PM Lansoprazole 30 MG Oral Capsule Delayed Release (Prevacid); TAKE 1 CAPSULE DAILY; Therapy: 06Kwn0030 to (Evaluate:25Zcn9261) Requested for: 34Paj3097; Last Rx:52Jwq4247 Ordered Rx By: Daina Clark; Dispense: 90 Days ; #:90 Capsule Delayed Release; Refill: 3;For: GERD without esophagitis; RACQUEL = N; Verified Transmission to [facility]; Last Updated By: Allyn Serrato; 09/22/2015 2:41:32 PM Gabapentin 300 MG Oral Capsule; Therapy: 92Nmx8848 to Recorded Dispense: 0 Days ; #: [...] HOUR RECALL/DIET HISTORY: Breakfast: scrambled egg with [place] kinsey, tomato Snack: none Lunch: c macaroni [...] all surgical requirements are met. Livia FREIRE, [facility] Bariatric Surgery Dietitian Patient Discussion/Summary Recommendations: 1.Follow [...] requirements are met. Livia Canseco RDN , [facility] Bariatric Surgery Dietitian .. End of Encounter Meds Gabapentin 300 MG Oral Capsule; Therapy: 29Bmi2411 to Recorded Lansoprazole 30 MG Oral Capsule Delayed Release (Prevacid); TAKE 1 CAPSULE DAILY; Therapy: 70Cja6230 to (Evaluate:16Sep2016) Requested for: 81Lir8882; Last Rx:[id number] Ordered Triamterene-HCTZ 75-50 MG Oral Tablet; TAKE 1 TABLET DAILY; Therapy: 84Puy1155 to (Evaluate:65Rdq9216) Requested for: 08Oze5713; Last Rx:[id number] Ordered Signatures Electronically signed by : Livia Canseco RD; Nov 07 2017 2:13PM EST (Author) INTERNAL MEDICINE Observed: 10/29/2017 Status: F Source: [place] OFFICE VISIT 1:55 PM [facility] Internal Medicine [address] [address] [place] [address] OFFICE VISIT Date of Service: 10/15/17 MR#: [id number] Acct: [id number] Name: CELINA PAT Rep #: [id number] : 1950 Provider: Swathi Lagunas MD Age/Sex: 67/F Location: [facility] Status: Signed Intake Vital Signs10/15/17 Height [...] also F/U on BP meds Details: CELINA PAT, is a 67yo F who presents to the office today for follow up of lower extremity pain and swelling. 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 She was started on a medro dose pack at her last visit however patient states that she did not get much relief. She is also scheduled to follow-up at the [facility]. Patient is considering bariatric surgery. She has [...] appearing, comfortable, no acute distress, well groomed [facility] Ears: hearing grossly normal bilaterally, external ears [...] bariatric surgery. Scheduled to follow-up at the [facility] on 04 November. Lipid profile and BMP ordered per recommendations. Follow-up. This note was generated with TripShake dictation software. It may contain incorrect words, [...] F Source: [place] PROFILE (BMP) 8:[address] [facility] REPOSITORY Order Comment: Comments: Fasting Comments: Fasting [...] 6 Performed By: #### L500.2500, L500.4100 #### [facility] [address], [address] LIPID PROFILE Collected: 10/17/2017 Status: F Source: [place] [facility] [facility] [facility] RE[facility] Order Comment: Comments: Fasting Comments: Fasting [...] 43 Performed By: #### L500.2500, L500.4100 #### [facility] Laboratory [address] [place], [address] PROGRESS Observed: 09/27/2017 Status: COMPLETED Source: LONGBRANCH 11:09 AM [facility] REPOSITORY O ID: [id number] Author: Elis Pack Service: (none) Author Type: [...] resting Medications: See medication reconciliation list in [facility] MEDICATIONS: none Have you ever seen a [...] M.D. CNOV Observed: 09/27/2017 Status: COMPLETED Source: LONGBRANCH 10:00 AM [facility] REPOSITORY Office Visit (MARY) CELINA PAT ([id number]) 1950 F [facility] Date Time Provider Department 09/27/17 [...] resting Medications: See medication reconciliation list in [facility] MEDICATIONS: none Have you ever seen a [...] F Source: [place]ES OFFICE VISIT 3:25 PM [facility] Internal Medicine [facility] [address] [place] [address] OFFICE VISIT Date of Service: 09/16/17 MR#: [id number] Acct: [id number] Name: CELINA PAT Rep #: [id number] : 1950 Provider: Swathi Lagunas MD Age/Sex: 67/F Location: [facility] Status: Signed Intake Vital Signs09/16/17 Height 5 [...] pain. She was seen recently by her engraver pantograph however, patient states pain still persists despite [...] appearing, comfortable, no acute distress, well groomed [facility] Ears: hearing grossly normal bilaterally, external ears [...] 1 month. This note was generated with TripShake dictation software. It may contain incorrect words, [...] SEVERITY SOURCE 06/09/2018 Drug adhesive blisters [place] Allergy/416 tape/[id number]([facility] 929471[facility] Repository 12/12/2017 Drug No Known Unknown [facility] Allergy/416 Allergies/O133767 [facility] 890668(SNOM 388(RXNORM) Repository ED CT) 10/08/2005 DRUG/928926 MEPERIDINE (PF) [facility] 003(SNOMED [facility] [place] [facility]) Repository 09/28/2002 DRUG CODEINE [facility] INGREDI/419 [facility] [place] 168390(SNOM Repository ED CT) 09/28/2002 Drug SULFA [facility] Class/18402 (SULFONAMIDE [facility] [place] 1003(SNOMED ANTIBIOTICS) Repository CT) NG/79426312 CODEINE [facility] 6(SNOMED [facility]) Repository NG/58448531 MEPERIDINE (PF) [facility] 6(SNOMED [facility]) Repository NG/66815195 SULFA [facility] 6(SNOMED (SULFONAMIDE [facility] CT) ANTIBIOTICS) Repository ENCOUNTERS ENCOUNTERS ADMIT/DISCHARGE ACCOUNT NUMBER ADMITTING ENCOUNTER LOCATION SOURCE CLASS 06/09/2018/06/09/19 [id number] Emergency [address] ding:ED Repository 06/04/2018 [id number] Ambulatory [facility] ding:LABSPEC Repository 06/04/2018/06/04/19 [id number] Ambulatory BMSBuilding: [place] Repository 05/08/2018 [id number] Ambulatory [facility]45 [facility] Repository 05/08/2018 [id number] [place], Ambulatory 9545 [facility]lic[facility] Repository 03/24/2018 [id number] [place], Ambulatory 9545 Angélica Bolanos [facility] Repository 03/21/2018/03/21/20 [id number] Ambulatory BMSBuilding: [place] 18 BMS.[facility] Repository 02/20/2018 [id number] Ambulatory PCGBuilding: [facility] Repository 02/13/2018 [id number] Ambulatory [address] [place] [address] Repository 02/12/2018 [id number] Ambulatory [address] [place] [address] Repository 02/12/2018/02/15/20 [id number] [place], Inpatient PCGBuilding: [place] 18 Mujjahid Encounter 2JNTRoom: [facility] 205Bed: [address] [place] [address] Repository 02/12/2018 [id number] Ambulatory [address] [place] [address] Repository 02/11/2018/02/12/20 [id number] Ambulatory [address] Repository 02/11/2018/02/12/20 [id number] Ambulatory [address] MEDICAL Repository CENTERBuildi ng:NEUSAGHB 01/31/2018 [id number] Ambulatory [address] [place] [address] Repository 01/30/2018 [id number] Ambulatory PCGBuilding: [facility] Repository 01/30/2018 [id number] Ambulatory PCGBuilding: [facility] Repository 01/17/2018/01/18/20 [id number] Ambulatory BMSBuilding: [place] 18 BMS.[facility] Repository 01/13/2018/01/14/20 [id number] Ambulatory BMSBuilding: [place] 18 BMS.[facility] Repository 12/13/2017 [id number] Ambulatory [address] [place] [address] Repository 12/13/2017 [id number] Ambulatory PCGBuilding: [facility] Repository 11/15/[id number] Aj Ambulatory [facility] Repository 11/14/2017 [id number] Ambulatory [facility] ding:LAB Repository 11/13/2017 [id number] Ambulatory [facility] ding:MTLAB Repository 11/07/2017 [id number] Ambulatory PCGBuilding: [facility] Repository 10/30/2017 [id number] Ambulatory [facility] ding:SL Repository 10/17/2017 [id number] Ambulatory [place] [facility] ding:MTLAB Repository 10/15/2017/10/16/19 [id number] Ambulatory BMSBuilding: [place] 18 BMS.[facility] Repository 09/27/2017/10/08/19 [id number] Ambulatory [address] Repository 09/16/2017/09/17/19 [id number] Ambulatory BMSBuilding: [place] 18 BMS.[facility] Repository PAYERS PAYERS ENCOUNTER GUARANTOR PAYER SUBSCRIBER SOURCE 06/09/2018 CELINA F [id number] S Primary CELINA F PADODOB: [place], Insurance:WIRT [id number] by [facility] [id number]: [place] [phone] [facility] Number: Repository () [id number] e Date:2946-73-54KV [address], [place] [address]KW: 06/09/2018 Secondary NOT GIVENUNK [place] Insurance:SELF PAY [facility] Number: Effective Repository Date:2018-06-09 06/04/2018 CELINA F [id number] S Primary CELINA F PADODOB: [place], Insurance:WIRT [id number] by [facility] [id number]: [facility] Number: Repository () [id number] e Date:1170-15-48BV [address], [place] [address]YO: 06/04/2018 Secondary NOT GIVENUNK [place] Insurance:SELF PAY [facility] Number: Effective Repository Date:2018-06-04 06/04/2018 CELINA F [id number] S Primary CELINA F PADODOB: [place], Insurance:WIRT [id number] by [facility] [id number]: [facility] Number: Repository () [id number] e Date:8653-97-08ZJ [place] [address]EN: 06/04/2018 Secondary NOT GIVENUNK [place] Insurance:SELF PAY [facility] Number: Effective Repository Date:2018-06-04 05/08/2018 CELINA PADODOB: Primary CELINA PADODOB: [place] S Insurance[facility] [id number] [facility] Repository [place] [id number]: Number: [place] [id number] [id number]: () e Date:Plan Name:HealthPO Box () 690Up Health SystemalexEDDYV[place], [place] [address]ZK: 05/08/2018 Secondary CELINA PADODOB: [place] Insurance:[facility] [id number] icy Number: S SMYSER Repository [id number] [place] e Date:Plan [id number]: Name:[address] () 05/08/2018 CELINA PADODOB: Primary CELINA PADODOB: [place] S Insurance:[facility] [id number], [facility] Center[facility] Repository [place] [id number]: Number: [place] [id number] [id number]: (HP) e Date:Plan Name:HealthPO Box () [address] [place], [place] [address]NJ: 05/08/2018 Secondary CELINA PADODOB: [place] Insurance:[facility] [id number] icy Number: S [place] Repository [id number] [place] e Date:Plan [id number]: Name:[place] [address] () 03/24/2018 CELINA PADODOB: Primary CELINA PADODOB: [facility] S Insurance:[facility] [id number] [facility] RDWSHY, icy Number: S [place]ository [place] [id number]: [id number] [place] e Date:Plan [id number]: () Name:[place] [address] () 03/21/2018 CELINA F [id number] S Primary CELINA F PADODOB: [place] YS [place], Insurance:WIRT [id number] by [facility] [address]Fmj: [facility] Number: Repository () [id number] e Date:9600-09-46CC [address] [address]DN: 03/21/2018 Secondary NOT GIVENUNK [place] Insurance:SELF PAY [facility] Number: Effective Repository Date:2018-03-18 02/20/2018 CELINA [id number] Primary CELINA PADODOB: [facility] Insurance:[facility] [id number] General [place] hi icy Number: [facility] [address]Pfc: [phone]) [id number] [place] Repository [phone] () e Date:[address] [address]Qqm: [phone] 2671[place]KZ[place], [place] [phone] () [address]HK: 02/13/2018 CELINA PADODOB: Primary CELINA PADODOB: [place] Insurance:[facility] [id number] [facility] Repository [place], [place] Number: [place], [place] [address]Wiu: (330) [id number] [address]Rxd: (HP) e Date:Plan () Name:[facility] Cammy [address], [place] [address]EP: 02/12/2018 CELINA PADODOB: Primary CELINA PADODOB: [place] Insurance:[facility] [id number] [place] [address] icy Number: [place], [place] [id number] [place], [place] [address]Ggq: (478) e Date:Plan [address]Zwe: () Name:[place] [address] () 02/12/2018 CELINA [id number] [facility] CELINA PADODOB: [facility] Insurance:[facility] [id number] [place] [address] icy Number: [facility] [address]Mks: (330) [id number] [place] Repository [phone] () e Date:[address] [address]Tyj: [phone], [place] [phone] () [address]VE: 02/12/2018 CELINA PADODOB: Primary CELINA PADODOB: [place] Insurance:[facility] [id number] [place] [address] icy Number: [place], [place] [id number] [place], [place] [address]Rkk: (807) e Date:Plan [address]Juz: () Name:[address]8018 () 02/11/2018 CELINA PADODOB: Primary CELINA PADODOB: [facility] Insurance:PRIMETIME [id number] [facility] Repository [place], [place] Number: [address]Hvo: (100) [id number] [phone] (HP) e Date: 01/31/2018 CELINA PADODOB: Primary CELINA PADODOB: University Insurance:Self [id number] [facility] PayPolicy Number: ys Repository [place], [place] Effective Date:[place], [place] [address]Nit: (330) Name:[place] [address]Tel: () [phone] () 01/30/2018 CELINA [id number] EAST Primary CELINA PADODOB: [facility] [id number] General [place] icy Number: [facility] [address]Mnf: (330) [id number] [place] Repository [phone] () e Date:[address] [address]Esp: [phone]) [address], [place] [phone] () [address]EI: 01/30/2018 CELINA [id number] Primary CELINA PADODOB: [facility] [id number] [place], [place] icy Number: [facility] [address]Pos: (330) [id number] [place] Repository [phone] (HP) e Date:[address] [address]Wsb: 330 [address], [place] [phone] () [address]PJ: 01/17/2018 CELINA F [id number] S Primary CELINA F PADODOB: [place] [facility], Insurance:WIRT [id number] by [facility] [address]Jmo: [facility] HMOPolicy Number: Repository (HP) [id number] e Date:2673-85-58SI [address] [address]WQ: 01/17/2018 Secondary NOT GIVENUNK [place] Insurance:SELF PAY [facility] Number: Effective Repository Date:2018-01-17 01/13/2018 CELINA F [id number] E Primary CELINA F PADODOB: [place] KEMAH Insurance:WIRT [id number] Golisano Children's HospitalOOH[facility] [address]Ymd: 330 HMOPolic Number: Repository [phone] () Effective Date:5606-94-59DX [address] [address]GL: 01/13/2018 Secondary NOT GIVENUNK [place] Insurance:SELF PAY [facility] Number: Effective Repository Date:2018-01-13 12/13/2017 CELINA PADODOB: Primary CELINA PADODOB: [place] [id number] Insurance:[facility] [id number] [facility] ic Number: [facility], [id number], [place] [address]Bpu: e Date:[facility] [address]Ikj: Name:[place] [address] () (HP) 12/13/2017 CELINA [id number] EAST Primary CELINA PADODOB: [place] [facility] Insurance:[facility] [id number] [place] icy Number: [facility] [address]Vvg: (330) [id number] [place] Repository [phone] (HP) e Date:[address] [address]Quy: [phone] [place] [phone] () [address]RV: 11/15/2017 CELINA PADODOB: Primary CELINA PADODOB: [place] [id number] Insurance[facility] [id number] [place], [place] Number: [facility] [place], [place] [address]Pwm: (330) [id number] [address]Vri: () e Date:Plan [id number] () Name:[address] [address]TO: 11/14/2017 CELINA F [id number] E Primary CELINA F PADODOB: [place] Insurance:WIRT [id number] Grant Medical Center [address]Myj: (523) [facility] Number: Repository [phone] () [id number] e Date:7101-29-29GF [address] [place] [address]UH: 11/14/2017 Secondary NOT GIVENUNK [place] Insurance:SELF PAY [facility] Hospital Number: Effective Repository Date:2017-11-14 11/13/2017 CELINA F [id number] E Primary CELINA F PADODOB: [place] Insurance:WIRT [id number] Grant Medical Center [address]Glm: (105) [facility] Number: Repository [phone] () [id number] e Date:8312-02-93OI [address] [place] [address]YD: 11/13/2017 Secondary NOT GIVENUNK [place] Insurance:SELF PAY [facility] Hospital Number: Effective Repository Date:2017-11-13 11/07/2017 CELINA [id number] Primary CELINA PADODOB: [facility] Insurance:AULTCAREPol [id number] [place], [place] icy Number: [facility] [address]Qcb: (572) [id number] [place] Repository [phone] () e Date:[address] [address]Mzv: [phone] [address], [place] [phone] () [address]RU: 10/30/2017 CELINA F [id number] E Primary CELINA F PADODOB: [place] Insurance:AULTCAREPol [id number] icy Number: Hospital [address]Npv: (330) [id number] Repository [phone] (HP) e Date:1002-22-62PG [address] [address]UM: 10/30/2017 Secondary NOT GIVENUNK [place] Insurance:SELF PAY [facility] Number: Effective Repository Date:2017-10-16 10/17/2017 CELINA F [id number] E Primary CELINA F PADODOB: [place] Insurance:AULTCARE[place] [id number] [place] icy Number: Hospital [id number]: (330) [id number] Repository [phone] () e Date:7325-70-12YN [address] [address]ME: 10/17/2017 Secondary NOT GIVENUNK [place] Insurance:SELF PAY [facility] Number: Effective Repository Date:2017-10-17 10/15/2017 CELINA F [id number] E Primary CELINA F PADODOB: [place] Insurance:AULTCAREPol [id number] [place] icy Number: Hospital [address]Mpn: (330) [id number] Repository [phone] () e Date:2688-59-85FJ [address] [address]SF: 10/15/2017 Secondary NOT GIVENUNK [place] Insurance:SELF PAY Community [facility] Number: Effective Repository Date:2017-10-15 09/16/2017 CELINA F [id number] E Primary CELINA F PADODOB: [place] Insurance:AULTCAREPol [id number] [place], [place] icy Number: Hospital [address]Iau: (330) [id number] Repository [phone] () e Date:5556-64-97FT [address] [address]EB: 09/16/2017 Secondary NOT GIVENUNK [place] Insurance:SELF PAY [facility] Number: Effective Repository Date:2017-09-16
== END 2018-06-09 13:26 | disposition home or self-care (01) ==
PROVIDERS: Emergency Provider Emergency Medicine; Family Provider Internal Medicine; PCP Internal Medicine
DX: S01.01XA Laceration without foreign body of scalp, initial encounter (principal); W22.8XXA Striking against or struck by other objects, initial encounter; Y93.9 Activity, unspecified; Y92.9 Unspecified place or not applicable; Y99.9 Unspecified external cause status; Z23 Encounter for immunization; K21.9 Gastro-esophageal reflux disease without esophagitis; E66.9 Obesity, unspecified
CPT/HCPCS: 12002; 90471; 90715; 99284

== ENCOUNTER → 2018-07-11 10:50 | Outpatient (CLI) | payer MEDICARE, SELFPAY ==
--- NOTE | 2018-07-11 10:52 | BI_ITS ---
MAMMOGRAPHY - BILATERAL SCREENING REASON FOR EXAM: Female, 67 years old. Routine annual screening examination. PERTINENT HISTORY: Grandmother with breast cancer. TECHNIQUE: Digital bilateral breast shahram (3D mammographic acquisition) in the CC and MLO projections. 2-D mediolateral oblique (MLO) and craniocaudad (CC) views of both breasts were obtained. CAD: Full Field Digital Mammography with Computer Added Detection was performed. COMPARISON: Comparison is made with prior study dated August 16, 2015 and December 17, 2016. FINDINGS: Breast Composition: There are scattered areas of fibroglandular density. There are no dominant masses or suspicious calcifications. Stable small bilateral axillary lymph nodes. No other significant abnormalities are identified. There has been no significant change since the prior study. BI/SCREENING MAMM (CAD), BILAT IMPRESSION: Stable bilateral screening mammogram. Yearly follow-up mammogram recommended. (A) ASSESSMENT CATEGORY: BIRADS Category 2: Benign. A letter regarding these results will be sent to the patient by the facility within 30 days. Approximately 10% of breast cancers are not detected by mammography. A normal mammogram should not delay biopsy of a clinically suspicious abnormality. [id number] Electronically Signed: Genaro Chou MD at 13:36 EST , Service support ,
== END ==
PROVIDERS: Family Provider Internal Medicine; PCP Internal Medicine; Referring Provider Internal Medicine; Visit Provider Internal Medicine
DX: Z12.31 Encounter for screening mammogram for malignant neoplasm of breast (principal); Z80.3 Family history of malignant neoplasm of breast
CPT/HCPCS: 77063; 77067

== ENCOUNTER → 2019-01-16 16:31 | Outpatient (CLI) | payer MEDICARE, SELFPAY ==
[2019-01-16 14:44] VITALS: BMI 30.1
[2019-01-16 16:33] LABS: Bacteria 0 SEEN /hpf (None Seen); Mucous, Urine 0 SEEN /hpf (<or=2+); Red Blood Cells-Urine 0 SEEN /hpf (0-5); Squamous Epithelial Cells - UA 0 SEEN /hpf (5-10)
[2019-01-16 17:50] LABS: Color, Urine Straw (Yellow); Glucose, Dipstick Normal (Normal); Ketone-Dipstick Negative (Negative); Leukocyte Esterase-Dipstick 500 /ul (Negative); Nitrite-Dipstick Negative (Negative); Occult Blood-Urine 250 /ul (Negative); Protein-Dipstick 30 mg/dl (Negative); Specific Gravity, Urine 1.005 (1.002-1.030); Urine Bilirubin Dipstick Negative (Negative); Urine Clarity Cloudy (Clear); Urine Urobilinogen Normal (Normal)
[2019-01-16 18:10] LABS: White Blood Cells >100 SEEN /hpf (0-5)
== END ==
PROVIDERS: Family Provider Internal Medicine; PCP Internal Medicine; Visit Provider Internal Medicine
DX: N39.0 Urinary tract infection, site not specified (principal)
CPT/HCPCS: 81001; 87086

== ENCOUNTER → 2019-01-27 08:21 | Outpatient (CLI) | payer MEDICARE, SELFPAY ==
[2019-01-26 13:46] VITALS: BMI 30.1
[2019-01-27 08:37] LABS: Mucous, Urine 0 SEEN /hpf (<or=2+); Red Blood Cells-Urine 0 SEEN /hpf (0-5)
[2019-01-27 09:02] LABS: Absolute Lymphocyte Count 2.79 X10^3/uL (0.83-4.51); Absolute Neutrophil Count 3.2 X10^3/uL (2.0-7.7); Basophil# 0.02 X10^3/uL; Basophil% 0.3 % (0-1); Eosinophil# 0.17 X10^3/uL; Eosinophils% 2.6 % (0-5); Hematocrit 41.3 % (37-47); Hemoglobin 13.5 g/dL (12.0-15.0); Lymphocyte # 2.79 X10^3/ul (4.0); Lymphocyte % 41.9 % (19-41); Mean Corp Hgb Conc 32.7 g/dL (32-36); Mean Corpuscular Volume 94.9 fL (81-99); Mean Platelet Vol. 9.5 fl (6.2-12.0); Monocyte# 0.51 X10^3/uL; Monocyte% 7.7 % (0-10); NRBC Flagged by Analyzer 0 % (0-5); Neutrophil # 3.15 X10^3/uL (2.7-7.7); Neutrophil % 47.2 % (47-70); Platelet Count 206 K/mm3 (150-450); RBC Distribution Width CV 12.5 % (11.6-14.6); RBC Distribution Width SD 43.4 fl (35.1-43.9); Red Blood Count 4.35 M/mm3 (4.2-5.4); White Blood Count 6.7 K/mm3 (4.4-11.0)
[2019-01-27 09:04] LABS: Color, Urine Yellow (Yellow); Glucose, Dipstick Normal (Normal); Ketone-Dipstick 5 mg/dl (Negative); Leukocyte Esterase-Dipstick 25 /ul (Negative); Nitrite-Dipstick Negative (Negative); Occult Blood-Urine Negative /ul (Negative); Protein-Dipstick 15 mg/dl (Negative); Urine Bilirubin Dipstick Negative (Negative); Urine Clarity Sl. Cloudy (Clear); Urine Urobilinogen 1 mg/dl (Normal)
[2019-01-27 09:19] LABS: Bacteria 1+ /hpf (None Seen); Squamous Epithelial Cells - UA 5-10 SEEN /hpf (5-10); White Blood Cells 0-5 SEEN /hpf (0-5); Yeast-Urine 1+ /hpf (None Seen)
[2019-01-27 09:31] LABS: ALB/GLOB Ratio 0.8 RATIO (0.9-2.4); AST(SGOT) 21 U/L (15-37); Alanine Aminotransfer ALT/SGPT 18 U/L (13-56); Albumin, Serum 3.3 g/dL (3.2-5.0); Alkaline Phosphatase 96 U/L (45-117); Anion Gap 7 (5-15); BUN 20 mg/dL (7-18); BUN/Creat Ratio 15.3 RATIO (10-20); Calcium,Total 8.6 mg/dL (8.5-10.1); Chloride 105 mmol/L (98-107); Creatinine, Serum 1.31 mg/dL (0.55-1.02); EST Glomerular Filtration Rate 43 mL/min (>60); Est Glom Filt Rate - Afr Amer 52 mL/min (>60); Globulin 4.1 g/dL (2.2-4.2); Glucose 83 mg/dL (74-106); Potassium 3.8 mmol/L (3.5-5.1); Protein, Total 7.4 g/dL (6.4-8.2); Sodium Level 143 mmol/L (136-145)
[2019-01-27 09:34] LABS: Vitamin B12 800 pg/mL (211-911); Vitamin D,25 Hydroxy 34.4 ng/mL (29.95-100.01)
== END ==
PROVIDERS: Family Provider Internal Medicine; PCP Internal Medicine; Referring Provider Internal Medicine; Visit Provider Internal Medicine
DX: K90.9 Intestinal malabsorption, unspecified (principal); Z98.84 Bariatric surgery status; E56.9 Vitamin deficiency, unspecified; R82.90 Unspecified abnormal findings in urine
CPT/HCPCS: 36415; 80053; 81001; 82306; 82607; 85025

== ENCOUNTER → 2019-04-13 11:07 | Outpatient (CLI) | payer MEDICARE, SELFPAY ==
[2019-04-09 09:37] VITALS: BMI 30.6
--- NOTE | 2019-04-13 11:36 | EKG12_ITS ---
Test Reason : Blood Pressure : / mmHG Vent. Rate : 062 BPM Atrial Rate : 062 BPM P-R Int : 188 ms QRS Dur : 084 ms QT Int : 404 ms P-R-T Axes : 059 -03 053 degrees QTc Int : 410 ms Normal sinus rhythm Normal ECG Confirmed by JAIR ARAGON, PERCY ([id number]), editor school photograph VICTORIA LUNA ([id number]) on 04/14/2019 9:50:28 AM Referred By: Dani Rivers Confirmed By:PERCY ADAM MD
[2019-04-13 12:16] LABS: Absolute Lymphocyte Count 2.83 X10^3/uL (0.83-4.51); Absolute Neutrophil Count 2.1 X10^3/uL (2.0-7.7); Basophil# 0.02 X10^3/uL; Basophil% 0.4 % (0-1); Eosinophil# 0.12 X10^3/uL; Eosinophils% 2.1 % (0-5); Hematocrit 43.2 % (37-47); Hemoglobin 14.2 g/dL (12.0-15.0); Lymphocyte # 2.83 X10^3/ul (4.0); Lymphocyte % 50.1 % (19-41); Mean Corp Hgb Conc 32.9 g/dL (32-36); Mean Corpuscular Hgb 31.6 pg (27.0-32.0); Mean Corpuscular Volume 96.2 fL (81-99); Mean Platelet Vol. 9.4 fl (6.2-12.0); Monocyte# 0.51 X10^3/uL; NRBC Flagged by Analyzer 0 % (0-5); Neutrophil # 2.12 X10^3/uL (2.7-7.7); Neutrophil % 37.5 % (47-70); Platelet Count 199 K/mm3 (150-450); RBC Distribution Width CV 12.1 % (11.6-14.6); RBC Distribution Width SD 43.2 fl (35.1-43.9); Red Blood Count 4.49 M/mm3 (4.2-5.4); White Blood Count 5.7 K/mm3 (4.4-11.0)
[2019-04-13 13:06] LABS: ALB/GLOB Ratio 0.8 RATIO (0.9-2.4); AST(SGOT) 19 U/L (15-37); Alanine Aminotransfer ALT/SGPT 16 U/L (13-56); Albumin, Serum 3.4 g/dL (3.2-5.0); Alkaline Phosphatase 96 U/L (45-117); Anion Gap 6 (5-15); BUN 18 mg/dL (7-18); BUN/Creat Ratio 14.1 RATIO (10-20); Calcium,Total 8.9 mg/dL (8.5-10.1); Chloride 104 mmol/L (98-107); Creatinine, Serum 1.28 mg/dL (0.55-1.02); EST Glomerular Filtration Rate 44 mL/min (>60); Est Glom Filt Rate - Afr Amer 54 mL/min (>60); Globulin 4.2 g/dL (2.2-4.2); Glucose 87 mg/dL (74-106); Potassium 3.8 mmol/L (3.5-5.1); Protein, Total 7.6 g/dL (6.4-8.2); Sodium Level 140 mmol/L (136-145); Thyroid Stim Hormone (TSH) 2.27 uIU/mL (0.358-3.74)
== END ==
PROVIDERS: Family Provider Internal Medicine; PCP Internal Medicine; Referring Provider Nurse Practitioner Family; Visit Provider Nurse Practitioner Family
DX: Z01.818 Encounter for other preprocedural examination (principal); R68.89 Other general symptoms and signs
CPT/HCPCS: 36415; 80053; 84443; 85025; 93005

== ENCOUNTER → 2019-07-02 12:04 | Outpatient (CLI) | payer MEDICARE, SELFPAY ==
[2019-04-09 09:37] VITALS: BMI 30.6
[2019-07-02 13:55] LABS: CRP, High Sensitivity Cardiac 3.12 mg/L; Cholesterol 193 mg/dL (200); Estradiol 50.9 pg/mL; High Density Lipoprotein 72 mg/dL; Triglycerides 81 mg/dL; Very Low Density Lipoprotein 16 mg/dL (5-40)
[2019-07-03 04:07] LABS: DHEA Sulfate 23.1 ug/dL (20.4-186.6)
[2019-07-03 11:29] LABS: Sex Hormone-binding Globulin 52.5 nmol/L (17.3-125.0)
== END ==
PROVIDERS: PCP Internal Medicine; Visit Provider Obstetrics & Gynecology
DX: N95.1 Menopausal and female climacteric states (principal); Z13.228 Encounter for screening for other metabolic disorders; R68.82 Decreased libido
CPT/HCPCS: 36415; 80061; 82627; 82670; 84270; 84403; 86141; 82626

== ENCOUNTER 2019-07-08 14:21 | Emergency (ER) | payer MEDICARE, SELFPAY ==
[2019-04-09 09:37] VITALS: BMI 30.6
[2019-07-08 14:22] VITALS: BP 130/77; PULSE 64; RESP 18; TEMP 36.5; O2SAT 100; BMI 29.9
--- NOTE | 2019-07-08 14:26 | RAD_ITS ---
STUDY: X-RAY CHEST REASON FOR EXAM: Female, 68 years old. Chest pain since last night. TECHNIQUE: Single AP portable view of the chest. COMPARISON: Comparison is made with prior study in April 07, 2013. FINDINGS: The lungs are clear and expanded. There is no demonstrated pleural abnormality. Normal size heart. Normal mediastinum and bernard. Normal visualized pulmonary arteries. Normal visualized aortic arch and descending thoracic aorta. Normal visualized thoracic spine. Evidence of prior bilateral rotator cuff surgery. There is no demonstrated abnormality of the visualized soft tissue structures of the upper abdomen. RAD/Chest 1 View (Portable) IMPRESSION: No acute abnormality is seen. Electronically Signed: Genaro Chou, at 15:07 EST , Service support ,
--- NOTE | 2019-07-08 14:26 | EKG12_ITS ---
Test Reason : CP Blood Pressure : / mmHG Vent. Rate : 062 BPM Atrial Rate : 062 BPM P-R Int : 170 ms QRS Dur : 084 ms QT Int : 410 ms P-R-T Axes : 021 -13 034 degrees QTc Int : 416 ms Normal sinus rhythm Normal ECG Confirmed by ROSE MARY ARAGON, CRUZ ([id number]), order editor TIFF RAO ([id number]) on 07/13/2019 2:30:37 PM Referred By: REA Confirmed By:MARYJO BAZZI MD
[2019-07-08 14:32] VITALS: BP 123/102; PULSE 66; RESP 14; O2SAT 98
[2019-07-08 14:35] VITALS: O2SAT 98
[2019-07-08 14:50] LABS: Absolute Lymphocyte Count 3.64 X10^3/uL (0.83-4.51); Absolute Neutrophil Count 4.1 X10^3/uL (2.0-7.7); Basophil# 0.04 X10^3/uL; Basophil% 0.5 % (0-1); Eosinophil# 0.22 X10^3/uL; Eosinophils% 2.6 % (0-5); Hematocrit 41.8 % (37-47); Lymphocyte # 3.64 X10^3/ul (4.0); Lymphocyte % 42.2 % (19-41); Mean Corp Hgb Conc 33.5 g/dL (32-36); Mean Corpuscular Volume 95.4 fL (81-99); Mean Platelet Vol. 9.2 fl (6.2-12.0); Monocyte# 0.59 X10^3/uL; Monocyte% 6.8 % (0-10); NRBC Flagged by Analyzer 0 % (0-5); Neutrophil # 4.12 X10^3/uL (2.7-7.7); Neutrophil % 47.8 % (47-70); Platelet Count 225 K/mm3 (150-450); RBC Distribution Width CV 12.2 % (11.6-14.6); RBC Distribution Width SD 43.4 fl (35.1-43.9); Red Blood Count 4.38 M/mm3 (4.2-5.4); White Blood Count 8.6 K/mm3 (4.4-11.0)
[2019-07-08] MEDS: 0.9% Normal Saline 1,000 ML 150 ML IV (14:50)
[2019-07-08] MEDS: Aspirin 81 MG TAB.CHEW 324 MG PO (14:50)
[2019-07-08 15:08] LABS: Anion Gap 4 (5-15); BUN 20 mg/dL (7-18); BUN/Creat Ratio 14.6 RATIO (10-20); Calcium,Total 9.4 mg/dL (8.5-10.1); Chloride 104 mmol/L (98-107); Creatinine, Serum 1.37 mg/dL (0.55-1.02); EST Glomerular Filtration Rate 41 mL/min (>60); Est Glom Filt Rate - Afr Amer 50 mL/min (>60); Estimated Creatinine Clearance 34.88 ml/min; Glucose 91 mg/dL (74-106); Potassium 3.6 mmol/L (3.5-5.1); Sodium Level 139 mmol/L (136-145)
--- NOTE | 2019-07-08 15:42 | CT_ITS ---
STUDY: CTA CHEST REASON FOR EXAM: Female, 68 years old. Back pain, chest pressure RADIATION DOSAGE (If Supplied By Facility): CTDIvol = ( 6.42 ) mGy, DLP = ( 216.35 ) mGycm TECHNIQUE: The examination was performed with the intravenous administration of IV 75mL Isovue-370. Post-processing of the angiographic images was performed, with multiplanar reformation and 3D reconstruction. Individualized dose optimization techniques were used for this CT. COMPARISON: None. FINDINGS: Normal enhancement of the main pulmonary artery and right and left pulmonary arteries. Normal enhancement of the bilateral peripheral pulmonary arteries. There is no demonstrated pulmonary embolism. Normal thoracic aorta and visualized great vessels. There is no demonstrated aortic dissection. Normal heart and pericardium. Normal mediastinum. Normal hilar regions. Normal visualized trachea and bronchi. The lungs are well expanded. There are several small pulmonary nodules including 2 at the right lower lobe measuring up to 5 and 5 mm respectively series 2 image 101. An 8 mm nodule is noted right middle lobe series 2 image 112. A 4 mm nodule is noted within the lingula series 2 image 131. Normal pleura. Normal chest wall structures. Normal osseous structures. Normal visualized upper abdomen. CT/CTA Chest W/WO Contrast IMPRESSION: No evidence of pulmonary embolism or aortic dissection. Several pulmonary nodules largest of which measures up to 8 mm in the right middle lobe. Fleischner Society Recommendations for Follow-up and Management of Nodules Smaller than 8 mm Detected Incidentally at Nonscreening CT. Nodule size < or = 4 mm: Low-Risk Patient - No follow-up needed. High-Risk Patient - Follow-up CT at 12 months; if unchanged, no further follow-up. Nodule size > 4-6 mm: Low-Risk Patient - Follow-up CT at 12 months; if unchanged, no further follow-up. High-Risk Patient - Initial follow-up CT at 6-12 months then at 18-24 months if no change. Nodule size > 6-8 mm: Low-Risk Patient - Initial follow-up CT at 6-12 months then at 18-24 months if no change. High-Risk Patient - Initial follow-up CT at 3-6 months then at 9-12 and 24 months if no change. Nodule size > 8 mm: Low-Risk Patient - Follow-up CT at around 3,9 and 24 months. Dynamic contrast-enhanced CT, PET and/or biopsy. High-Risk Patient - Same as for low-risk patient. Low-Risk = Minimal or absent history of smoking and of other known risk factors. High-Risk = History of smoking or of other known risk factors. Electronically Signed: Pavan Ponce, at 16:21 EST Tel , Service support ,
[2019-07-08 15:49] VITALS: BP 107/76; PULSE 57; RESP 13; O2SAT 100
[2019-07-08 16:25] VITALS: PULSE 60; RESP 16; O2SAT 97
--- NOTE | 2019-07-08 16:40 | ED.DCSUM_ITS ---
- ER Visit Summary Date of Service: 07/08/19 Chief Complaint: Chest pain History of Present Illness: The patient is a [address] Lagunas. She reports that at noon today while at rest she had the onset of a substernal pressure lasted approximately 30 minutes. It was 5 out of 10 at worst. She is pain-free currently. It was worsened by nothing including exertion, movement, or deep breaths. It was also relieved by nothing. She reports that it made her nauseated and diaphoretic. She denied any vomiting or shortness of breath. Patient reports that she has upper back pain that began last night while she was in bed. She states that she was unable to get comfortable. Is been a constant pain is 7 out of 10 in severity. She does report that she has lower back problems. However, she is never had upper back pain like this. Patient reports her last stress test was years ago. She has no risk factors for coronary artery disease other than age. Physical Examination: Vitals: Stable. Afebrile. General: Well-nourished and well-developed. Head: Normocephalic atraumatic. Neck: Supple, no lymphadenopathy. No JVD. Nontender. Cardiovascular: Regular rate and rhythm. No murmurs. Respiratory: No respiratory distress. Clear to auscultation bilaterally. Abdominal: Soft, nontender, nondistended, normal bowel sounds. No guarding, rebound, or peritoneal signs. Back: Nontender. Unable to reproduce her pain with palpation. Extremities: Nontender, no edema. Skin: Normal color, no rash. Neurologic: Alert and oriented ?3. Cranial nerves II through XII are intact. Normal strength and sensation. Psych: Normal affect. Test Results: EKG is sinus at 62. Is unchanged from March 2019. Troponin is negative. Chem-7 shows a BUN of 20 and creatinine 1.37. CBC shows lymphocytes 42. Clinical Impression(s) from Imaging Studies Chest X-Ray 07/08/19 14:26 IMPRESSION: No acute abnormality is seen. Electronically Signed: Genaro Chou, at 15:07 EST , Service support , Chest CTA 07/08/19 15:42 IMPRESSION: No evidence of pulmonary embolism or aortic dissection. Several pulmonary nodules largest of which measures up to 8 mm in the right middle lobe. Fleischner Society Recommendations for Follow-up and Management of Nodules Smaller than 8 mm Detected Incidentally at Nonscreening CT. Nodule size < or = 4 mm: Low-Risk Patient - No follow-up needed. High-Risk Patient - Follow-up CT at 12 months; if unchanged, no further follow-up. Nodule size > 4-6 mm: Low-Risk Patient - Follow-up CT at 12 months; if unchanged, no further follow-up. High-Risk Patient - Initial follow-up CT at 6-12 months then at 18-24 months if no change. Nodule size > 6-8 mm: Low-Risk Patient - Initial follow-up CT at 6-12 months then at 18-24 months if no change. High-Risk Patient - Initial follow-up CT at 3-6 months then at 9-12 and 24 months if no change. Nodule size > 8 mm: Low-Risk Patient - Follow-up CT at around 3,9 and 24 months. Dynamic contrast-enhanced CT, PET and/or biopsy. High-Risk Patient - Same as for low-risk patient. Low-Risk = Minimal or absent history of smoking and of other known risk factors. High-Risk = History of smoking or of other known risk factors. Electronically Signed: Pavan Ponce, at 16:21 EST Tel , Service support , Emergency Department Course and Treatment: Patient was given aspirin p.o. She is resting comfortably. I discussed the results of the CT with the patient. She understands that she needs to get a repeat CT in 3 to 6 months to reassess these pulmonary nodules. I discussed the patient that with her intermittent chest pain she should be admitted to the hospital and ruled out and stress. She is refused this. She does understand that she is at risk of this being cardiac in etiology. She understands risk of heart attack, heart failure, disability, or even . She does have the capacity to make this decision and still would like to go home. Treatment Plan: Patient will be discharged instructions take baby aspirin a day. Follow-up with her primary care physician as soon as possible. Return to emerge department for worsening chest pain or if she even just change her mind. Disposition: To home in improved and stable condition. Impression: 1. Chest pain. 2. Pulmonary nodules. 3. Left AGAINST MEDICAL ADVICE. This note was generated with [employer] dictation software. It may contain incorrect words, spelling, and punctuation that were not noted in review of the chart prior to signing ED Disposition - Plan for ED Patient: Disposition: Against Medical Advice Instructions: CHEST PAIN, Uncertain Cause Referrals: Swathi Lagunas MD [Primary Care Provider] - As soon as possible
[2019-07-08 16:46] VITALS: BP 107/76; PULSE 54; RESP 16; O2SAT 99
== END 2019-07-08 16:57 | disposition left against medical advice (07) ==
PROVIDERS: Emergency Provider Emergency Medicine; PCP Internal Medicine
DX: R07.9 Chest pain, unspecified (principal); R91.8 Other nonspecific abnormal finding of lung field; Z53.29 Procedure and treatment not carried out because of patient's decision for other reasons; K21.9 Gastro-esophageal reflux disease without esophagitis
CPT/HCPCS: 71045; 71275; 80048; 84484; 85025; 93005; 96360; 96361; 99284; J7030; Q9967

== ENCOUNTER → 2019-07-13 12:46 | Outpatient (CLI) | payer MEDICARE, SELFPAY ==
[2019-04-09 09:37] VITALS: BMI 30.6
[2019-07-08 14:22] VITALS: BMI 29.9
--- NOTE | 2019-07-13 12:48 | BI_ITS ---
MAMMOGRAPHY - BILATERAL SCREENING REASON FOR EXAM: Female, 68 years old. Routine annual screening examination. PERTINENT HISTORY: Bilateral breast reduction in 2000 BILATERAL DIGITAL MAMMOGRAM WITH TOMOSYNTHESIS: Mediolateraloblique and craniocaudal views demonstrate no evidence of dominant parenchymal masses. No cluster of microcalcification or architectural distortion is seen. No evidence of skin thickening. No significant change since 07/11/2018 . Breast Density: There are scattered areas of fibroglandular density. CAD was used to assist in final assessment. IMPRESSION: NORMAL MAMMOGRAM BILATERALLY. FINAL ASSESSMENT: BIRAD 1 (NEGATIVE) YEARLY MAMMOGRAM RECOMMENDED Electronically Signed: Juan A Page, at 18:09 EST Tel , Service support , BI/SCREEN MAMM (CAD) W/TAMMIE LARKIN
== END ==
PROVIDERS: PCP Internal Medicine; Referring Provider Internal Medicine; Visit Provider Obstetrics & Gynecology
DX: Z12.31 Encounter for screening mammogram for malignant neoplasm of breast (principal); Z78.0 Asymptomatic menopausal state
CPT/HCPCS: 77063; 77067

== ENCOUNTER → 2019-09-18 13:00 | Outpatient (CLI) | payer MEDICARE, SELFPAY ==
[2019-07-30 10:02] VITALS: BMI 29.9
[2019-09-18 15:29] LABS: Estradiol 25.3 pg/mL
[2019-09-20 13:57] LABS: Sex Hormone-binding Globulin 79.4 nmol/L (17.3-125.0)
== END ==
PROVIDERS: PCP Internal Medicine; Referring Provider Obstetrics & Gynecology; Visit Provider Obstetrics & Gynecology
DX: N95.1 Menopausal and female climacteric states (principal); R68.82 Decreased libido
CPT/HCPCS: 36415; 82670; 84270; 84403

== ENCOUNTER → 2019-10-23 14:45 | Outpatient (CLI) | payer MEDICARE, SELFPAY ==
[2019-10-13 09:38] VITALS: BMI 29.9
[2019-10-22 13:16] VITALS: BMI 29.9
[2019-10-29 14:08] LABS: Testosterone, Total 17 ng/dL (3-41)
[2019-10-29 15:30] LABS: Testosterone, % Free 1.17 % (0.50-2.80)
== END ==
PROVIDERS: PCP Internal Medicine; Referring Provider Obstetrics & Gynecology
DX: N95.1 Menopausal and female climacteric states (principal); R68.82 Decreased libido
CPT/HCPCS: 36415; 84402; 84403

== ENCOUNTER → 2020-02-02 14:03 | Outpatient (CLI) | payer MEDICARE, SELFPAY ==
[2019-10-22 13:16] VITALS: BMI 29.9
--- NOTE | 2020-02-02 14:04 | CT_ITS ---
STUDY: CT CHEST WITHOUT CONTRAST REASON FOR EXAM: Female, 69 years old. LUNG NODULE/ABD AND BACK PAIN RADIATION DOSAGE (If Supplied By Facility): CTDIvol = ( 13.71 ) mGy, DLP = ( 1253.09 ) mGycm TECHNIQUE: Transaxial imaging was performed without the administration of intravenous contrast material. Multiplanar coronal and sagittal images were reformatted. Individualized dose optimization techniques were used for this CT. COMPARISON: Comparison is made with prior study dated 07/08/2019. FINDINGS: Small benign-appearing bilateral axillary lymph nodes. There are 2 stable adjacent nodules measuring 5 mm in the lateral aspect of the right lower lobe as seen on axial image #71. A similar appearing 4 mm nodule is also seen in the anterior aspect of the right middle lobe as seen on axial image #71. A 4 mm nodule is also seen in the lingular segment of the left upper lobe. There is no demonstrated pleural abnormality. Minimal pericardial thickening. There are multiple small lymph nodes within the mediastinum, which are normal in size and morphology most compatible with reactive lymph hyperplasia. Normal hilar regions. Normal unenhanced pulmonary arteries. Normal aorta arch and descending thoracic aorta. There are mild degenerative changes of the thoracic spine. Postsurgical changes at the gastroesophageal junction. CT/Chest without Contrast IMPRESSION: Stable examination. A repeat examination in 12 months is recommended. Electronically Signed: Genaro Chou, at 14:50 EDT , Service support ,
--- NOTE | 2020-02-02 14:04 | CT_ITS ---
STUDY: CT ABDOMEN AND PELVIS WITHOUT CONTRAST REASON FOR EXAM: Female, 69 years old. LUNG NODULE/ABD AND BACK PAIN and rt flank pain. Hx of kidney stones. Prior hysterectomy, cholecystectomy and breast reduction RADIATION DOSAGE (If Supplied By Facility): CTDIvol = ( 13.71 ) mGy, DLP = ( 1253.09 ) mGycm TECHNIQUE: Transaxial images were obtained from the dome of the diaphragm to the symphysis pubis without oral contrast, and without intravenous contrast. Sagittal and coronal images were reconstructed. Individualized dose optimization techniques were used for this CT. COMPARISON: Comparison is made with prior study dated 05/17/2010. FINDINGS: The visualized lung bases are unremarkable. The visualized portions of the heart are within normal limits. Normal liver. The patient is status post cholecystectomy. Normal spleen. Normal pancreas. Normal bilateral adrenal glands. Normal right kidney. Normal left kidney. Surgical changes in the body of the stomach and at the level of the gastroesophageal junction. Normal small intestine. There are scattered colonic diverticula consistent with diverticulosis. The appendix is visualized and appears normal. Normal abdominal aorta. Normal inferior vena cava. Normal retroperitoneum. Normal urinary bladder. There is absence of the uterus consistent with a prior hysterectomy. Normal abdominal wall. There are mild degenerative changes of the visualized lumbar spine. CT/Abdomen/Pelvis without Cont IMPRESSION: Scattered sigmoid diverticula. Electronically Signed: Genaro Chou, at 14:47 EDT , Service support ,
== END ==
PROVIDERS: PCP Internal Medicine; Referring Provider Internal Medicine; Visit Provider Internal Medicine
DX: N20.0 Calculus of kidney (principal); R91.1 Solitary pulmonary nodule
CPT/HCPCS: 71250; 74176

== ENCOUNTER → 2020-02-22 10:22 | Outpatient (CLI) | payer MEDICARE, SELFPAY ==
[2020-02-22 10:09] VITALS: BMI 29.9
[2020-02-22 10:24] LABS: Bacteria 0 SEEN /hpf (None Seen); Mucous, Urine 0 SEEN /hpf (<or=2+)
[2020-02-22 12:31] LABS: Color, Urine Yellow (Yellow); Glucose, Dipstick Normal (Normal); Ketone-Dipstick Negative (Negative); Leukocyte Esterase-Dipstick 500 /ul (Negative); Nitrite-Dipstick Negative (Negative); Occult Blood-Urine 250 /ul (Negative); Protein-Dipstick 100 mg/dl (Negative); Specific Gravity, Urine 1.015 (1.002-1.030); Urine Bilirubin Dipstick Negative (Negative); Urine Clarity Sl. Cloudy (Clear); Urine Urobilinogen Normal (Normal)
[2020-02-22 12:44] LABS: Red Blood Cells-Urine 25-50 SEEN /hpf (0-5); Squamous Epithelial Cells - UA 0-5 SEEN /hpf (5-10); White Blood Cells 25-50 SEEN /hpf (0-5)
[2020-02-22 12:50] LABS: Anion Gap 3 (5-15); BUN 19 mg/dL (7-18); BUN/Creat Ratio 16.4 RATIO (10-20); Chloride 106 mmol/L (98-107); Creatinine, Serum 1.16 mg/dL (0.55-1.02); EST Glomerular Filtration Rate 49 mL/min (>60); Est Glom Filt Rate - Afr Amer 60 mL/min (>60); Glucose 82 mg/dL (74-106); Potassium 3.9 mmol/L (3.5-5.1); Sodium Level 139 mmol/L (136-145)
== END ==
PROVIDERS: PCP Internal Medicine; Visit Provider Internal Medicine
DX: R30.0 Dysuria (principal); R10.9 Unspecified abdominal pain; N39.0 Urinary tract infection, site not specified
CPT/HCPCS: 36415; 80048; 81001; 87077; 87086; 87088; 87186

== ENCOUNTER → 2020-03-21 17:32 | Outpatient (CLI) | payer MEDICARE, SELFPAY ==
[2020-03-02 10:04] VITALS: BMI 30.2
== END ==
PROVIDERS: PCP Internal Medicine; Referring Provider Internal Medicine; Visit Provider Internal Medicine
DX: U07.1 COVID-19 (principal); J06.9 Acute upper respiratory infection, unspecified
CPT/HCPCS: 87632; 87635; C9803; U0003

== ENCOUNTER → 2020-04-26 11:04 | Outpatient (CLI) | payer MEDICARE, SELFPAY ==
[2020-04-26 12:58] LABS: T4 Free Direct 1.07 ng/dL (0.76-1.46); Thyroid Stim Hormone (TSH) 2.26 uIU/mL (0.358-3.74)
== END ==
PROVIDERS: PCP Internal Medicine; Referring Provider Internal Medicine; Visit Provider Internal Medicine
DX: F32.9 Major depressive disorder, single episode, unspecified (principal)
CPT/HCPCS: 36415; 84439; 84443

== ENCOUNTER → 2020-05-18 10:24 | Outpatient (CLI) | payer MEDICARE, SELFPAY ==
[2020-05-23 08:06] LABS: Testosterone, % Free 1.82 % (0.50-2.80); Testosterone, Free 0.07 ng/dL (0.10-0.85); Testosterone, Total 4 ng/dL (3-41)
[2020-05-23 12:56] LABS: Sex Hormone-binding Globulin 95.9 nmol/L (17.3-125.0)
== END ==
PROVIDERS: PCP Internal Medicine; Visit Provider Obstetrics & Gynecology
DX: N95.1 Menopausal and female climacteric states (principal); R68.82 Decreased libido
CPT/HCPCS: 36415; 82670; 84270; 84402; 84403

== ENCOUNTER → 2020-07-10 | Outpatient (CLI) | payer MEDICARE, SELFPAY ==
[2020-07-10 09:28] VITALS: BMI 31.0
[2020-07-11 10:07] LABS: Mucous, Urine 0 SEEN /hpf (<or=2+); Squamous Epithelial Cells - UA 0 SEEN /hpf (5-10)
[2020-07-11 10:28] LABS: Color, Urine Yellow (Yellow); Glucose, Dipstick Normal (Normal); Ketone-Dipstick 5 mg/dl (Negative); Leukocyte Esterase-Dipstick 500 /ul (Negative); Nitrite-Dipstick Positive (Negative); Occult Blood-Urine 250 /ul (Negative); Protein-Dipstick 100 mg/dl (Negative); Specific Gravity, Urine 1.015 (1.002-1.030); Urine Bilirubin Dipstick Negative (Negative); Urine Clarity Cloudy (Clear); Urine Urobilinogen Normal (Normal)
[2020-07-11 10:56] LABS: White Blood Cells >100 SEEN /hpf (0-5)
[2020-07-11 10:57] LABS: Bacteria 1+ /hpf (None Seen); Red Blood Cells-Urine 0-5 SEEN /hpf (0-5)
== END | disposition home or self-care (01) ==
LOC: LABSPEC 07-11 10:01
PROVIDERS: PCP Internal Medicine; Referring Provider Nurse Practitioner Family; Visit Provider Nurse Practitioner Family
DX: N39.0 Urinary tract infection, site not specified (principal)
CPT/HCPCS: 81001; 87077; 87086; 87088; 87186

== ENCOUNTER → 2020-07-15 11:04 | Outpatient (CLI) | payer MEDICARE, SELFPAY ==
[2020-07-10 09:28] VITALS: BMI 31.0
--- NOTE | 2020-07-15 11:05 | RAD_ITS ---
STUDY: X-RAY CHEST REASON FOR EXAM: Female, 69 years old. Cough, sob TECHNIQUE: PA and lateral views of the chest. COMPARISON: Comparison is made with prior study dated 07/08/2019. FINDINGS: There is evidence of increased interstitial markings in keeping with curly B lines. Mild degree of CHF. There is no demonstrated pleural abnormality. Normal size heart. Normal mediastinum and bernard. Normal visualized pulmonary arteries. Normal visualized aortic arch and descending thoracic aorta. There is demineralization of the osseous structures. Prior rotator cuff surgery in the left shoulder. There is no demonstrated abnormality of the visualized soft tissue structures of the upper abdomen. RAD/Chest PA and Lateral IMPRESSION: Findings in keeping with a mild degree of CHF. Electronically Signed: Genrao Chou MD at 12:07 EST , Service support ,
[2020-07-15 15:17] LABS: Absolute Lymphocyte Count 1.66 X10^3/uL (0.83-4.51); Absolute Neutrophil Count 4.5 X10^3/uL (2.0-7.7); Basophil# 0.05 X10^3/uL; Basophil% 0.6 % (0-1); Eosinophil# 0.72 X10^3/uL; Eosinophils% 9.4 % (0-5); Hematocrit 41.1 % (37-47); Hemoglobin 13.5 g/dL (12.0-15.0); Lymphocyte # 1.66 X10^3/ul (4.0); Lymphocyte % 21.6 % (19-41); Mean Corp Hgb Conc 32.8 g/dL (32-36); Mean Corpuscular Volume 94.5 fL (81-99); Mean Platelet Vol. 9.6 fl (6.2-12.0); Monocyte# 0.75 X10^3/uL; Monocyte% 9.7 % (0-10); NRBC Flagged by Analyzer 0 % (0-5); Neutrophil % 58.4 % (47-70); Platelet Count 244 K/mm3 (150-450); Red Blood Count 4.35 M/mm3 (4.2-5.4); White Blood Count 7.7 K/mm3 (4.4-11.0)
[2020-07-15 15:28] LABS: ALB/GLOB Ratio 0.8 RATIO (0.9-2.4); AST(SGOT) 14 U/L (15-37); Alanine Aminotransfer ALT/SGPT 19 U/L (13-56); Alkaline Phosphatase 101 U/L (45-117); Anion Gap 6 (5-15); BUN 19 mg/dL (7-18); BUN/Creat Ratio 15.8 RATIO (10-20); Calcium,Total 8.6 mg/dL (8.5-10.1); Chloride 103 mmol/L (98-107); EST Glomerular Filtration Rate 48 mL/min (>60); Est Glom Filt Rate - Afr Amer 58 mL/min (>60); Globulin 3.8 g/dL (2.2-4.2); Glucose 79 mg/dL (74-106); Potassium 3.5 mmol/L (3.5-5.1); Protein, Total 6.8 g/dL (6.4-8.2); Sodium Level 140 mmol/L (136-145)
[2020-07-15 15:54] LABS: BNP,B-Type NATRIURETIC PEPTIDE 25.8 pg/mL (0-100)
== END ==
PROVIDERS: PCP Internal Medicine; Referring Provider Nurse Practitioner Family; Visit Provider Nurse Practitioner Family
DX: I50.9 Heart failure, unspecified (principal)
CPT/HCPCS: 36415; 71046; 80053; 83880; 85025; 87635; U0005; U0003

== ENCOUNTER → 2020-08-03 12:27 | Outpatient (CLI) | payer MEDICARE, SELFPAY ==
[2020-05-31 13:23] VITALS: BMI 30.9
[2020-07-10 09:28] VITALS: BMI 31.0
--- NOTE | 2020-08-03 12:29 | BI_ITS ---
MAMMOGRAPHY - BILATERAL SCREENING REASON FOR EXAM: Female, 69 years old. Routine annual screening examination. PERTINENT HISTORY: Grandmother with breast cancer. History of prior bilateral breast reduction surgery. TECHNIQUE: Digital bilateral breast tammie (3D mammographic acquisition) in the CC and MLO projections. 2-D mediolateral oblique (MLO) and craniocaudad (CC) views of both breasts were obtained. CAD: Full Field Digital Mammography with Computer Added Detection was performed. COMPARISON: Comparison is made with prior study dated 07/13/2019 and 07/11/2018. FINDINGS: Breast Composition: There are scattered areas of fibroglandular density. There are no dominant masses or suspicious calcifications. Stable small benign-appearing bilateral axillary lymph nodes. No other significant abnormalities are identified. There has been no significant change since the prior study. BI/SCRN MAMM (CAD)W/TAMMIE BILAT IMPRESSION: Stable bilateral screening mammogram. Yearly follow-up mammogram recommended. (A) ASSESSMENT CATEGORY: BIRADS Category 2: Benign. A letter regarding these results will be sent to the patient by the facility within 30 days. Approximately 10% of breast cancers are not detected by mammography. A normal mammogram should not delay biopsy of a clinically suspicious abnormality. [id number] Electronically Signed: Genaro Chou MD at 13:53 EDT , Service support ,
== END ==
PROVIDERS: PCP Internal Medicine; Referring Provider Obstetrics & Gynecology; Visit Provider Obstetrics & Gynecology
DX: Z12.31 Encounter for screening mammogram for malignant neoplasm of breast (principal); Z80.3 Family history of malignant neoplasm of breast
CPT/HCPCS: 77063; 77067

== ENCOUNTER → 2020-11-02 14:07 | Outpatient (CLI) | payer MEDICARE, SELFPAY ==
[2020-07-10 09:28] VITALS: BMI 31.0
--- NOTE | 2020-11-02 14:12 | RAD_ITS ---
STUDY: X-RAY - RIGHT SHOULDER REASON FOR EXAM: Female, 70 years old. pain radiating to right shoulder TECHNIQUE: 4 view(s) of the shoulder. COMPARISON: None. FINDINGS: Normal glenohumeral articulation. Normal acromioclavicular joint. Normal acromion. Normal humeral head and visualized proximal humerus. Surgical anchor in the humeral head. The soft tissue structures are unremarkable. Normal visualized pulmonary apex. RAD/Shoulder min 2 Views IMPRESSION: Normal x-ray examination of the shoulder. Electronically Signed: John White MD at 16:55 EDT Tel , Service support ,
--- NOTE | 2020-11-02 14:15 | RAD_ITS ---
STUDY: X-RAY - CERVICAL SPINE REASON FOR EXAM: Female, 70 years old. neck pain TECHNIQUE: 5 view(s) of the cervical spine were obtained. COMPARISON: None FINDINGS: Normal anterior atlantoaxial articulation. Normal odontoid process. Normal cervical lordosis. There is multi-level endplate spondylosis. There is multi-level degenerative disc disease with multilevel disc space narrowing. There is multi-level osseous foraminal stenosis. The soft tissue structures are unremarkable. RAD/Cerv Spine 4 or 5 Views IMPRESSION: Moderate degenerative disc disease lower cervical spine. MRI would be useful. Electronically Signed: John White MD at 16:54 EDT Tel , Service support ,
== END ==
PROVIDERS: PCP Internal Medicine; Referring Provider Nurse Practitioner Family; Visit Provider Nurse Practitioner Family
DX: M54.2 Cervicalgia (principal); M25.511 Pain in right shoulder
CPT/HCPCS: 72050; 73030

== ENCOUNTER 2020-11-14 14:00 | Outpatient (RCR) | payer MEDICARE, SELFPAY ==
[2020-07-10 09:28] VITALS: BMI 31.0
--- NOTE | 2020-11-07 10:14 | HP.PTEVAL_ITS ---
Patient's Visit Information LANRE PAT is a 70 year old F referred to Physical Therapy by ISABEL Caldwell with a diagnosis of Lumbar radiculopathy, neck pain. Date of Evaluation: 11/07/20 Physical Therapist: Parth Munoz, DPT, OCS, CSCS - Visit Plan Frequency: 2x /Week Duration: 2-4 Weeks Plan: 2x/week x 2-4 weeks(pt wants to limit due to cost). Please teach gym ex(pt to join) for core/NS strength , LE and UE. Ensure R neck roation and ext ROM improving(may need PROM), STM to R UT as needed - Subjective LB neck adn shoulders hurt. 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 Worse with stadning longer than 15 minutes.8/10 with standing and 0/10 at rest. Doing stuff makes it worse especially cooking at kitchen sink. No numbness or tingling in LE. Neck is stiff R side and up into back of head for a couple months. Dr. Bañuelos had her try some stretches which did not help. Has chronic neck dull pain for a couple months and into R shoulder. (h/o B RC repair) R shoulder hurts agian. Pain goes down laterally to R elbow. These are limiting R head turns with pain. Constant tightness in neck. Worse again with doing things. Sleep is interrupted as lying on R side hurts neck. Crossing leg over can hurt LB. Retired. Basic ADLs are getting done but at times need help dressing with neck/shoulder pain. Enjoys riding bikes and hanging with grandchildren. can still ride bike but turning head to cross street can be hard. - Pain LBP Pain Intensity (Out of 10): 0 Pain Intensity Range: 0, 8 - Objective Walks slowly but I with good balance back to PT room. Trasnfers I. Posture is FW head and protracted scap posture. Tender to touch in R UT and cervical paraspinals. Tightness present in HS hip flexors B. R UT. Cervical aROM R rotation 30 with pain, L rotation 60, ext 30 with pain, SB R 10 and L 22, pain on R. LB AROM ext mod limtied, flexion mod limited, B SB min limited, no pain today. reflexes patella and achilles and bi and tri 0/3 B. Sensation UE and LE WNL to gross light touch. Strength 3+ in B hips, 4- in LE knee and ankle sagittal plane testing. UE 3+/5 without pain. + c/s compression test. - ext rotation lag and drop arm test. pelvic position is anteriorly rotated as default. - Goals Goal 1:: Full cervical neck AROM without pain Goal Time Frame: 2-4 Weeks Goal 2:: I approp posture of pelvis and neck without VC Goal Time Frame: 4-6 Weeks Goal 3:: I appropriate HEP for core, UE, LE strengtha dn neck ROM Goal Time Frame: 4-6 Weeks Goal 4:: Pt feel 80% better in neck and LB pain at 2/10 at worst Goal Time Frame: 4-6 Weeks Goal 5:: Turn neck on bike and in car without limitations Goal Time Frame: 4-6 Weeks - Rehabilitation Potential Physical Therapy Diagnosis: LB and neck degeneration with ROM and strength limitations. Rehabilitation Potential: Fair - Anticipated Interventions Patient/Client Instruction: Educate patient on: Condition, Plan of Care For the Purpose of:: To decrease pain, To increase ROM, To improve muscle performance and motor function, To increase tolerance to activity/condition/position Therapeutic Exercise to Include: Strength training, Postural training, Flexibilty training, Passive ROM, Active ROM For the Purpose of:: To decrease pain, To increase ROM, To improve nutrient delivery to tissue, To improve muscle performance and motor function, To increase tolerance to activity/condition/position Manual Therapy Techniques to Include: Mobilization, Passive ROM, Soft tissue mobilization For the Purpose of:: To increase ROM, To improve nutrient delivery to tissue Thermo therapy (hot pack): Yes For the Purpose of:: To decrease pain Thank you for the opportunity to evaluate your patient. For Medicare and Medicare HMO plans, please review the plan of care and approve it. It will need to be FAXED BACK to us at [phone] for Medicare purposes. For Medicare only, by signing this I certify the plan of care. Please let me know if there are questions or concerns regarding this plan of care. Physician Signature: Date:
--- NOTE | 2020-12-29 12:17 | HP.PTDCNRP_ITS ---
LANRE PAT was seen in my office for initial evaluation on 11/07/20. The following Plan of Care was established for this patient: Initial Frequency: 2x /Week Initial Duration: 2-4 Weeks Patient/Client Instruction: Educate patient on: Condition, Plan of Care For the Purpose of:: To decrease pain, To increase ROM, To improve muscle performance and motor function, To increase tolerance to activity/condition/position Therapeutic Exercise to Include: Strength training, Postural training, Flexibilty training, Passive ROM, Active ROM For the Purpose of:: To decrease pain, To increase ROM, To improve nutrient delivery to tissue, To improve muscle performance and motor function, To increase tolerance to activity/condition/position Manual Therapy Techniques to Include: Mobilization, Passive ROM, Soft tissue mobilization For the Purpose of:: To increase ROM, To improve nutrient delivery to tissue Thermo therapy (hot pack): Yes For the Purpose of:: To decrease pain This patient was last seen in our office 11/14/20. Pertinent comments regarding their Physical therapy will appear below: Pt seen for two visits of POC but cancelled the rest for financial reasons. I will discontinue at this time due to nonattendance. At this point I will be discontinuing this patient from physical therapy. I wo uld be happy to see this patient again in the future if found appropriate by the physician. Thank you! Parth Munoz, DPT, OCS, CSCS Balance/Gait/Functional tests - Balance/Special Test Scores Oswestry Neck Score: 16
== END 2020-11-14 19:00 | disposition home or self-care (01) ==
LOC: PT 14:00
PROVIDERS: PCP Internal Medicine; Referring Provider Nurse Practitioner Family; Visit Provider Nurse Practitioner Family
DX: M51.17 Intervertebral disc disorders with radiculopathy, lumbosacral region (principal); M54.2 Cervicalgia; M25.511 Pain in right shoulder
CPT/HCPCS: 97110; 97162

== ENCOUNTER → 2021-01-18 15:27 | Outpatient (CLI) | payer MEDICARE, SELFPAY ==
[2021-01-18 16:43] LABS: Absolute Lymphocyte Count 2.82 X10^3/uL (0.83-4.51); Absolute Neutrophil Count 3.8 X10^3/uL (2.0-7.7); Basophil# 0.04 X10^3/uL; Basophil% 0.5 % (0-1); Eosinophil# 0.16 X10^3/uL; Eosinophils% 2.2 % (0-5); Hematocrit 42.6 % (37-47); Hemoglobin 13.8 g/dL (12.0-15.0); Lymphocyte # 2.82 X10^3/ul (0.83-4.51); Mean Corp Hgb Conc 32.4 g/dL (32-36); Mean Corpuscular Hgb 30.8 pg (27.0-32.0); Mean Corpuscular Volume 95.1 fL (81-99); Mean Platelet Vol. 9.5 fl (6.2-12.0); Monocyte# 0.54 X10^3/uL; Monocyte% 7.3 % (0-10); NRBC Flagged by Analyzer 0 % (0-5); Neutrophil # 3.83 X10^3/uL (2.7-7.7); Neutrophil % 51.6 % (47-70); Platelet Count 243 K/mm3 (150-450); RBC Distribution Width CV 12.5 % (11.6-14.6); RBC Distribution Width SD 43.9 fl (35.1-43.9); Red Blood Count 4.48 M/mm3 (4.2-5.4); White Blood Count 7.4 K/mm3 (4.4-11.0)
[2021-01-18 17:01] LABS: Vitamin B12 610 pg/mL (211-911)
[2021-01-18 17:08] LABS: ALB/GLOB Ratio 0.9 RATIO (0.9-2.4); AST(SGOT) 18 U/L (15-37); Alanine Aminotransfer ALT/SGPT 23 U/L (13-56); Albumin, Serum 3.6 g/dL (3.2-5.0); Alkaline Phosphatase 106 U/L (45-117); Anion Gap 4 (5-15); BUN 21 mg/dL (7-18); BUN/Creat Ratio 15.6 RATIO (10-20); Calcium,Total 8.8 mg/dL (8.5-10.1); Chloride 107 mmol/L (98-107); Creatinine, Serum 1.35 mg/dL (0.55-1.02); EST Glomerular Filtration Rate 41 mL/min (>60); Est Glom Filt Rate - Afr Amer 50 mL/min (>60); Globulin 4.1 g/dL (2.2-4.2); Glucose 95 mg/dL (74-106); Potassium 4.1 mmol/L (3.5-5.1); Protein, Total 7.7 g/dL (6.4-8.2); Sodium Level 142 mmol/L (136-145)
== END ==
PROVIDERS: PCP Internal Medicine; Referring Provider Internal Medicine; Visit Provider Internal Medicine
DX: G31.84 Mild cognitive impairment of uncertain or unknown etiology (principal); R51.9 Headache, unspecified
CPT/HCPCS: 36415; 80053; 82607; 84443; 85025

== ENCOUNTER → 2021-02-17 10:05 | Outpatient (CLI) | payer MEDICARE, SELFPAY ==
--- NOTE | 2021-02-17 10:05 | MRI_ITS ---
EXAM: MR HEAD WITHOUT INTRAVENOUS CONTRAST : 1950 CLINICAL INDICATION: Headache. Cognitive Impairment TECHNIQUE: Multiplanar and multisequence MR images of the brain were obtained without intravenous contrast. This report was created using [employer] report generation technology. COMPARISON: None. FINDINGS: BRAIN AND EXTRA-AXIAL SPACES: Multiple foci of increased T2 signal intensity within the cerebral white matter consistent with gliosis/chronic microvascular disease. No intra- or extra-axial hemorrhage. No evidence of acute infarct. No intracranial mass or mass effect. There is preservation of the francois/white matter interface. Posterior fossa structures are unremarkable. Ventricles are appropriate for age. No hydrocephalus. Basal cisterns are patent. SELLA: Unremarkable. Normal sella turcica, pituitary gland, infundibular stalk, optic chiasm and hypothalamus. AUDITORY SYSTEM: Unremarkable. The internal auditory canals are patent. BONES/JOINTS: Unremarkable. No discrete lytic or blastic abnormalities. SINUSES: Unremarkable as visualized. Clear. MASTOID AIR CELLS: Unremarkable as visualized. Clear. ORBITS: Unremarkable as visualized. Both globes, extraocular muscles, optic nerves and retrobulbar fat appear unremarkable. VASCULATURE: Unremarkable as visualized. Normal flow voids in the major intracranial circulation. MRI/Brain without Contrast IMPRESSION: 1. No acute abnormality. 2. Periventricular gliosis suggestive of chronic microvascular disease. at 1431 Reported and signed by: Lee Baez MD Electronically Signed: Lee Baez MD at 14:30 EDT Tel , Service support ,
== END ==
PROVIDERS: PCP Internal Medicine; Referring Provider Internal Medicine; Visit Provider Internal Medicine
DX: R51.9 Headache, unspecified (principal)
CPT/HCPCS: 70551

== ENCOUNTER → 2021-05-02 11:18 | Outpatient (CLI) | payer MEDICARE, SELFPAY ==
--- NOTE | 2021-05-02 12:12 | MRI_ITS ---
STUDY: MR Spine Lumbar W/O Contrast 05/02/2021 2:08 PM REASON FOR EXAM: Female, 70 years old. Back pain left leg radiculopathy, low back pain TECHNIQUE: MR Spine Lumbar W/O Contrast Standardized fat and water weighted pulse sequences were obtained. COMPARISON: xr 5.24.21 FINDINGS: T12-L1: Normal endplates. Normal disc height, hydration and morphology. Normal bilateral facet joints. Normal central canal and bilateral lateral recesses. Normal bilateral intervertebral neural foramina. Normal lumbar lordosis. There is no substantial scoliosis. Normal conus medullaris that terminates at the L1. Bilateral peripelvic cysts. L1-2: Loss of intervertebral disc height. There is endplate spondylosis of the vertebral body. Normal central canal and intervertebral neuroforamina. There is bilateral facet arthropathy. Central posterior disc herniation. Broad-based anterior disc herniation. There is bilateral ligamentum flavum thickening. Disc desiccation L2-3: Loss of intervertebral disc height. There is endplate spondylosis of the vertebral body. Normal central canal and intervertebral neuroforamina. There is bilateral facet arthropathy. Disc desiccation. There is bilateral ligamentum flavum thickening. L3-4: Disc desiccation. There is bilateral ligamentum flavum thickening. Disc bulge. There is bilateral facet arthropathy. Loss of intervertebral disc height. There is endplate spondylosis of the vertebral body. Normal central canal and intervertebral neuroforamina. There is bilateral facet arthropathy. L4-5: Loss of intervertebral disc height. There is endplate spondylosis of the vertebral body. Mild narrowing of the right intervertebral neuroforamina. Minimal compression of exiting right L4 nerve root. Disc desiccation. There is bilateral ligamentum flavum thickening. Disc bulge. There is bilateral facet arthropathy. L5-S1: Loss of intervertebral disc height. There is endplate spondylosis of the vertebral body. There is bilateral facet arthropathy. Normal central canal and intervertebral neuroforamina. Disc dessication. Normal visualized sacral ala. Normal visualized paraspinous soft tissue structures. MRI/Spine Lumbar (Routine) IMPRESSION: Multilevel degenerative changes, as described above. Disc herniation at L1-2. Electronically Signed: Greg Fischer MD at 14:12 EST , Service support ,
== END ==
PROVIDERS: PCP Internal Medicine; Referring Provider Nurse Practitioner Family; Visit Provider Nurse Practitioner Family
DX: M47.26 Other spondylosis with radiculopathy, lumbar region (principal); M51.16 Intervertebral disc disorders with radiculopathy, lumbar region
CPT/HCPCS: 72148

== ENCOUNTER → 2021-05-09 12:59 | Outpatient (CLI) | payer MEDICARE, SELFPAY ==
[2021-05-09 15:32] LABS: Vitamin B12 503 pg/mL (211-911)
[2021-05-09 15:47] LABS: T4 Free Direct 1.06 ng/dL (0.76-1.46)
== END ==
LOC: BIMLAB 13:02
PROVIDERS: PCP Internal Medicine
DX: R41.3 Other amnesia (principal)
CPT/HCPCS: 36415; 82607; 84439; 84443

== ENCOUNTER 2021-05-27 09:59 | Outpatient (CLI) | payer MEDICARE, SELFPAY ==
--- NOTE | 2021-05-27 10:10 | MRI_ITS ---
STUDY: MRI CERVICAL SPINE WITHOUT CONTRAST REASON FOR EXAM: Female, 70 years old. CERVICAL DISC DEGENERATION TECHNIQUE: Standardized fat and water weighted pulse sequences were obtained in the sagittal and axial planes. COMPARISON: X-ray dated 11/02/2020 FINDINGS: Normal foramen magnum and brainstem-cervical cord junction. There is straightening of the normal cervical lordosis. C2-3: There is minimal disc space narrowing and endplate spondylosis. There is no significant disc herniation, central canal or foraminal stenosis C3-4: There is minimal disc space narrowing and endplates spondylosis. Minimal disc osteophyte complex without significant central canal stenosis. Uncovertebral and facet arthropathy with moderate right and minimal left foraminal stenosis. There is minimal anterolisthesis. Severe right facet arthropathy and edema. C4-5: There is mild disc space narrowing and endplate spondylosis. There is no significant disc herniation, central canal or foraminal stenosis. Minimal anterolisthesis. C5-6: There is moderate disc space narrowing and endplates spondylosis. Mild disc osteophyte complex with mild central canal stenosis. Uncovertebral arthropathy with minimal right and mild left foraminal stenosis. C6-7: There is moderate disc space narrowing and endplates spondylosis. Mild disc osteophyte complex with mild central canal stenosis. Uncovertebral arthropathy with mild right and mild left foraminal stenosis. C7-T1: There is minimal disc space narrowing and endplate spondylosis. There is no significant disc herniation, central canal or foraminal stenosis Normal cervical cord. MRI/Spine Cervical (Routine) IMPRESSION: C3/C4 moderate right foraminal stenosis. Severe right facet arthropathy and edema. Multilevel degenerative changes. Electronically Signed: Kaushik Grissom MD at 14:59 EST Tel , Service support ,
== END 2021-05-27 23:59 | disposition short-term general hospital (02) ==
LOC: MRI 10:01
PROVIDERS: PCP Internal Medicine; Referring Provider Anesthesiology Pain Medicine; Visit Provider Anesthesiology Pain Medicine
DX: M50.30 Other cervical disc degeneration, unspecified cervical region (principal)
CPT/HCPCS: 72141

== ENCOUNTER 2021-05-29 13:43 | Outpatient (CLI) | payer MEDICARE, SELFPAY ==
[2021-05-29 15:58] LABS: Anion Gap 6 (5-15); BUN 21 mg/dL (7-18); BUN/Creat Ratio 18.6 RATIO (10-20); Calcium,Total 9.3 mg/dL (8.5-10.1); Chloride 106 mmol/L (98-107); Cholesterol 209 mg/dL (200); Creatinine, Serum 1.13 mg/dL (0.55-1.02); EST Glomerular Filtration Rate 51 mL/min (>60); Est Glom Filt Rate - Afr Amer 61 mL/min (>60); Glucose 89 mg/dL (74-106); High Density Lipoprotein 84 mg/dL; Potassium 3.8 mmol/L (3.5-5.1); Sodium Level 143 mmol/L (136-145); Triglycerides 132 mg/dL; Very Low Density Lipoprotein 26 mg/dL (5-40)
== END 2021-05-29 23:59 | disposition short-term general hospital (02) ==
LOC: BIMLAB 13:44
PROVIDERS: PCP Internal Medicine; Referring Provider Internal Medicine; Visit Provider Internal Medicine
DX: E66.9 Obesity, unspecified (principal)
CPT/HCPCS: 36415; 80048; 80061

== ENCOUNTER → 2021-10-09 | Outpatient (CLI) | payer MEDICARE, SELFPAY ==
--- NOTE | 2021-10-09 09:30 | BI_ITS ---
MAMMOGRAPHY - BILATERAL SCREENING REASON FOR EXAM: Female, 71 years old. Routine annual screening examination. PERTINENT HISTORY: Positive history in maternal grandmother. Personal history of bilateral breast reduction in 1999. TECHNIQUE: Digital bilateral breast tammie (3D mammographic acquisition) in the CC and MLO projections. 2-D mediolateral oblique (MLO) and craniocaudad (CC) views of both breasts were obtained. CAD: Full Field Digital Mammography with Computer Added Detection was performed. COMPARISON: Mammogram from 08/03/2020, 07/13/2019. FINDINGS: Breast Composition: There are scattered areas of fibroglandular density. There are no dominant masses or suspicious calcifications. No other significant abnormalities are identified. There has been no significant change since the prior study. BI/SCRN MAMM (CAD)W/TAMMIE BILAT IMPRESSION: Stable bilateral screening mammogram. Yearly follow-up mammogram recommended. (A) ASSESSMENT CATEGORY: BIRADS Category 1: Negative. A letter regarding these results will be sent to the patient by the facility within 30 days. BR1 Approximately 10% of breast cancers are not detected by mammography. A normal mammogram should not delay biopsy of a clinically suspicious abnormality. [id number] Electronically Signed: Magno Dickson, at 9:39 EDT ,
== END | disposition home or self-care (01) ==
LOC: OPBI 09:26
PROVIDERS: PCP Internal Medicine; Visit Provider Obstetrics & Gynecology
DX: Z12.31 Encounter for screening mammogram for malignant neoplasm of breast (principal); Z80.3 Family history of malignant neoplasm of breast
CPT/HCPCS: 77063; 77067

== ENCOUNTER → 2022-01-09 | Outpatient (CLI) | payer MEDICARE, SELFPAY ==
[2022-01-09 13:36] LABS: Anion Gap 6 (5-15); BUN 16 mg/dL (7-18); BUN/Creat Ratio 13.4 RATIO (10-20); Calcium,Total 9.2 mg/dL (8.5-10.1); Chloride 107 mmol/L (98-107); Creatinine, Serum 1.19 mg/dL (0.55-1.02); EST Glomerular Filtration Rate 48 mL/min (>60); Est Glom Filt Rate - Afr Amer 58 mL/min (>60); Glucose 87 mg/dL (74-106); Potassium 3.5 mmol/L (3.5-5.1); Sodium Level 141 mmol/L (136-145); Uric Acid 7.5 mg/dL (2.6-6.0)
== END | disposition home or self-care (01) ==
LOC: BIMLAB 10:53
PROVIDERS: PCP Internal Medicine; Referring Provider Internal Medicine; Visit Provider Internal Medicine
DX: M10.9 Gout, unspecified (principal)
CPT/HCPCS: 36415; 80048; 84550

== ENCOUNTER → 2022-02-05 | Outpatient (CLI) | payer MEDICARE, SELFPAY ==
[2022-02-05 13:23] LABS: Uric Acid 5.2 mg/dL (2.6-6.0)
[2022-02-07 08:32] LABS: ANTINUCLEAR ANTIBODIES DIRECT Negative (Negative)
== END | disposition home or self-care (01) ==
LOC: BIMLAB 11:32
PROVIDERS: PCP Internal Medicine; Referring Provider Internal Medicine; Visit Provider Internal Medicine
DX: H04.123 Dry eye syndrome of bilateral lacrimal glands (principal); F03.90 Unspecified dementia, unspecified severity, without behavioral disturbance, psychotic disturbance, mood disturbance, and anxiety; R68.2 Dry mouth, unspecified
CPT/HCPCS: 36415; 84550; 86038; 86225; 86235

== ENCOUNTER → 2022-05-18 | Outpatient (CLI) | payer MEDICARE, SELFPAY ==
[2022-05-18 12:29] LABS: Absolute Lymphocyte Count 2.58 X10^3/uL (0.83-4.51); Absolute Neutrophil Count 3.9 X10^3/uL (2.0-7.7); Basophil# 0.03 X10^3/uL; Basophil% 0.4 % (0-1); Eosinophil# 0.17 X10^3/uL; Eosinophils% 2.3 % (0-5); Hematocrit 40.2 % (37-47); Lymphocyte # 2.58 X10^3/ul (0.83-4.51); Lymphocyte % 35.6 % (19-41); Mean Corp Hgb Conc 32.3 g/dL (32-36); Mean Corpuscular Hgb 31.1 pg (27.0-32.0); Mean Corpuscular Volume 96.2 fL (81-99); Mean Platelet Vol. 9.3 fl (6.2-12.0); Monocyte# 0.52 X10^3/uL; Monocyte% 7.2 % (0-10); NRBC Flagged by Analyzer 0 % (0-5); Neutrophil # 3.94 X10^3/uL (2.7-7.7); Neutrophil % 54.4 % (47-70); Platelet Count 265 K/mm3 (150-450); RBC Distribution Width CV 14.1 % (11.6-14.6); RBC Distribution Width SD 49.6 fl (35.1-43.9); Red Blood Count 4.18 M/mm3 (4.2-5.4); White Blood Count 7.3 K/mm3 (4.4-11.0)
[2022-05-18 13:16] LABS: ALB/GLOB Ratio 0.7 RATIO (0.9-2.4); AST(SGOT) 15 U/L (15-37); Alanine Aminotransfer ALT/SGPT 15 U/L (13-56); Albumin, Serum 3.1 g/dL (3.2-5.0); Alkaline Phosphatase 93 U/L (45-117); Anion Gap 1 (5-15); BUN 18 mg/dL (7-18); BUN/Creat Ratio 15.7 RATIO (10-20); Calcium,Total 9.2 mg/dL (8.5-10.1); Chloride 107 mmol/L (98-107); Creatinine, Serum 1.15 mg/dL (0.55-1.02); EST Glomerular Filtration Rate 50 mL/min (>60); Est Glom Filt Rate - Afr Amer 60 mL/min (>60); Globulin 4.2 g/dL (2.2-4.2); Glucose 90 mg/dL (74-106); Potassium 3.9 mmol/L (3.5-5.1); Protein, Total 7.3 g/dL (6.4-8.2); Sodium Level 141 mmol/L (136-145); Uric Acid 4.8 mg/dL (2.6-6.0)
== END | disposition home or self-care (01) ==
LOC: BIMLAB 09:51
PROVIDERS: PCP Internal Medicine; Referring Provider Internal Medicine; Visit Provider Internal Medicine
DX: K52.9 Noninfective gastroenteritis and colitis, unspecified (principal); N18.30 Chronic kidney disease, stage 3 unspecified; M10.9 Gout, unspecified
CPT/HCPCS: 36415; 80053; 84550; 85025

== ENCOUNTER 2022-05-24 09:35 | Day surgery (SDC) | payer MEDICARE, SELFPAY ==
[2022-05-24] MEDS: Lactated Ringers 1,000 ML 15 ML IV (10:11)
[2022-05-24 10:12] VITALS: BP 119/81; PULSE 65; RESP 18; TEMP 36.8; O2SAT 100; BMI 32.5
--- NOTE | 2022-05-24 10:26 | PCM.HP.STD ---
HPI - General General Date of Admission: 05/24/22 Date of Service: 05/24/22 Chief Complaint: Screening colonoscopy HPI Narrative LANRE PAT, is a 71 F who presents today for screening colonoscopy. She is not having any problems with her bowels. She does not have abdominal pain. She denies any nausea. She denies any bloating. She not take any blood thinners. She denies any chest pain or shortness of breath. Overall she is in very good health. [facility] Medical History (Updated 05/23/22 @ 09:42 by Ai Veliz) Arthritis Back pain Cancer, skin, squamous cell CKD (chronic kidney disease), stage III Dementia Dry eyes Dry mouth and eyes Edema Fall gallbladder removed Gout Headache History of renal disease History of stress test IBS (irritable bowel syndrome) MCI (mild cognitive impairment) right rotaor cuff repair Wears dentures Wears glasses Home Medications gabapentin 600 mg tablet 600 mg PO QHS nerve pain 04/09/19 [History Last Taken 07/07/19] esterified estrogens-methyltestosterone 0.625 mg-1.25 mg tablet 1 tab PO DAILY hormone 07/08/19 [History Last Taken 07/07/19] multivitamin 1 tab PO DAILY supplement 07/08/19 [History Last Taken 07/08/19] cyclosporine 0.05 % eye drops (Restasis MultiDose) 1 drp ophthalmic (eye) Q12H 02/05/22 [History Last Taken Unknown] lansoprazole 30 mg capsule,delayed release 30 mg PO DAILY gerd #90 caps 03/16/22 [Rx Last Taken Unknown] allopurinol 100 mg tablet 100 mg PO DAILY #60 tabs 05/15/22 [Rx Last Taken Unknown] triamterene 37.5 mg-hydrochlorothiazide 25 mg tablet 1 tab PO QAM PRN Edema 05/23/22 [History Last Taken Unknown] Allergy/AdvReac Type Severity Reaction Status Date / Time adhesive tape Allergy Intermediate blisters Verified 05/24/22 10:11 Family History Mother Hypertension COPD (chronic obstructive pulmonary disease) Father Cancer lyphoma Grandmother Cancer, Onset Age: 90 Surgical History (Updated 05/23/22 @ 09:42 by Ai Veliz) History of bilateral knee replacement History of cataract extraction History of cholecystectomy History of colonoscopy History of eyelid surgery History of hysterectomy History of lumbar fusion History of sleeve gastrectomy Hx of breast reduction, elective Status post left rotator cuff repair Status post right rotator cuff repair Social History Smoking Status: Never smoker alcohol intake: current alcohol intake frequency: a few times a month Alcohol type: hard liquor substance use type: does not use caffeine: No what type of physical activity do you participate in: none seatbelt use: always do you feel safe at home: Yes additional social history: -Nikhil Patient and are both retired ROS Review of Systems ROS Unobtainable: other Constitutional Constitutional: Denies fatigue, fever(s), poor appetite, weight gain or weight loss ENT HEENT: Denies mouth lesions Cardiovascular Cardiovascular: Denies abdominal bloating, abdominal edema or abdominal pain Respiratory/Chest Respiratory/Chest: Denies change in mental status, change in phlegm color, chest congestion or chest tightness Gastrointestinal Gastrointestinal: Denies belching, bloating, change in bowel habits, change in stool character, chewing difficulty, coffee ground emesis, constipation, cramping, diarrhea, dyspepsia, dysphagia, early satiety, excessive flatus, fecal incontinence, heartburn, hematemesis, hematochezia, hemorrhoids, loose stools, melena, nausea, odynophagia, rectal bleeding, tenesmus, vomiting or weight changes Genitourinary Genitourinary: Denies abdominal discomfort, burning urination or itching Musculoskeletal Musculoskeletal: Reports as per HPI; Denies muscle weakness or myalgias Integumentary Integumentary: Denies jaundice Neurologic Neurologic: Denies lack of coordination or weakness Psychiatric Psychiatric: Denies confusion, depression, memory loss, mood swings, paranoia or suicidal ideation Endocrine Endocrinology: Denies systems reviewed and no addt'l complaints, except as documented Hematologic/Lymphatic Hematologic/Lymphatic: Denies anemia, easy bleeding, easy bruising or lymphadenopathy Allergic/Immunologic Allergic/Immunologic: Denies systems reviewed and no addt'l complaints, except as documented Vital Signs Vital Signs Vital Signs: 05/24/22 10:12 05/24/22 10:12 Temperature 98.2 F Temperature Source Temporal Pulse Rate 65 Respiratory Rate 18 Respiratory Pattern Normal Blood Pressure 119/81 H Blood Pressure Mean 93 Blood Pressure Source Monitor Blood Pressure Position Semi-Fowlers Blood Pressure Location Right Arm Pulse Ox 100 Oxygen Delivery Method Room Air Weight Weight: 189 lb 9.6 oz Body Mass Index (BMI) 32.5 Physical Exam Const alert General Appearance: cooperative Orientation / Consciousness: oriented to person HEENT hearing grossly normal bilaterally Head and Scalp: normal to inspection Face and Sinus: face symmetric Nose: external nose normal Mouth: oral and palatal mucosa normal Eyes conjunctivae normal General Eye: normal appearance of both eyes Neck full ROM General: normal visual inspection Lymph Lymphatic: no lymphadenopathy noted Chest inspection of chest normal and palpation of chest normal Chest: symmetrical chest wall rise Resp normal respiratory effort Effort and Inspection: able to speak in complete sentences Cardio regular rate GI non-distended Percussion: normal to percussion Rectal Exam: deferred Neuro Speech: speech normal Gait (Neuro): normal gait Assessment & Plan Assessment/Plan (1) Encounter for screening for malignant neoplasm of colon: PLAN: She will undergo screening colonoscopy. She was explained alternatives, risk, benefits including not withstanding bleeding, infection, sepsis, perforation, need for emergent surgery . She have an ASA of 1.
--- NOTE | 2022-05-24 10:45 | COLBX_PTH ---
PATIENT: LANRE PAT LOC: EN U#:[id number] AGE/SX: 71/F ROOM: RE05/24/[address]: Dr. Lars Garcia DO : 1950 BED: DIS: 05/24/2022 SPEC #: [id number] RECD: 05/24/22 12:37 STATUS: FIDE REQ #: [id number] NU: 05/24/22 10:[address]: Lars Garcia DEPT: SURGICAL PATHOLOGY RECD BY: Kimi Williamson ENTERED: 05/24/22 13:37 SP TYPE: COLON BX OT DR: Dr. Swathi Lagunas MD Tissues: A - COLON BIOPSY B - Ascending colon Procedures: Surgery Specimen Level IV HEADER OPERATION: Colonoscopy ? open access (MAC) with polypectomy PRE-OP DIAGNOSIS: Screening TISSUE SUBMITTED: A ? Hepatic flexure polyp, B ? Ascending colon polyp MICROSCOPIC DIAGNOSIS A. Colonic polyps at hepatic flexure, biopsy: Fragments of tubular adenoma. B. Ascending colon polyp, biopsy: Fragments of tubular adenoma. AM:мария 05/25/2022 MICROSCOPIC DESCRIPTION Slides are reviewed. GROSS DESCRIPTION A - Received in fixative is one container labeled with the patient's name and designated hepatic flexure polyp. The specimen consists of multiple irregular fragments of light cruz soft tissue that in aggregate measure 2 x 1 x 0.1 cm. The specimen is totally submitted in one cassette. B - Received in fixative is one container labeled with the patient's name and designated ascending colon polyp. The specimen consists of multiple irregular fragments of light cruz soft tissue that in aggregate measure 0.2 x 0.2 x 0.1 cm. The specimen is totally submitted in one cassette. / AM:мария 05/24/2022 TC:5 [facility]: [id number] x2
[2022-05-24 11:08] VITALS: BP 119/81; BP 96/61; PULSE 60; RESP 16; TEMP 36.4; O2SAT 97
[2022-05-24 11:10] VITALS: BP 119/81; BP 95/58; PULSE 60; RESP 16; O2SAT 99
--- NOTE | 2022-05-24 11:13 | OP.COLON_ITS ---
Patient Name: Celina Caputo Procedure Date: 05/24/2022 10:23 AM Date of : 1950 Age: 71 Procedure: Colonoscopy Indications: Screening for colorectal malignant neoplasm Providers: Lars Garcia DO Medicines: Monitored Anesthesia Care Patient Profile: This is a 71 year old female. Refer to note in patient chart for documentation of history and physical. Last Colonoscopy: 10 years ago. Complications: No immediate complications. Procedure: Pre-Anesthesia Assessment: - Prior to the procedure, a History and Physical was performed, and patient medications and allergies were reviewed. The risks and benefits of the procedure and the sedation options and risks were discussed with the patient. All questions were answered and informed consent was obtained. Patient identification and proposed procedure were verified by the physician in the pre-procedure area. Mental Status Examination: alert and oriented. Airway Examination: normal oropharyngeal airway and neck mobility. Respiratory Examination: clear to auscultation. CV Examination: normal. Prophylactic Antibiotics: The patient does not require prophylactic antibiotics. Prior Anticoagulants: The patient has taken no previous anticoagulant or antiplatelet agents. ASA Grade Assessment: II - A patient with mild systemic disease. After reviewing the risks and benefits, the patient was deemed in satisfactory condition to undergo the procedure. The anesthesia plan was to use monitored anesthesia care (MAC). Immediately prior to administration of medications, the patient was re-assessed for adequacy to receive sedatives. The heart rate, respiratory rate, oxygen saturations, blood pressure, adequacy of pulmonary ventilation, and response to care were monitored throughout the procedure. The physical status of the patient was re-assessed after the procedure. After I obtained informed consent, the scope was passed under direct vision. Throughout the procedure, the patient's blood pressure, pulse, and oxygen saturations were monitored continuously. The pediatric colonoscope was introduced through the anus and advanced to the cecum, identified by appendiceal orifice and ileocecal valve. The colonoscopy was performed without difficulty. The patient tolerated the procedure well. The quality of the bowel preparation was good. Scope In: 10:44:48 AM Scope Withdrawal Time 0 hours 10 minutes 10 seconds Scope Out: 11:04:25 AM Total Procedure Duration Time 0 hours 19 minutes 37 seconds Findings: The perianal and digital rectal examinations were normal. Two sessile polyps were found in the hepatic flexure and ascending colon. The polyps were 1 to 2 mm in size. These polyps were removed with a hot snare. Resection and retrieval were complete. Verification of patient identification for the specimen was done. Estimated blood loss was minimal. The exam was otherwise without abnormality on direct and retroflexion views. Impression: - Two 1 to 2 mm polyps at the hepatic flexure and in the ascending colon, removed with a hot snare. Resected and retrieved. - The examination was otherwise normal on direct and retroflexion views. Recommendation: - Discharge patient to home. - Resume previous diet. - Continue present medications. - Await pathology results. - Repeat colonoscopy in 5 years for surveillance. Procedure Code(s): --- Professional --- 70577, Colonoscopy, flexible; with removal of tumor(s), polyp(s), or other lesion(s) by snare technique CPT copyright 2017 [employer]. All rights reserved. The codes documented in this report are preliminary and upon scalp specialist review may be revised to meet current compliance requirements. Lars Garcia DO 05/24/2022 11:13:09 AM This report has been signed electronically. Number of Addenda: 0 Note Initiated On: 05/24/2022 10:23 AM
--- NOTE | 2022-05-24 11:15 | OP.CCLET_ITS ---
05/24/2022 Swathi Lagunas MD [address] [place] [address] Re : Colonoscopy procedure for Celina Caputo Dear Dr. Lagunas This procedure was performed on May. My impressions and recommendations are as follows: Impressions : - Two 1 to 2 mm polyps at the hepatic flexure and in the ascending colon, removed with a hot snare. Resected and retrieved. - The examination was otherwise normal on direct and retroflexion views. Recommendations : - Discharge patient to home. - Resume previous diet. - Continue present medications. - Await pathology results. - Repeat colonoscopy in 5 years for surveillance. My findings are described in the full procedure note, which is enclosed. If I can be of further assistance, please feel free to contact me at . Sincerely, Lars Garcia, 05/24/2022 11:13:09 AM This report has been signed electronically.
[2022-05-24 11:16] VITALS: BP 119/81; BP 98/86; PULSE 61; RESP 16; O2SAT 100
[2022-05-24 11:20] VITALS: BP 105/72; BP 119/81; PULSE 60; RESP 16; TEMP 36.8; O2SAT 98
[2022-05-24 11:39] VITALS: BP 119/81
== END 2022-05-24 11:40 | disposition home or self-care (01) ==
LOC: EN 09:37 → AC 09:40
PROVIDERS: PCP Internal Medicine; Referring Provider Internal Medicine; Visit Provider Internal Medicine Gastroenterology
PROC: 0DJD8ZZ Inspection of Lower Intestinal Tract, Via Natural or Artificial Opening Endoscopic (ICD-10-PCS; CPT 45378; principal; 2022-05-24 10:40)
DX: Z12.11 Encounter for screening for malignant neoplasm of colon (principal); N18.30 Chronic kidney disease, stage 3 unspecified; D12.3 Benign neoplasm of transverse colon; D12.2 Benign neoplasm of ascending colon; Z79.899 Other long term (current) drug therapy
CPT/HCPCS: 45385; 88305; J7120; J2405

== ENCOUNTER → 2022-09-20 | Outpatient (CLI) | payer MEDICARE, SELFPAY ==
[2022-09-20 17:37] LABS: Absolute Lymphocyte Count 2.33 X10^3/uL (0.83-4.51); Absolute Neutrophil Count 5.7 X10^3/uL (2.0-7.7); Basophil# 0.07 X10^3/uL; Basophil% 0.8 % (0-1); Eosinophil# 0.16 X10^3/uL; Eosinophils% 1.8 % (0-5); Hematocrit 37.9 % (37-47); Lymphocyte # 2.33 X10^3/ul (0.83-4.51); Lymphocyte % 26.3 % (19-41); Mean Corp Hgb Conc 31.7 g/dL (32-36); Mean Corpuscular Volume 97.9 fL (81-99); Mean Platelet Vol. 9.3 fl (6.2-12.0); Monocyte% 6.8 % (0-10); NRBC Flagged by Analyzer 0 % (0-5); Neutrophil # 5.67 X10^3/uL (2.7-7.7); Neutrophil % 63.8 % (47-70); Platelet Count 232 K/mm3 (150-450); RBC Distribution Width CV 13.3 % (11.6-14.6); RBC Distribution Width SD 47.5 fl (35.1-43.9); Red Blood Count 3.87 M/mm3 (4.2-5.4); White Blood Count 8.9 K/mm3 (4.4-11.0)
[2022-09-20 17:53] LABS: Erythrocyte Sedimentation Rate 30 mm/hr (0-30)
[2022-09-20 17:58] LABS: ALB/GLOB Ratio 0.8 RATIO (0.9-2.4); AST(SGOT) 18 U/L (15-37); Alanine Aminotransfer ALT/SGPT 16 U/L (13-56); Alkaline Phosphatase 88 U/L (45-117); Anion Gap 6 (5-15); BUN 16 mg/dL (7-18); Calcium,Total 8.8 mg/dL (8.5-10.1); Chloride 105 mmol/L (98-107); EST Glomerular Filtration Rate 58 mL/min (>60); Est Glom Filt Rate - Afr Amer 71 mL/min (>60); Globulin 3.9 g/dL (2.2-4.2); Glucose 96 mg/dL (74-106); Potassium 3.7 mmol/L (3.5-5.1); Protein, Total 6.9 g/dL (6.4-8.2); Sodium Level 142 mmol/L (136-145)
[2022-09-24 13:08] LABS: Anti-Centromere B Ab <0.2 AI (0.0-0.9); Anti-Chromatin <0.2 AI (0.0-0.9); Anti-Jo <0.2 AI (0.0-0.9); Anti-Scleroderma-70 AB <0.2 AI (0.0-0.9); Anti-dsDNA Ab 1 IU/mL (0-9); RNP Ab <0.2 AI (0.0-0.9); SJOGREN'S Anti-SS-A test < 0.2 AI (0.0-0.9); SJOGREN'S Anti-SS-B test < 0.2 AI (0.0-0.9); Smith Ab <0.2 AI (0.0-0.9)
[2022-09-24 14:08] LABS: Endomysial Antibody IgA Negative (Negative); Immunoglobulin A 232 mg/dL (87-352); t-Transglutaminase IgA <2 U/mL (0-3)
[2022-09-26 12:08] LABS: Cytoplasmic Ab (C-ANCA) <1:20 titer (Neg:<1:20); Immunoglobulin A 239 mg/dL (87-352); Immunoglobulin E 25 IU/mL (6-495); Immunoglobulin G 1126 mg/dL (586-1602); Immunoglobulin M 166 mg/dL (26-217); Perinuclear Ab (P-ANCA) <1:20 titer (Neg:<1:20)
[2022-09-27 10:08] LABS: Testosterone, % Free 0.59 % (0.50-2.80); Testosterone, Free 0.04 ng/dL (0.10-0.85); Testosterone, Total 6 ng/dL (3-67)
[2022-09-27 16:09] LABS: Calprotectin, Stool 124 ug/g (0-120)
== END | disposition home or self-care (01) ==
LOC: MTLAB 14:22
PROVIDERS: Obstetrics & Gynecology; PCP Internal Medicine; Referring Provider Nurse Practitioner Adult Health; Visit Provider Nurse Practitioner Adult Health
DX: K58.0 Irritable bowel syndrome with diarrhea (principal); D84.9 Immunodeficiency, unspecified
CPT/HCPCS: 36415; 80053; 82784; 82785; 83516; 83630; 83993; 84402; 84403; 85025; 85652; 86140; 86225; 86235; 86255; 86256; 87493; 87506

== ENCOUNTER → 2022-11-02 | Outpatient (CLI) | payer MEDICARE, SELFPAY ==
[2022-11-02 14:52] LABS: Mucous, Urine 0 SEEN /hpf (<or=2+); Red Blood Cells-Urine 0 SEEN /hpf (0-5)
[2022-11-02 16:14] LABS: Color, Urine Yellow (Yellow); Glucose, Dipstick Normal (Normal); Ketone-Dipstick 5 mg/dl (Negative); Leukocyte Esterase-Dipstick 25 /ul (Negative); Nitrite-Dipstick Negative (Negative); Occult Blood-Urine Negative /ul (Negative); Protein-Dipstick Negative (Negative); Urine Bilirubin Dipstick Negative (Negative); Urine Clarity Sl. Cloudy (Clear); Urine Urobilinogen 1 mg/dl (Normal)
[2022-11-02 16:26] LABS: Squamous Epithelial Cells - UA 0-5 SEEN /hpf (5-10); White Blood Cells 0-5 SEEN /hpf (0-5)
[2022-11-02 16:36] LABS: Amorphous Sediment 1+ PHOS; Bacteria 2+ /hpf (None Seen)
== END | disposition home or self-care (01) ==
LOC: LABSPEC 11:24
PROVIDERS: PCP Internal Medicine; Referring Provider Internal Medicine; Visit Provider Internal Medicine
DX: R82.998 Other abnormal findings in urine (principal)
CPT/HCPCS: 81001; 87086; 87088; 87186

== ENCOUNTER → 2022-12-25 | Outpatient (CLI) | payer MEDICARE, SELFPAY ==
--- NOTE | 2022-12-25 12:31 | US_ITS ---
STUDY: RENAL ULTRASOUND - COMPLETE REASON FOR EXAM: Female, 72 years old. UTI TECHNIQUE: Ultrasound evaluation of the kidneys was performed with real-time and static alfonso-scale imaging. COMPARISON: None. FINDINGS: RIGHT KIDNEY: Normal location of the right kidney, which is normal in size. The right kidney measures 9.9 cm x 5.3 cm x 4.4 cm. There is a normal cortex of the right kidney. The renal cortex measures 1.3 cm. There is no right renal mass or cyst. There are no right renal calculi. There is no right hydronephrosis. DISTAL RIGHT URETER: There is non-visualization of the distal right ureter. There is no demonstrated right ureterovesical junction calculus. There is a visualized right ureteral jet. LEFT KIDNEY: Normal location of the left kidney, which is normal in size. The left kidney measures 10.3 cm x 3.9 cm x 4.1 cm. There is a normal cortex of the left kidney. The renal cortex measures 1.0 cm. There is no left renal mass or cyst. There are no left renal calculi. There is no left hydronephrosis. DISTAL LEFT URETER: There is non-visualization of the distal left ureter. There is no demonstrated left ureterovesical junction calculus. There is a visualized left ureteral jet. BLADDER: The distended urinary bladder has a volume of 175 ml. There is a normal wall thickness of the distended urinary bladder. There is no demonstrated mass within the urinary bladder. There are no demonstrated bladder calculi. US/Kidney and Bladder IMPRESSION: Normal ultrasound of the kidneys and urinary bladder. Electronically Signed: Genaro Cohu MD at 15:02 EDT ,
== END | disposition home or self-care (01) ==
LOC: US 12:29
PROVIDERS: PCP Internal Medicine; Referring Provider Urology; Visit Provider Urology
DX: N39.0 Urinary tract infection, site not specified (principal)
CPT/HCPCS: 76770

== ENCOUNTER → 2023-01-01 | Outpatient (CLI) | payer MEDICARE, SELFPAY ==
[2023-01-01 17:51] LABS: Absolute Lymphocyte Count 1.55 X10^3/uL (0.83-4.51); Absolute Neutrophil Count 8.8 X10^3/uL (2.0-7.7); Basophil# 0.03 X10^3/uL; Basophil% 0.3 % (0-1); Eosinophil# 0.01 X10^3/uL; Eosinophils% 0.1 % (0-5); Hematocrit 39.1 % (37-47); Hemoglobin 12.4 g/dL (12.0-15.0); Lymphocyte # 1.55 X10^3/ul (0.83-4.51); Lymphocyte % 14.2 % (19-41); Mean Corp Hgb Conc 31.7 g/dL (32-36); Mean Corpuscular Hgb 31.5 pg (27.0-32.0); Mean Corpuscular Volume 99.2 fL (81-99); Monocyte# 0.46 X10^3/uL; Monocyte% 4.2 % (0-10); NRBC Flagged by Analyzer 0 % (0-5); Neutrophil # 8.82 X10^3/uL (2.7-7.7); Neutrophil % 80.8 % (47-70); Platelet Count 280 K/mm3 (150-450); RBC Distribution Width CV 14.2 % (11.6-14.6); RBC Distribution Width SD 52.2 fl (35.1-43.9); Red Blood Count 3.94 M/mm3 (4.2-5.4); White Blood Count 10.9 K/mm3 (4.4-11.0)
[2023-01-01 18:12] LABS: ALB/GLOB Ratio 0.7 RATIO (0.9-2.4); AST(SGOT) 20 U/L (15-37); Alanine Aminotransfer ALT/SGPT 20 U/L (13-56); Alkaline Phosphatase 69 U/L (45-117); Anion Gap 5 (5-15); BUN 18 mg/dL (7-18); BUN/Creat Ratio 16.7 RATIO (10-20); CRP 9.29 mg/L (0.0-3.0); Chloride 105 mmol/L (98-107); Creatinine, Serum 1.08 mg/dL (0.55-1.02); EST Glomerular Filtration Rate 53 mL/min (>60); Est Glom Filt Rate - Afr Amer 64 mL/min (>60); Globulin 4.1 g/dL (2.2-4.2); Glucose 108 mg/dL (74-106); Potassium 3.4 mmol/L (3.5-5.1); Protein, Total 7.1 g/dL (6.4-8.2); Sodium Level 139 mmol/L (136-145)
[2023-01-01 18:20] LABS: T4 Free Direct 1.12 ng/dL (0.76-1.46)
[2023-01-01 18:21] LABS: Erythrocyte Sedimentation Rate 35 mm/hr (0-30)
[2023-01-09 16:09] LABS: Testosterone, % Free 1.01 % (0.50-2.80); Testosterone, Free < 0.03 ng/dL (0.10-0.85); Testosterone, Total < 3 ng/dL (3-67)
== END | disposition home or self-care (01) ==
LOC: MTLAB 14:52
PROVIDERS: Obstetrics & Gynecology; PCP Internal Medicine; Referring Provider Internal Medicine Gastroenterology; Visit Provider Internal Medicine Gastroenterology
DX: K52.9 Noninfective gastroenteritis and colitis, unspecified (principal); N95.1 Menopausal and female climacteric states; R68.82 Decreased libido
CPT/HCPCS: 36415; 80053; 84402; 84403; 84439; 85025; 85652; 86140

== ENCOUNTER → 2023-01-08 | Outpatient (CLI) | payer MEDICARE, SELFPAY ==
--- NOTE | 2023-01-08 11:10 | RAD_ITS ---
EXAM: XR RIGHT TIBIA AND FIBULA, 2 VIEWS CLINICAL INDICATION: RLE cellulitis TECHNIQUE: Frontal and lateral views of the right tibia and fibula. COMPARISON: No relevant prior studies available. FINDINGS: BONES/JOINTS: No acute bone or joint abnormality. Right knee prosthesis in place in satisfactory position. SOFT TISSUES: Normal. No soft tissue swelling or gas. No radiopaque foreign body. RAD/Tibia & Fibula 2 Views IMPRESSION: No acute findings in the right tibia and fibula or adjacent soft tissues. Electronically Signed: Lee Baez MD at 11:49 EDT ,
== END | disposition home or self-care (01) ==
LOC: MTRAD 11:10
PROVIDERS: PCP Internal Medicine; Referring Provider Physician Assistant; Visit Provider Physician Assistant
DX: L03.115 Cellulitis of right lower limb (principal)
CPT/HCPCS: 73590

== ENCOUNTER → 2023-02-19 | Outpatient (CLI) | payer MEDICARE, SELFPAY ==
--- NOTE | 2023-02-19 12:57 | BI_ITS ---
MAMMOGRAPHY - BILATERAL SCREENING REASON FOR EXAM: Female, 72 years old. Routine annual screening examination. PERTINENT HISTORY: Grandmother with breast cancer. History of bilateral breast reduction surgery. TECHNIQUE: Digital bilateral breast tammie (3D mammographic acquisition) in the CC and MLO projections. 2-D mediolateral oblique (MLO) and craniocaudad (CC) views of both breasts were obtained. CAD: Full Field Digital Mammography with Computer Added Detection was performed. COMPARISON: Comparison is made with prior study dated October 09, 2021 and August 03, 2020. FINDINGS: Breast Composition: There are scattered areas of fibroglandular density. There are no dominant masses or suspicious calcifications. Stable small benign-appearing bilateral axillary lymph nodes. No other significant abnormalities are identified. There has been no significant change since the prior study. BI/SCRN MAMM (CAD)W/TAMMIE BILAT IMPRESSION: Stable bilateral screening mammogram. Yearly follow-up mammogram recommended. (A) ASSESSMENT CATEGORY: BIRADS Category 2: Benign. A letter regarding these results will be sent to the patient by the facility within 30 days. Approximately 10% of breast cancers are not detected by mammography. A normal mammogram should not delay biopsy of a clinically suspicious abnormality. [id number] Electronically Signed: Genaro Chou MD at 14:03 EDT ,
== END | disposition home or self-care (01) ==
LOC: OPBI 12:55
PROVIDERS: PCP Internal Medicine; Referring Provider Internal Medicine; Visit Provider Internal Medicine
DX: Z12.31 Encounter for screening mammogram for malignant neoplasm of breast (principal)
CPT/HCPCS: 77063; 77067

== ENCOUNTER → 2023-02-21 | Outpatient (CLI) | payer MEDICARE, SELFPAY ==
--- NOTE | 2023-02-21 12:45 | RAD_ITS ---
INDICATION: PAIN EXAMINATION/TECHNIQUE: X-RAY - XR Hip Unilateral with Pelvis when performed; 2-3 Views COMPARISON: No relevant prior comparison study available FINDINGS: PELVIC BONES: No displaced fracture, destructive or sclerotic lesions. Note that overlapping bowel shadows may however obscure fine detail. Sacroiliac joints are unremarkable. No widening of the pubic symphysis. HIPS: The articular structures are unremarkable. No displaced fracture seen in this frontal view. SOFT TISSUES: Unremarkable. LOWER LUMBAR SPINE: Fusion of the lower lumbar spine right-sided pedicle screws and disc implants. Partially visualized partial sacralization of the last lumbar vertebra. RAD/HIP, UNI W/ Pelvis 2-3 Views IMPRESSION: No evidence of displaced pelvic or hip fracture. Electronically Signed: Kel Rey MD at 10:07 EDT ,
== END | disposition home or self-care (01) ==
LOC: MTRAD 12:36
PROVIDERS: PCP Internal Medicine; Referring Provider Anesthesiology Pain Medicine; Visit Provider Anesthesiology Pain Medicine
DX: M25.552 Pain in left hip (principal)
CPT/HCPCS: 73502

== ENCOUNTER 2023-03-17 14:56 | Emergency (ER) | payer MEDICARE, SELFPAY ==
[2023-03-17 14:56] VITALS: RESP 16
[2023-03-17 14:57] VITALS: BP 111/76; PULSE 82; RESP 16; TEMP 36.4; O2SAT 98; BMI 31.0
--- NOTE | 2023-03-17 15:03 | CT_ITS ---
STUDY: CT BRAIN WITHOUT CONTRAST REASON FOR EXAM: Female, 72 years old. Head trauma, loss of conscious, problems with corrie -- Balance and persistent headache Individualized dose optimization techniques were used for this CT. TECHNIQUE: Transaxial CT imaging of the brain was performed without administration of intravenous contrast material. COMPARISON: None FINDINGS: There are calcifications around the carotid artery. These are noted in the cavernous carotid arteries. Normal calvarium. Normal soft tissues. There is mild cerebral atrophy with widening of the extra-axial spaces and ventricular dilatation. There are areas of decreased attenuation within the white matter tracts of the supratentorial brain, consistent with microvascular disease changes. Normal basal ganglia and thalami. Normal brainstem. There is mild cerebellar atrophy. There is no intracranial hemorrhage. There are no findings of an acute ischemic infarction. Normal visualized paranasal sinuses. ASPECTS Score for Acute Strokes: 02/26 CT/Brain/Head without Contrast IMPRESSION: There are no acute findings. Chronic involutional changes of the brain. Electronically Signed: Greg Fischer MD at 15:55 EDT ,
--- NOTE | 2023-03-17 15:05 | EX.ED.GENINJ ---
HPI History of Present Illness Chief Complaint: Head Injury Detail of Chief Complaint: Blunt head trauma status post fall Informant: patient and spouse/S.O. Onset/Context/Timing Onset: Yesterday Mechanism/Context: Blunt Injury and Fall Location: Occiput with countercoup frontal headache Current Severity: Mild Maximum Severity: Moderate Worsened by: Nothing specific Relieved by: Nothing Associated Symptoms Associated Symptoms: Positive for Loss of consciousness (1 to 2 minutes); Negative for Parasthesias, Weakness, Loss of function, Inability to ambulate or Amnesia Narrative Narrative: Patient is a 72-year-old woman. She was at her daughter's home visiting her grand child. When she was going down the steps. She misjudged the step because the height reportedly is not proper. She fell backwards hitting and iron rail then the concrete. She did have loss of conscious of 1 to 2 minutes. She presents today because of problems with balance and coordination, bifrontal headache and nausea. She is not on an antiplatelet or anticoagulant. She denies vomiting. She denies cardiac or respiratory symptoms. She denies neck pain. She denies low back pain. She denies paresthesia, anesthesia or motor weakness of her upper or lower extremities. Review of records indicates she does have history of headaches. Prior similar symptoms: No Recent Illness/Hospitalization: No PFSH PFSH Medical History Anxiety and depression Arthritis Back pain Cancer, skin, squamous cell Cellulitis of right lower extremity CKD (chronic kidney disease), stage III Dementia Dry eyes Dry mouth and eyes Edema Fall Foul smelling urine gallbladder removed Gout Headache Health care maintenance History of renal disease History of stress test IBS (irritable bowel syndrome) MCI (mild cognitive impairment) Recurrent UTI right rotaor cuff repair Skin tear Wears dentures Wears glasses Home Medications gabapentin 600 mg tablet 600 mg PO QHS nerve pain 04/09/19 [History Last Taken 07/07/19] multivitamin 1 tab PO DAILY supplement 07/08/19 [History Last Taken 07/08/19] cyclosporine 0.05 % eye drops (Restasis MultiDose) 1 drp ophthalmic (eye) Q12H 02/05/22 [History Last Taken Unknown] estradiol 1 mg tablet 1 mg PO DAILY #30 tabs 07/12/22 [Rx Last Taken Unknown] duloxetine 60 mg capsule,delayed release 60 mg PO BID 90 days #180 caps 08/16/22 [Rx Last Taken Unknown] lansoprazole 30 mg capsule,delayed release 30 mg PO DAILY gerd #90 caps 12/26/22 [Rx Last Taken Unknown] triamterene 37.5 mg-hydrochlorothiazide 25 mg tablet See Rx Instructions .Route .COMPLEX #90 TABLETS 01/28/23 [Rx Last Taken Unknown] Allergy/AdvReac Type Severity Reaction Status Date / Time adhesive tape Allergy Intermediate blisters Verified 01/08/23 11:00 Family History Mother Hypertension COPD (chronic obstructive pulmonary disease) Father Cancer lyphoma Grandmother Cancer, Onset Age: 90 Surgical History History of bilateral knee replacement History of cataract extraction History of cholecystectomy History of colonoscopy History of eyelid surgery History of hysterectomy History of lumbar fusion History of sleeve gastrectomy Hx of breast reduction, elective Status post left rotator cuff repair Status post right rotator cuff repair Social History (Updated 03/17/23 @ 15:[address] Lencho Topete MD) household members: spouse Smoking Status: Never smoker alcohol intake: current alcohol intake frequency: a few times a month Alcohol type: hard liquor substance use type: does not use caffeine: No what type of physical activity do you participate in: none seatbelt use: always do you feel safe at home: Yes additional social history: -Nikhil Patient and are both retired ROS ROS ED Constitutional Constitutional ED: Denies chills or subjective Eyes Eyes: Reports other Details: She denies photophobia. ; Denies blurry vision or change in vision ENT ENT ED: Reports other Details: She denies tinnitus ; Denies ear pain, rhinorrhea or sore throat Cardiovascular Cardiovascular: Denies chest pain Respiratory/Chest Respiratory/Chest: Denies cough or dyspnea Gastrointestinal Gastrointestinal: Reports nausea; Denies abdominal pain or vomiting Genitourinary Genitourinary ED: Denies hematuria Musculoskeletal Musculoskeletal: Denies arthralgias, back pain or neck pain Integumentary Denies rash Neurologic Neurologic: Reports headache(s); Denies paresthesias or weakness Hematologic/Lymphatic Hematologic/Lymphatic: Denies easy bleeding or easy bruising EXAM Physical Exam Const Vital Signs: 03/17/23 14:57 03/17/23 15:31 Temperature 97.5 F L Temperature Source Temporal Pulse Rate 82 Respiratory Rate 16 Respiratory Effort Normal Respiratory Depth Normal Respiratory Pattern Normal Blood Pressure 111/76 Blood Pressure Mean 87 Pulse Ox 98 Oxygen Delivery Method Room Air Positive well nourished and well developed General Appearance ED: well developed and NAD HEENT HEENT Narrative: There is pain ovation of the occiput. There is no palpable oppression. There is no clinical signs of basilar skull fracture. trauma and tenderness Nose: Negative for septum abnormal Eyes PERRL and EOMs intact bilaterally General Eye ED: Yes other Other Details: There is no subconjunctival hemorrhage. Neck full ROM General: Negative for tenderness Chest Wall palpation of chest normal Resp normal respiratory effort and clear to auscultation bilaterally Cardio regular rhythm, S1 normal heart sound, S2 normal heart sound and no murmurs GI normal to inspection, nondistended, normoactive bowel sounds, non-tender, non-distended and no masses Back/Spine no thoracic nor lumbar tenderness Extremity normal to inspection and full ROM General Extremety ED: Negative for deformity, edema or tenderness General Extremity: Negative for deformity or edema Neuro oriented x3, CN's II-XII intact bilaterally, moves all extremities, no focal motor deficits, no sensory deficits noted and gait normal Ranjit Coma Scale: document GCS findings Spontaneous Obeys Commands Oriented 15 Sensorium / Orientation: alert Deep Tendon Reflexes: Rt Triceps (C7): 1+, Lt Triceps (C7): 1+, Rt Biceps (C5, C6): 1+, Lt Biceps (C5, C6): 1+, Rt Brachioradialis (C6): 1+, Lt Brachioradialis (C6): 1+, Rt Patellar (L4): 1+, Lt Patellar (L4): 1+, Rt Ankle (S1): 1+ and Lt Ankle (S1): 1+ Deep Tendon Reflexes Back: Rt Patellar (L4): 1+, Lt Patellar (L4): 1+, Rt Ankle (S1): 1+ and Lt Ankle (S1): 1+ Plantar Reflex: Downgoing: bilateral Psych mental status grossly normal and thought process normal Skin no rashes or lesions noted, no wounds and no jaundice MDM MDM MDM Narrative Medical decision making narrative: With history of fall loss of consciousness persistent headache problems with balance per the [place] CT head rule imaging is indicated. For this reason CT of the head without contrast was obtained to rule out subdural hematoma, contusion, traumatic subarachnoid hemorrhage and less likely epidural hematoma. Per Nexus criteria patient does not need imaging of her neck. Patient was made n.p.o. until images have been performed and reviewed by me. Radiography Diagnostic Testing: Clinical Impression(s) from Imaging Studies Brain CT 03/17/23 15:03 IMPRESSION: There are no acute findings. Chronic involutional changes of the brain. Electronically Signed: Greg Fischer MD at 15:55 EDT , CT of the head without contrast was reviewed by me at 1535 as negative. There is no evidence of fracture. There is no evidence of subdural hematoma, epidural hematoma, traumatic subarachnoid hemorrhage or intraparenchymal bleed. There is no fluid noted in the sinuses. There is no evidence of fracture. Awaiting formal read by radiologist. Treatment and Re-Evaluation Narrative: Patient was informed that her CAT scan was negative for any intracranial bleed. She has a concussion. Patient was informed that she may have symptoms potentially up to 4 to 6 weeks. She should avoid activity makes her headache, nausea or balance worse. If her symptoms persist more than a month she should follow-up with her doctor for reevaluation and possible further testing. Discharge Plan Triage Chief Complaint: Head Injury Other Complaint: Fall ED Provider: Lencho Topete Dx/Rx/DC Orders Clinical Impression: Concussion with loss of consciousness <= 30 min, GERD (gastroesophageal reflux disease), MCI (mild cognitive impairment), CKD (chronic kidney disease), stage III Instructions: ED Concussion Prescriptions: No Action gabapentin 600 mg tablet 600 mg PO QHS Restasis MultiDose 0.05 % drops 1 drp ophthalmic (eye) Q12H estradiol 1 mg tablet 1 mg PO DAILY Qty: 30 12RF multivitamin 1 EACH tablet 1 tab PO DAILY duloxetine 60 mg capsule,delayed release(DR/EC) 60 mg PO BID 90 Days Qty: 180 12RF lansoprazole 30 mg capsule,delayed release(DR/EC) 30 mg PO DAILY Qty: 90 2RF triamterene-hydrochlorothiazid 37.5-25 mg tablet See Rx Instructions .ROUTE .COMPLEX Qty: 90 1RF Dose Instruction: TAKE 1 TABLET BY MOUTH IN THE MORNING Rx Instructions: TAKE 1 TABLET BY MOUTH IN THE MORNING Primary Care Provider: Swathi Lagunas Referrals: Swathi Lagunas MD [Primary Care Provider] - As Needed Activity Restrictions/Additional Instructions: 1. Your CAT scan was normal. You did have a concussion. You may have symptoms up to 4 to 6 weeks. If symptoms persist past 4 to 6 weeks you should follow-up with your physician. 2. You should avoid activity that makes your symptoms worse. You should avoid any strenuous activity until your symptoms have totally resolved. 3. You may take Tylenol for your headache. Disposition Disposition: Home, Self Care
== END 2023-03-17 16:10 | disposition home or self-care (01) ==
PROVIDERS: Emergency Provider Emergency Medicine; PCP Internal Medicine; Visit Provider Emergency Medicine
DX: S06.0X1A Concussion with loss of consciousness of 30 minutes or less, initial encounter (principal); N18.30 Chronic kidney disease, stage 3 unspecified; K21.9 Gastro-esophageal reflux disease without esophagitis; W19.XXXA Unspecified fall, initial encounter
CPT/HCPCS: 70450; 99282

== ENCOUNTER 2023-04-30 17:40 | Emergency (ER) | payer MEDICARE, SELFPAY ==
[2023-04-30 17:42] VITALS: BP 124/85; PULSE 92; RESP 16; TEMP 36.3; O2SAT 100; BMI 34.0
--- NOTE | 2023-04-30 18:04 | EKG12_ITS ---
Test Reason : LEFT ARM PAIN Blood Pressure : / mmHG Vent. Rate : 088 BPM Atrial Rate : 088 BPM P-R Int : 154 ms QRS Dur : 076 ms QT Int : 374 ms P-R-T Axes : 032 -22 036 degrees QTc Int : 452 ms Normal sinus rhythm Minimal voltage criteria for LVH, may be normal variant ( R in aVL ) Borderline ECG Confirmed by ROSE MARY ARAGON, CRUZ ([id number]), state editor TIFF RAO ([id number]) on 05/06/2023 1:40:57 P M Referred By: PL/TL Confirmed By:MARYJO BAZZI MD
--- NOTE | 2023-04-30 18:05 | EX.ED.DYSGE1 ---
HPI History of Present Illness Chief Complaint: Chest Other Informant: patient and spouse/S.O. Narrative Narrative: Presents nontraumatic pain across her left collarbone that radiates to her upper shoulder. Started at 2 PM would come and go lasting 5 minutes. Occasional pain in her mid back. No anterior chest pain no dyspnea. No nausea. No diaphoresis. Denies neck pain. Reports has been fatigued over the past 2 months sleeping more. No vomiting or diarrhea no urinary symptoms of frequency or dysuria. Denies any bloody or black stools. Discussed concerns, she states with her age she wanted make sure her heart was okay. Denies any cardiac history. Denies any cough. Prior similar symptoms: No PFSH PFSH Medical History Anxiety and depression Arthritis Back pain Cancer, skin, squamous cell Cellulitis of right lower extremity CKD (chronic kidney disease), stage III Dementia Dry eyes Dry mouth and eyes Edema Fall Foul smelling urine gallbladder removed Gout Headache Health care maintenance History of renal disease History of stress test IBS (irritable bowel syndrome) MCI (mild cognitive impairment) Recurrent UTI right rotaor cuff repair Skin tear Wears dentures Wears glasses Home Medications gabapentin 600 mg tablet 600 mg PO QHS nerve pain 04/09/19 [History Last Taken 07/07/19] multivitamin 1 tab PO DAILY supplement 07/08/19 [History Last Taken 07/08/19] cyclosporine 0.05 % eye drops (Restasis MultiDose) 1 drp ophthalmic (eye) Q12H 02/05/22 [History Last Taken Unknown] estradiol 1 mg tablet 1 mg PO DAILY #30 tabs 07/12/22 [Rx Last Taken Unknown] duloxetine 60 mg capsule,delayed release 60 mg PO BID 90 days #180 caps 08/16/22 [Rx Last Taken Unknown] lansoprazole 30 mg capsule,delayed release 30 mg PO DAILY gerd #90 caps 12/26/22 [Rx Last Taken Unknown] triamterene 37.5 mg-hydrochlorothiazide 25 mg tablet See Rx Instructions .Route .COMPLEX #90 TABLETS 01/28/23 [Rx Last Taken Unknown] Allergy/AdvReac Type Severity Reaction Status Date / Time adhesive tape Allergy Intermediate blisters Verified 04/30/23 17:44 Family History Mother Hypertension COPD (chronic obstructive pulmonary disease) Father Cancer lyphoma Grandmother Cancer, Onset Age: 90 Surgical History History of bilateral knee replacement History of cataract extraction History of cholecystectomy History of colonoscopy History of eyelid surgery History of hysterectomy History of lumbar fusion History of sleeve gastrectomy Hx of breast reduction, elective Status post left rotator cuff repair Status post right rotator cuff repair Social History (Updated 03/17/23 @ 15:[address] Lencho Topete MD) household members: spouse Smoking Status: Never smoker alcohol intake: current alcohol intake frequency: a few times a month Alcohol type: hard liquor substance use type: does not use caffeine: No what type of physical activity do you participate in: none seatbelt use: always do you feel safe at home: Yes additional social history: -Nikhil Patient and are both retired ROS ROS ED Constitutional Constitutional ED: Denies chills, fever(s) or sweats Eyes Eyes: Denies change in vision ENT ENT ED: Denies dysphagia or sore throat Cardiovascular Cardiovascular: Denies chest pain, leg edema, palpitations or racing heartbeat Respiratory/Chest Respiratory/Chest: Denies cough, dyspnea or dyspnea on exertion Gastrointestinal Gastrointestinal: Denies abdominal pain, diarrhea, nausea or vomiting Genitourinary Genitourinary ED: Denies dysuria, hematuria or urinary frequency Musculoskeletal Musculoskeletal: Reports back pain and extremity pain; Denies neck pain Integumentary Denies rash or wounds Neurologic Neurologic: Denies headache(s), paresthesias or weakness EXAM Physical Exam Const Vital Signs: 04/30/23 17:42 04/30/23 17:51 04/30/23 21:48 Temperature 97.3 F L Temperature Source Temporal Pulse Rate 92 Respiratory Rate 16 Respiratory Effort Normal Non-Labored Blood Pressure 124/85 H Blood Pressure Mean 98 Pulse Ox 100 Oxygen Delivery Method Room Air Room Air 04/30/23 21:48 Temperature Temperature Source Pulse Rate 67 Respiratory Rate 17 Respiratory Effort Blood Pressure 114/71 Blood Pressure Mean 85 Pulse Ox 97 Oxygen Delivery Method Room Air Positive well nourished and well developed General Appearance ED: well developed and NAD HEENT Reports moist mucous membranes normocephalic and atraumatic Eyes PERRL, EOMs intact bilaterally and conjunctivae normal General Eye ED: Yes normal appearance of both eyes Neck no lymphadenopathy and supple Neck Narrative: Negative Spurling's test bilaterally. General: Negative for tenderness Chest Wall inspection of chest normal and palpation of chest normal Chest Narrative: No rash of the chest wall. Chest: Negative for tenderness Resp normal respiratory effort and normal air movement Effort and Inspection: symmetric chest movement; Negative for respiratory distress Cardio regular rate, regular rhythm and no murmurs Peripheral Pulses: pulses 2+ throughout GI normal to inspection, nondistended, normoactive bowel sounds and non-tender Palpation: Negative for guarding or rebound tenderness present Back/Spine no CVA tenderness Back/Spine Narrative: No midline tenderness thoracic or lumbar is reproducible paraThoracic tenderness on left side Extremity normal to inspection General Extremety ED: Negative for edema or tenderness General Extremity: Negative for edema Neuro oriented x3 and no sensory deficits noted Sensorium / Orientation: awake and alert Skin no rashes or lesions noted and no wounds MDM MDM MDM Narrative Medical decision making narrative: Interventions / MDM: Differential diagnosis: Atypical chest pain, left shoulder pain. Diagnosis considered but do not suspect: Aortic dissection however no sharp tearing pain to the back, pulses are intact upper extremities and symmetric bilaterally. Cervical radiculopathy however Spurling's are negative. ACS however EKG and cardiac workup negative. My EKG interpretation: Sinus rate of 88, no ST or T wave changes. Imaging independently reviewed and interpreted by myself: 2 view chest x-ray: No acute process also read by radiology. External documents reviewed: N/A Test considered but not ordered:N/A ED course: Atypical nontraumatic pain clavicle to the deltoid. Negative Spurling's test. Reproducible upper thoracic tenderness on the left side. EKG sinus rhythm. With patient's concerns cardiac workup initiated for further evaluation. Cardiac workup negative troponin x 2. Chest x-ray negative. With fatigue symptoms TSH was obtained and negative. Discussed negative workup with patient and spouse. Discussed atypical symptoms at this time. She will monitor symptoms with return precautions. Otherwise outpatient follow-up with her PCP. All questions were answered. Re-evaluation: stable Disposition discussed with patient/family/significant other: Patient and significant other Case discussed with consulting clinician: N/A This note was generated with [employer] dictation software. It may contain incorrect words, spelling, and punctuation that were not noted in checking the note before signing. Lab Data Attestation: I reviewed the patient's lab results. Labs: Laboratory Results - last 24 hr 04/30/23 04/30/23 18:30 21:24 WBC 7.8 RBC 3.89 L Hgb 11.4 L Hct 37.3 MCV 95.9 MCH 29.3 MCHC 30.6 L RDW Std Deviation 47.2 H RDW Coeff of Samuel 13.2 Plt Count 210 MPV 9.5 Immature Gran % (Auto) 0.300 Neut % (Auto) 55.3 Lymph % (Auto) 34.2 [place] % (Auto) 7.3 Eos % (Auto) 2.4 Baso % (Auto) 0.5 Absolute Neuts (auto) 4.3 Absolute Lymphs (auto) 2.66 Nucleated RBC % 0 Sodium 140 Potassium 3.5 Chloride 106 Carbon Dioxide 31.0 Anion Gap 3 L BUN 17 Creatinine 1.34 H Estim Creat Clear Calc 32.32 Est GFR (MDRD) Af Amer 50 L Est GFR (MDRD) Non-Af 42 L BUN/Creatinine Ratio 12.7 Glucose 112 H Calcium 8.8 Troponin I High Sens 6 5 TSH 0.79 Radiography Diagnostic Testing: Clinical Impression(s) from Imaging Studies Chest X-Ray 04/30/23 18:45 IMPRESSION: No radiographic evidence of acute cardiopulmonary disease. Electronically Signed: Sandi Ruiz MD at 19:00 EST , Discharge Plan Triage Chief Complaint: Chest Other ED Provider: Chaitanya Thakkar Dx/Rx/DC Orders Clinical Impression: Atypical chest pain, Left shoulder pain Instructions: ED Chest Pain, Uncertain Cause Prescriptions: No Action gabapentin 600 mg tablet 600 mg PO QHS Restasis MultiDose 0.05 % drops 1 drp ophthalmic (eye) Q12H estradiol 1 mg tablet 1 mg PO DAILY Qty: 30 12RF multivitamin 1 EACH tablet 1 tab PO DAILY duloxetine 60 mg capsule,delayed release(DR/EC) 60 mg PO BID 90 Days Qty: 180 12RF lansoprazole 30 mg capsule,delayed release(DR/EC) 30 mg PO DAILY Qty: 90 2RF triamterene-hydrochlorothiazid 37.5-25 mg tablet See Rx Instructions .ROUTE .COMPLEX Qty: 90 1RF Dose Instruction: TAKE 1 TABLET BY MOUTH IN THE MORNING Rx Instructions: TAKE 1 TABLET BY MOUTH IN THE MORNING Primary Care Provider: Swathi Lagunas Referrals: Swathi Lagunas MD [Primary Care Provider] - 3-5 Days if not improving Activity Restrictions/Additional Instructions: You have atypical chest pains with pain in your upper clavicle into your shoulders. No trauma history. Your EKG and cardiac workup negative with 2 negative troponins. Follow-up with your doctor for reevaluation. If you develop worsening or new symptoms return to the ED for reevaluation. Disposition Disposition: Home, Self Care Discharge Date/Time: 04/30/23 22:15
--- NOTE | 2023-04-30 18:45 | RAD_ITS ---
INDICATION: chest pain EXAMINATION/TECHNIQUE: X-RAY - XR Chest 2 Views COMPARISON: 07/15/2020. FINDINGS: LINES/DEVICES: None. LUNGS: No consolidation, edema or effusion. No pneumothorax. MEDIASTINUM AND CARDIOVASCULAR STRUCTURES: Cardiac silhouette not enlarged. Central airways and mediastinal contour are unremarkable. BONES AND SOFT TISSUES: Unremarkable. RAD/Chest PA and Lateral IMPRESSION: No radiographic evidence of acute cardiopulmonary disease. Electronically Signed: Sandi Ruiz MD at 19:00 EST Reading Location ID and State: [id number] / Tel , Service support ,
[2023-04-30 18:54] LABS: Absolute Lymphocyte Count 2.66 X10^3/uL (0.83-4.51); Absolute Neutrophil Count 4.3 X10^3/uL (2.0-7.7); Basophil# 0.04 X10^3/uL; Basophil% 0.5 % (0-1); Eosinophil# 0.19 X10^3/uL; Eosinophils% 2.4 % (0-5); Hematocrit 37.3 % (37-47); Hemoglobin 11.4 g/dL (12.0-15.0); Lymphocyte # 2.66 X10^3/ul (0.83-4.51); Lymphocyte % 34.2 % (19-41); Mean Corp Hgb Conc 30.6 g/dL (32-36); Mean Corpuscular Hgb 29.3 pg (27.0-32.0); Mean Corpuscular Volume 95.9 fL (81-99); Mean Platelet Vol. 9.5 fl (6.2-12.0); Monocyte# 0.57 X10^3/uL; Monocyte% 7.3 % (0-10); NRBC Flagged by Analyzer 0 % (0-5); Neutrophil # 4.29 X10^3/uL (2.7-7.7); Neutrophil % 55.3 % (47-70); Platelet Count 210 K/mm3 (150-450); RBC Distribution Width CV 13.2 % (11.6-14.6); RBC Distribution Width SD 47.2 fl (35.1-43.9); Red Blood Count 3.89 M/mm3 (4.2-5.4); White Blood Count 7.8 K/mm3 (4.4-11.0)
[2023-04-30 19:14] LABS: Anion Gap 3 (5-15); BUN 17 mg/dL (7-18); BUN/Creat Ratio 12.7 RATIO (10-20); Calcium,Total 8.8 mg/dL (8.5-10.1); Chloride 106 mmol/L (98-107); Creatinine, Serum 1.34 mg/dL (0.55-1.02); EST Glomerular Filtration Rate 42 mL/min (>60); Est Glom Filt Rate - Afr Amer 50 mL/min (>60); Estimated Creatinine Clearance 32.32 ml/min; Glucose 112 mg/dL (74-106); Potassium 3.5 mmol/L (3.5-5.1); Sodium Level 140 mmol/L (136-145); Thyroid Stim Hormone (TSH) 0.79 uIU/mL (0.358-3.74); Troponin-I HS (w/2H Reflex) 6 pg/mL (3.0-54.0)
[2023-04-30 20:41] LABS: Reflex Troponin-HS? (from REC) Y
[2023-04-30 21:48] VITALS: BP 114/71; PULSE 67; RESP 17; O2SAT 97
[2023-04-30 22:03] LABS: Troponin-I HS 5 pg/mL (3.0-54.0)
== END 2023-04-30 22:15 | disposition home or self-care (01) ==
PROVIDERS: Emergency Provider Emergency Medicine; PCP Internal Medicine; Visit Provider Emergency Medicine
DX: R07.89 Other chest pain (principal); F03.90 Unspecified dementia, unspecified severity, without behavioral disturbance, psychotic disturbance, mood disturbance, and anxiety; N18.30 Chronic kidney disease, stage 3 unspecified; M25.512 Pain in left shoulder; Z79.899 Other long term (current) drug therapy
CPT/HCPCS: 36415; 71046; 80048; 84443; 84484; 85025; 93005; 99284; A4216

== ENCOUNTER → 2023-04-30 | Outpatient (CLI) | payer MEDICARE, SELFPAY ==
[2023-04-30 17:45] LABS: Absolute Lymphocyte Count 2.33 X10^3/uL (0.83-4.51); Basophil# 0.04 X10^3/uL; Basophil% 0.5 % (0-1); Eosinophil# 0.18 X10^3/uL; Eosinophils% 2.2 % (0-5); Hematocrit 40.1 % (37-47); Hemoglobin 12.3 g/dL (12.0-15.0); Lymphocyte # 2.33 X10^3/ul (0.83-4.51); Lymphocyte % 28.7 % (19-41); Mean Corp Hgb Conc 30.7 g/dL (32-36); Mean Corpuscular Hgb 29.6 pg (27.0-32.0); Mean Corpuscular Volume 96.6 fL (81-99); Mean Platelet Vol. 9.7 fl (6.2-12.0); Monocyte# 0.56 X10^3/uL; Monocyte% 6.9 % (0-10); NRBC Flagged by Analyzer 0 % (0-5); Neutrophil % 61.5 % (47-70); Platelet Count 227 K/mm3 (150-450); RBC Distribution Width CV 13.2 % (11.6-14.6); RBC Distribution Width SD 47.2 fl (35.1-43.9); Red Blood Count 4.15 M/mm3 (4.2-5.4); White Blood Count 8.1 K/mm3 (4.4-11.0)
[2023-04-30 18:05] LABS: Erythrocyte Sedimentation Rate 31 mm/hr (0-30)
[2023-04-30 18:18] LABS: CRP 8.56 mg/L (0.0-3.0); CRP, High Sensitivity Cardiac 7.06 mg/L; Rheumatoid Factor < 10.0 IU/mL (<15); Uric Acid 6.8 mg/dL (2.6-6.0)
[2023-05-02 12:09] LABS: ANTINUCLEAR ANTIBODIES DIRECT Negative (Negative)
== END | disposition home or self-care (01) ==
LOC: MTLAB 14:52
PROVIDERS: PCP Internal Medicine; Referring Provider Orthopaedic Surgery; Visit Provider Orthopaedic Surgery
DX: Z01.818 Encounter for other preprocedural examination (principal); Z71.3 Dietary counseling and surveillance
CPT/HCPCS: 36415; 84550; 85025; 85652; 86038; 86140; 86141; 86431

== ENCOUNTER → 2023-07-08 | Outpatient (CLI) | payer MEDICARE, SELFPAY ==
--- OUTSIDE RECORDS SUMMARY | 2023-07-08 11:42 | XMS RPT_ITS | CCD ---
Author Name Unknown Address [address] [place] [address] Organization [facility] Care Team Providers Care Ob Nurse Name Role Phone Terrie Orlando MD Unavailable [phone] Damari Chong Unavailable Unavailable John Higuera Unavailable Unavailable Abbas, Mujjahid Unavailable Unavailable Abbas, Mujjahid Unavailable Unavailable Abbas, Mujjahid Unavailable Unavailable Abbas, Mujjahid Unavailable Unavailable Abbas, Mujjahid Unavailable Unavailable Abbas, Mujjahid Unavailable Unavailable Aj, Compa Unavailable Unavailable Aj, Compa Unavailable Unavailable *SELF, REFERRED Unavailable Unavailable Bonezzi, Miranda Zafar Unavailable Unavailable KAISI, MARIA INES Unavailable Unavailable KAISI, MARIA INES Unavailable Unavailable Bonezzi, Miranda Zafar Unavailable Unavailable Bonezzi, Miranda Zafar Unavailable Unavailable Bonezzi, Miranda Zafar Unavailable Unavailable Steve-Caicedo, Carline Unavailable Unavailable Steve-Caicedo, Carline Unavailable Unavailable Bonezzi, Miranda Zafar Unavailable Unavailable MICHAEL LOPEZ Unavailable Unavailable [facility] Unavailable Unavailable [facility] Unavailable Unavailable Blowing RockCici Admitting Unavailabl e WilnerCici Attending Unavailabl e Bonezzi, Miranda Zafar Primary Care Unavailable WilnerCici Admitting Unavailabl e WilnerCici Attending Unavailabl e WilnerCici Referring Unavailabl e Bonezzi, Miranda Zafar Primary Care Unavailable Abbas, Mujjahid Attending Unavailable Bonezzi, Miranda Zafar Primary Care Unavailable Philip Lagunas MD Primary Care Provider [phone] Philip Lagunas MD Primary Care Provider [phone] Lit Lagunas MDongbe Rain Primary Care Provider Tano Lagunasbe Rain Primary Care Provider OLEEMILIA EFEWONGBE B Primary Care Unavailable SHIV LI Attending Unavailable OLEGHE, EFEWONGBE B Primary Care Unavailable MICHAEL LOPEZ JR Referring Unavailable MELLMARGI FLAHERTY Admitting Unavailable MELLERT, MARGI Attending Unavailable OLEGHE, EFEWONGBE Primary Care Unavailable MELLTIFFANIE, MARGI Referring Unavailable KAREN JENSEN Attending Unavailable OLEGHE, EFEWONGBE Primary Care Unavailable AGUEDA GUSTAFSON Attending Unavailable OLEGHE, EFEWONGBE Primary Care Unavailable KAREN JENSEN Attending Unavailable OLEGHE, EFEWONGBE Primary Care Unavailable AUSTIN, MARGI Attending Unavailable OLEGHE, EFEWONGBE Primary Care Unavailable MELLERT, MARGI Attending Unavailable OLEGHE, EFEWONGBE Primary Care Unavailable AGUEDA GUSTAFSON Attending Unavailable OLEGHE, EFEWONGBE Primary Care Unavailable AGUEDA GUSTAFSON Attending Unavailable OLEGHE, EFEWONGBE Primary Care Unavailable XOCHILT LEON Attending Unavailable BRIDLE, FLEX R Referring Unavailable OLEGHE, EFEWONGBE Primary Care Unavailable OLEGHE, EFEWONGBE Primary Care Unavailable BRIDLE, FLEX R Attending Unavailable BRIDLE, FLEX R Referring Unavailable OLEGHE, EFEWONGBE Primary Care Unavailable AUGUSTINE, AGUEDA Attending Unavailable OLEGHE, EFEWONGBE Primary Care Unavailable Allergies Allergy Classification Reported Allergen(s) Allergy Type Date of Onset Reaction(s) Facility (1 source) metoclopramide drug allergy 06-08-[address] [facility] (14 sources) codeine; Translations: [CODEINE] Drug Allergy 09-29-19 03 [facility] (9 sources) meperidine; Translations: [MEPERIDINE (PF)] Drug Allergy 10-09-19 06 [facility] (9 sources) Sulfonamides (Antibiotic); Translations: [SULFA (SULFONAMIDE ANTIBIOTICS)] Propensity to adverse reactions to drug (disorder) 09-29-19 03 [facility] (7 sources) Adhesive Tape; Translations: [ADHESIVE TAPE (ROSINS)] Allergy to substance 06-09-19 19 Rash [facility] (12 sources) Other Propensity to adverse reactions 04-10-20 23 Other [facility] (5 sources) Meperidine Drug Allergy 10-09-19 06 [facility] (5 sources) Metoclopramide Drug Allergy 06-08-19 12 [facility] (5 sources) Sulfonamides (Antibiotic) Drug Intolerance 09-29-19 03 [facility] (5 sources) Wound Dressing Adhesive Drug Allergy 09-25-19 Other [facility] Medications Current Medications Medication Drug Class(es) Dates Sig (Normalized) Sig (Original) acetaminophen 325 mg / oxyCODONE hydrochloride 5 mg oral tablet (17 sources) Opioid Agonist Start: 03-13-2023 take 1 tablet by mouth three times daily oxyCODONE-acetam inophen (Percocet) 5-325 MG tablet Take 1 tablet by mouth 3 times daily. 0 03/13/2023 Active DULoxetine 60 mg delayed release oral capsule (17 sources) Serotonin and Norepinephrine Reuptake Inhibitor Start: 03-01-2023 take 2 capsules by mouth at bedtime DULoxetine (Cymbalta) [address] capsule Take 120 mg by mouth before bedtime. 0 03/01/2023 Active estradiol 1 mg oral tablet (20 sources) Estrogen Start: 10-12-2016 take 1 tablet by mouth once daily estradiol (Estrace) 1 MG tablet Take 1 mg by mouth daily. 0 03/06/2023 Active Completed/Discontinued Medications Medication Drug Class(es) Dates Sig (Normalized) Sig (Original) allopurinol 100 mg oral tablet (4 sources) Xanthine Oxidase Inhibitor Start: 03-10-2022 End: 03-15-2023 take 1 tablet by mouth once daily allopurinol (ZYLOPRIM) 100 mg tablet Take 100 mg by mouth once daily. 0 03/10/2022 03/15/2023 Discontinued Problems Active Problems Problem Classification Problem Date Documented Date Episodic/Chronic Adjustment disorders (2 sources) Adjustment disorder with depressed mood; Translations: [Adjustment disorder with depressed mood] Onset: 07-05-2023 Chronic Complications of surgical procedures or medical care (6 sources) Menopausal symptom; Translations: [Symptomatic postprocedural ovarian failure] 06-28-2014 Chronic Diabetes mellitus without complication (5 sources) Prediabetes; Translations: [Prediabetes] Onset: 04-10-2023 03-27-2023 Episodic Esophageal disorders (20 sources) Gastroesophageal reflux disease; Translations: [Gastroesophageal reflux disease without esophagitis] Onset: 03-19-2023 01-23-2010 Chronic Essential hypertension (20 sources) Essential (primary) hypertension; Translations: [Essential hypertension] Onset: 11-15-2017 03-19-2023 Chronic Fluid and electrolyte disorders (1 source) Hypokalemia; Translations: [Hypokalemia] 04-16-2023 Episodic Genitourinary symptoms and ill-defined conditions (6 sources) Genuine stress incontinence; Translations: [Stress incontinence (female) (male)] 05-15-2021 Chronic Hypertension with complications and secondary hypertension (1 source) Secondary hypertension; Translations: [Secondary hypertension, unspecified] 03-22-2023 Chronic Menopausal disorders (6 sources) Postmenopausal state; Translations: [Hormone replacement therapy] 06-28-2014 Episodic Miscellaneous mental health disorders (2 sources) Eating disorder, unspecified; Translations: [Eating disorder, unspecified] Onset: 07-05-2023 Chronic Nutritional deficiencies (8 sources) Vitamin D deficiency, unspecified; Translations: [Vitamin D deficiency] Onset: 03-24-2018 06-30-2014 Chronic Other hereditary and degenerative nervous system conditions (2 sources) Restless legs syndrome; Translations: [RLS (restless legs syndrome)] Onset: 02-11-2018 Chronic Other hereditary and degenerative nervous system conditions (10 sources) Restless legs; Translations: [Restless legs syndrome] Chronic Other inflammatory condition of skin (7 sources) Rosacea; Translations: [Rosacea, unspecified] Onset: 09-06-2011 09-06-2011 Chronic Other nutritional; endocrine; and metabolic disorders (6 sources) Obesity caused by energy imbalance; Translations: [Other obesity due to excess calories] 03-19-2023 Chronic Other nutritional; endocrine; and metabolic disorders (9 sources) Body mass index 30+ - obesity; Translations: [Body mass index (BMI) 35.0-35.9, adult] 03-27-2023 Chronic Other nutritional; endocrine; and metabolic disorders (6 sources) Obesity; Translations: [Obesity, unspecified] 04-10-2023 Chronic Other nutritional; endocrine; and metabolic disorders (2 sources) Body mass index (BMI) 35.0-35.9, adult; Translations: [Body mass index (BMI) 35.0-35.9, adult] Onset: 04-10-2023 Chronic Other nutritional; endocrine; and metabolic disorders (2 sources) Other obesity due to excess calories; Translations: [Other obesity due to excess calories] Onset: 03-19-2023 Chronic Other nutritional; endocrine; and metabolic disorders (2 sources) Body mass index (BMI) 34.0-34.9, adult; Translations: [Body mass index (BMI) 34.0-34.9, adult] Onset: 03-19-2023 Chronic Other nutritional; endocrine; and metabolic disorders (2 sources) Weight loss; Translations: [Weight Loss] Onset: 05-24-2023 Episodic Residual codes; unclassified (1 source) Behavior finding; Translations: [Other sleep apnea] Chronic Residual codes; unclassified (1 source) Other sleep apnea; Translations: [Sleep apnea-like behavior] Onset: 04-03-2022 Chronic Residual codes; unclassified (3 sources) History of sleeve gastrectomy; Translations: [Acquired absence of stomach [part of]] 03-19-2023 Episodic Residual codes; unclassified (20 sources) Patient encounter status; Translations: [Pain, unspecified] Onset: 03-19-2023 03-19-2023 Episodic Rheumatoid arthritis and related disease (9 sources) Rheumatoid arthritis; Translations: [Rheumatoid arthritis, unspecified] 01-23-2010 Chronic Spondylosis; intervertebral disc disorders; other back problems (3 sources) Degeneration of lumbar intervertebral disc; Translations: [Other intervertebral disc degeneration, lumbar region] Chronic Unclassified (2 sources) Unknown / UNK(Unknown) Onset: 12-17-2016 Past or Other Problems Problem Classification Problem Date Documented Da te Episodic/Chronic Miscellaneous mental health disorders (6 sources) Disorders of initiating and maintaining sleep; Translations: [Adjustment insomnia] Onset: 01-13-2010 01-13-2010 Episodic Nutritional deficiencies (20 sources) Deficiency of multiple nutrient elements; Translations: [Deficiency of multiple nutrient elements] Onset: 03-19-2023 03-19-2023 Episodic Other connective tissue disease (6 sources) Peroneal tendinitis of right lower limb; Translations: [Peroneal tendinitis, right leg] Onset: 10-06-2017 10-06-2017 Episodic Other gastrointestinal disorders (3 sources) Bariatric surgery status; Translations: [Bariatric surgery status] Onset: 05-08-2018 Episodic Other inflammatory condition of skin (1 source) Seborrheic dermatitis; Translations: [Seborrheic dermatitis, unspecified] Onset: 09-06-2011 09-06-2011 Episodic Other skin disorders (1 source) Actinic keratosis; Translations: [Actinic keratosis] Onset: 09-06-2011 09-06-2011 Episodic Other skin disorders (6 sources) Telogen effluvium; Translations: [Telogen effluvium] Onset: 12-05-2004 12-05-2004 Episodic Residual codes; unclassified (2 sources) Acquired absence of stomach [part of]; Translations: [Acquired absence of stomach (part of)] Onset: 03-19-2023 Episodic Residual codes; unclassified (2 sources) Pain, unspecified; Translations: [Pain, unspecified] Onset: 03-19-2023 Episodic Spondylosis; intervertebral disc disorders; other back problems (20 sources) Backache; Translations: [Dorsalgia, unspecified] Onset: 03-19-2023 03-19-2023 Episodic Urinary tract infections (1 source) Urinary tract infectious disease; Translations: [Urinary tract infection, site not specified] Onset: 01-23-2010 Resolved: 02-22-2010 01-23-2010 Episodic Results Test Name Value Interpretation Reference Range Facil ity Vital Signs Date Time Vital Sign Value Performing Clinician Faci lity 05-24-2023 11:39-0500 Body height 160.7 cm Agueda Gustafson MD Work Phone: [employer] 05-24-2023 11:39-0500 Body mass index (BMI) [Ratio] 32.44 kg/m2 Agueda Gustafson MD Work Phone: [employer] 05-24-2023 11:39-0500 Body weight 83.73 kg Agueda Gustafson MD Work Phone: [employer] 05-24-2023 11:39-0500 Diastolic blood pressure 80 mm[Hg] Agueda Gustafson MD Work Phone: [employer] 05-24-2023 11:39-0500 Heart rate 82 /min Agueda Gustafson MD Work Phone: [employer] 05-24-2023 11:39-0500 Systolic blood pressure 120 mm[Hg] Aguead Gustafson MD Work Phone: [facility] 05-07-2023 13:48-0500 Body height 161.3 cm Xochilt Gerstenmaier P A-C Work Phone: [facility] 05-07-2023 13:48-0500 Body mass index (BMI) [Ratio] 32.71 kg/m2 Xochilt Gerstenmaier PA-C Work Phone: [facility] 05-07-2023 13:48-0500 Body weight 85.09 kg Xochilt Gerstenmaier P A-C Work Phone: [facility] 05-07-2023 13:48-0500 Diastolic blood pressure 74 mm[Hg] Xochilt Gerstenmaier PA-C Work Phone: [facility] 05-07-2023 13:48-0500 Heart rate 80 /min Xochilt Gerstenmaier P A-C Work Phone: [facility] 05-07-2023 13:48-0500 Respiratory rate 18 /min Xochilt Gerstenmaier P A-C Work Phone: [facility] 05-07-2023 13:48-0500 SaO2% (BldA) [Mass fraction] 96 % Xochilt Gerstenmaier PA-C Work Phone: [facility] Encounters Encounter Date Encounter Type Care Provider Facility Start: 07-05-2023 End: 07-05-2023 ambulatory KAREN JENSEN [facility] Start: 06-12-2023 End: 06-13-2023 ambulatory FLEX MCKEON [facility] Start: 06-12-2023 End: 06-12-2023 Subsequent hospital visit by physician Flex Marx CNP Work Phone: [facility] X-ray Imaging Procedures Date Procedure Procedure Detail Performing Clinician Start: 06-12-2023 Radiologic exam upr gi trc single contrast study Flex Marx CNP Work Phone: Start: 05-24-2023 Adult depression scr eening assessment Agueda Gustafson MD Work Phone: Start: 04-10-2023 Lipid 1996 panel - S juan or Plasma Flex Mckeon MANAGER [employer]EARCH DEVELOPMENT - HUMAN RESOURCE STATISTICIAN Work Phone: Start: 10-09-2021 Mammography Margi flaherty DO Work Phone: Start: 02-11-2018 Adult depression scr eening assessment Michael Lopez Jr., MD Work Phone: Start: 11-15-2017 Follow-up visit Start: 12-17-2016 Mammography Michael zepeda Jr., MD Work Phone: Start: 09-13-2016 Lipid 1996 panel - S juan or Plasma Michael Lopez Jr., MD Work Phone: Start: 11-05-2008 Colonoscopy Michael zepeda Jr., MD Work Phone: Plan of Treatment Date Care Activity Detail Author Start: 06-09-2028 DTaP/Tdap/Td Vaccine s (2 - Td or Tdap) DTaP/Tdap/Td Vaccines (2 - Td or Tdap) [facility] Start: 06-09-2028 Urine microalbumin profile DTaP,Tdap,Td Vaccine (2 - Td or Tdap) [facility] Start: 04-10-2028 Lipid panel Lipid Panel [facility] Start: 04-10-2026 Diabetes mellitus screening Diabetes Screening [facility] Start: 05-24-2024 Depression Screening Depression Scre ening [facility] Start: 07-17-2023 End: 04-16-2024 25-hydroxyvitamin D3 [Mass/volume] in Serum or Plasma Vitamin D Deficiency Screening (Vit D 25) Lab Routine Vitamin D deficiency Expected: 07/17/2023 (Approximate), Expires: 04/16/2024 [facility] Work Phone: Immunizations Immunization Date Immunization Notes Care Provider [facility] 03-16-2020 influenza, seasonal, injectable Michael Lopez Jr., MD Work Phone: [facility] 03-16-2020 influenza virus vacc ine, unspecified formulation Michael Lopez Jr., MD Work Phone: [facility] Payers Date Payer Category Payer Medicare [id number] 2017 Unknown [id number] 2017 Unknown PRIMETIME [employer] HMO POS [id number] 2017-Present [phone] [address] [place] [address] HMO [id number] 2015 Unknown MEDPAY MEDPAY [id number] 2015-Present [phone] [place] [address] Indemnity [id number] 2005 Unknown 2005 Unknown PSYCH GENERIC BH GENERIC [id number] 2005-Present [phone] [address] [place] [address] Indemnity [id number] 1950 Unknown [id number] 1950 Unknown [id number] 1952 Unknown [id number] 1950 Unknown [id number] 1950 Unknown [id number] 1950 Unknown [id number] 1950 Unknown [id number] 1950 Unknown [id number] 1950 Unknown [id number] Social History Date Type Detail Facility Start: 03-16-2022 End: 03-19-2023 Tobacco smoking status NHIS Never smoked tobacco [facility] Work Phone: Start: 08-28-2021 End: 05-24-2023 Alcohol intake Current drinker of alcohol (finding) [facility] Start: 08-28-2021 End: 05-24-2023 Alcohol intake [facility] Start: 1950 Sex Assigned At Not on file [facility] Start: 03-16-2022 End: 03-19-2023 Tobacco use and exposure Smokeless tobacco non-user [facility] Start: 03-06-2022 End: 03-16-2022 Exposure to SARS-CoV-2 (event) Not sure [facility] Start: 03-16-2022 End: 05-24-2023 Tobacco use panel [facility] Adult Depression Screening Assessment 0 [facility] Start: 03-19-2023 Alcohol Comment socially [facility] Within the last year , have you been afraid of your partner or ex-partner? No [facility] Clinical Notes 06-29-2014 to 05-24-2023 Annamarie Valverde LPN - 05/24/2023 1:00 PM Meg Gustafson MD - 05/24/2023 1:00 PM Reyes Leon PA-C - 05/07/2023 1:40 PM ESTPatient InstructionsAnnamarie Valverde LPN - 04/26/2023 8:50 AM EST Note Date & Type Note Facility 05-24-2023 Note [facility] SURGICAL WEIGHT LOSS MANAGEMENT PROGRAM PROGRESS NOTE FOLLOW UP Patient: Celina Pat Date of : 1950 Service Date: 05/24/2023 DE Visit number: 3 of 3 Pre Program Weight Metrics Date of Initial Consultation:@FLOWLAST([id number])@ Initial Weight: @FLOWLAST([id number])@ Initial BMI: @FLOWLAST([id number])@ [place] Body Weight: @FLOWLAST([id number])@ Excess Body Weight: @FLOWLAST([id number])@ Follow Up Weight Metrics Last Three Weights Including Today's Weight: Wt Readings from Last 3 Encounters: 05/24/23 184 lb 9.6 oz (83.7 kg) 05/07/23 187 lb 9.6 oz (85.1 kg) 04/26/23 188 lb 3.2 oz (85.4 kg) Today's BMI: BMI: 32.44 %EBWL: % EBWL: 17% Weight Chance Since Last Visit: Weight Change: -3.6 lbs Weight Change from Initial DE/SPR Weight: Total Weight Change: -11.4 lbs Patient has the following question(s): none Falls Risk Assessment Patient does nottake medications which affect BP or mental status Patient does not have newly prescribed or changed dosage of medications within past 30 days which affect BP or mental status Patient has not fallen in the past 2 months Patient does notdemonstrate unsteady gait Patient uses the following ambulatory assistive devices: none Patient states the presence of the following traits which increases risk of fall: none Patient is not on home O2 Completed by: Annamarie Valverde [facility] 05-24-2023 History of Presen t illness Narrative [facility] SURGICAL WEIGHT LOSS MANAGEMENT PROGRAM PROGRESS NOTE FOLLOW UP Patient: Celina Pat Date of : 1950 Service Date: 05/24/2023 DE Visit number: 3 of 3 Pre Program Weight Metrics Date of Initial Consultation:@FLOWLAST(8961)@ Initial Weight: @FLOWLAST([id number])@ Initial BMI: @FLOWLAST([id number])@ [place] Body Weight: @FLOWLAST([id number])@ Excess Body Weight: @FLOWLAST([id number])@ Follow Up Weight Metrics Last Three Weights Including Today's Weight: Wt Readings from Last 3 Encounters: 05/24/23 184 lb 9.6 oz (83.7 kg) 05/07/23 187 lb 9.6 oz (85.1 kg) 04/26/23 188 lb 3.2 oz (85.4 kg) Today's BMI: BMI: 32.44 %EBWL: % EBWL: 17% Weight Chance Since Last Visit: Weight Change: -3.6 lbs Weight Change from Initial DE/SPR Weight: Total Weight Change: -11.4 lbs Patient has the following question(s): none Falls Risk Assessment Patient does nottake medications which affect BP or mental status Patient does not have newly prescribed or changed dosage of medications within past 30 days which affect BP or mental status Patient has not fallen in the past 2 months Patient does notdemonstrate unsteady gait Patient uses the following ambulatory assistive devices: none Patient states the presence of the following traits which increases risk of fall: none Patient is not on home O2 Completed by: Annamarie Valverde LPN HPI, PHYSICAL EXAM, AND PLAN Patient is here today for follow up of their physician supervised diet and exercise in preparation for weight loss surgery. Weight trend since last visit: lost 4 lb over 1 month stable This patient's excess weight is causing the following co-morbid conditions at this time HTN Plan: Physical Examination: Blood pressure 120/80, pulse 82, height 5' 3.25 (1.607 m), weight 184 lb 9.6 oz (83.7 kg). General: This patient is alert and oriented X3 General: This patient is awake, alert, and oriented, and is in no apparent distress. Extremities: No cyanosis, clubbing or edema/ No calf tenderness/No restrictions of movement, is ambulatory without assistance. Neurological: Intact x 4 extremities, no focal deficits notes. Skin: No rashes or lesions noted. Assessment of Current Diet and Exercise Current Diet This patient s current diet is: 80% meal plan Her diet contains adequate amounts of protein, inadequate amounts of healthy fats, adequate amounts of green, leafy vegetables, and adequate amounts of fruits. Her comfort foods include: none Current Activity This patient currently does exercise for 30 Minutes per session, 5 times per week, including the following: walking. Current Eating Behaviors This patients demonstrates the following behaviors as they relate to her eating: structured She eats approximately 5-6 times per day. Her last meal/snack was at 6 am/pm. Plan: HTN: stable. continued medical management, DE and plan for metabolic weight loss and surgery. Advised patient that She must continue to adhere to regular monthly visits to meet the requirements of her insurance company. Additionally, She is to adopt eating plan recommendations and show weight loss trend to demonstrate readiness for the changes that will be required following surgery. Patient's weight pattern does demonstrates meal plan adoption and weight loss each month Physician Diet Recommendations provided in Patient Instructions Patient: [] To return in one month for follow up. Comorbids managing [x] Has completed insurance required monthly diet and exercise series [] Needs to continue monthly visits until surgery Current Meds Patient's Medications New Prescriptions No medications on file Previous Medications DULOXETINE (CYMBALTA) [address] CAPSULE Take 120 mg by mouth before bedtime. ESTRADIOL (ESTRACE) 1 MG TABLET Take 1 mg by mouth daily. GABAPENTIN (NEURONTIN) 300 MG CAPSULE Take 300 mg by mouth Nightly as needed. 4-5 tablets LANSOPRAZOLE (PREVACID) [address] CAPSULE Take 30 mg by mouth before bedtime. OXYCODONE-ACETAMINOPHEN (PERCOCET) 5-325 MG TABLET Take 1 tablet by mouth 3 times daily. TRIAMTERENE-HYDROCHLOROTHIAZIDE (MAXZIDE-25) 37.5-25 MG TABLET Take 1 tablet by mouth every morning. Modified Medications No medications on file Discontinued Medications No medications on file I spend a total of 20 minutes on the same day of the visit in discussing/counseling the patient regarding the diet and exercise in the preparation for weight loss surgery.Education on the meal plan and 7 rules of eating is provided. Meal prep is encouraged as a foundation of the meal plan. Food journal is encouraged as a feedback system before and after bariatric surgery. Counseling on no nicotine/alcohol before and after surgery. Exercise and its role in the preparation for weight loss surgery is explained. HTN Is associated with obesity and weight loss is discussed as a treatment option for HTN Full chart review was performed.Clinical documentation is updated and completed. documented in this encounter [facility] 05-07-2023 History of Presen t illness Narrative Visit type: New patient History of Present Illness: HPI History of Present Illness: Celina Pat is a 72 y.o. female patient being seen for pre-operative pulmonary clearance. She was recently seen by Dr. Guzmán and plans to undergo Revision Single Anastomosis Duodenal-Ileal bypass (REJI) and Liver Wedge Biopsy in the near future. She feels well today. Hx of underlying lung disease: none Respiratory symptoms: none. Denies shortness of breath, coughing, wheezing, chest tightness. Endorses hx of seasonal allergies, worse in the fall. Symptoms include rhinorrhea and itchy eyes. Takes Benadryl PRN. 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 Denies hx of occupational exposures. Known history of sleep apnea: none Sleep study done 04/10/2022: negative for obstructive sleep apnea, MIGEL 2.3. SpO2 <88% for 5.5 minutes. Hx of restless leg syndrome, on Gabapentin. [place] Sleepiness Scale: 1 Sleep apnea symptoms: Bedtime - 11 am Sleep latency - none Wake time - 8 am. Feels that she sleeps well with Gabapentin for RLS. Feels energized in the AM. Snoring - none Apneas witnessed- none AM headaches- none Daytime somnolence- none Fatigue - none Baseline Exercise tolerance/MMRC score( Bold ) MMRC Dyspnea Scale Grade Description of Breathlessness 0 I only get breathless with strenuous exercise. 1 I get short of breath when hurrying on level ground or walking up a slight hill. 2 On level ground, I walk slower than people of the same age because of breathlessness, or have to stop for breath when walking at my own pace. 3 I stop for breath after walking about 100 yards or after a few minutes on level ground. 4 I am too breathless to leave the house or I am breathless when dressing. Past Medical History: Past Medical History: Diagnosis Date Anesthesia complication Back pain Deficiency of multiple nutrient elements 03/19/2023 Depression Fatigue GERD (gastroesophageal reflux disease) HTN (hypertension) Hx: UTI (urinary tract infection) Joint pain, hip Joint pain, knee Muscle weakness Pain management 03/19/2023 SOBOE (shortness of breath on exertion) Social History: Social History Socioeconomic History Marital status: Tobacco Use Smoking status: Never Smokeless tobacco: Never Vaping Use Vaping Use: Never used Substance and Sexual Activity Alcohol use: Yes Comment: socially Drug use: Not Currently Sexual activity: Yes Partners: Male Social Determinants of Health Intimate Partner Violence: Not At Risk (04/16/2023) Humiliation, Afraid, Rape, and Kick questionnaire Fear of Current or Ex-Partner: No Emotionally Abused: No Physically Abused: No Sexually Abused: No Family History: Family History Problem Relation Name Age of Onset Hypertension Mother Dementia Mother COPD Mother Lymphoma Father ROS: Review of Systems Constitutional: Negative for chills, fatigue and fever. Respiratory: Negative for cough, chest tightness, shortness of breath and wheezing. Cardiovascular: Negative for chest pain, palpitations and leg swelling. Gastrointestinal: Negative for diarrhea, nausea and vomiting. Psychiatric/Behavioral: Negative for sleep disturbance. All other systems reviewed and are negative. Medications: @MEDCMED@ Allergies: Allergies Allergen Reactions Metoclopramide Other reaction(s): increases RLS Wound Dressing Adhesive Other Codeine nausea, vomiting Meperidine Other Other Tape Tears skin off Sulfa Antibiotics nausea, vomiting Vital Signs: BP 120/74 (BP Location: Left arm, Patient Position: Sitting, BP Cuff Size: Adult) Pulse 80 Resp 18 Ht 5' 3.5 (1.613 m) Wt 187 lb 9.6 oz (85.1 kg) SpO2 96% Comment: RA BMI 32.71 kg/m Physical Exam: Physical Exam Constitutional: Appearance: Normal appearance. She is obese. HENT: Head: Normocephalic and atraumatic. Eyes: Extraocular Movements: Extraocular movements intact. Pupils: Pupils are equal, round, and reactive to light. Cardiovascular: Rate and Rhythm: Normal rate and regular rhythm. Heart sounds: Normal heart sounds. Pulmonary: Effort: Pulmonary effort is normal. Breath sounds: Normal breath sounds. Musculoskeletal: Right lower leg: No edema. Left lower leg: No edema. Neurological: Mental Status: She is alert and oriented to person, place, and time. Mental status is at baseline. Psychiatric: Mood and Affect: Mood normal. Speech: Speech normal. Behavior: Behavior normal. Assessment and Plan: Diagnosis Plan 1. Pre-op evaluation Planning REJI in the near future. Pulmonary status is currently optimized. No hx of underlying lung disease, never smoked. Very low risk for DONAVAN, ESS 1. Sleep study not indicated at this time. - She is intermediate risk for planned procedure. Ok to proceed from pulmonary standpoint - Recommend early ambulation, pulmonary toilet to present post-operative complications. 2. Gastroesophageal reflux disease without esophagitis Symptoms well controlled on Prevacid. 3. Class 1 obesity due to excess calories with serious comorbidity and body mass index (BMI) of 34.0 to 34.9 in adult BMI 32.71, will benefit from weight loss. Follow-up per Dr. Guzmán. Follow-up: No follow-ups on file. documented in this encounter [facility] 05-07-2023 Instructions Kiki Pelaez MA - 05/07/2023 1:40 PM EST YOUR APPOINTMENT TODAY WAS WITH [facility] LUNG NODULE CLINIC, COPD CLINIC, PULMONARY AND SLEEP MEDICINE OFFICE. PLEASE CALL OUR OFFICE AT [phone] IF YOU HAVE NOT RECEIVED YOUR TEST RESULTS 7 DAYS AFTER TESTING IS COMPLETED. PLEASE REMEMBER TO REQUEST REFILLS AT YOUR OFFICE VISITS. PHONE/FAX REQUESTS REQUIRE 48-72 HOURS FOR RESPONSE. A FRIENDLY REMINDER COPAYS ARE DUE AT TIME OF SERVICE. THANK YOU. Our Patients Are Important! We want to improve and you can help. After your visit we want you to feel: Listened to, Respected and have your health care explained. You may receive a survey asking you about your visit. Please complete the survey. We will use your feedback to make improvements. COVID-19 VACCINATION INFORMATION: [facility] [phone] [email or web address] [facility] Central Scheduling [phone] [facility] Sleep Scheduling [phone] documented in this encounter [facility] 04-26-2023 Note [facility] SURGICAL WEIGHT LOSS MANAGEMENT PROGRAM PROGRESS NOTE FOLLOW UP Patient: Celina Pat Date of : 1950 Service Date: 04/26/2023 DE Visit number: 2 of 3 Pre Program Weight Metrics Date of Initial Consultation:@FLOWLAST([id number])@ Initial Weight: @FLOWLAST([id number])@ Initial BMI: @FLOWLAST([id number])@ [place] Body Weight: @FLOWLAST([id number])@ Excess Body Weight: @FLOWLAST([id number])@ Follow Up Weight Metrics Last Three Weights Including Today's Weight: Wt Readings from Last 3 Encounters: 04/26/23 188 lb 3.2 oz (85.4 kg) 04/16/23 194 lb (88 kg) 04/10/23 196 lb (88.9 kg) Today's BMI: BMI: 33.07 %EBWL: % EBWL: 11% Weight Chance Since Last Visit: Weight Change: -7.8 lbs Weight Change from Initial DE/SPR Weight: Total Weight Change: -7.8 lbs Patient has the following question(s): none Falls Risk Assessment Patient does nottake medications which affect BP or mental status Patient does not have newly prescribed or changed dosage of medications within past 30 days which affect BP or mental status Patient has not fallen in the past 2 months Patient does notdemonstrate unsteady gait Patient uses the following ambulatory assistive devices: none Patient states the presence of the following traits which increases risk of fall: none Patient is not on home O2 [facility] History of Presen t illness Narrative [facility] CARE [place] SURGICAL WEIGHT LOSS MANAGEMENT PROGRAM PROGRESS NOTE FOLLOW UP Patient: Celina Pta Date of : 1950 Service Date: 04/26/2023 DE Visit number: 2 of 3 Pre Program Weight Metrics Date of Initial Consultation:@FLOWLAST([id number])@ Initial Weight: @FLOWLAST([id number])@ Initial BMI: @FLOWLAST([id number])@ [place] Body Weight: @FLOWLAST([id number])@ Excess Body Weight: @FLOWLAST([id number])@ Follow Up Weight Metrics Last Three Weights Including Today's Weight: Wt Readings from Last 3 Encounters: 04/26/23 188 lb 3.2 oz (85.4 kg) 04/16/23 194 lb (88 kg) 04/10/23 196 lb (88.9 kg) Today's BMI: BMI: 33.07 %EBWL: % EBWL: 11% Weight Chance Since Last Visit: Weight Change: -7.8 lbs Weight Change from Initial DE/SPR Weight: Total Weight Change: -7.8 lbs Patient has the following question(s): none Falls Risk Assessment Patient does nottake medications which affect BP or mental status Patient does not have newly prescribed or changed dosage of medications within past 30 days which affect BP or mental status Patient has not fallen in the past 2 months Patient does notdemonstrate unsteady gait Patient uses the following ambulatory assistive devices: none Patient states the presence of the following traits which increases risk of fall: none Patient is not on home O2 Completed by: Annamarie Valverde LPN HPI, PHYSICAL EXAM, AND PLAN Patient is here today for follow up of their physician supervised diet and exercise in preparation for weight loss surgery. Weight trend since last visit: lost 8 lb over 1 month stable This patient's excess weight is causing the following co-morbid conditions at this time HTN Plan: Physical Examination: BP 117/81 Pulse 88 Ht 5' 3.25 (1.607 m) Wt 188 lb 3.2 oz (85.4 kg) BMI 33.08 kg/m General: This patient is alert and oriented X3 General: This patient is awake, alert, and oriented, and is in no apparent distress. Extremities: No cyanosis, clubbing or edema/ No calf tenderness/No restrictions of movement, is ambulatory without assistance. Neurological: Intact x 4 extremities, no focal deficits notes. Skin: No rashes or lesions noted. Assessment of Current Diet and Exercise Current Diet This patient s current diet is: 80% meal plan Her diet contains adequate amounts of protein, inadequate amounts of healthy fats, adequate amounts of green, leafy vegetables, and adequate amounts of fruits. Her comfort foods include: none Current Activity This patient currently does exercise for 30 Minutes per session, 5 times per week, including the following: walking. Current Eating Behaviors This patients demonstrates the following behaviors as they relate to her eating: structured She eats approximately 5-6 times per day. Her last meal/snack was at 6 am/pm. Plan: HTN: stable. continued medical management, DE and plan for metabolic weight loss and surgery. Advised patient that She must continue to adhere to regular monthly visits to meet the requirements of her insurance company. Additionally, She is to adopt eating plan recommendations and show weight loss trend to demonstrate readiness for the changes that will be required following surgery. Patient's weight pattern does demonstrates meal plan adoption and weight loss each month Physician Diet Recommendations provided in Patient Instructions Patient: [x] To return in one month for follow up. Comorbids managing [] Has completed insurance required monthly diet and exercise series [] Needs to continue monthly visits until surgery Current Meds Patient's Medications New Prescriptions No medications on file Previous Medications DULOXETINE (CYMBALTA) [address] CAPSULE Take 120 mg by mouth before bedtime. ESTRADIOL (ESTRACE) 1 MG TABLET Take 1 mg by mouth daily. GABAPENTIN (NEURONTIN) 300 MG CAPSULE Take 300 mg by mouth Nightly as needed. 4-5 tablets LANSOPRAZOLE (PREVACID) [address] CAPSULE Take 30 mg by mouth before bedtime. OXYCODONE-ACETAMINOPHEN (PERCOCET) 5-325 MG TABLET Take 1 tablet by mouth 3 times daily. TRIAMTERENE-HYDROCHLOROTHIAZIDE (MAXZIDE-25) 37.5-25 MG TABLET Take 1 tablet by mouth every morning. Modified Medications No medications on file Discontinued Medications No medications on file I spend a total of 20 minutes on the same day of the visit in discussing/counseling the patient regarding the diet and exercise in the preparation for weight loss surgery.Education on the meal plan and 7 rules of eating is provided. Meal prep is encouraged as a foundation of the meal plan. Food journal is encouraged as a feedback system before and after bariatric surgery. Counseling on no nicotine/alcohol before and after surgery. Exercise and its role in the preparation for weight loss surgery is explained. HTN Is associated with obesity and weight loss is discussed as a treatment option for HTN Full chart review was performed.Clinical documentation is updated and completed. documented in this encounter [facility] 04-16-2023 Note Patient: Celina Pat Procedure Summary Date: 04/16/23 Room / Location: [facility] ENDO SEC 2 / ARCH Gastroenterology Anesthesia Start: 808 Anesthesia Stop: 818 Procedure: EGD WITH BIOPSY Diagnosis: Gastro-esophageal reflux disease without esophagitis (Gastro-esophageal reflux disease without esophagitis [K21.9]) Providers: Margi Guzmán DO Responsible Provider: Yousuf Calzada MD Anesthesia Type: TIVA ASA Status: 3 Anesthesia Type: TIVA Vitals Value Taken Time BP 115/86 04/16/23 0822 Temp 36.1 ?C (97 ?F) 04/16/23 0822 Pulse 65 04/16/23 0822 Resp 15 04/16/23 0822 SpO2 99 % 04/16/23 0822 Anesthesia Post Evaluation Patient location during evaluation: PACU Patient participation: complete - patient participated Level of consciousness: awake and alert Pain management: satisfactory to patient Airway patency: patent Dental Injury: no Cardiovascular status: acceptable, blood pressure returned to baseline and hemodynamically stable Respiratory status: acceptable and spontaneous ventilation Hydration status: euvolemic Nausea/Vomiting: controlled No notable events documented. Patient can be discharged once all PACU criteria has been met. [facility] 04-16-2023 Note Patient: Celina Pat Procedure Summary Date: 04/16/23 Room / Location: [address] ENDO SEC 2 / ARCH Gastroenterology Anesthesia Start: 808 Anesthesia Stop: 818 Procedure: EGD WITH BIOPSY Diagnosis: Gastro-esophageal reflux disease without esophagitis (Gastro-esophageal reflux disease without esophagitis [K21.9]) Providers: Margi Guzmán DO Responsible Provider: Yousuf Calzada MD Anesthesia Type: TIVA ASA Status: 3 Anesthesia Type: TIVA Vitals Value Taken Time BP 115/86 04/16/23 0822 Temp 36.1 ?C (97 ?F) 04/16/23 0822 Pulse 65 04/16/23 0822 Resp 15 04/16/23 0822 SpO2 99 % 04/16/23 0822 Anesthesia Post Evaluation Patient location during evaluation: PACU Patient participation: complete - patient participated Level of consciousness: awake and alert Pain management: satisfactory to patient Multimodal analgesia pain management approach Airway patency: patent Two or more strategies used to mitigate risk of obstructive sleep apnea Cardiovascular status: acceptable and hemodynamically stable Respiratory status: acceptable Hydration status: acceptable No notable events documented. MIPS #[id number] PONV Patient did not receive an inhalational anesthetic ([id number]) MIPS # 424 Perioperative Temperature Management Anesthesia time was less than 60 minutes (4256F) MIPS #477 Multimodal Pain Management Not emergent case Patient was not administered multimodal pain management (G2149) Patient reports no pain in PACU (G2149) MIPS #404 Anesthesiology Smoking Abstinence The patient is not a current smoker (e.g. cigarette, cigar, pipe, e-cigarette/vaping/marijuana) If no stop here (G9644) I completed my handoff to the receiving clinician during which we: 1. Identified the patient 2. Identified the responsible provider 3. Reviewed the pertinent medical history 4. Discussed the surgical course 5. Reviewed intra-op anesthesia management and issues during anesthesia 6. Set expectations for post-procedure period 7. Allowed opportunity for questions and acknowledgement of understanding. [facility] 04-16-2023 Note Department of Surger y Preoperative H&P PATIENT NAME: Celina Pat : 1950 ATTENDING PHYSICIAN: Margi Guzmán DO ADMIT DATE: 04/16/2023 TODAY'S DATE: 04/16/2023 HISTORY OF PRESENT ILLNESS: The patient is a 72 y.o. female who presents with Morbid Obesity and GERD. I thoroughly reviewed the patient's medical history, family history, social history and review of systems with the patient today. Please see medical record for pertinent positives. Past Medical History: Past Medical History: Diagnosis Date Anesthesia complication Back pain Deficiency of multiple nutrient elements 03/19/2023 Depression Fatigue GERD (gastroesophageal reflux disease) HTN (hypertension) Hx: UTI (urinary tract infection) Joint pain, hip Joint pain, knee Muscle weakness Pain management 03/19/2023 SOBOE (shortness of breath on exertion) Past Surgical History: Past Surgical History: Procedure Laterality Date CHOLECYSTECTOMY 2011 [facility] HYSTERECTOMY [facility] REVISE KNEE JOINT REPLACE,ALL PARTS (HISTORICAL) Bilateral 2004 [facility] ROTATOR CUFF REPAIR Right 2007 [facility] ROTATOR CUFF REPAIR Left 2008 [facility] SLEEVE GASTRECTOMY, LAPAROSCOPIC (HISTORICAL) 2019 [facility] W/ Hiatal hernia Current Medications: Current Facility-Administered Medications Medication Dose Route Frequency Provider Last Rate Last Admin sodium chloride 0.9 % infusion 5-250 mL/hr IntraVENous PRN Margi Guzmán DO sodium chloride 0.9% (NS) flush 10 mL 10 mL IntraVENous 2 times per day Margi Guzmán DO sodium chloride 0.9% (NS) flush 10 mL 10 mL IntraVENous PRN Margi Guzmán DO Facility-Administered Medications Ordered in Other Encounters Medication Dose Route Frequency Provider Last Rate Last Admin lactated Ringer's infusion IntraVENous Continuous PRN Antoine Cobb CRNA New Bag at 11/28/23 0800 Allergies: Allergies Allergen Reactions Other Other Tape Tears skin off Social History: Social History Socioeconomic History Marital status: Spouse name: Not on file Number of children: Not on file Years of education: Not on file Highest education level: Not on file Occupational History Not on file Tobacco Use Smoking status: Never Smokeless tobacco: Never Substance and Sexual Activity Alcohol use: Yes Comment: socially Drug use: Not Currently Sexual activity: Yes Partners: Male Other Topics Concern Not on file Social History Narrative Not on file Social Determinants of Health Financial Resource Strain: Not on file Food Insecurity: Not on file Transportation Needs: Not on file Physical Activity: Not on file Stress: Not on file Social Connections: Not on file Intimate Partner Violence: Not At Risk (04/16/2023) Humiliation, Afraid, Rape, and Kick questionnaire Fear of Current or Ex-Partner: No Emotionally Abused: No Physically Abused: No Sexually Abused: No Housing Stability: Not on file Family History: Family History Problem Relation Name Age of Onset Hypertension Mother Dementia Mother COPD Mother Lymphoma Father REVIEW OF SYSTEMS: CONSTITUTIONAL: Negative for fatigue, and unexpected weight change RESPIRATORY: Negative for cough, SOB, and wheezing CARDIOVASCULAR: Negative for chest pains and palpatations GASTROINTESTINAL: Morbid Obesity and GERD HEMATOLOGIC/LYMPHATIC: Negative for adenopathy. Does not bruise/bleed easily. NEUROLOGICAL: Negative for seizures and syncope * All other ROS reviewed see HPI for pertinent positives and negatives. PHYSICAL EXAM: VITALS: BP 138/80 Pulse 68 Temp 36.3 ?C (97.4 ?F) (Tympanic) Resp 16 Ht 5' 3.5 (1.613 m) Wt 194 lb (88 kg) SpO2 99% BMI 33.83 kg/m? GENERAL: Oriented to person, place, and time. Appears well nourished. No distress ENT: Normocepalic,atraumatic, without obvious abnormality NECK: supple, symmetrical, trachea midline LUNGS: Resp effort easy and unlabored, breath sounds normal CARDIOVASCULAR: RRR, No murmur ABDOMEN: Soft, non-tender, no open wounds. MUSCULOSKELETAL: Normal range of motion, ambulatory without assistance NEUROLOGIC: No focal neurologic deficits IMPRESSION & PLAN: 72 y.o. female presents today for EGD today for Morbid Obesity and GERD -Patient counseled on risks, benefits, and alternatives of treatment plan at length. Patient states an understanding and willingness to proceed with plan. [facility] 04-16-2023 Note Endoscopy Center- [facility] Patient Name: Celina Pat Procedure Date: 04/16/2023 7:36 AM Gender: Female Date of : 1950 Age: 72 Admit Type: Outpatient Note Status: Finalized Endoscopist: Margi Guzmán DO, [id number] Procedure: Upper GI endoscopy Indications: Suspected gastro-esophageal reflux disease Findings: The esophagus was normal. Mild inflammation was found in the gastric antrum. Biopsies were taken with a cold forceps for Helicobacter pylori testing. Verification of patient identification for the specimen was done by the physician and nurse using the patient's name and medical record number. Estimated blood loss was minimal. The examined duodenum was normal. Impression: - Normal esophagus. - Gastritis. Biopsied. - Normal examined duodenum. Recommendation: - Patient has a contact number available for emergencies. The signs and symptoms of potential delayed complications were discussed with the patient. Return to normal activities tomorrow. Written discharge instructions were provided to the patient. - Resume previous diet. - Continue present medications. - Await pathology results. Referring MD: Margi Meza DO CC Letter to: Philip Lagunas Medicines: Monitored Anesthesia Care Procedure: Pre-Anesthesia Assessment: - Prior to the procedure, a History and Physical was performed, and patient medications and allergies were reviewed. The patient's tolerance of previous anesthesia was also reviewed. The risks and benefits of the procedure and the sedation options and risks were discussed with the patient. All questions were answered, and informed consent was obtained. Prior Anticoagulants: The patient has taken no anticoagulant or antiplatelet agents. ASA Grade Assessment: per anesthesia endoscopic documentation. After reviewing the risks and benefits, the patient was deemed in satisfactory condition to undergo the procedure. - The anesthesia plan was to use monitored anesthesia care (MAC). - Prior Aspirin/ NSAID therapy: The patient has taken no aspirin or NSAID medications. After obtaining informed consent, the endoscope was passed under direct vision. Throughout the procedure, the patient's blood pressure, pulse, and oxygen saturations were monitored continuously. The Endoscope was introduced through the mouth, and advanced to the third part of duodenum. The upper GI endoscopy was accomplished without difficulty. The patient tolerated the procedure well. Complications: No immediate complications. Procedure Code(s): --- Professional --- 93374, Esophagogastroduodenoscopy, flexible, transoral; with biopsy, single or multiple --- Technical --- 77436, Esophagogastroduodenoscopy, flexible, transoral; with biopsy, single or multiple Diagnosis Code(s): --- Professional --- K29.70, Gastritis, unspecified, without bleeding --- Technical --- K29.70, Gastritis, unspecified, without bleeding CPT copyright 2021 [employer]. All rights reserved. The codes documented in this report are preliminary and upon cable tv installer review may be revised to meet current compliance requirements. Attending Participation: I personally performed the entire procedure. Margi Guzmán DO 04/16/2023 8:19:13 AM This report has been signed electronically. Number of Addenda: 0 Note Initiated On: 04/16/2023 7:36 AM [facility] 04-16-2023 Telephone encounter Note Signed. [employer] Phone: 04-16-2023 Miscellaneous Notes Signed. Sent pt MyChart message regarding Low D at 24 and low K+ at 3.3. Pt is not taking vitamin D, will start 4000 I U daily and will add high K+ foods daily. Will recheck K+ in 1-2 weeks and vitamin D levels in 3 months, orders pending, please sign. Thank you so much! ----- Message from DAVE Lopez CNP sent at 04/10/2023 12:02 PM EST ----- thx documented in this encounter [facility] 04-16-2023 Note Patient: Celina Pat Procedure Information Date/Time: 04/16/23 0800 Procedure: EGD WITH BIOPSY - 20 MINUTES Location: [facility] ENDO SEC 2 / ARCH Gastroenterology Providers: Margi Guzmán, DO Relevant Problems Cardio (+) HTN (hypertension) GI (+) GERD (gastroesophageal reflux disease) Past Medical History: Past Medical History: No date: Anesthesia complication No date: Back pain 03/19/2023: Deficiency of multiple nutrient elements No date: Depression No date: Fatigue No date: GERD (gastroesophageal reflux disease) No date: HTN (hypertension) No date: Hx: UTI (urinary tract infection) No date: Joint pain, hip No date: Joint pain, knee No date: Muscle weakness 03/19/2023: Pain management No date: SOBOE (shortness of breath on exertion) Past Surgical History: Past Surgical History: 2012: CHOLECYSTECTOMY Comment: [facility] No date: HYSTERECTOMY Comment: [facility] 2004: REVISE KNEE JOINT REPLACE,ALL PARTS (HISTORICAL); Bilateral Comment: [facility] 2008: ROTATOR CUFF REPAIR; Right Comment: [facility] 2009: ROTATOR CUFF REPAIR; Left Comment: [facility] 2019: SLEEVE GASTRECTOMY, LAPAROSCOPIC (HISTORICAL) Comment: [facility] W/ Hiatal hernia Social History: TOBACCO: reports that she has never smoked. She has never used smokeless tobacco. ETOH: reports current alcohol use. Social History Substance and Sexual Activity Drug Use Not Currently Family History: Family History Problem Relation Name Age of Onset ? Hypertension Mother ? Dementia Mother ? COPD Mother ? Lymphoma Father Screening: unknown Clinical information reviewed: Physical Exam Airway Mallampati: III TM distance: >3 FB Neck ROM: full Mouth Open: normal Cardiovascular Dental (+) Upper Dentures Pulmonary Abdominal Anesthesia Plan patient is NPO appropriate Any family history or previous problems with anesthesia no ASA 3 TIVA Any family history or previous problems with anesthesia no The patient is not a current smoker. [facility] Screening Labs: Lab Results Component Value Date WBC 7.1 04/10/2023 HGB 12.7 04/10/2023 HCT 39.4 04/10/2023 MCV 94.5 04/10/2023 PLT 224 04/10/2023 Lab Results Component Value Date NA 141 04/10/2023 K 3.3 (L) 04/10/2023 CL 104 04/10/2023 CO2 26 04/10/2023 BUN 11 04/10/2023 CREATININE 0.96 04/10/2023 GLUCOSE 88 04/10/2023 CALCIUM 8.8 04/10/2023 PROT 7.4 04/10/2023 ALKPHOS 77 04/10/2023 AST 24 04/10/2023 ALT 13 04/10/2023 EGFR 63.8 04/10/2023 No echocardiogram results found for the past 14 days No results found for this or any previous visit. [facility] 04-16-2023 History and physical note Images from the original note were not included. Department of Surgery Preoperative H&P PATIENT NAME: Celina Pat : 1950 ATTENDING PHYSICIAN: Margi Guzmán DO ADMIT DATE: 04/16/2023 TODAY'S DATE: 04/16/2023 HISTORY OF PRESENT ILLNESS: The patient is a 72 y.o. female who presents with Morbid Obesity and GERD. I thoroughly reviewed the patient's medical history, family history, social history and review of systems with the patient today. Please see medical record for pertinent positives. Past Medical History: Past Medical History: Diagnosis Date Anesthesia complication Back pain Deficiency of multiple nutrient elements 03/19/2023 Depression Fatigue GERD (gastroesophageal reflux disease) HTN (hypertension) Hx: UTI (urinary tract infection) Joint pain, hip Joint pain, knee Muscle weakness Pain management 03/19/2023 SOBOE (shortness of breath on exertion) Past Surgical History: Past Surgical History: Procedure Laterality Date CHOLECYSTECTOMY 2011 [facility] HYSTERECTOMY [facility] REVISE KNEE JOINT REPLACE,ALL PARTS (HISTORICAL) Bilateral 2004 [facility] ROTATOR CUFF REPAIR Right 2007 [facility] ROTATOR CUFF REPAIR Left 2008 [facility] SLEEVE GASTRECTOMY, LAPAROSCOPIC (HISTORICAL) 2019 [facility] W/ Hiatal hernia Current Medications: Current Facility-Administered Medications Medication Dose Route Frequency Provider Last Rate Last Admin sodium chloride 0.9 % infusion 5-250 mL/hr IntraVENous PRN Margi Guzmán DO sodium chloride 0.9% (NS) flush 10 mL 10 mL IntraVENous 2 times per day Mragi Guzmán DO sodium chloride 0.9% (NS) flush 10 mL 10 mL IntraVENous PRN Margi Guzmán DO Facility-Administered Medications Ordered in Other Encounters Medication Dose Route Frequency Provider Last Rate Last Admin lactated Ringer's infusion IntraVENous Continuous PRN Antoine Cobb CRNA New Bag at 04/16/23 0800 Allergies: Allergies Allergen Reactions Other Other Tape Tears skin off Social History: Social History Socioeconomic History Marital status: Spouse name: Not on file Number of children: Not on file Years of education: Not on file Highest education level: Not on file Occupational History Not on file Tobacco Use Smoking status: Never Smokeless tobacco: Never Substance and Sexual Activity Alcohol use: Yes Comment: socially Drug use: Not Currently Sexual activity: Yes Partners: Male Other Topics Concern Not on file Social History Narrative Not on file Social Determinants of Health Financial Resource Strain: Not on file Food Insecurity: Not on file Transportation Needs: Not on file Physical Activity: Not on file Stress: Not on file Social Connections: Not on file Intimate Partner Violence: Not At Risk (04/16/2023) Humiliation, Afraid, Rape, and Kick questionnaire Fear of Current or Ex-Partner: No Emotionally Abused: No Physically Abused: No Sexually Abused: No Housing Stability: Not on file Family History: Family History Problem Relation Name Age of Onset Hypertension Mother Dementia Mother COPD Mother Lymphoma Father REVIEW OF SYSTEMS: CONSTITUTIONAL: Negative for fatigue, and unexpected weight change RESPIRATORY: Negative for cough, SOB, and wheezing CARDIOVASCULAR: Negative for chest pains and palpatations GASTROINTESTINAL: Morbid Obesity and GERD HEMATOLOGIC/LYMPHATIC: Negative for adenopathy. Does not bruise/bleed easily. NEUROLOGICAL: Negative for seizures and syncope * All other ROS reviewed see HPI for pertinent positives and negatives. PHYSICAL EXAM: VITALS: BP 138/80 Pulse 68 Temp 36.3 C (97.4 F) (Tympanic) Resp 16 Ht 5' 3.5 (1.613 m) Wt 194 lb (88 kg) SpO2 99% BMI 33.83 kg/m GENERAL: Oriented to person, place, and time. Appears well nourished. No distress ENT: Normocepalic,atraumatic, without obvious abnormality NECK: supple, symmetrical, trachea midline LUNGS: Resp effort easy and unlabored, breath sounds normal CARDIOVASCULAR: RRR, No murmur ABDOMEN: Soft, non-tender, no open wounds. MUSCULOSKELETAL: Normal range of motion, ambulatory without assistance NEUROLOGIC: No focal neurologic deficits IMPRESSION & PLAN: 72 y.o. female presents today for EGD today for Morbid Obesity and GERD -Patient counseled on risks, benefits, and alternatives of treatment plan at length. Patient states an understanding and willingness to proceed with plan. [facility] 04-16-2023 History and physical note Images from the original note were not included. Department of Surgery Preoperative H&P PATIENT NAME: Celina Pat : 1950 ATTENDING PHYSICIAN: Margi Guzmán DO ADMIT DATE: 04/16/2023 TODAY'S DATE: 04/16/2023 HISTORY OF PRESENT ILLNESS: The patient is a 72 y.o. female who presents with Morbid Obesity and GERD. I thoroughly reviewed the patient's medical history, family history, social history and review of systems with the patient today. Please see medical record for pertinent positives. Past Medical History: Past Medical History: Diagnosis Date Anesthesia complication Back pain Deficiency of multiple nutrient elements 03/19/2023 Depression Fatigue GERD (gastroesophageal reflux disease) HTN (hypertension) Hx: UTI (urinary tract infection) Joint pain, hip Joint pain, knee Muscle weakness Pain management 03/19/2023 SOBOE (shortness of breath on exertion) Past Surgical History: Past Surgical History: Procedure Laterality Date CHOLECYSTECTOMY 2011 [facility] HYSTERECTOMY [facility] REVISE KNEE JOINT REPLACE,ALL PARTS (HISTORICAL) Bilateral 2004 [facility] ROTATOR CUFF REPAIR Right 2007 [facility] ROTATOR CUFF REPAIR Left 2008 [facility] SLEEVE GASTRECTOMY, LAPAROSCOPIC (HISTORICAL) 2019 [facility] W/ Hiatal hernia Current Medications: Current Facility-Administered Medications Medication Dose Route Frequency Provider Last Rate Last Admin sodium chloride 0.9 % infusion 5-250 mL/hr IntraVENous PRN Margi Guzmán DO sodium chloride 0.9% (NS) flush 10 mL 10 mL IntraVENous 2 times per day Margi Guzmán DO sodium chloride 0.9% (NS) flush 10 mL 10 mL IntraVENous PRN Margi Guzmán DO Facility-Administered Medications Ordered in Other Encounters Medication Dose Route Frequency Provider Last Rate Last Admin lactated Ringer's infusion IntraVENous Continuous PRN Antoine Cobb CRNA New Bag at 04/16/23 0800 Allergies: Allergies Allergen Reactions Other Other Tape Tears skin off Social History: Social History Socioeconomic History Marital status: Spouse name: Not on file Number of children: Not on file Years of education: Not on file Highest education level: Not on file Occupational History Not on file Tobacco Use Smoking status: Never Smokeless tobacco: Never Substance and Sexual Activity Alcohol use: Yes Comment: socially Drug use: Not Currently Sexual activity: Yes Partners: Male Other Topics Concern Not on file Social History Narrative Not on file Social Determinants of Health Financial Resource Strain: Not on file Food Insecurity: Not on file Transportation Needs: Not on file Physical Activity: Not on file Stress: Not on file Social Connections: Not on file Intimate Partner Violence: Not At Risk (04/16/2023) Humiliation, Afraid, Rape, and Kick questionnaire Fear of Current or Ex-Partner: No Emotionally Abused: No Physically Abused: No Sexually Abused: No Housing Stability: Not on file Family History: Family History Problem Relation Name Age of Onset Hypertension Mother Dementia Mother COPD Mother Lymphoma Father REVIEW OF SYSTEMS: CONSTITUTIONAL: Negative for fatigue, and unexpected weight change RESPIRATORY: Negative for cough, SOB, and wheezing CARDIOVASCULAR: Negative for chest pains and palpatations GASTROINTESTINAL: Morbid Obesity and GERD HEMATOLOGIC/LYMPHATIC: Negative for adenopathy. Does not bruise/bleed easily. NEUROLOGICAL: Negative for seizures and syncope * All other ROS reviewed see HPI for pertinent positives and negatives. PHYSICAL EXAM: VITALS: BP 138/80 Pulse 68 Temp 36.3 C (97.4 F) (Tympanic) Resp 16 Ht 5' 3.5 (1.613 m) Wt 194 lb (88 kg) SpO2 99% BMI 33.83 kg/m GENERAL: Oriented to person, place, and time. Appears well nourished. No distress ENT: Normocepalic,atraumatic, without obvious abnormality NECK: supple, symmetrical, trachea midline LUNGS: Resp effort easy and unlabored, breath sounds normal CARDIOVASCULAR: RRR, No murmur ABDOMEN: Soft, non-tender, no open wounds. MUSCULOSKELETAL: Normal range of motion, ambulatory without assistance NEUROLOGIC: No focal neurologic deficits IMPRESSION & PLAN: 72 y.o. female presents today for EGD today for Morbid Obesity and GERD -Patient counseled on risks, benefits, and alternatives of treatment plan at length. Patient states an understanding and willingness to proceed with plan. documented in this encounter [facility] 04-16-2023 Note Formatting of this n ote might be different from the original. [facility]: Celina [facility] Procedure Date: 04/16/2023 7:36 AM Gender: Female Date of : 1950 Age: 72 Admit Type: Outpatient Note Status: Finalized Endoscopist: Margi Guzmán DO, [id number] Procedure: Upper GI endoscopy Indications: Suspected gastro-esophageal reflux disease Findings: The esophagus was normal. Mild inflammation was found in the gastric antrum. Biopsies were taken with a cold forceps for Helicobacter pylori testing. Verification of patient identification for the specimen was done by the physician and nurse using the patient's name and medical record number. Estimated blood loss was minimal. The examined duodenum was normal. Impression: - Normal esophagus. - Gastritis. Biopsied. - Normal examined duodenum. Recommendation: - Patient has a contact number available for emergencies. The signs and symptoms of potential delayed complications were discussed with the patient. Return to normal activities tomorrow. Written discharge instructions were provided to the patient. - Resume previous diet. - Continue present medications. - Await pathology results. Referring MD: Margi Meza DO CC Letter to: Philip Lagunas Medicines: Monitored Anesthesia Care Procedure: Pre-Anesthesia Assessment: - Prior to the procedure, a History and Physical was performed, and patient medications and allergies were reviewed. The patient's tolerance of previous anesthesia was also reviewed. The risks and benefits of the procedure and the sedation options and risks were discussed with the patient. All questions were answered, and informed consent was obtained. Prior Anticoagulants: The patient has taken no anticoagulant or antiplatelet agents. ASA Grade Assessment: per anesthesia endoscopic documentation. After reviewing the risks and benefits, the patient was deemed in satisfactory condition to undergo the procedure. - The anesthesia plan was to use monitored anesthesia care (MAC). - Prior Aspirin/ NSAID therapy: The patient has taken no aspirin or NSAID medications. After obtaining informed consent, the endoscope was passed under direct vision. Throughout the procedure, the patient's blood pressure, pulse, and oxygen saturations were monitored continuously. The Endoscope was introduced through the mouth, and advanced to the third part of duodenum. The upper GI endoscopy was accomplished without difficulty. The patient tolerated the procedure well. Complications: No immediate complications. Procedure Code(s): --- Professional --- 31386, Esophagogastroduodenoscopy, flexible, transoral; with biopsy, single or multiple --- Technical --- 72270, Esophagogastroduodenoscopy, flexible, transoral; with biopsy, single or multiple Diagnosis Code(s): --- Professional --- K29.70, Gastritis, unspecified, without bleeding --- Technical --- K29.70, Gastritis, unspecified, without bleeding CPT copyright 2021 [employer]. All rights reserved. The codes documented in this report are preliminary and upon cable tv installer review may be revised to meet current compliance requirements. Attending Participation: I personally performed the entire procedure. Margi Guzmán DO 04/16/2023 8:19:13 AM This report has been signed electronically. Number of Addenda: 0 Note Initiated On: 04/16/2023 7:36 AM [facility] 04-16-2023 Note Formatting of this n ote might be different from the original. [facility]: Celina Pat Procedure Date: 04/16/2023 7:36 AM Gender: Female Date of : 1950 Age: 72 Admit Type: Outpatient Note Status: Finalized Endoscopist: Margi Guzmán DO, [id number] Procedure: Upper GI endoscopy Indications: Suspected gastro-esophageal reflux disease Findings: The esophagus was normal. Mild inflammation was found in the gastric antrum. Biopsies were taken with a cold forceps for Helicobacter pylori testing. Verification of patient identification for the specimen was done by the physician and nurse using the patient's name and medical record number. Estimated blood loss was minimal. The examined duodenum was normal. Impression: - Normal esophagus. - Gastritis. Biopsied. - Normal examined duodenum. Recommendation: - Patient has a contact number available for emergencies. The signs and symptoms of potential delayed complications were discussed with the patient. Return to normal activities tomorrow. Written discharge instructions were provided to the patient. - Resume previous diet. - Continue present medications. - Await pathology results. Referring MD: Margi eMza DO CC Letter to: Philip Lagunas Medicines: Monitored Anesthesia Care Procedure: Pre-Anesthesia Assessment: - Prior to the procedure, a History and Physical was performed, and patient medications and allergies were reviewed. The patient's tolerance of previous anesthesia was also reviewed. The risks and benefits of the procedure and the sedation options and risks were discussed with the patient. All questions were answered, and informed consent was obtained. Prior Anticoagulants: The patient has taken no anticoagulant or antiplatelet agents. ASA Grade Assessment: per anesthesia endoscopic documentation. After reviewing the risks and benefits, the patient was deemed in satisfactory condition to undergo the procedure. - The anesthesia plan was to use monitored anesthesia care (MAC). - Prior Aspirin/ NSAID therapy: The patient has taken no aspirin or NSAID medications. After obtaining informed consent, the endoscope was passed under direct vision. Throughout the procedure, the patient's blood pressure, pulse, and oxygen saturations were monitored continuously. The Endoscope was introduced through the mouth, and advanced to the third part of duodenum. The upper GI endoscopy was accomplished without difficulty. The patient tolerated the procedure well. Complications: No immediate complications. Procedure Code(s): --- Professional --- 34432, Esophagogastroduodenoscopy, flexible, transoral; with biopsy, single or multiple --- Technical --- 83723, Esophagogastroduodenoscopy, flexible, transoral; with biopsy, single or multiple Diagnosis Code(s): --- Professional --- K29.70, Gastritis, unspecified, without bleeding --- Technical --- K29.70, Gastritis, unspecified, without bleeding CPT copyright 2022 [employer]. All rights reserved. The codes documented in this report are preliminary and upon cable tv installer review may be revised to meet current compliance requirements. Attending Participation: I personally performed the entire procedure. Margi Guzmán DO 04/16/2023 8:19:13 AM This report has been signed electronically. Number of Addenda: 0 Note Initiated On: 04/16/2023 7:36 AM [facility] 04-16-2023 Miscellaneous Notes [facility] Name: Celina Pat Procedure Date: 04/16/2023 7:36 AM Gender: Female Date of : 1950 Age: 72 Admit Type: Outpatient Note Status: Finalized Endoscopist: Margi Guzmán DO, [id number] Procedure: Upper GI endoscopy Indications: Suspected gastro-esophageal reflux disease Findings: The esophagus was normal. Mild inflammation was found in the gastric antrum. Biopsies were taken with a cold forceps for Helicobacter pylori testing. Verification of patient identification for the specimen was done by the physician and nurse using the patient's name and medical record number. Estimated blood loss was minimal. The examined duodenum was normal. Impression: - Normal esophagus. - Gastritis. Biopsied. - Normal examined duodenum. Recommendation: - Patient has a contact number available for emergencies. The signs and symptoms of potential delayed complications were discussed with the patient. Return to normal activities tomorrow. Written discharge instructions were provided to the patient. - Resume previous diet. - Continue present medications. - Await pathology results. Referring MD: Margi Meza DO CC Letter to: Philip Lagunas Medicines: Monitored Anesthesia Care Procedure: Pre-Anesthesia Assessment: - Prior to the procedure, a History and Physical was performed, and patient medications and allergies were reviewed. The patient's tolerance of previous anesthesia was also reviewed. The risks and benefits of the procedure and the sedation options and risks were discussed with the patient. All questions were answered, and informed consent was obtained. Prior Anticoagulants: The patient has taken no anticoagulant or antiplatelet agents. ASA Grade Assessment: per anesthesia endoscopic documentation. After reviewing the risks and benefits, the patient was deemed in satisfactory condition to undergo the procedure. - The anesthesia plan was to use monitored anesthesia care (MAC). - Prior Aspirin/ NSAID therapy: The patient has taken no aspirin or NSAID medications. After obtaining informed consent, the endoscope was passed under direct vision. Throughout the procedure, the patient's blood pressure, pulse, and oxygen saturations were monitored continuously. The Endoscope was introduced through the mouth, and advanced to the third part of duodenum. The upper GI endoscopy was accomplished without difficulty. The patient tolerated the procedure well. Complications: No immediate complications. Procedure Code(s): --- Professional --- 33141, Esophagogastroduodenoscopy, flexible, transoral; with biopsy, single or multiple --- Technical --- 30146, Esophagogastroduodenoscopy, flexible, transoral; with biopsy, single or multiple Diagnosis Code(s): --- Professional --- K29.70, Gastritis, unspecified, without bleeding --- Technical --- K29.70, Gastritis, unspecified, without bleeding CPT copyright 2021 [employer]. All rights reserved. The codes documented in this report are preliminary and upon cable tv installer review may be revised to meet current compliance requirements. Attending Participation: I personally performed the entire procedure. Margi Guzmán DO 04/16/2023 8:19:13 AM This report has been signed electronically. Number of Addenda: 0 Note Initiated On: 04/16/2023 7:36 AM documented in this encounter [facility] 04-10-2023 Telephone encounter Note Sent pt [employer] message regarding Low D at 24 and low K+ at 3.3. Pt is not taking vitamin D, will start 4000 I U daily and will add high K+ foods daily. Will recheck K+ in 1-2 weeks and vitamin D levels in 3 months, orders pending, please sign. Thank you so much! [facility] 04-10-2023 Telephone encounter Note ----- Message from DAVE Lopez CNP sent at 04/10/2023 12:02 PM EST ----- thx [facility] 04-10-2023 Note Addended by: FERDINAND DAVIES on: 04/10/2023 08:33 AM Modules accepted: Orders [facility] 04-10-2023 History of Presen t illness Narrative [facility] SUR[facility]ICAL [facility] MANAGEMENT PROGRAM SUPERVISED DIET AND EXERCISE ROOMING: INITIAL VISIT Patient: Celina Pat Date of : 1950 Service Date: 04/10/2023 Patient is here today to initiate physician-supervised diet and exercise as required by their insurance company prior to approval for weight loss surgery. This patient is spouse for the evaluation today This is visit 1 of 3 required visits. Weight Metrics: (From Surgical Wet Loss Management) Today's Vital Signs: Non-Surgical Initial Eval Consult Date: 04/10/23 Initial Height: 5' 3.25 (160.7 cm) Initial Weight: 196 lb (88.9 kg) [place] Body Weight: 128 lb (58.1 kg) Initial BMI: 34.44 Initial Body Fat %: 41.33 EBW: 68 lb (From NonSurgical Weight Loss Tracker) Falls Risk Assessment Patient does take medications which affect BP or mental status Patient does not have newly prescribed or changed dosage of medications within past 30 days which affect BP or mental status Patient has fallen in the past 2 months Patient uses the following ambulatory assistive devices: none Patient states the presence of the following traits which increases risk of fall: none Patient is noton home O2 Completed by: Jesusita Marion MA [facility]NAGEMENT PROGRAM PHYSICIAN SUPERVISED DIET AND EXERCISE SURGICAL PREPARATORY REGIMEN PROGRESS NOTE INITIAL EVALUATION Patient: Celina Pat Service Date: 04/10/23 Date of : 1950 Navigation Plan: Patient History/Assessment Summary: The patient is a pleasant 72 y.o. year old female, who stands Height: 5' 3.25 (160.7 cm) tall with a weight of Weight: 196 lb (88.9 kg) pounds, resulting in a BMI of Body mass index is 34.45 kg/m . kg/m2. She has been overweight for 10+ years, has tried and failed multiple previous diet attempts, and is now in the process of undergoing evaluation for surgical treatment of their obese. She is here today to initiate monthly physician supervised diet and exercise as part of their surgical preparatory regimen. History: Past Medical History: Diagnosis Date Anesthesia complication Back pain Deficiency of multiple nutrient elements 03/19/2023 Depression Fatigue GERD (gastroesophageal reflux disease) HTN (hypertension) Hx: UTI (urinary tract infection) Joint pain, hip Joint pain, knee Muscle weakness Pain management 03/19/2023 SOBOE (shortness of breath on exertion) Past Surgical History: Procedure Laterality Date CHOLECYSTECTOMY 2011 [facility] HYSTERECTOMY [facility] REVISE KNEE JOINT REPLACE,ALL PARTS (HISTORICAL) Bilateral 2004 [facility] ROTATOR CUFF REPAIR Right 2007 [facility] ROTATOR CUFF REPAIR Left 2008 [facility] SLEEVE GASTRECTOMY, LAPAROSCOPIC (HISTORICAL) 2018 [facility] W/ Hiatal hernia Family History Problem Relation Name Age of Onset Hypertension Mother Dementia Mother COPD Mother Lymphoma Father Social History Tobacco Use Smoking status: Never Smokeless tobacco: Never Substance Use Topics Alcohol use: Yes Comment: socially This patient's excess weight is causing the following co-morbid conditions at this time:HTN Initial Diet & Exercise/SPR Visit Weight Metrics: Date of Initial Diet & Exercise Visit: Consult Date: 04/10/23 Initial Weight: Initial Weight: 196 lb (88.9 kg) Initial BMI: Initial BMI: 34.44 [place] Body Weight: [place] Body Weight: 128 lb (58.1 kg) Excess Body Weight: EBW: 68 lb General: This patient is alert and oriented X3 Physical Examination: BP 113/78 Pulse 79 Ht 5' 3.25 (1.607 m) Wt 196 lb (88.9 kg) BMI 34.45 kg/m General: This patient is obese, and is in no apparent distress. Psychological: Patient is awake, alert and oriented to person, place and time Patient's mood is normal affect Current Diet This patient s current diet is: 50-80% meal plan Reviewed PAST DIET HISTORY FORM and CURRENT DIET HISTORY FORM with patient (located in [place] [facility]) Her diet contains adequate amounts of protein, adequate amounts of healthy fats, adequate amounts of green, leafy vegetables, and adequate amounts of fruits. Her comfort foods include: none Current Activity This patient currently does not exercise. Current Eating Behaviors This patients demonstrates the following behaviors as they relate to her eating: structured She eats approximately 3 times per day. Her last meal/snack was at 6-7 PM. Plan: Diagnosis Managing: HTN: stable. continued medical management, DE and plan for metabolic weight loss and surgery. Advised patient that She must adhere to regular monthly visits to meet the requirements of her insurance company. Additionally, She must lose approximately one pound per month to demonstrate readiness for the changes that will be required following surgery. Physician Diet Recommendations provided to patient Patient to return for follow up in one month Current Meds Patient's Medications New Prescriptions No medications on file Previous Medications DULOXETINE (CYMBALTA) [address] CAPSULE Take 120 mg by mouth before bedtime. ESTRADIOL (ESTRACE) 1 MG TABLET Take 1 mg by mouth daily. GABAPENTIN (NEURONTIN) 300 MG CAPSULE Take 300 mg by mouth Nightly as needed. 4-5 tablets LANSOPRAZOLE (PREVACID) [address] CAPSULE Take 30 mg by mouth before bedtime. OXYCODONE-ACETAMINOPHEN (PERCOCET) 5-325 MG TABLET Take 1 tablet by mouth 3 times daily. TRIAMTERENE-HYDROCHLOROTHIAZIDE (MAXZIDE-25) 37.5-25 MG TABLET Take 1 tablet by mouth every morning. Modified Medications No medications on file Discontinued Medications No medications on file I spent a total of 45 minutes on the day of the visit in counseling, discussing lifestyle changes that are pertinent to a successful life after bariatric surgery; and reviewing the chart including available communication from the surgeon. 1.Education on meal plan,meal structure, meal preps, shopping list 2. Discussion on elements of behavioral strategies such self-monitoring, controlling and modifying the stimuli that activate eating;slowing down the eating process;goal-setting on the process,behavioral chucho and reinforcement,cognitive restructuring, problem-solving,assertiveness training. 3. Physical activity - build fitness to aerobic physical activity 150-300 min/wk and strength training 2-3 times per wk 4.Recommendation on do not use nicotine and alcohol before and after surgery is provided 5. For women of childbearing age recommendation to postpone until 12-18 month after surgery is provided 6.HTN Is associated with obesity and weight loss is discussed as a treatment option for HTN 7. Healthy lifestyle habits and their role in success after bariatric surgery discussed The patient was seen and a full chart review was performed.Clinical documentation is updated and completed. documented in this encounter [facility] 04-10-2023 Note Addended by: FERDINAND DAVIES on: 04/10/2023 08:33 AM Modules accepted: Orders [facility] 04-10-2023 Miscellaneous Notes Addended by: FERDINAND JAIMES on: 04/10/2023 08:33 AM Modules accepted: Orders This patient has been rescheduled for the New D/E and notified. Sorry but every pt should have at least ONE d/e, even though not required by insurance. Please reschedule. Also, I had to remove the ferritin and iron, not covered w any diagnosis. D/E New has been cancelled. Orders pended, Pre op check list scanned to media, EGD order sent to ALS. FDT please cancel appointment for 04/10/2023 W/ Augustine no D/E required. Hermelinda - please schedule psych eval - no D/E required. PLAN I have recommended proceeding with the evaluation and work-up for the primary procedure as outlined below: PATIENT SUMMARY Celina Guzmán 72 y.o. female with Body mass index is 34.55 kg/m . Revision Single Anastomosis Duodenal-Ileal bypass (REJI) and Liver Wedge Biopsy Procedure DM[] HTN[x] DONAVAN[] GERD[x] HL[] OA[] TOB[] Date of Surgery: TBD NOTES PCP: PHILIP LAGUNAS INITIAL TESTING RESULTS Labwork [x] CMP, TSH, Fasting Lipid Profile, Mg, Zinc, Vit B1 (whole blood), Vit B12, 25-OH Vit D, Fe, Ferritin, Folate Tobacco [] Serum Nicotine / Cotinine [] Negative [] Positive EGD [x] Dx: [x] GERD [] Dyspepsia [] Other Pathology [x] H. pylori [] Negative [] Positive UGI [x] [] not ordered US Abdomen [] [] not ordered DONAVAN eval [] [] On CPAP / Obtain settings Negative prior to index operation Hematology [] [] Hypercoagulation panel Toxicology [] [] Urine drug screen [] EtOH screen Addtional [x] [x] Hgb A1c INITIAL CONSULTATIONS CLEARANCE / MANAGEMENT Psychology [x] Weight Regain after Sleeve Dietitian [x] Weight Regain after Sleeve Cardiology [x] [] not ordered Pulmonary [x] [] not ordered Others [] []Heme/Onc []Psychiatry []Pain mgmt PSD [] Physician supervised diet: [x]None []3 mos []6 mos Revision Preop diet [x] Preop low calory diet: []None []1 wk [x]2 wks []Ext. FINAL PRE-OP TESTING RESULTS Labwork [x] [x]Pre-op CBC [x]BMP []Serum Nicotine / Cotinine EKG [x] CXR [x] POST-OP MEDICATIONS Ulcer Ppx [] Omeprazole 20 mg PO []QD []BID Gallstone Ppx [] Ursodiol 300 mg []BID DVT Ppx [] DVT prophylaxis per final preop visit estimated risk Estimated calculated risk: % Schedule final pre-operative office visit with surgeon, pre-operative education class, and pre-operative exercise class prior to date of surgery ATTESTATION I reviewed with the patient the details of the proposed operation. The risks benefits and options were discussed. Risks included but were not limited to bleeding, infection, damage to other surrounding organs, cardio-pulmonary complications related to anesthesia, conversion from laparoscopic to and open procedure, the need for reoperative or endoscopic therapy, the potential for prolonged mechanical ventilation, and . All questions were fully answered to the patient's satisfaction and they wish to proceed with surgical intervention. I personally performed the evaluation and management of Celina Pat in the development of a treatment plan for this patient. I personally interviewed the patient and performed an individual physical examination. In addition, I discussed the patient's condition and treatment options with them. I have also reviewed and agree with the past medical, family and social history unless otherwise noted. All of the patient's questions were answered. I personally performed the face to face encounter, physical exam, reviewing the medical history, coordinating the patient's care, counseling/educating the patient, ordering prescriptions/medications/tests/ procedures, interpreting results and documenting clinical information in the patient's electronic health record on the day of the encounter. documented in this encounter [facility] 03-27-2023 Telephone encounter Note This patient has been rescheduled for the New D/E and notified. [facility] 03-27-2023 Telephone encounter Note Sorry but every pt should have at least ONE d/e, even though not required by insurance. Please reschedule. Also, I had to remove the ferritin and iron, not covered w any diagnosis. [facility] 03-27-2023 Note PLAN I have recommended proceeding with the evaluation and work-up for the primary procedure as outlined below: PATIENT SUMMARY Celina Guzmán 72 y.o. female with Body mass index is 34.55 kg/m?. Revision Single Anastomosis Duodenal-Ileal bypass (REJI) and Liver Wedge Biopsy Procedure DM[] HTN[x] DONAVAN[] GERD[x] HL[] OA[] TOB[] Date of Surgery: TBD NOTES PCP: PHILIP LAGUNAS INITIAL TESTING RESULTS Labwork [x] CMP, TSH, Fasting Lipid Profile, Mg, Zinc, Vit B1 (whole blood), Vit B12, 25-OH Vit D, Fe, Ferritin, Folate Tobacco [] Serum Nicotine / Cotinine [] Negative [] Positive EGD [x] Dx: [x] GERD [] Dyspepsia [] Other Pathology [x] H. pylori [] Negative [] Positive UGI [x] [] not ordered US Abdomen [] [] not ordered DONAVAN eval [] [] On CPAP / Obtain settings Negative prior to index operation Hematology [] [] Hypercoagulation panel Toxicology [] [] Urine drug screen [] EtOH screen Addtional [x] [x] Hgb A1c INITIAL CONSULTATIONS CLEARANCE / MANAGEMENT Psychology [x] Weight Regain after Sleeve Dietitian [x] Weight Regain after Sleeve Cardiology [x] [] not ordered Pulmonary [x] [] not ordered Others [] []Heme/Onc []Psychiatry []Pain mgmt PSD [] Physician supervised diet: [x]None []3 mos []6 mos Revision Preop diet [x] Preop low calory diet: []None []1 wk [x]2 wks []Ext. FINAL PRE-OP TESTING RESULTS Labwork [x] [x]Pre-op CBC [x]BMP []Serum Nicotine / Cotinine EKG [x] CXR [x] POST-OP MEDICATIONS Ulcer Ppx [] Omeprazole 20 mg PO []QD []BID Gallstone Ppx [] Ursodiol 300 mg []BID DVT Ppx [] DVT prophylaxis per final preop visit estimated risk Estimated calculated risk: % Schedule final pre-operative office visit with surgeon, pre-operative education class, and pre-operative exercise class prior to date of surgery ATTESTATION I reviewed with the patient the details of the proposed operation. The risks benefits and options were discussed. Risks included but were not limited to bleeding, infection, damage to other surrounding organs, cardio-pulmonary complications related to anesthesia, conversion from laparoscopic to and open procedure, the need for reoperative or endoscopic therapy, the potential for prolonged mechanical ventilation, and . All questions were fully answered to the patient's satisfaction and they wish to proceed with surgical intervention. I personally performed the evaluation and management of Celina Pat in the development of a treatment plan for this patient. I personally interviewed the patient and performed an individual physical examination. In addition, I discussed the patient's condition and treatment options with them. I have also reviewed and agree with the past medical, family and social history unless otherwise noted. All of the patient's questions were answered. I personally performed the face to face encounter, physical exam, reviewing the medical history, coordinating the patient's care, counseling/educating the patient, ordering prescriptions/medications/tests/ procedures, interpreting results and documenting clinical information in the patient's electronic health record on the day of the encounter. [facility] 03-27-2023 Telephone encounter Note D/E New has been cancelled. [facility] 03-27-2023 History of Presen t illness Narrative ENDOSCOPY ORDERS To be scheduled with: Dr. Guzmán Patient is: Pre-op/Pre-Bariatric Surgery conversion from LSG to REJI CPT code: EGD with biopsy- CPT 35099 Diagnosis: GERD- K21.9 If pre-op, Diet & Exercise Requirements are, and started/scheduled on not required: None Home O2: No Known Difficult Intubation: No Is patient on a GLP-1 agonist? No If yes- which one? N/A Please advise that patient hold this medication for 1 week before EGD EGD w Bx Scheduled for 04/09/2023 @ 7:50am @ [facility] with Dr. Guzmán.. DP printed documented in this encounter [facility] 03-27-2023 Telephone encounter Note Orders pended, Pre op check list scanned to media, EGD order sent to ALS. FDT please cancel appointment for 04/10/2023 W/ Augustine no D/E required. Hermelinda - please schedule psych eval - no D/E required. [facility] 03-27-2023 Telephone encounter Note PLAN I have recommended proceeding with the evaluation and work-up for the primary procedure as outlined below: PATIENT SUMMARY Celina Guzmán 72 y.o. female with Body mass index is 34.55 kg/m . Revision Single Anastomosis Duodenal-Ileal bypass (REJI) and Liver Wedge Biopsy Procedure DM[] HTN[x] DONAVAN[] GERD[x] HL[] OA[] TOB[] Date of Surgery: TBD NOTES PCP: PHILIP LAGUNAS INITIAL TESTING RESULTS Labwork [x] CMP, TSH, Fasting Lipid Profile, Mg, Zinc, Vit B1 (whole blood), Vit B12, 25-OH Vit D, Fe, Ferritin, Folate Tobacco [] Serum Nicotine / Cotinine [] Negative [] Positive EGD [x] Dx: [x] GERD [] Dyspepsia [] Other Pathology [x] H. pylori [] Negative [] Positive UGI [x] [] not ordered US Abdomen [] [] not ordered DONAVAN eval [] [] On CPAP / Obtain settings Negative prior to index operation Hematology [] [] Hypercoagulation panel Toxicology [] [] Urine drug screen [] EtOH screen Addtional [x] [x] Hgb A1c INITIAL CONSULTATIONS CLEARANCE / MANAGEMENT Psychology [x] Weight Regain after Sleeve Dietitian [x] Weight Regain after Sleeve Cardiology [x] [] not ordered Pulmonary [x] [] not ordered Others [] []Heme/Onc []Psychiatry []Pain mgmt PSD [] Physician supervised diet: [x]None []3 mos []6 mos Revision Preop diet [x] Preop low calory diet: []None []1 wk [x]2 wks []Ext. FINAL PRE-OP TESTING RESULTS Labwork [x] [x]Pre-op CBC [x]BMP []Serum Nicotine / Cotinine EKG [x] CXR [x] POST-OP MEDICATIONS Ulcer Ppx [] Omeprazole 20 mg PO []QD []BID Gallstone Ppx [] Ursodiol 300 mg []BID DVT Ppx [] DVT prophylaxis per final preop visit estimated risk Estimated calculated risk: % Schedule final pre-operative office visit with surgeon, pre-operative education class, and pre-operative exercise class prior to date of surgery ATTESTATION I reviewed with the patient the details of the proposed operation. The risks benefits and options were discussed. Risks included but were not limited to bleeding, infection, damage to other surrounding organs, cardio-pulmonary complications related to anesthesia, conversion from laparoscopic to and open procedure, the need for reoperative or endoscopic therapy, the potential for prolonged mechanical ventilation, and . All questions were fully answered to the patient's satisfaction and they wish to proceed with surgical intervention. I personally performed the evaluation and management of Celina Pat in the development of a treatment plan for this patient. I personally interviewed the patient and performed an individual physical examination. In addition, I discussed the patient's condition and treatment options with them. I have also reviewed and agree with the past medical, family and social history unless otherwise noted. All of the patient's questions were answered. I personally performed the face to face encounter, physical exam, reviewing the medical history, coordinating the patient's care, counseling/educating the patient, ordering prescriptions/medications/tests/ procedures, interpreting results and documenting clinical information in the patient's electronic health record on the day of the encounter. [facility] 03-22-2023 History of Presen t illness Narrative [facility] [place] BARIATRIC NUTRITION ASSESSMENT / DIET & EXERCISE SURGICAL WEIGHT LOSS MANAGEMENT PROGRAM Date: 03/22/23 Patient Name: Celina Pat Date of : 1950 Type of Assessment: [x] Surgical Patient - Pre-op Initial Assessment Weight Metrics: Today's Height: 5' 3.25 (1.607 m) Today's Weight: 198 lb 3.2 oz (89.9 kg) Today's BMI: Body mass index is 34.83 kg/m . Surgeon: Dr. Guzmán Surgical Procedure: [x] REJI -S Revision [facility] 2019 Preop Diet: 2 wks Medical History: Past Medical History: Diagnosis Date Anesthesia complication Back pain Deficiency of multiple nutrient elements 03/19/2023 Depression Fatigue GERD (gastroesophageal reflux disease) HTN (hypertension) Hx: UTI (urinary tract infection) Joint pain, hip Joint pain, knee Muscle weakness Pain management 03/19/2023 SOBOE (shortness of breath on exertion) Current Medications: has a current medication list which includes the following prescription(s): duloxetine, estradiol, gabapentin, lansoprazole, oxycodone-acetaminophen, and triamterene-hydrochlorothiazide. Multivitamin + biotin Weight History Patient has had LSG 2018. Primary reason(s) for weight loss improve health Number of years over weight > 10 PREVIOUS WEIGHT LOSS ATTEMPTS Method When Amount lost Amount regained Most successful After having the LSG, pt wt decreased from 220 to 165 lb. Pt now with regain of 33.2 lb. WW Throughout years 10 lb Why Weight 15 lb 35 lb Post Weight Loss Surgery- Type: Patient's current diet quality, relative to the Past weight loss surgery diet is: [x] Fair CURRENT MEAL PLANNING Self Meals planned by X Food shopping done by X Meals cooked by X EXERCISE/CURRENT ACTIVITY Has membership at the [facility] CURRENT EATING HABITS/ADDITIONAL INFORMATION 24 Hour Recall completed: Yes Wake up 8:00 am Breakfast: leftovers (pizza); SF sparkling water; today has only had 1/2 starbucks Lunch: soup or leftovers (4x/wk) Dinner: roast beef sw with hash browns + gravy or grilled meat; eats more beef/pork Snack: 100 Kcal popcorn and small packet of applesauce Drinks: sparkling water throughout day Comments: rarely etoh; occasional coffee; no juice; no pop SUPPORT SYSTEM A. Family knowledgeable about/supportive of plans for weight loss surgery: Yes B. Patient understands that they must have someone in their home 24/7 for the first week following surgery, or that they must be able to stay with someone for the first week Yes C. Co-workers knowledgeable about/supportive of plans for weight loss surgery: N/A KNOWLEDGE AND EDUCATION ASSESSMENT AND PLAN Patient's level of knowledge regarding the changes that will have to be made in their diet following weight loss surgery is: [x] Excellent - patient is well informed. Current eating practices that will require change with surgery: Meal frequency; fluid type RECOMMENDATIONS AND PLAN [x] Educational Materials Provided [x]Strategies for Eating handout given to and discussed with patient [x] Patient cleared for weight loss surgery Patient able to state major diet changes that need to be made following surgery Patient states/demonstrates readiness to make necessary diet changes Diagnoses: HTN Note: Pt and spouse present for initial BNA. Pt had LSG in 2019 at . Pt to have revision to REJI with Dr. Guzmán. Per diet recall and pt interview, pt goes long periods of time during the day without eating, and regularly snacks throughout the night, before bed, while watching TV. Pt drinks carbonated water throughout the day. Pt states does experience routine gas. Reviewed rationale for non-carbonated beverages and reviewed relationship between carbonation and gas. Currently no exercise. Current Labs N/A-will monitor. Encouraged pt to have labs done once receives lab requisitions, in order to determine post-op supplementation. Currently pt only takes an MVI for 50 year old and up and Biotin. Reviewed BNA packet and rationale for post-op bariatric diet protocol. Pt agreeable to, and aided in developing, the goals as noted below. Goals: Aim to eat within 1 hour being awake and q 3 hours-include protein q meal/snack Aim to stop eating within 3-hours going to bed; redirect with hot tea Decrease SF carbonated sparkling water and increase plain water. Materials Provided: BNA packet 2. Post-bariatric Vitamin/Mineral protocol Follow up: PRN Pt encouraged to call/MyChart with questions. Bariatric Nutrition Assessment completed by: Fina Booker RD documented in this encounter [facility] 03-19-2023 History of Presen t illness Narrative [facility] SURGICAL WEIGHT LOSS MANAGEMENT PROGRAM ROOMING NOTE - Transfer NEW PATIENT (Pt had original WLS at hospital other than [facility]) Patient: Celina Pat Date of : 1950 Service Date: 03/19/2023 Reason patient is here today as new pt for TFU: Interested in additional WLS Date of original Weight Loss Surgery: 2019 Procedure performed: Laparoscopic Sleeve Gastrectomy Weight at time of WLS: 220 lbs Lowest weight following WLS: 165 lbs Total amount of weight loss following WLS: 55 lbs Measurements Weight: 196 lb 9.6 oz (89.2 kg) Height: 5' 3.25 (160.7 cm) Waist Circumference (in): 43 in. Neck Circumference (in): 16 in. BMI (Calculated): 34.6 Percent Excess Weight Loss: 0 Percent Weight Change Since Preop (kg): 89.18 kg Initial Excess Weight (kg): -52.73 kg IBW in kg (Bariatric): 52.73 kg IBW in lb (Bariatric): 116.25 lb Weight Change Since Last Visit: 89.18 kg Percent of IBW: 169.12 Percent EBW (kg): 36.43 kg EBW (lb): 80.35 lb Pain: Patient rates pain on scale 0-10 as: 0 Falls Risk Assessment Patient does take medications which affect BP or mental status Patient does not have newly prescribed or changed dosage of medications within past 30 days which affect BP or mental status Patient has fallen in the past 2 months Patient does not demonstrate unsteady gait Patient uses the following ambulatory assistive devices: none Patient states the presence of the following traits which increases risk of fall: none Patient is low risk for falls. If high or moderate risk, patient instructed not to ambulate independently in the Center, and cord for call light placed within reach of patient. Patient does not have home O2 This patient is with spouse for the evaluation today. Completed by: Marion Tipton LPN Images from the original note were not included. ALIZA WEST DO, [facility] LAPAROS[facility], BARIATRIC AND ROBOTIC SURGERY [facility] BARIATRIC EVALUATION - HISTORY AND PHYSICAL 03/19/23 PATIENT: Celina Pat DATE OF : 1950 - HISTORY OF PRESENT ILLNESS Chief Complaint: Obesity and associated conditions. Celina Pat is a 72 y.o. female with obesity and associated conditions who presents to the [facility] [place] for evaluation for metabolic/bariatric surgery. The patient stands Height: 5' 3.25 (160.7 cm) tall with a weight of Weight: 196 lb 9.6 oz (89.2 kg) , and has a BMI of Body mass index is 34.55 kg/m .. The patient has failed multiple attempts at non-surgical weight loss, and is now seeking surgical intervention to promote permanent and consistent weight loss. The patient suffers from several co-morbidities as a result of obesity as outlined in the past medical history. Preop weight at [place] was 220 ->165 -> 196 lbs. Tried weight watchers, diet and exercise. Failed. The patient denies a history of myocardia infarction, deep vein thrombosis, pulmonary embolism, renal failure, hepatic failure, stroke, and seizure. She does not smoke, and does drink alcohol. Review of Systems Constitutional: Negative for activity change, appetite change, chills and fatigue. HENT: Negative for congestion and sore throat. Eyes: Negative for pain and visual disturbance. Respiratory: Negative for cough, chest tightness and shortness of breath. Cardiovascular: Negative for chest pain and palpitations. Gastrointestinal: Negative for abdominal distention, abdominal pain, diarrhea, nausea and vomiting. Endocrine: Negative for cold intolerance and heat intolerance. Genitourinary: Negative for difficulty urinating and dysuria. Musculoskeletal: Negative for arthralgias and back pain. Skin: Negative for color change and pallor. Allergic/Immunologic: Negative for environmental allergies and food allergies. Neurological: Negative for dizziness and weakness. Hematological: Negative for adenopathy. Does not bruise/bleed easily. Psychiatric/Behavioral: Negative for agitation and behavioral problems. PAST HISTORIES History reviewed. No pertinent past medical history. Past Surgical History: Procedure Laterality Date CHOLECYSTECTOMY 2011 [facility] HYSTERECTOMY [facility] REVISE KNEE JOINT REPLACE,ALL PARTS (HISTORICAL) Bilateral 2004 [facility] ROTATOR CUFF REPAIR Right 2007 [facility] ROTATOR CUFF REPAIR Left 2008 [facility] SLEEVE GASTRECTOMY, LAPAROSCOPIC (HISTORICAL) 2019 [facility] W/ Hiatal hernia Family History Problem Relation Name Age of Onset Hypertension Mother Dementia Mother COPD Mother Lymphoma Father No Known Allergies Current Outpatient Medications Medication Sig Dispense Refill DULoxetine (Cymbalta) [address] capsule Take 120 mg by mouth before bedtime. estradiol (Estrace) 1 MG tablet Take 1 mg by mouth daily. gabapentin (Neurontin) 300 MG capsule Take 300 mg by mouth Nightly as needed. 4-5 tablets lansoprazole (Prevacid) [address] capsule Take 30 mg by mouth before bedtime. triamterene-hydrochlorothiazide (Maxzide-25) 37.5-25 MG tablet Take 1 tablet by mouth every morning. oxyCODONE-acetaminophen (Percocet) 5-325 MG tablet Take 1 tablet by mouth 3 times daily. No current facility-administered medications for this visit. Social History Socioeconomic History Marital status: Spouse name: Not on file Number of children: Not on file Years of education: Not on file Highest education level: Not on file Occupational History Not on file Tobacco Use Smoking status: Never Smokeless tobacco: Never Substance and Sexual Activity Alcohol use: Yes Comment: socially Drug use: Not Currently Sexual activity: Yes Partners: Male Other Topics Concern Not on file Social History Narrative Not on file Social Determinants of Health Financial Resource Strain: Not on file Food Insecurity: Not on file Transportation Needs: Not on file Physical Activity: Not on file Stress: Not on file Social Connections: Not on file Intimate Partner Violence: Not on file Housing Stability: Not on file PHYSICAL EXAM BP 121/77 Pulse 71 Temp 36.1 C (97 F) Resp 14 Ht 5' 3.25 (1.607 m) Wt 196 lb 9.6 oz (89.2 kg) BMI 34.55 kg/m Physical Exam Vitals and nursing note reviewed. Constitutional: Appearance: Normal appearance. She is morbidly obese. She is not ill-appearing or toxic-appearing. HENT: Head: Normocephalic and atraumatic. Nose: Nose normal. Eyes: General: Vision grossly intact. Conjunctiva/sclera: Conjunctivae normal. Pupils: Pupils are equal, round, and reactive to light. Neck: Trachea: Trachea and phonation normal. Cardiovascular: Rate and Rhythm: Normal rate. Pulses: Normal pulses. Pulmonary: Effort: Pulmonary effort is normal. No respiratory distress. Breath sounds: No rales. Abdominal: General: Abdomen is protuberant. Palpations: Abdomen is soft. Tenderness: There is no guarding or rebound. Musculoskeletal: General: No deformity or signs of injury. Skin: General: Skin is warm and dry. Neurological: Mental Status: She is alert and oriented to person, place, and time. Mental status is at baseline. Psychiatric: Mood and Affect: Mood normal. Behavior: Behavior normal. Thought Content: Thought content normal. Judgment: Judgment normal. LABORATORY STUDIES AND IMAGING Laboratory Studies: No results for input(s): NA , K , CL , CO2 , BUN , CREATININE , GLUCOSE , CALCIUM in the last 72 hours. No results for input(s): WBC , RBC , HGB , HCT , MCV , MCH , MCHC , RDW , PLT , MPV in the last 72 hours. No results for input(s): ALKPHOS , ALT , AST , PROT , BILITOT , BILIDIR , LIPASE in the last 72 hours. No lab exists for component: LABALBU Imaging Studies Reviewed: N/a ASSESSMENT Assessment/Plan Based on today's evaluation, the patient is a candidate for metabolic/bariatric surgical intervention. We spent a great deal of time discussing the risks and benefits of various procedure and the patient is ideally suited for a minimally invasive Single Anastomosis Duodenal-Ileal bypass (REJI) and Liver Wedge Biopsy. Celina was seen today for surgical consult. Diagnoses and all orders for this visit: Deficiency of multiple nutrient elements Gastroesophageal reflux disease without esophagitis Primary hypertension Class 1 obesity due to excess calories with serious comorbidity and body mass index (BMI) of 34.0 to 34.9 in adult S/P gastric sleeve procedure We reviewed the potential risk of the procedure including but not limited to injury to intra-abdominal organs, breakdown of the gastric staple line, the need for re-operative therapy, prolonged hospitalization, mechanical ventilation, and . We discussed the possibility of bleeding, the need for blood transfusions, blood clots, hospital-acquired and intra-abdominal infection, anastomotic stricture, and worsening GERD. And we discussed the need for post-operative visit compliance, behavior modifications and dietary compliance, protein and vitamin supplementation, as well as routine scheduled and dedicated exercise. We discussed the potential weight loss benefit, resolution of co-morbid conditions, as well as the possibility of insufficient weight loss or weight gain after 2 years post-operative time. Upon completion of all required pre-operative testing we will submit for insurance pre-authorization. PLAN I have recommended proceeding with the evaluation and work-up for the primary procedure as outlined below: PATIENT SUMMARY Celina Guzmán 72 y.o. female with Body mass index is 34.55 kg/m . Revision Single Anastomosis Duodenal-Ileal bypass (REJI) and Liver Wedge Biopsy Procedure DM[] HTN[x] DONAVAN[] GERD[x] HL[] OA[] TOB[] Date of Surgery: TBD NOTES PCP: PHILIP LAGUNAS INITIAL TESTING RESULTS Labwork [x] CMP, TSH, Fasting Lipid Profile, Mg, Zinc, Vit B1 (whole blood), Vit B12, 25-OH Vit D, Fe, Ferritin, Folate Tobacco [] Serum Nicotine / Cotinine [] Negative [] Positive EGD [x] Dx: [x] GERD [] Dyspepsia [] Other Pathology [x] H. pylori [] Negative [] Positive UGI [x] [] not ordered US Abdomen [] [] not ordered DONAVAN eval [] [] On CPAP / Obtain settings Negative prior to index operation Hematology [] [] Hypercoagulation panel Toxicology [] [] Urine drug screen [] EtOH screen Addtional [x] [x] Hgb A1c INITIAL CONSULTATIONS CLEARANCE / MANAGEMENT Psychology [x] Weight Regain after Sleeve Dietitian [x] Weight Regain after Sleeve Cardiology [x] [] not ordered Pulmonary [x] [] not ordered Others [] []Heme/Onc []Psychiatry []Pain mgmt PSD [] Physician supervised diet: [x]None []3 mos []6 mos Revision Preop diet [x] Preop low calory diet: []None []1 wk [x]2 wks []Ext. FINAL PRE-OP TESTING RESULTS Labwork [x] [x]Pre-op CBC [x]BMP []Serum Nicotine / Cotinine EKG [x] CXR [x] POST-OP MEDICATIONS Ulcer Ppx [] Omeprazole 20 mg PO []QD []BID Gallstone Ppx [] Ursodiol 300 mg []BID DVT Ppx [] DVT prophylaxis per final preop visit estimated risk Estimated calculated risk: % Schedule final pre-operative office visit with surgeon, pre-operative education class, and pre-operative exercise class prior to date of surgery ATTESTATION I reviewed with the patient the details of the proposed operation. The risks benefits and options were discussed. Risks included but were not limited to bleeding, infection, damage to other surrounding organs, cardio-pulmonary complications related to anesthesia, conversion from laparoscopic to and open procedure, the need for reoperative or endoscopic therapy, the potential for prolonged mechanical ventilation, and . All questions were fully answered to the patient's satisfaction and they wish to proceed with surgical intervention. I personally performed the evaluation and management of Celina Pat in the development of a treatment plan for this patient. I personally interviewed the patient and performed an individual physical examination. In addition, I discussed the patient's condition and treatment options with them. I have also reviewed and agree with the past medical, family and social history unless otherwise noted. All of the patient's questions were answered. I personally performed the face to face encounter, physical exam, reviewing the medical history, coordinating the patient's care, counseling/educating the patient, ordering prescriptions/medications/tests/ procedures, interpreting results and documenting clinical information in the patient's electronic health record on the day of the encounter. Patient Care Team: Philip Lagunas as PCP - General (Internal Medicine) Tc Obrien MD as Surgeon (General Surgery) documented in this encounter [facility] 03-15-2023 Note HNO ID: [id number] Author: Shiv Li APRN.HUMAN RESOURCE STATISTICIAN Service: ? Author Type: Nurse Practitioner Type: Progress Notes Filed: 03/15/2023 2:44 PM Note Text: [facility] PATIENT NAME: Celina Pat DATE OF SERVICE: March 14, 2023 Pt presents for annual follow up RLS, very well controlled with gabapentin Last appointment with Dr Lopez he was concerned about apnea like behavior, pt was declining PAP--had tried it yrs ago and was intolerant, he ordered HSAT--overall AHI was 2.3. Pt has RLS. Takes gabapentin--very effective, no adverse effects. A Home Sleep Test (HST) performed on 04/04/22 neither confirms nor refutes a dx of DONAVAN, inlab psg is recommended. She spent 14.5% of time with O2<90%. She reports better sleep since her started bipap, now he's not snoring SLEEP-WAKE SCHEDULE Bedtime: 10-11 PM. She does not have a hard time falling asleep. Wake time: 7 AM, without an alarm. After falling asleep: she wakes up 1 time(s) per night, because of the need to urinate. On weekends, she maintains the same sleep schedule. Average total sleep time (in a 24 hour period): 8 hours. SLEEP-RELATED DETAILS Preferred sleep position: side Breathing disturbances and other behaviors during sleep: none. Bruxism: No GERD or aspiration: No Waking up with heart pounding or racing: No Anxiety or rumination: No She reports having an urge to move the legs. The urge to move the legs only occurs in the evening or nighttime. The urge to move the legs begins or worsens during periods of rest or inactivity (e.g. lying or sitting). The urge to move the legs is partially or totally relieved by movements such as walking or stretching, at least as long as the activity continues. The urge to move the legs occurs 7 nights per week and began 30 years ago. There is no history of iron deficiency or anemia. RLS very well controlled with gabapentin. She denies any history of parasomnias. Daytime sleepiness is not a problem. She does not report sleep paralysis or sleep-related hallucinations or cataplexy WAKE-RELATED DETAILS She does not work. She does have difficulty with memory or concentration. has told her that her memory isn't as good as it used to be. She denies falling asleep or dozing off when driving. She does not take naps. She does not drink caffeinated beverages. There has not been a recent change in weight. Patient Questionnaires Sleep Scores PROMIS Global Health - (T-Scores - the mean of general population = 50. Five points is a clinically meaningful difference.) 11/02/2016 11/02/2016 Physical T-Score 44.9 44.9 Mental T-Score 62.5 62.5 PAST MEDICAL HISTORY Diagnosis Date Esophageal reflux Resolved Generalized osteoarthrosis, unspecified site knee(BOTH) says RA on plaquenil as well hx of BABITA resolved with sling Other specified disorder of gallbladder Postmenopausal HRT (hormone replacement therapy) 06/2014 normal E2 Restless leg syndrome Rheumatoid disease (HCC) sees local rheum was on MTX then plaquenil Rosacea on tx Rotator cuff disorder bilateral Ruptured disk L1 Squamous cell skin cancer Symptomatic states associated with artificial menopause 2000 fibroids Unspecified constipation Vitamin D deficiency 06/2014 22.7 PAST SURGICAL HISTORY Procedure Laterality Date ANESTH DIAGNOSTIC ARTHROSCOPIC PROC KNEE JOINT BILAT ARTHRP KNE CONDYLEANDPLATU MEDIALANDLAT COMPARTMENTS 2002 bilateral COLONOSCOPY FLX DX W/COLLJ SPEC WHEN PFRMD 11/05/08 ESOPHAGOGASTRODUODENOSCOPY TRANSORAL DIAGNOSTIC 2003 EGD LAPS SURG CHOLECYSTECTOMY W/CHOLANGIOGRAPHY 01/20/08 LIG/TRNSXJ FLP TUBE ABDL/VAG APPR UNI/BI Tubal ligation OPEN REPAIR OF ROTATOR CUFF ACUTE Rotator cuff repair/Both shoulders PAST SURGICAL HISTORY OF ANTERIOR UTETHROPEXY PAST SURGICAL HISTORY OF 2000 POSTERIOR COLPORRHAPHY PAST SURGICAL HISTORY OF 2000 Cervix Removal REDUCTION OF LARGE BREAST TONSILLECTOMY PRIMARY/SECONDARY TOTAL ABDOMINAL HYSTERECT W/WO RMVL TUBE OVARY WITH bso SUPRACERVICAL TOTAL ABDOMINAL HYSTERECT W/WO RMVL TUBE OVARY 2000 bilateral oophorectomy ACTIVE PROBLEM LIST Telogen Effluvium Transient Disorder of Initiating Or Maintaining Sleep Postmenopausal Hrt (Hormone Replacement Therapy) Symptomatic States Associated With Artificial Menopause Rosacea Rheumatoid Disease (Hcc) hx of BABITA Restless Leg Syndrome Vitamin D Deficiency Peroneal Tendinitis of Right Lower Extremity Allergies As of Date: 03/15/2023 Allergen Noted Reaction ADHESIVE TAPE (ROSINS) 06/09/2018 Rash CODEINE 09/28/2002 DEMEROL [MEPERIDINE (PF)] 10/08/2005 SULFA (SULFONAMIDE ANTIBIOTICS) 09/28/2002 Fully Assessed 03/15/2023 CURRENT MEDICATIONS: triamterene-hydrochlorothiazide (MAXZIDE) 75-50 mg per tablet Take 1 tablet by mouth once daily. lansoprazole (PREVACID) 30 mg capsule Take 1 capsule by mouth once daily. estradio (more content not included)... [facility] 03-15-2023 History of Presen t illness Narrative Images from the original note were not included. [facility] PATIENT NAME: Celina Pat DATE OF SERVICE: March 14, 2023 Pt presents for annual follow up RLS, very well controlled with gabapentin Last appointment with Dr Lopez he was concerned about apnea like behavior, pt was declining PAP--had tried it yrs ago and was intolerant, he ordered HSAT--overall AHI was 2.3. Pt has RLS. Takes gabapentin--very effective, no adverse effects. A Home Sleep Test (HST) performed on 04/04/22 neither confirms nor refutes a dx of DONAVAN, inlab psg is recommended. She spent 14.5% of time with O2<90%. She reports better sleep since her started bipap, now he's not snoring SLEEP-WAKE SCHEDULE Bedtime: 10-11 PM. She does not have a hard time falling asleep. Wake time: 7 AM, without an alarm. After falling asleep: she wakes up 1 time(s) per night, because of the need to urinate. On weekends, she maintains the same sleep schedule. Average total sleep time (in a 24 hour period): 8 hours. SLEEP-RELATED DETAILS Preferred sleep position: side Breathing disturbances and other behaviors during sleep: none. Bruxism: No GERD or aspiration: No Waking up with heart pounding or racing: No Anxiety or rumination: No She reports having an urge to move the legs. The urge to move the legs only occurs in the evening or nighttime. The urge to move the legs begins or worsens during periods of rest or inactivity (e.g. lying or sitting). The urge to move the legs is partially or totally relieved by movements such as walking or stretching, at least as long as the activity continues. The urge to move the legs occurs 7 nights per week and began 30 years ago. There is no history of iron deficiency or anemia. RLS very well controlled with gabapentin. She denies any history of parasomnias. Daytime sleepiness is not a problem. She does not report sleep paralysis or sleep-related hallucinations or cataplexy WAKE-RELATED DETAILS She does not work. She does have difficulty with memory or concentration. has told her that her memory isn't as good as it used to be. She denies falling asleep or dozing off when driving. She does not take naps. She does not drink caffeinated beverages. There has not been a recent change in weight. Patient Questionnaires Sleep Scores PROMIS Global Health - (T-Scores - the mean of general population = 50. Five points is a clinically meaningful difference.) 11/02/2016 11/02/2016 Physical T-Score 44.9 44.9 Mental T-Score 62.5 62.5 PAST MEDICAL HISTORY Diagnosis Date Esophageal reflux Resolved Generalized osteoarthrosis, unspecified site knee(BOTH) says RA on plaquenil as well hx of BABITA resolved with sling Other specified disorder of gallbladder Postmenopausal HRT (hormone replacement therapy) 06/2014 normal E2 Restless leg syndrome Rheumatoid disease (HCC) sees local rheum was on MTX then plaquenil Rosacea on tx Rotator cuff disorder bilateral Ruptured disk L1 Squamous cell skin cancer Symptomatic states associated with artificial menopause 2000 fibroids Unspecified constipation Vitamin D deficiency 06/2014 22.7 PAST SURGICAL HISTORY Procedure Laterality Date ANESTH DIAGNOSTIC ARTHROSCOPIC PROC KNEE JOINT BILAT ARTHRP KNE CONDYLE&PLATU MEDIAL&LAT COMPARTMENTS 2002 bilateral COLONOSCOPY FLX DX W/COLLJ SPEC WHEN PFRMD 11/05/08 ESOPHAGOGASTRODUODENOSCOPY TRANSORAL DIAGNOSTIC 2003 EGD LAPS SURG CHOLECYSTECTOMY W/CHOLANGIOGRAPHY 01/20/08 LIG/TRNSXJ FLP TUBE ABDL/VAG APPR UNI/BI Tubal ligation OPEN REPAIR OF ROTATOR CUFF ACUTE Rotator cuff repair/Both shoulders PAST SURGICAL HISTORY OF ANTERIOR UTETHROPEXY PAST SURGICAL HISTORY OF 2000 POSTERIOR COLPORRHAPHY PAST SURGICAL HISTORY OF 2000 Cervix Removal REDUCTION OF LARGE BREAST TONSILLECTOMY PRIMARY/SECONDARY <AGE 14 TOTAL ABDOMINAL HYSTERECT W/WO RMVL TUBE OVARY WITH bso SUPRACERVICAL TOTAL ABDOMINAL HYSTERECT W/WO RMVL TUBE OVARY 2000 bilateral oophorectomy ACTIVE PROBLEM LIST Telogen Effluvium Transient Disorder of Initiating Or Maintaining Sleep Postmenopausal Hrt (Hormone Replacement Therapy) Symptomatic States Associated With Artificial Menopause Rosacea Rheumatoid Disease (Hcc) hx of BABITA Restless Leg Syndrome Vitamin D Deficiency Peroneal Tendinitis of Right Lower Extremity Allergies As of Date: 03/15/2023 Allergen Noted Reaction ADHESIVE TAPE (ROSINS) 06/09/2018 Rash CODEINE 09/28/2002 DEMEROL [MEPERIDINE (PF)] 10/08/2005 SULFA (SULFONAMIDE ANTIBIOTICS) 09/28/2002 Fully Assessed 03/15/2023 CURRENT MEDICATIONS: triamterene-hydrochlorothiazide (MAXZIDE) 75-50 mg per tablet Take 1 tablet by mouth once daily. lansoprazole (PREVACID) 30 mg capsule Take 1 capsule by mouth once daily. estradiol (ESTRACE) 1 mg tablet Take 1 tablet by mouth once daily. gabapentin (NEURONTIN) 300 mg capsule TAKE 4 to 5 CAPSULES BY MOUTH EVERY NIGHT. USE DIRECTED allopurinol (ZYLOPRIM) 100 mg tablet Take 100 mg by mouth once daily. (Patient not taking: Reported on 03/15/2023) dexamethasone sodium phosphate (DECADRON) 4 mg/mL injection 4 mg as directed. for use by physical therapist for iontophoresis (Patient not taking: Reported on 02/11/2018 ) Review of Systems Constitutional: Negative for fatigue and recent unintentional weight change. Cardiovascular: Negative for palpitations. Gastrointestinal: Negative for heartburn. Genitourinary: Positive for nocturia (only once a night). Musculoskeletal: Positive for arthralgias. Neurological: Negative for headaches. SOCIAL HISTORY: Social History Tobacco Use Smoking status: Never Smokeless tobacco: Never Vaping Use Vaping Use: Never used Substance Use Topics Alcohol use: Yes Alcohol/week: 2.5 standard drinks of alcohol Types: 1 Glasses of Wine (5oz) per week Drug use: No FAMILY HISTORY: FAMILY HISTORY Problem Relation Age of Onset Cancer Father Macular Degen Paternal Grandfather Stroke Paternal Aunt Macular Degen Paternal Aunt Heart Paternal Uncle There is no family history of sleep disorders. PHYSICAL EXAMINATION: Vital Signs: BP 122/66 Pulse 84 Resp 16 Wt 89.7 kg (197 lb 12.8 oz) SpO2 96% BMI 33.95 kg/m PHYSICAL EXAM: General appearance: pleasant, no distress Mental status: alert and oriented Heart regular Extremities: no edema Neuro: gait normal IMPRESSION/PLAN: G25.81 RLS (restless legs syndrome) Cleina Pat is a 72 year old female with PMH of GERD, SCC, rheumatoid disease who has RLS. Has CKD3, followed by PCP Dr Lagunas--I'll check renal function labs from [facility] Continue gabapentin. She takes 600 mg at HS, then takes another 600 mg at 2 AM when she gets up to urinate, occas takes 300 mg in evening when watching TV. PDMP website checked and validated. All prescriptions have been APPROPRIATELY filled. No suspicious activity was identified. 03/15/2023 by Shiv Li APRN.CNP Nonmedical therapy for restless legs syndrome includes : cold/warm compresses, warm/hot baths or showers, gentle massage, mild leg stretching at nighttime, or magnesium supplements ( 250- 1000 mg at nighttime daily). Mentally alerting activities help too. Note the caffeine, alcohol, nicotine, antidepressants, anti-nausea meds and antihistamines can cause or worsen symptoms. Shiv Li APRN.HUMAN RESOURCE STATISTICIAN documented in this encounter [facility] 02-05-2023 Miscellaneous Notes Pharmacy verified in [facility] Patient has been identified by name and date of : Yes Patient requesting a call when RX is approved and sent to the pharmacy. Please call patient at: [phone] Patient phones for refill(s): Requested Prescriptions Pending Prescriptions Disp Refills gabapentin (NEURONTIN) 300 mg capsule 450 capsule 1 Sig: TAKE 4 to 5 CAPSULES BY MOUTH EVERY NIGHT. USE DIRECTED Date of last office visit : February 2022 Date of next office visit : 04/09/2023 Last 2 Encounter Wt Readings: Date: Wt: 03/16/2022 88.2 kg (194 lb 6.4 oz) 01/20/2021 85.7 kg (189 lb) Patient only has about a week left Please advise. Dolly Marquez documented in this encounter [facility] 04-06-2022 Note HNO ID: [id number] Author: Anatoliy Marte Service: ? Author Type: ? Type: Progress Notes Filed: 04/06/2022 11:20 AM Note Text: Sleep Study Check-In Documentation Date: April 06, 2022 Name: Celina Pat Comments: HST was returned in working order with all sleep questionnaires Anatoliy Marte [facility] 04-06-2022 History of Presen t illness Narrative Sleep Study Check-In Documentation Date: April 06, 2022 Name: Celina Pat Comments: HST was returned in working order with all sleep questionnaires Anatoliy Marte Nom[facility]# [id number] , date shipped out 04/03 Tracking mailout: [id number] Tracking return: [id number] March 29, 2022 An order has been received for Home Sleep Apnea Test (HSAT) from [facility] Staff/Clinical Data Management Manager Staff Orders. Visit prep complete - Please refer to the sleep study order (under procedures tab) for protocol details and special instructions. The sleep study is scheduled for 04/04. Insurance: Payor: PRIMETIME / Plan: PRIMETIME HMO POS / Product Type: HMO / Payer/Plan Subscr Sex Relation Sub. Ins. ID Effective Group Num 1. PRIMETIME - P* PADO,CELINA 1950 Female Self [id number] [birth year] [id number] [address] 2. MEDPAY - MEDP* PADO,CELINA 1950 Female Self [id number] 11/18/[address], [facility] [address] Christin Tee documented in this encounter [facility] 04-02-2022 Note HNO ID: [id number] Author: Anatoliy Marte Service: ? Author Type: ? Type: Progress Notes Filed: 04/06/2022 11:20 AM Note Text: [facility]# [id number] , date shipped out 04/03 Tracking mailout: [id number] Tracking return: [id number] [facility] 03-29-2022 Note HNO ID: [id number] Author: Christin Tee Service: ? Author Type: ? Type: Progress Notes Filed: 04/06/2022 11:20 AM Note Text: March 29, 2022 An order has been received for Home Sleep Apnea Test (HSAT) from [facility] Staff/Clinical Data Management Manager Staff Orders. Visit prep complete - Please refer to the sleep study order (under procedures tab) for protocol details and special instructions. The sleep study is scheduled for 04/04. Insurance: Payor: PRIMETIME / Plan: PRIMETIME HMO POS / Product Type: HMO / Payer/Plan Subscr Sex Relation Sub. Ins. ID Effective Group Num 1. PRIMETIME - P* PADO,CELINA 1950 Female Self [id number] [birth year] [id number] [address] 2. MEDPAY - MEDP* PADO,CELINA 1950 Female Self [id number] 11/18/[address], [facility] [address] Christin Tee [facility] 03-16-2022 History of Presen t illness Narrative ESTABLISHED PATIENT VISIT CHIEF COMPLAINT: Follow Up HISTORY OF PRESENT ILLNESS: Celina Pat is a 71 year old female, BMI 33.37 kg/m2 with a PMH significant for and per last office vist note of 08/28/21: 1. RLS (restless legs syndrome) - ICD9: 333.94, ICD10: G25.81 (primary diagnosis) Patient with known history of RLS. Well controlled with gabapentin 1200mg QHS. SE and ADRs reviewed with pt. No changes in meds at this time. Refills provided. Requested yearly CMP,CBC from PCP office. 2. Rheumatoid arthritis, involving unspecified site, unspecified whether rheumatoid factor present (HCC) - ICD9: 714.0, ICD10: M06.9 Patient with increasing joint pain. Know history of RA. Currently not following with anyone. Pain disrupting sleep at times. Will refer to Rheum for opinion and recs. 3. Degenerative lumbar disc - ICD9: 722.52, ICD10: M51.36 4. Degenerative disc disease, cervical - ICD9: 722.4, ICD10: M50.30 Worsening back pain. Feels injections of late are not helping. Would like second opinion. Will refer to Spine Med for opinion and recs. Patient s/p lumbar fusion 3 months ago. Has resulted in some pain relief - still has limited duration she can stand. Following with Rheum in April. RLS has not changed, but states not sleeping. Gets to sleep well but then wakes after 2 hours. Takes 1200mg gabapentin at bedtime. If takes more will wake up sooner. Horrible dry mouth at night, but there is some concern now for Sjogren's disease. Uncertain if snores. No AM headaches. If wakes, will take 1.5 hours to fall back to sleep. Tired upon waking in the AM. Lower back and hip pain with known OA of ricardo hips. Thinks overall sleeps relatively well given prior history. REVIEW OF SYSTEMS GENERAL:No weight loss, malaise or fevers. HEENT:Negative for frequent or significant headaches, No changes in hearing or vision, no nose bleeds or other nasal problems RESPIRATORY: Negative for cough, wheezing or shortness of breath. CARDIOVASCULAR: Negative for chest pain, leg swelling or palpitations. NEUROLOGIC:Negative for focal numbness or weakness, headaches and dizziness or syncope, vision changes, speech/languag changes - EXCEPT that as per HPI above. LAB/IMAGING: Those performed since patient's last visit [...] IA (no units) Date Value 09/13/2016 Negative GFR from OSH is 52. MEDICATIONS: gabapentin (NEURONTIN) 300 mg capsule TAKE 4 to 5 CAPSULES BY MOUTH EVERY NIGHT. USE DIRECTED dexamethasone sodium phosphate (DECADRON) 4 mg/mL injection 4 mg as directed. for use by physical therapist for iontophoresis (Patient not taking: Reported on 02/11/2018 ) triamterene-hydrochlorothiazide (MAXZIDE) 75-50 mg per tablet Take 1 tablet by mouth once daily. lansoprazole (PREVACID) 30 mg capsule Take 1 capsule by mouth once daily. estradiol (ESTRACE) 1 mg tablet Take 1 tablet by mouth once daily. HISTORIES PAST MEDICAL HISTORY Diagnosis Date Esophageal reflux Resolved Generalized osteoarthrosis, unspecified site knee(BOTH) says RA on plaquenil as well hx of BABITA resolved with sling Other specified disorder of gallbladder Postmenopausal HRT (hormone replacement therapy) 06/2014 normal E2 Restless leg syndrome Rheumatoid disease (HCC) sees local rheum was on MTX then plaquenil Rosacea on tx Rotator cuff disorder bilateral Ruptured disk L1 Squamous cell skin cancer Symptomatic states associated with artificial menopause 2000 fibroids Unspecified constipation Vitamin D deficiency 06/2014 22.7 FAMILY HISTORY Problem Relation Age of Onset Cancer Father Macular Degen Paternal Grandfather Stroke Paternal Aunt Macular Degen Paternal Aunt Heart Paternal Uncle SOCIAL HISTORY Social History Tobacco Use Smoking status: Never Smokeless tobacco: Never Vaping Use Vaping Use: Never used Substance Use Topics Alcohol use: Yes Alcohol/week: 2.5 standard drinks Types: 1 Glasses of Wine (5oz) per week Drug use: No PHYSICAL EXAMINATION Temp 36.6 C (97.8 F) (Temporal) Resp 16 Wt 88.2 kg (194 lb 6.4 oz) BMI 33.37 kg/m GENERAL EXAM: General appearance: NAD, pleasant. HEENT: NC/AT, nasal congestion absent, no oral lesions, membranes moist. Lungs: CTA bilaterally. CV: RRR nl S1, S2 Extr: No cyanosis, clubbing or edema. Skin: Cool to touch. NEUROLOGICAL EXAM: General: Awake, alert, oriented x3 (person,place,time), speech fluent, no dysarthria; comprehension, naming, repetition intact. CN: PERRL, fundi withno evidence of papilledema, EOMI and without nystagmus, VFF to confrontation, facial sensation and strength are normal and symmetric, hearing is intact, palate and tongue movements are intact and symmetric. SCM and trapezius strength normal. Motor: Normal tone, bulk and strength (5/5) bilaterally (throughout extremities x4). Coordination: FNF, POOJA, HTS intact. No tremors. Sensation: Light touch, vibration, temperature intact throughout. No evidence of neglect. Gait: Stable with normal stride and arm swing. Assessment and Plan: ASSESSMENT/PLAN: 1. Sleep apnea-like behavior - ICD9: 780.59, ICD10: G47.39 (primary diagnosis) Patient with known history of DONAVAN, but declined treatment in past. Concern that persistence of DONAVAN contributing to awakenings during the night. Thus, will reevaluate with [facility]. D/w pt treatment options. She is declining PAP therapy at this time, and had upper denture. She is seeking more information of [employer]. 2. RLS (restless legs syndrome) - ICD9: 333.94, ICD10: G25.81 Stable, with pt having no issues falling asleep to start the night. Discussed with pt and at this time no changes in medications. Note current gabapentin dose ok based on recent renal labs. 3. Degenerative lumbar disc - ICD9: 722.52, ICD10: M51.36 4. Rheumatoid arthritis, involving unspecified site, unspecified whether rheumatoid factor present (HCC) - ICD9: 714.0, ICD10: M06.9 Pain from disorders likely contributing to awakenings during the night. Encouraged follow up with [facility] ortho and Rheum - already following pt for above conditions. Michael Lopez MD I spent a total of 35 minutes on the date of the service which included preparing to see the patient, [id number] patient care, completing clinical documentation, obtaining and/or reviewing separately obtained history, performing a medically appropriate examination, counseling and educating the patient/family/caregiver, and ordering medications, tests, or procedures. PDMP website checked and validated. All prescriptions have been APPROPRIATELY filled. No suspicious activity was identified. 03/16/2022 by Michael Lopez MD documented in this encounter [facility] 08-28-2021 Miscellaneous Notes Faxed request to patient's PCP's office for recent labs. Aurelia Dickey LPN documented in this encounter [facility] 08-28-2021 Instructions Michael Lopez Jr., MD - 08/28/2021 2:21 PM EDT PAP Supply Guidelines Below are the guidelines for reordering your supplies. You will be responsible for your deductible, co-payments, and out of pocket expenses. Item Medicare & Commercial Insurance Medicaid & HCAP Nasal Mask (no headgear) 1 every 3 months 1 per year Nasal Mask Cushion 1 every month 2 per year Full Face Mask (no headgear) 1 every 3 months 1 per year Full Face Mask Cushion 1 every month *Self-Pay Nasal Pillows 2 every month 2 per year Headgear 1 every 6 months 1 per year Chin Strap 1 every 6 months 2 per year Tubing 1 every 3 months 1 per year Filters: Reusable 1 every 6 months 4 per year Filters: Disposable 2 every month 1 per month Humidifier Chamber(disposable) 1 every 6 months *Self-Pay documented in this encounter [facility] 08-28-2021 History of Presen t illness Narrative ESTABLISHED PATIENT VISIT (virtual visit with video) For this virtual visit, the patient has been identified by name and (MRN and photo identification as well if available). Those taking part in visit: Patient and physician via [place] Consent for this visit received from patient. HISTORY OF PRESENT ILLNESS: Celina Pat is a 71 year old female, with a PMH significant for and per last office visit of 01/20/21: 1. RLS (restless legs syndrome) - ICD9: 333.94, ICD10: G25.81 Patient doing well on current regimen of gabapentin as above and not wanting to make any changes to dosing/timing of gabapentin. She is happy with control of RLS. For now will continue. Refills provided. Patient will follow up in 6 months via VV or sooner prn. No complaints regarding sleep. Taking 1200mg of gabapentin at night. States it works great. States no symptoms of RLS until attempts to lower dose to 900mg and then up at 2AM. No other new medical conditions. Labs drawn by PCP over past year but not available for review. Still having back pain from known DDD. Rarely uses lidocaine patch. Was following with Dr. Rachel of pain mgmt. Chronic joint pain. Previously treated for possible RA. Patient concerned of symptoms and would like reevaluation by Rheum. She reports back, neck and joints in general bother her at night. REVIEW OF SYSTEMS GENERAL:No weight loss, malaise or fevers. HEENT:Negative for frequent or significant headaches, No changes in hearing or vision, no nose bleeds or other nasal problems NECK:Positive posterior pain exacerbated by movement. RESPIRATORY: Negative for cough, wheezing or shortness of breath. CARDIOVASCULAR: Negative for chest pain, leg swelling or palpitations. GASTROINTESTINAL: Negative for abdominal discomfort, blood in stools or black stools or change in bowel habits GENITOURINARY: No history of dysuria, frequency or incontinence MUSCULOSKELETAL: See HPI. NEUROLOGIC:Negative for focal numbness or weakness, headaches and dizziness or syncope, vision changes, speech/languag changes - EXCEPT that as per HPI above. SKIN:Negative for lesions, rash, and itching. LAB/IMAGING: Those performed since patient's last visit [...] Date Value 09/13/2016 Negative MEDICATIONS: gabapentin (NEURONTIN) 300 mg capsule TAKE 4 to 5 CAPSULES BY MOUTH EVERY NIGHT. USE DIRECTED dexamethasone sodium phosphate (DECADRON) 4 mg/mL injection 4 mg as directed. for use by physical therapist for iontophoresis triamterene-hydrochlorothiazide (MAXZIDE) 75-50 mg per tablet Take 1 tablet by mouth once daily. lansoprazole (PREVACID) 30 mg capsule Take 1 capsule by mouth once daily. estradiol (ESTRACE) 1 mg tablet Take 1 tablet by mouth once daily. HISTORIES PAST MEDICAL HISTORY Diagnosis Date Esophageal reflux Resolved Generalized osteoarthrosis, unspecified site knee(BOTH) says RA on plaquenil as well hx of BABITA resolved with sling Other specified disorder of gallbladder Postmenopausal HRT (hormone replacement therapy) 06/2014 normal E2 Restless leg syndrome Rheumatoid disease (HCC) sees local rheum was on MTX then plaquenil Rosacea on tx Rotator cuff disorder bilateral Ruptured disk L1 Squamous cell skin cancer Symptomatic states associated with artificial menopause 2000 fibroids Unspecified constipation Vitamin D deficiency 06/2014 22.7 FAMILY HISTORY Problem Relation Age of Onset Cancer Father Macular Degen Paternal Grandfather Stroke Paternal Aunt Macular Degen Paternal Aunt Heart Paternal Uncle SOCIAL HISTORY Social History Tobacco Use Smoking status: Never Smoker Smokeless tobacco: Never Used Vaping Use Vaping Use: Never used Substance Use Topics Alcohol use: Yes Alcohol/week: 2.5 standard drinks Types: 1 Glasses of Wine (5oz) per week Drug use: No PHYSICAL EXAMINATION There were no vitals taken for this visit. GENERAL EXAM: General appearance: NAD, pleasant. HEENT: NC/AT, nasal congestion absent, no oral lesions, membranes moist. NECK: ROM appears nml. Lungs: No audible cough, wheeze, sob. NEUROLOGICAL EXAM: General: Awake, alert, oriented x3 (person,place,time), speech fluent, no dysarthria; comprehension, naming, repetition intact. CN: EOMI, face symmetric, hearing is intact, palate and tongue movements are intact and symmetric. SCM and trapezius strength symmetric. Motor: BEASLEY equal and symmetric. Gait: Stable with normal stride and arm swing. Assessment and Plan: ASSESSMENT/PLAN: 1. RLS (restless legs syndrome) - ICD9: 333.94, ICD10: G25.81 (primary diagnosis) Patient with known history of RLS. Well controlled with gabapentin 1200mg QHS. SE and ADRs reviewed with pt. No changes in meds at this time. Refills provided. Requested yearly CMP,CBC from PCP office. 2. Rheumatoid arthritis, involving unspecified site, unspecified whether rheumatoid factor present (HCC) - ICD9: 714.0, ICD10: M06.9 Patient with increasing joint pain. Know history of RA. Currently not following with anyone. Pain disrupting sleep at times. Will refer to Rheum for opinion and recs. 3. Degenerative lumbar disc - ICD9: 722.52, ICD10: M51.36 4. Degenerative disc disease, cervical - ICD9: 722.4, ICD10: M50.30 Worsening back pain. Feels injections of late are not helping. Would like second opinion. Will refer to Spine Med for opinion and recs. Michael Lopez MD I spent a total of 22 minutes on the date of the service which included preparing to see the patient, [id number] patient care, completing clinical documentation, obtaining and/or reviewing separately obtained history, performing a medically appropriate examination, counseling and educating the patient/family/caregiver and ordering medications, tests, or procedures. PDMP website checked and validated. All prescriptions have been APPROPRIATELY filled. No suspicious activity was identified. 08/28/2021 by Michael Lopez MD documented in this encounter [facility] documented as of this encounter (statuses as of 08/28/2021) 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 History of Past illness Narrative* Problem Noted Date Diagnosed Date Resolved Date Other screening mammogram 06/29/2014 Symptomatic menopausal or fe male climacteric states 01/13/2010 06/28/2014 Other specified congenital anomaly of skin 09/06/2005 06/29/2014 documented as of this encounter (statuses as of 02/06/2023) [facility] History of Past illness Narrative* Problem Noted Date Diagnosed Date Resolved Date Other screening mammogram 06/29/2014 Symptomatic menopausal or fe male climacteric states 01/13/2010 06/28/2014 Other specified congenital anomaly of skin 09/06/2005 06/29/2014 documented as of this encounter (statuses as of 03/15/2023) [facility] note* Diagnosis RLS (restless legs syndrome)- Primary Restless legs syndrome (RLS) Rheumatoid arthritis, involving unspecified site, unspecified whether rheumatoid factor present (HCC) Degenerative lumbar disc Degeneration of lumbar or lumbosacral intervertebral disc Degenerative disc disease, cervical Degeneration of cervical intervertebral disc documented in this encounter [facility] note* Diagnosis Sleep apnea-like behavior- Primary RLS (restless legs syndrome) Restless legs syndrome (RLS) Degenerative lumbar disc Degeneration of lumbar or lumbosacral intervertebral disc Rheumatoid arthritis, involving unspecified site, unspecified whether rheumatoid factor present ([facility]) documented in this encounter [facility] note* Diagnosis RLS (restless legs syndrome) Restless legs syndrome (RLS) documented in this encounter [facility] note* Diagnosis RLS (restless legs syndrome) Restless legs syndrome (RLS) documented in this encounter [facility] note* Diagnosis Deficiency of multiple nutrient elements Other nutritional deficiency Gastroesophageal reflux disease without esophagitis Esophageal reflux Primary hypertension Unspecified essential hypertension Class 1 obesity due to excess calories with serious comorbidity and body mass index (BMI) of 34.0 to 34.9 in adult S/P gastric sleeve procedure Back pain, unspecified back location, unspecified back pain laterality, unspecified chronicity Pain management [facility] Diagnosis Secondary hypertension- Primary Other secondary hypertension, unspecified documented in this encounter [facility] note* Diagnosis Pre-diabetes- Primary Other abnormal glucose Deficiency of multiple nutrient elements Other nutritional deficiency Gastroesophageal reflux disease without esophagitis Esophageal reflux Primary hypertension Unspecified essential hypertension Class 1 obesity due to excess calories with serious comorbidity and body mass index (BMI) of 34.0 to 34.9 in adult S/P gastric sleeve procedure Back pain, unspecified back location, unspecified back pain laterality, unspecified chronicity Pain management BMI 35.0-35.9,adult Gastro-esophageal reflux disease without esophagitis documented in this encounter [facility] note* Diagnosis Primary hypertension- Primary Unspecified essential hypertension BMI 34.0-34.9,adult Class 1 obesity with serious comorbidity and body mass index (BMI) of 34.0 to 34.9 in adult, unspecified obesity type Gastro-esophageal reflux disease without esophagitis documented in this encounter [facility] note* Diagnosis Gastro-esophageal reflux disease without esophagitis documented in this encounter [facility] note* Diagnosis Hypokalemia- Primary Hypopotassemia Vitamin D deficiency documented in this encounter [facility] note* Diagnosis Primary hypertension- Primary Unspecified essential hypertension BMI 33.0-33.9,adult Class 1 obesity with serious comorbidity and body mass index (BMI) of 33.0 to 33.9 in adult, unspecified obesity type documented in this encounter [facility] note* Diagnosis Pre-op evaluation- Primary Gastroesophageal reflux disease without esophagitis Esophageal reflux Class 1 obesity due to excess calories with serious comorbidity and body mass index (BMI) of 34.0 to 34.9 in adult documented in this encounter [facility] note* Diagnosis Primary hypertension- Primary Unspecified essential hypertension BMI 32.0-32.9,adult Class 1 obesity with serious comorbidity and body mass index (BMI) of 32.0 to 32.9 in adult, unspecified obesity type documented in this encounter [facility] note* Diagnosis Deficiency of multiple nutrient elements Other nutritional deficiency Gastroesophageal reflux disease without esophagitis Esophageal reflux Primary hypertension Unspecified essential hypertension Class 1 obesity due to excess calories with serious comorbidity and body mass index (BMI) of 34.0 to 34.9 in adult Back pain, unspecified back location, unspecified back pain laterality, unspecified chronicity Pain management Pre-diabetes Other abnormal glucose BMI 35.0-35.9,adult [facility]* Attachments The following attachments cannot be sent through Care Everywhere. * Upper GI Endoscopy Discharge Instructions (Pashto) documented in this [facility] for referral (narrative)* Diagnostic Procedure Only (Routine) - Pending Review Specialty Diagnoses / Procedures Referred By Elsie calderon Referred To Contact [facility] [place] Diagnoses Sleep apnea-like behavior Procedures HOME SLEEP APNEA TEST ([facility]) SLEEP STD AIRFLOW HRT RATE&O2 SAT EFFORT UNATT Michael Lopez Jr., MD [address] [facility] [address] [place] [address] [facility] [address] [place] [address] Referral ID Status Reason Start Date Expiration Date Visits Requested Visits Authorized [id number] Pending Review Auto-Generat ed Referral 2 03/16/2023 1 1 [facility] for referral (narrative)* Consultation (Routine) - Pending Review Specialty Diagnoses / Procedures Referred By Elsie Referred To Contact Pulmonary Disease / Pulmonology Diagnoses Deficiency of multiple nutrient elements Gastroesophageal reflux disease without esophagitis Primary hypertension Class 1 obesity due to excess calories with serious comorbidity and body mass index (BMI) of 34.0 to 34.9 in adult Back pain, unspecified back location, unspecified back pain laterality, unspecified chronicity Pain management Pre-diabetes BMI 35.0-35.9,adult Procedures LA OFFICE/OUTPATIENT NEW HIGH MDM 60-74 MINUTES Flex Mckeon, MANAGER RESEARCH DEVELOPMENT - HUMAN RESOURCE STATISTICIAN [address] [place] [address] [facility] [address] [place] [address] Referral ID Status Reason Start Date Expiration Date Visits Requested Visits Authorized [id number] Pending Review Specialty Services Required 03/27/2023 03/26/2024 1 1 Electronically signed by Flex Mckeon MANAGER RESEARCH DEVELOPMENT - HUMAN RESOURCE STATISTICIAN at 03/27/2023 12:46 PM EST * Consultation (Elective) - Pending Review Specialty Diagnoses / Procedures Referred By Contac t Referred To Contact Cardiology Diagnoses Deficiency of multiple nutrient elements Gastroesophageal reflux disease without esophagitis Primary hypertension Class 1 obesity due to excess calories with serious comorbidity and body mass index (BMI) of 34.0 to 34.9 in adult Back pain, unspecified back location, unspecified back pain laterality, unspecified chronicity Pain management Pre-diabetes BMI 35.0-35.9,adult Procedures LA OFFICE/OUTPATIENT [facility] 60-74 MINUTES Flex Mckeon, DAVE - HUMAN RESOURCE STATISTICIAN [address] [place] [address]. [address] [place] [address] [facility] [address] [place] [address] Referral ID Status Reason Start Date Expiration Date Visits Requested Visits Authorized [id number] Pending Review Specialty Services Required 03/27/2023 03/26/2024 1 1 [facility] Summary Purpose Family History No Family History Records FoundNo Family History Records FoundNo Family History Records FoundNo Family History Records FoundNo Family History Records FoundNo Family History Records FoundNo Family History Records FoundNo Family History Records FoundNo Family History Records FoundNo Family History Records Found Advance Directives No Advanced Directives Records FoundLatest Code Status on File Code Status Date Activated Date Inactivated Comments Full Code 04/16/2023 8:07 AM 04/16/2023 10:41 AM Latest Code Status on File Code Status Date Activated Date Inactivated Comments Full Code 04/16/2023 8:07 AM 04/16/2023 10:41 AM Reason for Referral Specialty Diagnoses / Procedures Referred By Contac t Referred To Contact [facility] [place] Diagnoses Degenerative lumbar disc Degenerative disc disease, cervical Procedures CONSULT TO [facility] OFFICE/OUTPATIENT [facility] 60-74 MINUTES Michael Lopez Jr., MD [address] [facility] [address] [place] [address] Referral ID Status Reason Start Date Expiration Date Visits Requested Visits Authorized [id number] Pending Review PCP Requested Referral 08/28/2021 08/28/2022 1 1 Specialty Diagnoses / Procedures Referred By Contac t Referred To Contact Rheumatology Diagnoses Rheumatoid arthritis, involving unspecified site, unspecified whether rheumatoid factor present (HCC) Procedures CONSULT TO RHEUM/IMMUN DISEASE OFFICE/OUTPATIENT [facility] 60-74 MINUTES Michael Lopez Jr., MD [address] [facility] [address] [place] [address] Referral ID Status Reason Start Date Expiration Date Visits Requested Visits Authorized [id number] Pending Review PCP Requested Referral 08/28/2021 08/28/2022 1 1 Additional Source Comments INFORMATION SOURCE (unrecogn ized section and content) DATE CREATED AUTHOR AUTHOR'S ORGANIZ ATION 03/02/2018 [facility] [place] DATE CREATED AUTHOR AUTHOR'S ORGANIZ ATION 03/17/2018 [facility] DATE CREATED AUTHOR AUTHOR'S ORGANIZ ATION 04/08/2018 [facility] [place] DATE CREATED AUTHOR AUTHOR'S ORGANIZ ATION 04/27/2018 [facility] DATE CREATED AUTHOR AUTHOR'S ORGANIZ ATION 05/11/2018 [facility] DATE CREATED AUTHOR AUTHOR'S ORGANIZ ATION 08/27/2018 [facility] DATE CREATED AUTHOR AUTHOR'S ORGANIZ ATION 12/25/2019 [facility] DATE CREATED AUTHOR AUTHOR'S ORGANIZ ATION 03/19/2023 [facility] DATE CREATED AUTHOR AUTHOR'S ORGANIZ ATION 07/07/2023 [facility] Source Comments (unrecognize d section and content) In the event this informatio n is protected by the Federal Confidentiality of Alcohol and Drug Abuse Patient Records regulations: The Federal rules restrict any use of the information to criminally investigate or prosecute any alcohol or drug abuse patient.[facility] the event this information is protected by the Federal Confidentiality of Alcohol and Drug Abuse Patient Records regulations: The Federal rules restrict any use of the information to criminally investigate or prosecute any alcohol or drug abuse patient.[facility] the event this information is protected by the Federal Confidentiality of Alcohol and Drug Abuse Patient Records regulations: The Federal rules restrict any use of the information to criminally investigate or prosecute any alcohol or drug abuse patient.[facility] the event this information is protected by the Federal Confidentiality of Alcohol and Drug Abuse Patient Records regulations: The Federal rules restrict any use of the information to criminally investigate or prosecute any alcohol or drug abuse patient.[facility] the event this information is protected by the Federal Confidentiality of Alcohol and Drug Abuse Patient Records regulations: The Federal rules restrict any use of the information to criminally investigate or prosecute any alcohol or drug abuse patient.[facility] Hospital[facility] the event this information is protected by the Federal Confidentiality of Alcohol and Drug Abuse Patient Records regulations: The Federal rules restrict any use of the information to criminally investigate or prosecute any alcohol or drug abuse patient.[facility] Reason for Visit (unrecogniz ed section and content) Reason Comments Requested recent labs from PCP Reason Comments Established Patient 6 Month F/U Reason Onset Date Comments Refill Request 02/05/2023 Reason Comments New Patient Pt reported RLS martha ined unchanged, medication refill. Reason Comments Surgical Consult [facility] NEW Specialty Diagnoses / Procedures Referred By Elsie calderon Referred To Contact Bariatrics Diagnoses Morbid (severe) obesity due to excess calories (HCC) Procedures Eval & Treat [facility] [address] [place] [address] Referral ID Status Reason Start Date Expiration Date V isits Requested Visits Authorized [id number] Pending Review 03/05/2023 09/01/2023 1 1 Reason Comments Nutrition Counseling BNA initial Reason Comments EGD EGD order Reason Onset Date Comments Financial file 03/27/2023 Financial file Surgery Scheduling 03/27/2023 Initial sched uling - orders pended Reason Comments Weight Loss NEW D/E 1 of 3 Specialty Diagnoses / Procedures Referred By Elsie t Referred To Contact Diagnoses Gastro-esophageal reflux disease without esophagitis Gastro-esophageal reflux disease without esophagitis [K21.9] Procedures LA EGD TRANSORAL BIOPSY SINGLE/MULTIPLE EGD WITH BIOPSY Margi Guzmán, [address] [place] [address] [facility] [address] [place] [address] Referral ID Status Reason Start Date Expiration Date Visits Re quested Visits Authorized [id number] 1 1 Reason Comments Weight Loss D/E 2 of 3 Reason Comments New Patient Specialty Diagnoses / Procedures Referred By [facility] Referred To Contact Pulmonary Disease / Pulmonology Diagnoses Deficiency of multiple nutrient elements Gastroesophageal reflux disease without esophagitis Primary hypertension Class 1 obesity due to excess calories with serious comorbidity and body mass index (BMI) of 34.0 to 34.9 in adult Back pain, unspecified back location, unspecified back pain laterality, unspecified chronicity Pain management Pre-diabetes BMI 35.0-35.9,adult Procedures LA OFFICE/OUTPATIENT NEW HIGH MDM 60-74 MINUTES Flex Mckeon, MANAGER [employer] DEVELOPMENT - HUMAN RESOURCE STATISTICIAN [address] [place] [address] [facility] [address] [place] [address] Referral ID Status Reason Start Date Expiration Date Visits Requested Visits Authorized [id number] Pending Review Specialty Services Required 03/27/2023 03/26/2024 1 1 Reason Comments Weight Loss D/E 3 of 3 Care Teams (unrecognized sec tion and content) Ob Nurse Relationship Specialty Start Date End Date Philip Lagunas MD [address] [place] [address] PCP - General Internal Medicine 12/25/19 Ob Nurse Relationship Specialty Start Date End Date Philip Lagunas MD [address] [place] [address] PCP - General Internal Medicine 12/25/19 Ob Nurse Relationship Specialty Start Date End Date Philip Lagunas MD [address] [place] [address] PCP - General Internal Medicine 12/25/19 Ob Nurse Relationship Specialty Start Date End Date Philip Lagunas MD [address] [place], [place] [id number] PCP - General Internal Medicine 12/25/19 Ob Nurse Relationship Specialty Start Date End Date Philip Lagunas [address] [place] [address] PCP - General Internal Medicine 03/06/23 Ob Nurse Relationship Specialty Start Date End Date Philip Lagunas [address] [place] [address] PCP - General Internal Medicine 03/06/23 Ob Nurse Relationship Specialty Start Date End Date Philip Lagunas [address] [place] [address] PCP - General Internal Medicine 03/06/23 Ob Nurse Relationship Specialty Start Date End Date Philip Lagunas [address] [place] [address] PCP - General Internal Medicine 03/06/23 Ob Nurse Relationship Specialty Start Date End Date Philip Lagunas [address] [place] [address] PCP - General Internal Medicine 03/06/23 Ob Nurse Relationship Specialty Start Date End Date Philip Lagunas [address] [place] [address] PCP - General Internal Medicine 03/06/23 Ob Nurse Relationship Specialty Start Date End Date Philip Lagunas [address] [place] [address] PCP - General Internal Medicine 03/06/23 Ob Nurse Relationship Specialty Start Date End Date Philip Lagunas [address] [place] [phone] PCP - General Internal Medicine 03/06/23 Ob Nurse Relationship Specialty Start Date End Date Philip Lagunas [address] [facility] [address] [place] [phone] PCP - General Internal Medicine 03/06/23 Scheduled Active and Recently Administ ered Medications (unrecognized section and content) PRN Medication Order 04/14/2023 04/15/2023 04/16/2023 sodium chloride 0.9 % infusion 5-250 mL/hr, IntraVENous, PRN, if patient receiving piggyback infusions and maintenance fluids are not ordered OR KVO fluids to protect IV site / prevent frequent line interruptions/ long duration, Starting on Sat04/16/23 at 0809, For piggyback infusion, administer at same rate as piggyback for a total of 25 mL. Enter 25 mL into dose field and piggyback rate into rate field of order. If piggyback is infusing at a rate less than 100 mL/hr, enter 25 mL into dose field and 100 mL/hr into rate field of order. For KVO fluids, enter rate of 20 mL/hr or less into rate field of order. sodium chloride 0.9 % infusion 5-250 mL/hr, IntraVENous, PRN, if patient receiving piggyback infusions and maintenance fluids are not ordered OR KVO fluids to protect IV site / prevent frequent line interruptions/ long duration, Starting on Sat04/16/23 at 0807, Preprocedure, For piggyback infusion, administer at same rate as piggyback for a total of 25 mL. Enter 25 mL into dose field and piggyback rate into rate field of order. If piggyback is infusing at a rate less than 100 mL/hr, enter 25 mL into dose field and 100 mL/hr into rate field of order. For KVO fluids, enter rate of 20 mL/hr or less into rate field of order. sodium chloride 0.9% (NS) flush 10 mL 10 mL, IntraVENous, PRN, line care, Starting on Sat04/16/23 at 0809, After every IV line use sodium chloride 0.9% (NS) flush 10 mL 10 mL, IntraVENous, PRN, line care, Starting on Sat04/16/23 at 0807, Preprocedure, After every IV line use FOR RECORDS PERTAINING TO PATIENTS WHO ARE OR HAVE BEEN ENROLLED IN A CHEMICAL DEPENDENCY/SUBSTANCEABUSE PROGRAM, SOME INFORMATION MAY BE OMITTED. This clinical summary was aggregated from multiple sources. Caution should be exercised in using it in the provision of clinical care. This summary normalizes information from multiple sources, and as a consequence, information in this document may materially change the coding, format and clinical context of patient data. In addition, data may be omitted in some cases. CLINICAL DECISIONS SHOULD BE BASED ON THE PRIMARY CLINICAL RECORDS. [facility] [employer] [facility]. provides no warranty or guarantee of the accuracy or completeness of information in this document.
[2023-07-08 12:54] LABS: Anion Gap 5 (5-15); BUN 16 mg/dL (7-18); BUN/Creat Ratio 14.4 RATIO (10-20); Chloride 104 mmol/L (98-107); Cholesterol 259 mg/dL (200); Creatinine, Serum 1.11 mg/dL (0.55-1.02); EST Glomerular Filtration Rate 52 mL/min (>60); Est Glom Filt Rate - Afr Amer 62 mL/min (>60); Glucose 83 mg/dL (74-106); High Density Lipoprotein 129 mg/dL; Potassium 3.8 mmol/L (3.5-5.1); Sodium Level 140 mmol/L (136-145); Triglycerides 122 mg/dL; Uric Acid 6.2 mg/dL (2.6-6.0); Very Low Density Lipoprotein 24 mg/dL (5-40)
[2023-07-14 19:07] LABS: Testosterone, % Free 1.39 % (0.50-2.80); Testosterone, Free 0.33 ng/dL (0.10-0.85); Testosterone, Total 24 ng/dL (3-67)
== END | disposition home or self-care (01) ==
LOC: BIMLAB 11:21
PROVIDERS: Obstetrics & Gynecology; PCP Internal Medicine; Visit Provider Internal Medicine
DX: R68.82 Decreased libido (principal); N18.30 Chronic kidney disease, stage 3 unspecified; I12.9 Hypertensive chronic kidney disease with stage 1 through stage 4 chronic kidney disease, or unspecified chronic kidney disease; N95.1 Menopausal and female climacteric states; M10.9 Gout, unspecified
CPT/HCPCS: 36415; 80048; 80061; 84402; 84403; 84550

== ENCOUNTER → 2023-07-18 | Outpatient (CLI) | payer MEDICARE, SELFPAY ==
--- NOTE | 2023-07-18 08:52 | RAD_ITS ---
INDICATION: PAIN EXAMINATION/TECHNIQUE: X-RAY - XR Spine Lumbar Min 4 Views COMPARISON: 10/10/2020 FINDINGS: VERTEBRAE: Vertebral body height is maintained, there are postoperative changes of pedicle screw posterior fixation on the RIGHT at L4-5, intervertebral disc spacer also noted. No fracture. No spondylolisthesis. Preservation of the normal lumbar lordosis. No significant facet arthropathy. DISCS: Disc spaces are maintained, postoperative changes noted in the interval at L4-5. INCLUDED ABDOMEN: Included bowel gas pattern is non-obstructive. RAD/L/S Spine Min 4 Views IMPRESSION: 1. Interval postoperative changes including pedicle screw posterior fixation on the RIGHT at L4-5, intervertebral disc spacer at L4-5. 2. No fractures or destructive bony process. No malalignment. Electronically Signed: John Gan MD at 17:19 EST ,
--- OUTSIDE RECORDS SUMMARY | 2023-07-18 09:40 | XMS RPT_ITS | CCD ---
Author Name Unknown Address [address] [place] [address] Organization [facility] Care Team Providers Care Admitting Office Escort Name Role Phone Terrie Orlando MD Unavailable [phone] Damari Chong Unavailable Unavailable John Higuera Unavailable [...] Unavailable IMCA Unavailable Unavailable [facility] Unavailable Unavailable Grey ForestCici Admitting Unavailabl e WilnerCici Attending Unavailabl e Bonezzi, Miranda Zafar Primary Care Unavailable WilnerCici Admitting Unavailabl e WilnerCici Attending Unavailabl e WilnerCici Referring Unavailabl e Bonezzi, Miranda Zafar Primary Care Unavailable Abbas, Mujjahid Attending Unavailable Bonezzi, Miranda Zafar Primary Care Unavailable Philip Lagunas MD Primary Care Provider [phone] Philip Lagunas MD Primary Care Provider [phone] Lit Lagunas MDongbe Rain Primary Care Provider [...] (1 source) metoclopramide drug allergy 06-08-19 12 [facility] (14 sources) codeine; Translations: [CODEINE] Drug Allergy 09-29-19 03 [facility] (9 sources) meperidine; Translations: [MEPERIDINE (PF)] Drug Allergy 10-09-19 06 [facility] (9 sources) Sulfonamides (Antibiotic); Translations: [SULFA (SULFONAMIDE ANTIBIOTICS)] Propensity to adverse reactions to drug (disorder) 09-29-19 03 [facility] (7 sources) Adhesive Tape; Translations: [ADHESIVE TAPE (ROSINS)] Allergy to substance 06-09-19 19 Rash [facility] (12 sources) Other Propensity to adverse reactions 04-10-20 23 Other [facility] (5 sources) Meperidine Drug Allergy 10-09-19 06 [facility] (5 sources) Metoclopramide Drug Allergy 06-08-19 12 [facility] (5 sources) Sulfonamides (Antibiotic) Drug Intolerance 09-29-19 03 [facility] (5 sources) Wound Dressing Adhesive Drug Allergy 09-25-19 Other [facility] Medications Current Medications Medication Drug Class(es) [...] 160.7 cm Agueda Gustafson MD Work Phone: [facility] 05-24-2023 11:39-0500 Body mass index (BMI) [Ratio] 32.44 kg/m2 Agueda Gustafson MD Work Phone: [facility] 05-24-2023 11:39-0500 Body weight 83.73 kg Agueda Gustafson MD Work Phone: [facility] 05-24-2023 11:39-0500 Diastolic blood pressure 80 mm[Hg] Agueda Gustafson MD Work Phone: [facility] 05-24-2023 11:39-0500 Heart rate 82 /min Agueda Gustafson MD Work Phone: [facility] 05-24-2023 11:39-0500 Systolic blood pressure 120 mm[Hg] Agueda Gustafson MD Work Phone: [facility] 05-07-2023 13:48-0500 Body height 161.3 cm Xocihlt Gerstenmaier P A-C Work Phone: [facility] 05-07-2023 13:48-0500 Body mass index (BMI) [Ratio] 32.71 kg/m2 Xochilt Gerstenmaier PA-C Work Phone: [facility] 05-07-2023 13:48-0500 Body weight 85.09 kg Xochilt Gerstenmaier P A-C Work Phone: [facility] 05-07-2023 13:48-0500 Diastolic blood pressure 74 mm[Hg] Xochilt Gerstenmaier PA-C Work Phone: [facility] 05-07-2023 13:48-0500 Heart rate 80 /min Xochilt Gerstenmaier P A-C Work Phone: [facility] 05-07-2023 13:48-0500 Respiratory rate 18 /min Xochilt Gerstenmaier P A-C Work Phone: [facility] 05-07-2023 13:48-0500 SaO2% (BldA) [Mass fraction] 96 % Xochilt Gerstenmaier PA-C Work Phone: [facility] Encounters Encounter Date Encounter Type Care Provider Facility Start: 07-05-2023 End: 07-05-2023 ambulatory KAREN JENSEN [facility] Start: 06-12-2023 End: 06-13-2023 ambulatory FLEX MCKEON [facility] Start: 06-12-2023 End: 06-12-2023 Subsequent hospital visit by physician Flex Marx CNP Work Phone: [facility] X-ray Imaging Procedures Date Procedure Procedure Detail Performing Clinician Start: 06-12-2023 Radiologic exam upr gi trc single contrast study Flex Marx CNP Work Phone: Start: 05-24-2023 Adult depression scr eening assessment Agueda Gustafson MD Work Phone: Start: 04-10-2023 Lipid 1996 panel - S juan or Plasma Flex Mckeon JUNIOR ASSISTANT MANAGER - TESTING LEAD Work Phone: Start: 10-09-2021 Mammography Margi flaherty [...] DTaP/Tdap/Td Vaccines (2 - Td or Tdap) [facility] Start: 06-09-2028 Urine microalbumin profile DTaP,Tdap,Td Vaccine (2 - Td or Tdap) [facility] Start: 04-10-2028 Lipid panel Lipid Panel [facility] Start: 04-10-2026 Diabetes mellitus screening Diabetes Screening [facility] Start: 05-24-2024 Depression Screening Depression Scre ening [facility] Start: 07-17-2023 End: 04-16-2024 25-hydroxyvitamin D3 [Mass/volume] in Serum or Plasma Vitamin D Deficiency Screening (Vit D 25) Lab Routine Vitamin D deficiency Expected: 07/17/2023 (Approximate), Expires: 04/16/2024 [facility] Work Phone: Immunizations Immunization Date Immunization Notes Care Provider Fa [facility] 03-16-2020 influenza, seasonal, injectable Michael Lopez Jr., MD Work Phone: [facility] 03-16-2020 influenza virus vacc ine, unspecified formulation Michael Lopez Jr., MD Work Phone: [facility] Payers Date Payer Category Payer Medicare [id number] 2017 Unknown [id number] 2017 Unknown PRIMETIME PRIMET ELIZABETH HMO POS [id number] 2017-Present [phone] [address] [place] [address] HMO [id number] 2015 Unknown MEDPAY MEDPAY [id number] 2015-Present [phone] [place] [address] Indemnity [id number] 2005 Unknown 2005 Unknown PSYCH GENERIC BH GENERIC [id number] 2005-Present [phone] [address] [place] [address] Indemnity [id number] 1950 Unknown [id number] 1950 Unknown [id number] 1952 Unknown [id number] 1952 Unknown [id number] 1950 Unknown [id number] 1950 Unknown [id number] 1950 Unknown [id number] 1950 Unknown [id number] 1950 Unknown [id number] Social History Date Type Detail Facility Start: 03-16-2022 End: 03-19-2023 Tobacco smoking status NHIS Never smoked tobacco [facility] Work Phone: Start: 08-28-2021 End: 05-24-2023 Alcohol intake Current drinker of alcohol (finding) [facility] Start: 08-28-2021 End: 05-24-2023 Alcohol intake [facility] Start: 1950 Sex Assigned At Not on file [facility] Start: 03-16-2022 End: 03-19-2023 Tobacco use and exposure Smokeless tobacco non-user [facility] Start: 03-06-2022 End: 03-16-2022 Exposure to SARS-CoV-2 (event) Not sure [facility] Start: 03-16-2022 End: 05-24-2023 Tobacco use panel [facility] Adult Depression Screening Assessment 0 [facility] Start: 03-19-2023 Alcohol Comment socially [facility] Within the last year , have you been afraid of your partner or ex-partner? No [facility] Clinical Notes 06-29-2014 to 05-24-2023 Annamarie Valverde LPN - 05/24/2023 1:00 PM Meg Gustafson MD - 05/24/2023 1:00 PM Reyes Leon PA-C - 05/07/2023 1:40 PM ESTPatient InstructionsAnnamarie Valverde LPN - 04/26/2023 8:50 AM EST Note Date & Type Note Facility 05-24-2023 Note BARIATRIC CARE [facility] SURGICAL WEIGHT LOSS MANAGEMENT PROGRAM PROGRESS NOTE FOLLOW UP Patient: Celina aPt Date of : 1950 Service Date: 05/24/2023 DE Visit number: 3 of 3 Pre Program Weight Metrics Date of Initial Consultation:@FLOWLAST(8961)@ Initial Weight: @FLOWLAST([id number])@ Initial BMI: @FLOWLAST(874482262)@ [place] Body Weight: @FLOWLAST([id number])@ Excess Body Weight: @FLOWLAST([id number])@ Follow Up Weight Metrics Last Three Weights [...] on home O2 Completed by: Annamarie Valverde [facility] 05-24-2023 History of Presen t illness Narrative [facility] SURGICAL WEIGHT LOSS MANAGEMENT PROGRAM PROGRESS NOTE FOLLOW UP Patient: Celina Pat Date of : 1950 Service Date: 05/24/2023 DE Visit number: 3 of 3 Pre Program Weight Metrics Date of Initial Consultation:@FLOWLAST(8961)@ Initial Weight: @FLOWLAST([id number])@ Initial BMI: @FLOWLAST(955776754)@ [place] Body Weight: @FLOWLAST([id number])@ Excess Body Weight: @FLOWLAST([id number])@ Follow Up Weight Metrics Last Three Weights [...] updated and completed. 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 Denies hx of occupational exposures. Known history of sleep apnea: none Sleep study done 04/10/2022: negative for obstructive sleep apnea, MIGEL 2.3. SpO2 <88% for 5.5 minutes. Hx of restless leg syndrome, on Gabapentin. [place] Sleepiness Scale: 1 Sleep apnea symptoms: Bedtime [...] follow-ups on file. documented in this encounter [facility] 05-07-2023 Instructions Kiki Pelaez MA - 05/07/2023 1:40 PM EST YOUR APPOINTMENT TODAY WAS WITH THE [facility], COPD CLINIC, PULMONARY AND SLEEP MEDICINE OFFICE. PLEASE CALL OUR OFFICE AT [phone] IF YOU HAVE NOT RECEIVED YOUR TEST [...] feedback to make improvements. COVID-19 VACCINATION INFORMATION: [facility] [phone] HEALTH.[email or web address]/[email or web address]/VACCINE [facility] Central Scheduling [phone] [facility] Sleep Scheduling [phone] documented in this encounter [facility] 04-26-2023 Note BARIATRIC CARE ALINA Cam[facility] SURGICAL WEIGHT LOSS MANAGEMENT PROGRAM PROGRESS NOTE FOLLOW UP Patient: Celina Pat Date of : 1950 Service Date: 04/26/2023 DE Visit number: 2 of 3 Pre Program Weight Metrics Date of Initial Consultation:@FLOWLAST(8961)@ Initial Weight: @FLOWLAST([id number])@ Initial BMI: @FLOWLAST(083204061)@ [place] Body Weight: @FLOWLAST([id number])@ Excess Body Weight: @FLOWLAST([id number])@ Follow Up Weight Metrics Last Three Weights [...] on home O2 [facility]: [facility] History of Presen t illness Narrative [facility] SURGICAL WEIGHT LOSS MANAGEMENT PROGRAM PROGRESS NOTE FOLLOW UP Patient: Celina Pat Date of : 1950 Service Date: 04/26/2023 DE Visit number: 2 of 3 Pre Program Weight Metrics Date of Initial Consultation:@FLOWLAST(8961)@ Initial Weight: @FLOWLAST([id number])@ Initial BMI: @FLOWLAST(149649202)@ [place] Body Weight: @FLOWLAST([id number])@ Excess Body Weight: @FLOWLAST([id number])@ Follow Up Weight Metrics Last Three Weights [...] updated and completed. documented in this encounter [facility] 04-16-2023 Note Patient: Celina Pat Procedure Summary Date: 04/16/23 Room / Location: [facility] ENDO SEC 2 / [facility] Gastroenterology [...] once all PACU criteria has been met. [facility] 04-16-2023 Note Patient: Celina Pat Procedure Summary Date: 04/16/23 Room / Location: [address] ENDO SEC 2 / ARCH Gastroenterology [...] opportunity for questions and acknowledgement of understanding. [facility] 04-16-2023 Note Department of Surger y [...] Surgical History: Procedure Laterality Date CHOLECYSTECTOMY 2011 [facility] HYSTERECTOMY [facility] REVISE KNEE JOINT REPLACE,ALL PARTS (HISTORICAL) Bilateral 2004 [facility] ROTATOR CUFF REPAIR Right 2007 [facility] ROTATOR CUFF REPAIR Left 2008 [facility] SLEEVE GASTRECTOMY, LAPAROSCOPIC (HISTORICAL) 2019 [facility] W/ Hiatal hernia Current Medications: Current Facility-Administered [...] understanding and willingness to proceed with plan. [facility] 04-16-2023 Note Endoscopy Center- [facility] Patient Name: Celina Pat Procedure Date: 04/16/2023 7:36 AM Gender: Female Date of : 1950 Age: 72 Admit Type: Outpatient Note Status: Finalized Endoscopist: Margi Guzmán DO, [id number] Procedure: Upper GI endoscopy Indications: Suspected gastro-esophageal [...] immediate complications. Procedure Code(s): --- Professional --- 84796, Esophagogastroduodenoscopy, flexible, transoral; with biopsy, single or multiple --- Technical --- 10711, Esophagogastroduodenoscopy, flexible, transoral; with biopsy, single or multiple Diagnosis Code(s): --- Professional --- K29.70, Gastritis, unspecified, without bleeding --- Technical --- K29.70, Gastritis, unspecified, without bleeding CPT copyright 2021 [employer]. All rights reserved. The codes documented in this report are preliminary and upon certified medical coder review may be revised to meet current compliance requirements. Attending Participation: I personally performed the entire procedure. Margi Guzmán DO 04/16/2023 8:19:13 AM This report has been signed electronically. Number of Addenda: 0 Note Initiated On: 04/16/2023 7:36 [address] [facility] 04-16-2023 Telephone encounter Note Signed. [facility] Phone: 04-16-2023 Miscellaneous Notes Signed. Sent pt [...] EST ----- thx documented in this encounter [facility] 04-16-2023 Note Patient: Celina Pat Procedure [...] History: Past Surgical History: 2012: CHOLECYSTECTOMY Comment: [facility] No date: HYSTERECTOMY Comment: [facility] 2004: REVISE KNEE JOINT REPLACE,ALL PARTS (HISTORICAL); Bilateral Comment: [facility] 2008: ROTATOR CUFF REPAIR; Right Comment: [facility] 2009: ROTATOR CUFF REPAIR; Left Comment: [facility] 2019: SLEEVE GASTRECTOMY, LAPAROSCOPIC (HISTORICAL) Comment: [facility] W/ Hiatal hernia Social History: TOBACCO: reports [...] found for this or any previous visit. [facility] 04-16-2023 History and physical note Images [...] Surgical History: Procedure Laterality Date CHOLECYSTECTOMY 2011 [facility] HYSTERECTOMY [facility] REVISE KNEE JOINT REPLACE,ALL PARTS (HISTORICAL) Bilateral 2004 [facility] ROTATOR CUFF REPAIR Right 2007 [facility] ROTATOR CUFF REPAIR Left 2008 [facility] SLEEVE GASTRECTOMY, LAPAROSCOPIC (HISTORICAL) 2019 [facility] W/ Hiatal hernia Current Medications: Current Facility-Administered [...] understanding and willingness to proceed with plan. [facility] 04-16-2023 History and physical note Images [...] Surgical History: Procedure Laterality Date CHOLECYSTECTOMY 2011 [facility] HYSTERECTOMY [facility] REVISE KNEE JOINT REPLACE,ALL PARTS (HISTORICAL) Bilateral 2004 [facility] ROTATOR CUFF REPAIR Right 2007 [facility] ROTATOR CUFF REPAIR Left 2008 [facility] SLEEVE GASTRECTOMY, LAPAROSCOPIC (HISTORICAL) 2019 [facility] W/ Hiatal hernia Current Medications: Current Facility-Administered [...] proceed with plan. documented in this encounter [facility] 04-16-2023 Note Formatting of this n ote might be different from the original. [facility] Name: Celina Pat Procedure Date: 04/16/2023 7:36 AM Gender: Female Date of : 1950 Age: 72 Admit Type: Outpatient Note Status: Finalized Endoscopist: Margi Guzmán DO, [id number] Procedure: Upper GI endoscopy Indications: Suspected gastro-esophageal [...] immediate complications. Procedure Code(s): --- Professional --- 24295, Esophagogastroduodenoscopy, flexible, transoral; with biopsy, single or multiple --- Technical --- 95410, Esophagogastroduodenoscopy, flexible, transoral; with biopsy, single or multiple Diagnosis Code(s): --- Professional --- K29.70, Gastritis, unspecified, without bleeding --- Technical --- K29.70, Gastritis, unspecified, without bleeding CPT copyright 2021 [employer]. All rights reserved. The codes documented in this report are preliminary and upon certified medical coder review may be revised to meet current compliance requirements. Attending Participation: I personally performed the entire procedure. Margi Guzmán DO 04/16/2023 8:19:13 AM This report has been signed electronically. Number of Addenda: 0 Note Initiated On: 04/16/2023 7:36 AM [facility] 04-16-2023 Note Formatting of this n ote might be different from the original. [facility] Patient Name: Celina Pat Procedure Date: 04/16/2023 7:36 AM Gender: Female Date of : 1950 Age: 72 Admit Type: Outpatient Note Status: Finalized Endoscopist: Margi Guzmán DO, [id number] Procedure: Upper GI endoscopy Indications: Suspected gastro-esophageal [...] immediate complications. Procedure Code(s): --- Professional --- 70158, Esophagogastroduodenoscopy, flexible, transoral; with biopsy, single or multiple --- Technical --- 97867, Esophagogastroduodenoscopy, flexible, transoral; with biopsy, single or multiple Diagnosis Code(s): --- Professional --- K29.70, Gastritis, unspecified, without bleeding --- Technical --- K29.70, Gastritis, unspecified, without bleeding CPT copyright 2022 [employer]. All rights reserved. The codes documented in this report are preliminary and upon certified medical coder review may be revised to meet current compliance requirements. Attending Participation: I personally performed the entire procedure. Margi Guzmán DO 04/16/2023 8:19:13 AM This report has been signed electronically. Number of Addenda: 0 Note Initiated On: 04/16/2023 7:36 AM [facility] 04-16-2023 Miscellaneous Notes [facility] Patient Name: Celina Pat Procedure Date: 04/16/2023 7:36 AM Gender: Female Date of : 1950 Age: 72 Admit Type: Outpatient Note Status: Finalized Endoscopist: Margi Guzmán DO, [id number] Procedure: Upper GI endoscopy Indications: Suspected gastro-esophageal [...] immediate complications. Procedure Code(s): --- Professional --- 00172, Esophagogastroduodenoscopy, flexible, transoral; with biopsy, single or multiple --- Technical --- 26929, Esophagogastroduodenoscopy, flexible, transoral; with biopsy, single or multiple Diagnosis Code(s): --- Professional --- K29.70, Gastritis, unspecified, without bleeding --- Technical --- K29.70, Gastritis, unspecified, without bleeding CPT copyright 2021 [employer]. All rights reserved. The codes documented in this report are preliminary and upon certified medical coder review may be revised to meet current compliance requirements. Attending Participation: I personally performed the entire procedure. Margi Guzmán DO 04/16/2023 8:19:13 AM This report has been signed electronically. Number of Addenda: 0 Note Initiated On: 04/16/2023 7:36 AM documented in this encounter [facility] 04-10-2023 Telephone encounter Note Sent pt [employer] message regarding Low D at 24 and low K+ at 3.3. Pt is not taking vitamin D, will start 4000 I U daily and will add high K+ foods daily. Will recheck K+ in 1-2 weeks and vitamin D levels in 3 months, orders pending, please sign. Thank you so much! [facility] 04-10-2023 Telephone encounter Note ----- Message from DAVE Lopez CNP sent at 04/10/2023 12:02 PM EST ----- thx [facility] 04-10-2023 Note Addended by: FERDINAND DAVIES on: 04/10/2023 08:33 AM Modules accepted: Orders [facility] 04-10-2023 History of Presen t illness Narrative [facility] SURGICAL WEIGHT LOSS MANAGEMENT PROGRAM SUPERVISED DIET [...] cm) Initial Weight: 196 lb (88.9 kg) [place] Body Weight: 128 lb (58.1 kg) Initial [...] home O2 Completed by: Jesusita Marion MA [facility] SURGICAL WEIGHT LOSS MANAGEMENT PROGRAM PHYSICIAN SUPERVISED [...] Surgical History: Procedure Laterality Date CHOLECYSTECTOMY 2011 [facility] HYSTERECTOMY [facility] REVISE KNEE JOINT REPLACE,ALL PARTS (HISTORICAL) Bilateral 2004 [facility] ROTATOR CUFF REPAIR Right 2007 [facility] ROTATOR CUFF REPAIR Left 2008 [facility] SLEEVE GASTRECTOMY, LAPAROSCOPIC (HISTORICAL) 2018 [facility] W/ Hiatal hernia Family History Problem Relation [...] (88.9 kg) Initial BMI: Initial BMI: 34.44 [place] Body Weight: [place] Body Weight: 128 lb (58.1 kg) Excess [...] DIET HISTORY FORM with patient (located in [employer]) Her diet contains adequate amounts of protein, [...] updated and completed. documented in this encounter [facility] 04-10-2023 Note Addended by: FERDINAND DAVIES on: 04/10/2023 08:33 AM Modules accepted: Orders [facility] 04-10-2023 Miscellaneous Notes Addended by: FERDINAND JAIMES [...] of the encounter. documented in this encounter [facility] 03-27-2023 Telephone encounter Note This patient has been rescheduled for the New D/E and notified. [facility] 03-27-2023 Telephone encounter Note Sorry but every pt should have at least ONE d/e, even though not required by insurance. Please reschedule. Also, I had to remove the ferritin and iron, not covered w any diagnosis. [facility] 03-27-2023 Note PLAN I have recommended [...] record on the day of the encounter. [facility] 03-27-2023 Telephone encounter Note D/E New has been cancelled. [facility] 03-27-2023 History of Presen t illness Narrative ENDOSCOPY ORDERS To be scheduled with: Dr. Guzmán Patient is: Pre-op/Pre-Bariatric Surgery conversion from LSG to REJI CPT code: EGD with biopsy- CPT 35533 Diagnosis: GERD- K21.9 If pre-op, Diet & Exercise Requirements are, and started/scheduled on not required: None Home O2: No Known Difficult Intubation: No Is patient on a GLP-1 agonist? No If yes- which one? N/A Please advise that patient hold this medication for 1 week before EGD EGD w Bx Scheduled for 04/09/2023 @ 7:50am @ [facility] with Dr. Guzmán.. DP printed documented in this encounter [facility] 03-27-2023 Telephone encounter Note Orders pended, Pre op check list scanned to media, EGD order sent to ALS. FDT please cancel appointment for 04/10/2023 W/ Augustine no D/E required. Hermelinda - please schedule psych eval - no D/E required. [facility] 03-27-2023 Telephone encounter Note PLAN I [...] personally performed the evaluation and management of eClina Pat in the development of a treatment [...] record on the day of the encounter. [facility] 03-22-2023 History of Presen t illness Narrative [facility] [place] BARIATRIC NUTRITION ASSESSMENT / DIET & EXERCISE [...] Guzmán Surgical Procedure: [x] REJI -S Revision [facility] 2019 Preop Diet: 2 wks Medical History: [...] X EXERCISE/CURRENT ACTIVITY Has membership at the [facility] CURRENT EATING HABITS/ADDITIONAL INFORMATION 24 Hour Recall [...] Fina [address] RD documented in this encounter [facility] 03-19-2023 History of Presen t illness Narrative [facility] SURGICAL WEIGHT LOSS MANAGEMENT PROGRAM ROOMING NOTE - Transfer NEW PATIENT (Pt had original WLS at hospital other than [facility]) Patient: Celina Pat Date of : [...] [facility] LAPAROSCOPY, BARIATRIC AND ROBOTIC SURGERY [facility] [facility] BARIATRIC EVALUATION - HISTORY AND PHYSICAL 03/19/23 PATIENT: Celina Pat DATE OF : 1950 - HISTORY OF PRESENT ILLNESS Chief Complaint: Obesity and associated conditions. Celina Pat is a 72 y.o. female with obesity and associated conditions who presents to the [facility] [place] for evaluation for metabolic/bariatric surgery. The patient [...] the past medical history. Preop weight at [facility] was 220 ->165 -> 196 lbs. Tried [...] Surgical History: Procedure Laterality Date CHOLECYSTECTOMY 2011 [facility] HYSTERECTOMY [facility] REVISE KNEE JOINT REPLACE,ALL PARTS (HISTORICAL) Bilateral 2004 [facility] ROTATOR CUFF REPAIR Right 2007 [facility] ROTATOR CUFF REPAIR Left 2008 [facility] SLEEVE GASTRECTOMY, LAPAROSCOPIC (HISTORICAL) 2019 [facility] W/ Hiatal hernia Family History Problem Relation [...] Surgeon (General Surgery) documented in this encounter [facility] 03-15-2023 Note HNO ID: [id number] Author: Shiv Li APRN.TESTING LEAD Service: ? Author Type: Nurse Practitioner Type: Progress Notes Filed: 03/15/2023 2:44 PM Note Text: [facility] PATIENT NAME: Celina [...] once daily. estradio (more content not included)... [facility] 03-15-2023 History of Presen t illness Narrative Images from the original note were not included. [facility] PATIENT NAME: Celina [...] normal IMPRESSION/PLAN: G25.81 RLS (restless legs syndrome) Celina Pat is a 72 year old female with PMH of GERD, SCC, rheumatoid disease who has RLS. Has CKD3, followed by PCP Dr Lagunas--I'll check renal function labs from [facility] Continue gabapentin. She takes 600 mg at [...] can cause or worsen symptoms. Shiv Li APRN.TESTING LEAD documented in this encounter [facility] 02-05-2023 Miscellaneous Notes Pharmacy verified in [facility] Patient has been identified by name and date of : Yes Patient requesting a call when RX is approved and sent to the pharmacy. Please call patient at: [phone] Patient phones for refill(s): Requested Prescriptions Pending [...] advise. Dolly Marquez documented in this encounter [facility] 04-06-2022 Note HNO ID: [id number] Author: Anatoliy Marte Service: ? Author Type: ? Type: Progress Notes Filed: 04/06/2022 11:20 AM Note Text: Sleep Study Check-In Documentation Date: April 06, 2022 Name: Celina Pat Comments: HST was returned in working order with all sleep questionnaires Anatoliy Marte [facility] 04-06-2022 History of Presen t illness Narrative Sleep Study Check-In Documentation Date: April 06, 2022 Name: Celina Pat Comments: HST was returned in working order with all sleep questionnaires Anatoliy Marte Nomad# [id number] , date shipped out 04/03 Tracking mailout: [id number] Tracking return: [phone] March 29, 2022 An order has been received for Home Sleep Apnea Test (HSAT) from [facility] Staff/Systems Integration Analyst Staff Orders. Visit prep complete - Please refer to the sleep study order (under procedures tab) for protocol details and special instructions. The sleep study is scheduled for 04/04. Insurance: Payor: PRIMETIME / Plan: PRIMETIME HMO POS / Product Type: HMO / Payer/Plan Subscr Sex Relation Sub. Ins. ID Effective Group Num 1. PRIMETIME - P* PADO,CELINA 1950 Female Self [id number] 07/18/17 [id number] [address] 2. MEDPAY - MEDP* PADO,CELINA 1950 Female Self [id number] 11/18/[address], [facility] [address] Christin Tee documented in this encounter [facility] 04-02-2022 Note HNO ID: [id number] Author: Anatoliy Marte Service: ? Author Type: ? Type: Progress Notes Filed: 04/06/2022 11:20 AM Note Text: Nomad# [id number] , date shipped out 04/03 Tracking mailout: [id number] Tracking return: [id number] [facility] 03-29-2022 Note HNO ID: [id number] Author: Christin Tee Service: ? Author Type: ? Type: Progress Notes Filed: 04/06/2022 11:20 AM Note Text: March 29, 2022 An order has been received for Home Sleep Apnea Test (HSAT) from [facility] Staff/Systems Integration Analyst Staff Orders. Visit prep complete - Please refer to the sleep study order (under procedures tab) for protocol details and special instructions. The sleep study is scheduled for 04/04. Insurance: Payor: PRIMETIME / Plan: PRIMETIME HMO POS / Product Type: HMO / Payer/Plan Subscr Sex Relation Sub. Ins. ID Effective Group Num 1. PRIMETIME - P* PADO,CELINA 1950 Female Self [id number] 07/18/17 [id number] [address] 2. MEDPAY - MEDP* PADO,CELINA 1950 Female Self [id number] 11/18/[address], [facility] [address] Christin Tee [facility] 03-16-2022 History of Presen t illness Narrative [...] during the night. Encouraged follow up with [facility] ortho and Rheum - already following pt for above conditions. Michael Lopez MD I spent a total of 35 minutes on the date of the service which included preparing to see the patient, [id number] patient care, completing clinical documentation, obtaining and/or reviewing separately obtained history, performing a medically appropriate examination, counseling and educating the patient/family/caregiver, and ordering medications, tests, or procedures. PDMP website checked and validated. All prescriptions have been APPROPRIATELY filled. No suspicious activity was identified. 03/16/2022 by Michael Lopez MD documented in this encounter [facility] 08-28-2021 Miscellaneous Notes Faxed request to patient's PCP's office for recent labs. Aurelia Dickey LPN documented in this encounter [facility] 08-28-2021 Instructions Michael Lopez Jr., MD [...] 6 months *Self-Pay documented in this encounter [facility] 08-28-2021 History of Presen t illness Narrative ESTABLISHED PATIENT VISIT (virtual visit with video) For this virtual visit, the patient has been identified by name and (MRN and photo identification as well if available). Those taking part in visit: Patient and physician via Yummlyt Consent for this visit received from patient. [...] which included preparing to see the patient, [id number] patient care, completing clinical documentation, obtaining and/or reviewing separately obtained history, performing a medically appropriate examination, counseling and educating the patient/family/caregiver and ordering medications, tests, or procedures. PDMP website checked and validated. All prescriptions have been APPROPRIATELY filled. No suspicious activity was identified. 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 documented as of this encounter (statuses as of 08/28/2021) [facility] History of Past illness Narrative* Problem Noted Date Resolved Date Other screening mammogram 06/29/20142016 Symptomatic menopausal or female climacteric sta sergio 01/13/2010 06/28/2014 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 documented as of this encounter (statuses as of 03/19/2022) [facility] History of Past illness Narrative* Problem Noted Date Resolved Date Other screening mammogram 06/29/20142016 Symptomatic menopausal or female climacteric sta sergio 01/13/2010 06/28/2014 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 documented as of this encounter (statuses as of 04/06/2022) [facility] History of Past illness Narrative* Problem Noted Date Diagnosed Date Resolved Date Other screening mammogram 06/29/2014 Symptomatic menopausal or fe male climacteric states 01/13/2010 06/28/2014 Other specified congenital anomaly of skin 09/06/2005 06/29/2014 documented as of this encounter (statuses as of 02/06/2023) [facility] History of Past illness Narrative* Problem Noted Date Diagnosed Date Resolved Date Other screening mammogram 06/29/2014 Symptomatic menopausal or fe male climacteric states 01/13/2010 06/28/2014 Other specified congenital anomaly of skin 09/06/2005 06/29/2014 documented as of this encounter (statuses as of 03/15/2023) [facility] note* Diagnosis RLS (restless legs syndrome)- Primary Restless legs syndrome (RLS) Rheumatoid arthritis, involving unspecified site, unspecified whether rheumatoid factor present (HCC) Degenerative lumbar disc Degeneration of lumbar or lumbosacral intervertebral disc Degenerative disc disease, cervical Degeneration of cervical intervertebral disc documented in this encounter [facility] note* Diagnosis Sleep apnea-like behavior- Primary RLS (restless legs syndrome) Restless legs syndrome (RLS) Degenerative lumbar disc Degeneration of lumbar or lumbosacral intervertebral disc Rheumatoid arthritis, involving unspecified site, unspecified whether rheumatoid factor present ([facility]) documented in this encounter [facility] note* Diagnosis RLS (restless legs syndrome) Restless legs syndrome (RLS) documented in this encounter [facility] note* Diagnosis RLS (restless legs syndrome) Restless legs syndrome (RLS) documented in this encounter [facility] note* Diagnosis Deficiency of multiple nutrient elements [...] chronicity Pain management [facility]* Diagnosis Secondary hypertension- Primary Other secondary hypertension, unspecified documented in this encounter [facility] note* Diagnosis Pre-diabetes- Primary Other abnormal [...] disease without esophagitis documented in this encounter [facility] note* Diagnosis Primary hypertension- Primary Unspecified essential hypertension BMI 34.0-34.9,adult Class 1 obesity with serious comorbidity and body mass index (BMI) of 34.0 to 34.9 in adult, unspecified obesity type Gastro-esophageal reflux disease without esophagitis documented in this encounter [facility] note* Diagnosis Gastro-esophageal reflux disease without esophagitis documented in this encounter [facility] note* Diagnosis Hypokalemia- Primary Hypopotassemia Vitamin D deficiency documented in this encounter [facility] note* Diagnosis Primary hypertension- Primary Unspecified essential hypertension BMI 33.0-33.9,adult Class 1 obesity with serious comorbidity and body mass index (BMI) of 33.0 to 33.9 in adult, unspecified obesity type documented in this encounter [facility] note* Diagnosis Pre-op evaluation- Primary Gastroesophageal reflux disease without esophagitis Esophageal reflux Class 1 obesity due to excess calories with serious comorbidity and body mass index (BMI) of 34.0 to 34.9 in adult documented in this encounter [facility] note* Diagnosis Primary hypertension- Primary Unspecified essential hypertension BMI 32.0-32.9,adult Class 1 obesity with serious comorbidity and body mass index (BMI) of 32.0 to 32.9 in adult, unspecified obesity type documented in this encounter [facility] note* Diagnosis Deficiency of multiple nutrient [...] Everywhere. * Upper GI Endoscopy Discharge Instructions (Yakut) [facility]narrative)* Diagnostic Procedure Only (Routine) - Pending Review Specialty Diagnoses / Procedures Referred By Elsie calderon Referred To Contact [facility] [place] Diagnoses Sleep apnea-like behavior Procedures HOME SLEEP APNEA TEST (HSAT) SLEEP STD AIRFLOW HRT RATE&O2 SAT EFFORT UNATT Michael Lopez Jr., MD [address] [address] [place] [address] [facility] [address] [place] [address] Referral ID Status Reason Start Date Expiration Date Visits Requested Visits Authorized [id number] Pending Review Auto-Generat ed Referral 2 03/16/2023 1 1 [facility] for referral (narrative)* Consultation (Routine) - Pending [...] chronicity Pain management Pre-diabetes BMI 35.0-35.9,adult Procedures NE OFFICE/OUTPATIENT NEW HIGH MDM 60-74 MINUTES Flex Mckeon, JUNIOR ASSISTANT MANAGER - TESTING LEAD [address] [place] [address] [facility] [address] [place] [address] Referral ID Status Reason Start Date Expiration Date Visits Requested Visits Authorized [id number] Pending Review Specialty Services Required 03/27/2023 03/26/2024 1 1 * Consultation (Elective) - Pending Review Specialty [...] chronicity Pain management Pre-diabetes BMI 35.0-35.9,adult Procedures NE OFFICE/OUTPATIENT [facility] 60-74 MINUTES Flex Mckeon, DAVE - TESTING LEAD [address] [place] [address]. [address] [place] [address] [facility] [address] [place] [address] Referral ID Status Reason Start Date Expiration Date Visits Requested Visits Authorized [id number] Pending Review Specialty Services Required 03/27/2023 03/26/2024 1 1 [facility] Health Summary Purpose Family History No Family [...] By Contac t Referred To Contact [facility] [place] Diagnoses Degenerative lumbar disc Degenerative disc disease, cervical Procedures CONSULT TO [facility] OFFICE/OUTPATIENT [facility] 60-74 MINUTES Michael Lopez Jr., MD [address] [facility] [address] [place] [address] Referral ID Status Reason Start Date Expiration Date Visits Requested Visits Authorized [id number] Pending Review PCP Requested Referral 08/28/2021 08/28/2022 1 1 Specialty Diagnoses / Procedures Referred By Contac t Referred To Contact Rheumatology Diagnoses Rheumatoid arthritis, involving unspecified site, unspecified whether rheumatoid factor present (HCC) Procedures CONSULT TO RHEUM/IMMUN DISEASE OFFICE/OUTPATIENT [facility] 60-74 MINUTES Michael Lopez Jr., MD [address] [place] [address] Referral ID Status Reason Start Date Expiration Date Visits Requested Visits Authorized [id number] Pending Review PCP Requested Referral 08/28/2021 08/28/2022 1 1 Additional Source Comments INFORMATION SOURCE (unrecogn ized section and content) DATE CREATED AUTHOR AUTHOR'S ORGANIZ ATION 03/02/2018 [facility] DATE CREATED AUTHOR AUTHOR'S ORGANIZ ATION 03/17/2018 [facility] DATE CREATED AUTHOR AUTHOR'S ORGANIZ ATION 04/08/2018 [facility] DATE CREATED AUTHOR AUTHOR'S ORGANIZ ATION 04/27/2018 [facility] DATE CREATED AUTHOR AUTHOR'S ORGANIZ ATION 05/11/2018 [facility] DATE CREATED AUTHOR AUTHOR'S ORGANIZ ATION 08/27/2018 [facility] DATE CREATED AUTHOR AUTHOR'S ORGANIZ ATION 12/25/2019 [facility] DATE CREATED AUTHOR AUTHOR'S ORGANIZ ATION 03/19/2023 [facility] DATE CREATED AUTHOR AUTHOR'S ORGANIZ ATION 07/07/2023 [facility] Source Comments (unrecognize d section and content) In the event this informatio n is protected by the Federal Confidentiality of Alcohol and Drug Abuse Patient Records regulations: The Federal rules restrict any use of the information to criminally investigate or prosecute any alcohol or drug abuse patient.[facility] the event this information is protected by the Federal Confidentiality of Alcohol and Drug Abuse Patient Records regulations: The Federal rules restrict any use of the information to criminally investigate or prosecute any alcohol or drug abuse patient.[facility] the event this information is protected by the Federal Confidentiality of Alcohol and Drug Abuse Patient Records regulations: The Federal rules restrict any use of the information to criminally investigate or prosecute any alcohol or drug abuse patient.[facility] the event this information is protected by the Federal Confidentiality of Alcohol and Drug Abuse Patient Records regulations: The Federal rules restrict any use of the information to criminally investigate or prosecute any alcohol or drug abuse patient.[facility] the event this information is protected by the Federal Confidentiality of Alcohol and Drug Abuse Patient Records regulations: The Federal rules restrict any use of the information to criminally investigate or prosecute any alcohol or drug abuse patient.[facility] the event this information is protected by the Federal Confidentiality of Alcohol and Drug Abuse Patient Records regulations: The Federal rules restrict any use of the information to criminally investigate or prosecute any alcohol or drug abuse patient.[facility] Reason for Visit (unrecogniz ed section [...] [facility] [address] [place] [address] Referral ID Status Reason Start Date Expiration Date V isits Requested Visits Authorized [id number] Pending Review 03/05/2023 09/01/2023 1 1 Reason [...] Gastro-esophageal reflux disease without esophagitis [K21.9] Procedures NE EGD TRANSORAL BIOPSY SINGLE/MULTIPLE EGD WITH BIOPSY Margi Guzmán, [address] [place] [address] [facility] [address] [place] [address] Referral ID Status Reason Start Date Expiration Date Visits Re quested Visits Authorized [id number] 1 1 Reason Comments Weight Loss D/E 2 of 3 Reason Comments New Patient Specialty Diagnoses / Procedures [facility] Referred To Contact Pulmonary Disease / Pulmonology Diagnoses Deficiency of multiple nutrient elements Gastroesophageal reflux disease without esophagitis Primary hypertension Class 1 obesity due to excess calories with serious comorbidity and body mass index (BMI) of 34.0 to 34.9 in adult Back pain, unspecified back location, unspecified back pain laterality, unspecified chronicity Pain management Pre-diabetes BMI 35.0-35.9,adult Procedures NE OFFICE/OUTPATIENT NEW HIGH MDM 60-74 MINUTES Flex Mckeon, JUNIOR ASSISTANT MANAGER - TESTING LEAD [address] [place] [address] [facility] [address] [place] [address] Referral ID Status Reason Start Date Expiration Date Visits Requested Visits Authorized [id number] Pending Review Specialty Services Required 03/27/2023 03/26/2024 1 1 Reason Comments Weight Loss D/E 3 of 3 Care Teams (unrecognized sec tion and content) Admitting Office Escort Relationship Specialty Start Date End Date Philip Lagunas MD [address] [place] [address] PCP - General Internal Medicine 12/25/19 Admitting Office Escort Relationship Specialty Start Date End Date Philip Lagunas MD [address] [place] [address] PCP - General Internal Medicine 12/25/19 Admitting Office Escort Relationship Specialty Start Date End Date Philip Lagunas MD [address] [place] [address] PCP - General Internal Medicine 12/25/19 Admitting Office Escort Relationship Specialty Start Date End Date Philip Lagunas MD [address] [place], [place] [id number] PCP - General Internal Medicine 12/25/19 Admitting Office Escort Relationship Specialty Start Date End Date Philip Lagunas [address] [place] [address] PCP - General Internal Medicine 03/06/23 Admitting Office Escort Relationship Specialty Start Date End Date Philip Lagunas [address] [place] [address] PCP - General Internal Medicine 03/06/23 Admitting Office Escort Relationship Specialty Start Date End Date Philip Lagunas [address] [place] [address] PCP - General Internal Medicine 03/06/23 Admitting Office Escort Relationship Specialty Start Date End Date Philip Lagunas [address] [place] [address] PCP - General Internal Medicine 03/06/23 Admitting Office Escort Relationship Specialty Start Date End Date Philip Lagunas [address] [place] [address] PCP - General Internal Medicine 03/06/23 Admitting Office Escort Relationship Specialty Start Date End Date Philip Lagunas [address] [place] [address] PCP - General Internal Medicine 03/06/23 Admitting Office Escort Relationship Specialty Start Date End Date Philip Lagunas [address] [place] [address] PCP - General Internal Medicine 03/06/23 Admitting Office Escort Relationship Specialty Start Date End Date Philip Lagunas [address] [place] [address] PCP - General Internal Medicine 03/06/23 Admitting Office Escort Relationship Specialty Start Date End Date Philip Lagunas [address] [facility] [address] [place] [phone] 877 PCP - General Internal Medicine 03/06/23 Scheduled [...] BE BASED ON THE PRIMARY CLINICAL RECORDS. [facility] [facility]. provides no warranty or guarantee of the accuracy or completeness of information in this document.
== END | disposition home or self-care (01) ==
PROVIDERS: PCP Internal Medicine; Referring Provider Clinical Nurse Specialist Adult Health; Visit Provider Clinical Nurse Specialist Adult Health
DX: M51.16 Intervertebral disc disorders with radiculopathy, lumbar region (principal)
CPT/HCPCS: 72110

== ENCOUNTER → 2023-08-08 | Outpatient (CLI) | payer MEDICARE, SELFPAY ==
--- NOTE | 2023-08-08 11:45 | MRI_ITS ---
HISTORY: DEGENERATIVE DISC DISEASE, RADICULOPATHY. TECHNIQUE: Multiplanar and multisequence MR images of the lumbar spine were obtained without intravenous contrast. 139 images. COMPARISON: XR 07/18/2023, MR 05/02/2021. FINDINGS: VERTEBRAE: Vertebral body heights maintained. Artifact from anterior and posterior spinal fusion hardware of L4-5. Degenerative endplate changes without significant bone marrow signal abnormality. ALIGNMENT: Chronic minimal retrolisthesis of L1-2 and anterolisthesis of L4-5. CONUS: Normal morphology and position of the conus medullaris at L1. INTERVERTEBRAL DISCS: Small extruded disc fragment posterior to the T11 vertebral body resulting in minimal narrowing of the thecal sac, based on the sagittal images. T12-L1: Minimal disc bulge without significant central canal stenosis or foraminal narrowing based on the sagittal images. L1-2: Mild disc bulge without thickened central canal stenosis or foraminal narrowing. L2-3: No significant posterior disc protrusion, central canal stenosis, or foraminal narrowing. L3-4: Very mild disc bulge eccentric to the left with facet arthropathy resulting in mild left foraminal narrowing with left L3 nerve root abutment. No significant central canal stenosis. L4-5: Postoperative change without recurrent posterior disc protrusion, central canal stenosis, or foraminal narrowing. L5-S1: No significant posterior disc protrusion, central canal stenosis, or foraminal narrowing. SOFT TISSUES: Mild posterior subcutaneous edema. No paraspinal fluid collection. MRI/Spine Lumbar (Routine) IMPRESSION: Progression of degenerative disc disease at L3-4 resulting in mild left foraminal narrowing and nerve root abutment. Postoperative change of L4-5 with decreased right nerve root abutment or impingement. Incompletely imaged extruded disc fragment posterior to the T11 vertebral body without significant spinal canal stenosis. Electronically Signed: Shirley Raymundo MD at 11:28 EDT ,
== END | disposition home or self-care (01) ==
LOC: MRI 10:55
PROVIDERS: PCP Internal Medicine; Referring Provider Clinical Nurse Specialist Adult Health; Visit Provider Clinical Nurse Specialist Adult Health
DX: M51.16 Intervertebral disc disorders with radiculopathy, lumbar region (principal)
CPT/HCPCS: 72148

== ENCOUNTER → 2024-02-07 | Outpatient (CLI) | payer MEDICARE, SELFPAY ==
[2024-02-07 16:52] LABS: Absolute Lymphocyte Count 3.05 X10^3/uL (0.83-4.51); Absolute Neutrophil Count 5.2 X10^3/uL (2.0-7.7); Basophil# 0.04 X10^3/uL; Basophil% 0.4 % (0-1); Eosinophil# 0.13 X10^3/uL; Eosinophils% 1.4 % (0-5); Hematocrit 38.9 % (37-47); Hemoglobin 12.4 g/dL (12.0-15.0); Lymphocyte # 3.05 X10^3/ul (0.83-4.51); Lymphocyte % 33.2 % (19-41); Mean Corp Hgb Conc 31.9 g/dL (32-36); Mean Corpuscular Hgb 30.8 pg (27.0-32.0); Mean Corpuscular Volume 96.5 fL (81-99); Mean Platelet Vol. 10.1 fl (6.2-12.0); Monocyte# 0.74 X10^3/uL; NRBC Flagged by Analyzer 0 % (0-5); Neutrophil # 5.21 X10^3/uL (2.7-7.7); Neutrophil % 56.7 % (47-70); Platelet Count 270 K/mm3 (150-450); RBC Distribution Width CV 12.8 % (11.6-14.6); RBC Distribution Width SD 45.6 fl (35.1-43.9); Red Blood Count 4.03 M/mm3 (4.2-5.4); White Blood Count 9.2 K/mm3 (4.4-11.0)
[2024-02-07 17:13] LABS: ALB/GLOB Ratio 0.8 RATIO (0.9-2.4); AST(SGOT) 15 U/L (15-37); Alanine Aminotransfer ALT/SGPT 14 U/L (13-56); Albumin, Serum 3.2 g/dL (3.2-5.0); Alkaline Phosphatase 96 U/L (45-117); Anion Gap 5 (5-15); BUN 14 mg/dL (7-18); BUN/Creat Ratio 11.8 RATIO (10-20); Calcium,Total 9.4 mg/dL (8.5-10.1); Chloride 106 mmol/L (98-107); Creatinine, Serum 1.19 mg/dL (0.55-1.02); EST Glomerular Filtration Rate 48 mL/min (>60); Est Glom Filt Rate - Afr Amer 57 mL/min (>60); Globulin 4.1 g/dL (2.2-4.2); Glucose 110 mg/dL (74-106); Potassium 3.5 mmol/L (3.5-5.1); Protein, Total 7.3 g/dL (6.4-8.2); Sodium Level 140 mmol/L (136-145); Uric Acid 4.9 mg/dL (2.6-6.0)
[2024-02-07 17:14] LABS: Hemoglobin A1c 4.9 % (3.8-5.6)
== END | disposition home or self-care (01) ==
LOC: BIMLAB 14:29
PROVIDERS: Obstetrics & Gynecology; PCP Internal Medicine; Referring Provider Internal Medicine; Visit Provider Internal Medicine
DX: Z13.1 Encounter for screening for diabetes mellitus (principal); F03.90 Unspecified dementia, unspecified severity, without behavioral disturbance, psychotic disturbance, mood disturbance, and anxiety; F32.A Depression, unspecified; F41.9 Anxiety disorder, unspecified; M10.9 Gout, unspecified
CPT/HCPCS: 36415; 80053; 83036; 84550; 85025

== ENCOUNTER → 2024-03-04 | Outpatient (CLI) | payer MEDICARE, SELFPAY ==
--- NOTE | 2024-03-04 09:56 | BI_ITS ---
MAMMOGRAPHY - BILATERAL SCREENING 3-D TOMOSYNTHESIS REASON FOR EXAM: Female, 73 years old. Breast Cancer Screening PERTINENT HISTORY: No significant family history. TECHNIQUE: 2-D mammograms and 3-D Tomosynthesis of the breast (s) were performed. CAD was performed. COMPARISON: 02/19/2023 FINDINGS: The breast composition is composed of scattered fibroglandular density. Scattered benign calcifications are seen. No dense spiculated masses or suspicious microcalcifications are identified. No architectural distortion is identified. There is no skin thickening or retraction. There has been no significant change since the prior study. BI/SCRN MAMM (CAD)W/TAMMIE BILAT IMPRESSION: No mammographic signs of malignancy. Routine yearly mammograms recommended. ASSESSMENT CATEGORY: BIRADS Category 1: Negative. A letter regarding these results will be sent to the patient by the facility within 30 days. FOLLOW UP RECOMMENDATION: Yearly follow up mammogram recommended. (A) Approximately 10% of breast cancers are not detected by mammography. A normal mammogram should not delay biopsy of a clinically suspicious abnormality. Electronically Signed: John White MD at 11:21 EDT ,
--- NOTE | 2024-03-04 10:02 | BD_ITS ---
STUDY: DUAL ENERGY X-RAY ABSORPTIOMETRY / DXA REASON FOR EXAM: Female, 73 years old. Post menopausal TECHNIQUE: Bone Mineral Density (BMD) measurements of lumbar spine and bilateral hips were obtained. COMPARISON: None. FINDINGS: Lumbar Spine (L1-L4): g/cm2 (1.165) / T-score (1.3) / Z-score (3.5) Findings are suggestive of normal bone density with a low fracture risk. Left Femur Total: g/cm2 (0.950) / T-score (0.1) / Z-score (1.7) Left Femoral Neck: g/cm2 (0.731) / T-score (-1.1) / Z-score (0.8) Right Femur Total: g/cm2 (0.991) / T-score (0.4) / Z-score (2.0) Right Femoral Neck: g/cm2 (0.821) / T-score (-0.2) / Z-score (1.6) BD/Dexa Bone Density Study IMPRESSION: The patient is considered osteopenic as outlined below according to World Tate Organization (WHO) criteria with a low fracture risk. Reference Information: The T-score is the number of standard deviations above or below the standard which is normal for young adults at their peak bone mineral density. The World Health Organization (WHO) interprets the T-scores as follows: Above -1 Normal bone density Between -1 and -2.5 Osteopenia Equal to / or below -2.5 Osteoporosis As a practical clinical guideline, osteopenia may be graded as follows: Mild -1 through -1.5 Moderate -1.6 through -2.0 Severe -2.1 through -2.4 The Z-score is the number of standard deviations above or below age-matched controls. A Z-score of less than -1.5 would be considered abnormal. References: 1. NIH Osteoporosis and Related Bone Diseases www osteo.org 2. International Society for Clinical Densitometry www iscd.org 3. National Osteoporosis Foundation www nof.org Electronically Signed: Genaro Chou MD at 12:49 EDT ,
== END | disposition home or self-care (01) ==
LOC: OPBD 09:56
PROVIDERS: PCP Internal Medicine; Referring Provider Internal Medicine; Visit Provider Internal Medicine
DX: Z13.820 Encounter for screening for osteoporosis (principal); Z78.0 Asymptomatic menopausal state; Z12.31 Encounter for screening mammogram for malignant neoplasm of breast
CPT/HCPCS: 77063; 77067; 77080

== ENCOUNTER → 2024-07-20 | Outpatient (CLI) | payer MEDICARE, SELFPAY ==
[2024-07-28 16:09] LABS: Testosterone Free <0.2 pg/mL (0.0-4.2); Testosterone, % Free 1.52 % (0.50-2.80); Testosterone, Free 0.23 ng/dL (0.10-0.85); Testosterone, Total 15 ng/dL (3-67)
== END | disposition home or self-care (01) ==
LOC: LAB 14:13
PROVIDERS: PCP Internal Medicine; Referring Provider Nurse Practitioner Women's Health; Visit Provider Nurse Practitioner Women's Health
DX: R68.82 Decreased libido (principal)
CPT/HCPCS: 36415; 84402; 84403

== ENCOUNTER → 2024-09-14 | Outpatient (CLI) | payer MEDICARE, SELFPAY ==
[2024-09-14 17:05] LABS: Absolute Lymphocyte Count 2.57 X10^3/uL (0.83-4.51); Absolute Neutrophil Count 5.4 X10^3/uL (2.0-7.7); Basophil# 0.03 X10^3/uL; Basophil% 0.3 % (0-1); Eosinophil# 0.09 X10^3/uL; Hemoglobin 12.5 g/dL (12.0-15.0); Lymphocyte # 2.57 X10^3/ul (0.83-4.51); Lymphocyte % 29.5 % (19-41); Mean Corp Hgb Conc 33.8 g/dL (32-36); Mean Corpuscular Hgb 31.9 pg (27.0-32.0); Mean Corpuscular Volume 94.4 fL (81-99); Monocyte# 0.67 X10^3/uL; Monocyte% 7.7 % (0-10); NRBC Flagged by Analyzer 0 % (0-5); Neutrophil # 5.35 X10^3/uL (2.7-7.7); Neutrophil % 61.4 % (47-70); Platelet Count 221 K/mm3 (150-450); RBC Distribution Width CV 12.8 % (11.6-14.6); RBC Distribution Width SD 44.4 fl (35.1-43.9); Red Blood Count 3.92 M/mm3 (4.2-5.4); White Blood Count 8.7 K/mm3 (4.4-11.0)
[2024-09-14 17:50] LABS: ALB/GLOB Ratio 1.2 RATIO (0.9-2.4); AST(SGOT) 20 U/L (<=31); Alanine Aminotransfer ALT/SGPT 13 U/L (<=34); Albumin, Serum 3.8 g/dL (3.4-4.8); Alkaline Phosphatase 79 U/L (35-104); Anion Gap 11 (5-15); BUN 10 mg/dL (4-19); BUN/Creat Ratio 9.9 RATIO (10-20); Calcium,Total 9.2 mg/dL (7.6-11.0); Carbon Dioxide 24.2 mmol/L (21.0-32.0); Chloride 103 mmol/L (98-108); Creatinine, Serum 1.03 mg/dL (0.70-1.20); EST Glomerular Filtration Rate 58 (>60); Globulin 3.1 g/dL (2.2-4.2); Glucose 101 mg/dL (70-99); Potassium 3.2 mmol/L (3.3-5.1); Protein, Total 6.8 g/dL (5.9-8.4); Sodium Level 138 mmol/L (133-145); Total Bilirubin 0.28 mg/dL (0.00-1.30); Uric Acid 3.4 mg/dL (2.6-6.0)
== END | disposition home or self-care (01) ==
LOC: BIMLAB 15:25
PROVIDERS: PCP Internal Medicine; Visit Provider Internal Medicine
DX: I10 Essential (primary) hypertension (principal); M10.9 Gout, unspecified
CPT/HCPCS: 36415; 80053; 84550; 85025

== ENCOUNTER → 2024-09-22 | Outpatient (CLI) | payer MEDICARE, SELFPAY ==
[2024-09-24 04:07] LABS: Thyroid Peroxidase AB 29 IU/mL (0-34)
== END | disposition home or self-care (01) ==
LOC: BIMLAB 13:05
PROVIDERS: PCP Internal Medicine; Visit Provider Nurse Practitioner Women's Health
DX: Z13.29 Encounter for screening for other suspected endocrine disorder (principal); R53.83 Other fatigue
CPT/HCPCS: 36415; 84439; 84443; 86376

== ENCOUNTER → 2024-10-16 | Outpatient (CLI) | payer MEDICARE, SELFPAY ==
[2024-10-16 13:12] LABS: Anion Gap 8 (5-15); BUN 11 mg/dL (4-19); BUN/Creat Ratio 10.2 RATIO (10-20); Calcium,Total 9.3 mg/dL (7.6-11.0); Carbon Dioxide 27.6 mmol/L (21.0-32.0); Chloride 104 mmol/L (98-108); Creatinine, Serum 1.04 mg/dL (0.70-1.20); EST Glomerular Filtration Rate 57 (>60); Glucose 81 mg/dL (70-99); Potassium 3.9 mmol/L (3.3-5.1); Sodium Level 140 mmol/L (133-145)
== END | disposition home or self-care (01) ==
LOC: BIMLAB 08:07
PROVIDERS: PCP Internal Medicine; Referring Provider Internal Medicine; Visit Provider Internal Medicine
DX: E87.6 Hypokalemia (principal)
CPT/HCPCS: 36415; 80048

== ENCOUNTER 2024-11-02 09:16 | Emergency (ER) | payer MEDICARE, SELFPAY ==
[2024-11-02 09:16] VITALS: BP 121/77; PULSE 80; RESP 14; TEMP 36.3; O2SAT 98; BMI 26.1
--- NOTE | 2024-11-02 10:03 | CT_ITS ---
PROCEDURE: BRAIN/HEAD WITHOUT CONTRAST 11/02/2024 REASON FOR EXAM: Head injury due to a fall. TECHNIQUE: BRAIN/HEAD WITHOUT CONTRAST Coronal and Sagittal reconstruction series were provided. One or more dose reduction techniques were used (e.g., Automated exposure control, adjustment of the mA and/or kV according to patient size, use of iterative reconstruction technique. RADIATION DOSE SUMMARY: CTDlvol: 44.99 mGy DLP: 779.24 mGycm COMPARISON: Prior study dated March 17, 2023. FINDINGS: Brain: Low density in the periventricular white matter suggests mild chronic small vessel ischemic changes. CSF Spaces: Mild generalized cerebral atrophy Sinuses/Mastoids: Clear at visualized levels Bones: Unremarkable CT/Brain/Head without Contrast IMPRESSION: CHRONIC CHANGES. NO ACUTE FINDINGS. Reading Location: [place] [id number]
--- NOTE | 2024-11-02 10:03 | RAD_ITS ---
PROCEDURE: HAND MIN 3 VIEWS 11/02/2024 REASON FOR EXAM: FALL Trauma, initial encounter. TECHNIQUE: HAND MIN 3 VIEWS COMPARISON: Right wrist November 03, 2019 FINDINGS: Bones and joints: Cartilage loss at the scapholunate trapezium joint and STT complex generally. Subchondral sclerosis and marginal osteophytes. No acute fracture. No dislocation. Soft tissues: Unremarkable. No foreign body. Other: RAD/Hand Min 3 Views IMPRESSION: Wrist arthritis. No acute osseous abnormality. Reading Location[facility]
--- NOTE | 2024-11-02 10:03 | CT_ITS ---
PROCEDURE: SPINE CERVICAL WITHOUT CONTRAS 11/02/2024 REASON FOR EXAM: FALL TECHNIQUE: SPINE CERVICAL WITHOUT CONTRAS Coronal and Sagittal reconstruction series were provided. One or more dose reduction techniques were used (e.g., Automated exposure control, adjustment of the mA and/or kV according to patient size, use of iterative reconstruction technique RADIATION DOSE SUMMARY: CTDlvol: 29.38 mGy DLP: 576.84 mGycm COMPARISON: None FINDINGS: Alignment: Straightening of the normal cervical lordosis. Vertebrae: Spondylosis at the C5-C6 and C6-C7 levels. Soft Tissues: Unremarkable Other: C1-2: Unremarkable C2-3: Facet joint osteoarthritis and hypertrophy worse on the right side. Mild right neural foraminal stenosis. C3-4: Facet joint osteoarthritis and hypertrophy. This is more pronounced on the right side with a moderate right neural foraminal stenosis. C4-5: Mild degree of disc space narrowing. Left facet joint osteoarthritis and hypertrophy. No significant stenosis seen. C5-6: Marked degree of disc space narrowing. Spondylosis. Uncovertebral arthrosis. Bilateral neural foraminal stenosis. C6-7: Marked degree of disc space narrowing. Spondylosis. No significant stenosis seen. C7-T1: Unremarkable CT/Spine Cervical without Contras IMPRESSION: Multilevel degenerative changes. No acute abnormality is seen. Reading Location: [place] [address]
--- NOTE | 2024-11-02 10:03 | RAD_ITS ---
PROCEDURE: WRIST MIN 3 VIEWS 11/02/2024 REASON FOR EXAM: FALL TECHNIQUE: Three views of the right wrist COMPARISON: None FINDINGS: There is a 0.2 cm corticated osteochondral fragment of the ulnar styloid, which may represent an old avulsion. There is mild osteoarthritis of the scaphotrapezium articulation. No acute fracture or dislocation is identified. Mineralization is normal. There is no visible atherosclerosis. RAD/Wrist min 3 Views IMPRESSION: No acute fracture or dislocation is identified. Reading Location: [facility]
--- NOTE | 2024-11-02 10:03 | CT_ITS ---
PROCEDURE: SINUS/FACIAL BONE REASON FOR EXAM: FALL TECHNIQUE: SINUS/FACIAL BONE Coronal and Sagittal reconstruction series were provided. One or more dose reduction techniques were used (e.g., Automated exposure control, adjustment of the mA and/or kV according to patient size, use of iterative reconstruction technique). COMPARISON: None FINDINGS: Frontal: Unremarkable Ethmoid: Unremarkable Sphenoid: Unremarkable Maxillary: Unremarkable Turbinates: Unremarkable Nasal Septum: Unremarkable Mastoids/Middle Ears: Unremarkable CT/Sinus/Facial Bone IMPRESSION: No acute abnormality is seen. Reading Location: [place] [id number]
--- NOTE | 2024-11-02 10:04 | EX.ED.GENINJ ---
HPI History of Present Illness Chief Complaint: Laceration Narrative Narrative: Patient is a 74-year-old female with past medical history of hypertension, GERD, anxiety, depression, chronic kidney disease, dementia who presents to the emergency department with a chief complaint of fall yesterday. Patient states that she was attempting to get her dog back in the house and the dog was not listening and therefore she attempted to put this dog on a leash and got wrapped around. She states that it caused her to fall forward and hit her face on the pavement. States that this all happened yesterday and notes her tetanus shot was updated approximately 4 years ago. States that she did not pass out she has not had any nausea vomiting. Patient states that she is having right wrist pain and her was insistent that she comes to be evaluated. [facility] Medical History Hypokalemia Decreased libido Obesity (BMI 30-39.9) Hypertension Chronic pain Early onset Alzheimer dementia GERD (gastroesophageal reflux disease) Suicide attempt Left shoulder pain Atypical chest pain Skin tear Cellulitis of right lower extremity Recurrent UTI Anxiety and depression Health care maintenance Foul smelling urine Depression Climacteric Wears dentures Wears glasses History of renal disease History of stress test Encounter for screening for malignant neoplasm of colon Dry mouth and eyes Dry eyes CKD (chronic kidney disease), stage III Dementia Fall Headache MCI (mild cognitive impairment) Edema Restless leg syndrome Venous insufficiency of both lower extremities Right ankle pain Chronic diarrhea right rotaor cuff repair gallbladder removed Cancer, skin, squamous cell Gout Back pain Arthritis IBS (irritable bowel syndrome) Home Medications ?Medication ?Instructions ?Recorded ?Last Taken ?Type gabapentin 600 mg tablet 600 mg PO QHS nerve pain 04/09/19 07/07/19 History multivitamin 1 tab PO DAILY supplement 07/08/19 07/08/19 History cyclosporine 0.05 % eye drops 1 drp ophthalmic (eye) Q12H 02/05/22 Unknown History (Restasis MultiDose) estradiol 1 mg tablet 1 mg PO DAILY #90 tabs 03/16/24 Unknown Rx melatonin 5 mg capsule 5 mg PO QHS #90 caps 05/11/24 Unknown Rx allopurinol 100 mg tablet 100 mg PO DAILY #90 tabs 05/15/24 Unknown Rx duloxetine 60 mg capsule,delayed 60 mg PO BID #180 caps 06/16/24 Unknown Rx release (Cymbalta) amoxicillin 500 mg tablet 1,000 mg (2 x 500 mg) PO TID #42 08/25/24 Unknown Rx tabs donepezil 5 mg tablet 5 mg PO ONCE 09/14/24 Unknown History semaglutide 3.4 subcut .weekly 09/14/24 Unknown History potassium chloride 20 mEq 20 meq PO QDAY #30 tabs 09/15/24 Unknown Rx tablet,extended release lansoprazole 30 mg capsule,delayed 30 mg PO DAILY gerd #90 caps 09/21/24 Unknown Rx release Allergy/AdvReac Type Severity Reaction Status Date / Time adhesive tape Allergy Intermediate blisters Verified 11/02/24 09:17 Family History Mother Hypertension COPD (chronic obstructive pulmonary disease) Father Cancer lyphoma Grandmother Cancer, Onset Age: 90 Surgical History History of cholecystectomy History of colonoscopy History of lumbar fusion History of cataract extraction History of eyelid surgery Status post right rotator cuff repair History of sleeve gastrectomy Status post left rotator cuff repair History of bilateral knee replacement History of hysterectomy Hx of breast reduction, elective Social History household members: spouse number of children: 2 current occupational status: retired Smoking Status: Never smoker alcohol intake: current alcohol intake frequency: a few times a month Alcohol type: hard liquor substance use type: does not use caffeine: No what type of physical activity do you participate in: none seatbelt use: always do you feel safe at home: Yes additional social history: -Nikhil Patient and are both retired ROS ROS ED ROS Narrative Constitutional: Denies headache, fevers, chills Eyes: Denies change in vision double vision blurry vision Cardiovascular: Denies chest pain or palpitations Respiratory: Denies shortness of breath Abdomen: Denies nausea vomit diarrhea : Denies urinary symptoms Neurological: Denies numbness, weakness, tingling Musculoskeletal: Complains of right wrist pain as noted above Skin: Complains of skin tears to her right wrist, left wrist and a small cut underneath her right eye EXAM Physical Exam Narrative Exam Narrative: General: Patient lying in bed rest comfortably did not appear to be acute distress Head: Atraumatic, normocephalic Eyes: PERRL bilaterally, EOMI bilateral, no conjunctival injection noted Neck: Soft, supple, trachea midline Cardiovascular: Regular in rhythm no murmurs gallops rubs noted Respiratory: Clear to auscultation bilaterally Abdomen: Soft, nondistended, nontender to palpation Musculoskeletal: Patient has tenderness to palpation over the dorsal aspect of her right hand, right wrist and her right elbow all other bony prominences palpated joints taken through full range of motion no pain elicited Extremities: Radial pulses +2/4 in the bilateral extremities, +5/5 strength noted in the bilateral upper and lower extremities, no pedal edema on exam Neurological: Patient following commands knew that she was at [facility] year is 2024. NIH is 0 GCS 15 Skin: Patient has superficial abrasion noted on the dorsal aspect of her right wrist no active bleeding noted, superficial abrasion over the left wrist, small abrasion with a clot noted underneath the right eye no active bleeding noted. Const Vital Signs: 11/02/24 09:16 11/02/24 11:16 Temperature 97.4 F L Temperature Source Temporal Pulse Rate 80 71 Respiratory Rate 14 16 Blood Pressure 121/77 H 124/77 H Blood Pressure Mean 91 92 Pulse Ox 98 99 Oxygen Delivery Method Room Air MDM MDM MDM Narrative Medical decision making narrative: Patient is a 74-year-old female who presents to the emergency department chief complaint of fall and right wrist pain. On the differential diagnose includes but not limited to metacarpal fracture, distal radius fracture, distal humerus fracture, intracranial hemorrhage, maxillofacial fracture. Once workup is obtained reviewed she will be reevaluated. Once again the patient's tetanus shot is up-to-date. Patient's elbow x-ray was reviewed by myself my radiology which showed no acute fracture dislocation no visible joint effusion no soft tissue abnormality or radiopaque foreign body. Patient's x-ray of her wrist reviewed by myself by radiology showed no acute fracture or dislocation. Patient's CT head brain without contrast showed no acute findings. Patient CT cervical spine reviewed showed multilevel degenerative changes no acute abnormality. Patient CT facial bones CT showed no acute abnormality. Patient's x-ray of her hand official read is pending however this was reviewed by myself and showed no acute fractures or dislocations. Patient states that she needs to get to an appointment and needs to leave immediately. I advised her to rotate Tylenol and ibuprofen [id number] for pain control. She was advised to watch her for signs infection for her skin tears. She was advised to follow-up with her doctor in outpatient and return with worsening symptoms or any concerns. She was agreeable this plan all question concerns answered she was discharged home in stable condition. Radiography Diagnostic Testing: Clinical Impression(s) from Imaging Studies Brain CT 11/02/24 10:03 IMPRESSION: CHRONIC CHANGES. NO ACUTE FINDINGS. Reading Location: [facility] 11/02/24 10:03 IMPRESSION: Multilevel degenerative changes. No acute abnormality is seen. Reading Location: [facility] Facial/Sinus 11/02/24 10:03 IMPRESSION: No acute abnormality is seen. Reading Location: [facility] Wrist X-Ray 11/02/24 10:03 IMPRESSION: No acute fracture or dislocation is identified. Reading Location: [facility] Elbow X-Ray 11/02/24 10:30 IMPRESSION: No fracture or dislocation is identified. Reading Location: [facility] Discharge Plan Triage Chief Complaint: Laceration ED Provider: Tc Garza Dx/Rx/DC Orders Clinical Impression: Fall, Acute pain of right wrist, Superficial abrasion Prescriptions: No Action gabapentin 600 mg tablet 600 mg PO QHS Restasis MultiDose 0.05 % drops 1 drp ophthalmic (eye) Q12H donepezil 5 mg tablet 5 mg PO ONCE melatonin 5 mg capsule 5 mg PO QHS Qty: 90 1RF semaglutide 3.4 subcut .weekly Rx Instructions: 3.4 mg /100 mg/1ml amoxicillin 500 mg tablet 1,000 mg PO TID Qty: 42 0RF multivitamin 1 EACH tablet 1 tab PO DAILY estradiol 1 mg tablet 1 mg PO DAILY Qty: 90 4RF allopurinol 100 mg tablet 100 mg PO DAILY Qty: 90 1RF duloxetine [Cymbalta] 60 mg capsule,delayed release(DR/EC) 60 mg PO BID Qty: 180 4RF potassium chloride 20 mEq tablet extended release 20 meq PO QDAY Qty: 30 0RF lansoprazole 30 mg capsule,delayed release(DR/EC) 30 mg PO DAILY Qty: 90 1RF Primary Care Provider: Swathi Lagunas Referrals: Swathi Lagunas MD [Primary Care Provider] - Print Language: Greenlandic Disposition Disposition: Home, Self Care
--- NOTE | 2024-11-02 10:30 | RAD_ITS ---
PROCEDURE: ELBOW MIN 3 VIEWS 11/02/2024 REASON FOR EXAM: FALL TECHNIQUE: Three views of the right elbow COMPARISON: None FINDINGS: There is no fracture or dislocation. There is no visible joint effusion. No soft tissue abnormality or radiopaque foreign body is identified. RAD/Elbow min 3 Views IMPRESSION: No fracture or dislocation is identified. Reading Location: [facility]
[2024-11-02 11:16] VITALS: BP 124/77; PULSE 71; RESP 16; O2SAT 99
--- NOTE | 2024-11-02 13:00 | ED.RN ---
Pt states she has an appt to be at and has to leave. Unable to wait for results. MD notified.
== END 2024-11-02 13:43 | disposition home or self-care (01) ==
PROVIDERS: Emergency Provider Emergency Medicine; PCP Internal Medicine; Visit Provider Emergency Medicine
DX: S60.811A Abrasion of right wrist, initial encounter (principal); G30.0 Alzheimer's disease with early onset; F02.80 Dementia in other diseases classified elsewhere, unspecified severity, without behavioral disturbance, psychotic disturbance, mood disturbance, and anxiety; N18.30 Chronic kidney disease, stage 3 unspecified; W18.39XA Other fall on same level, initial encounter; M19.031 Primary osteoarthritis, right wrist; I12.9 Hypertensive chronic kidney disease with stage 1 through stage 4 chronic kidney disease, or unspecified chronic kidney disease; Z79.899 Other long term (current) drug therapy
CPT/HCPCS: 70450; 70486; 72125; 73080; 73110; 73130; 99282

== ENCOUNTER → 2024-11-13 | Outpatient (CLI) | payer MEDICARE, SELFPAY ==
--- NOTE | 2024-11-13 10:37 | RAD_ITS ---
PROCEDURE: CHEST PA AND LATERAL 11/13/2024 REASON FOR EXAM: CHEST PAIN TECHNIQUE: CHEST PA AND LATERAL COMPARISON: Prior study dated April 30, 2023. FINDINGS: Hardware: None Heart: Heart is nonenlarged. Mediastinum: The mediastinal contour is unremarkable. Lungs: The lungs are clear. Bones: Demineralization of the thoracic vertebrae. RAD/Chest PA and Lateral IMPRESSION: NO ACUTE FINDINGS. Reading Location: [id number]
== END | disposition home or self-care (01) ==
LOC: MTRAD 10:37
PROVIDERS: PCP Internal Medicine; Referring Provider Nurse Practitioner Family; Visit Provider Nurse Practitioner Family
DX: R07.9 Chest pain, unspecified (principal); W19.XXXA Unspecified fall, initial encounter
CPT/HCPCS: 71046

== ENCOUNTER → 2025-02-24 | Outpatient (CLI) | payer MEDICARE, SELFPAY ==
--- NOTE | 2025-02-24 10:40 | RAD_ITS ---
PROCEDURE: CHEST PA AND LATERAL 02/24/2025 REASON FOR EXAM: PREOP TECHNIQUE: Procedure Code: RADCXR Modality: DX Procedure: CHEST PA AND LATERAL COMPARISON: 11/13/2024. FINDINGS: The heart is normal in size. The lungs are clear. No acute osseous abnormalities. RAD/Chest PA and Lateral IMPRESSION: NO ACUTE FINDINGS. Reading Location: [id number]
[2025-02-24 11:58] LABS: Hematocrit 40.2 % (37-47); Hemoglobin 13.1 g/dL (12.0-15.0); Immature Granulocytes Count 0.010 X10^3/uL (0.0-0.0); Mean Corp Hgb Conc 32.6 g/dL (32-36); Mean Corpuscular Volume 99.5 fL (81-99); Mean Platelet Vol. 10.1 fl (6.2-12.0); NRBC Flagged by Analyzer 0 % (0-5); Platelet Count 217 K/mm3 (150-450); RBC Distribution Width CV 12.4 % (11.6-14.6); RBC Distribution Width SD 45.2 fl (35.1-43.9); Red Blood Count 4.04 M/mm3 (4.2-5.4); White Blood Count 5.6 K/mm3 (4.4-11.0)
[2025-02-24 12:51] LABS: AST(SGOT) 23 U/L (<=31); Alanine Aminotransfer ALT/SGPT 15 U/L (<=34); Albumin, Serum 4.0 g/dL (3.4-4.8); Alkaline Phosphatase 85 U/L (35-104); Anion Gap 9 (5-15); BUN 16 mg/dL (4-19); BUN/Creat Ratio 15.8 RATIO (10-20); Calcium,Total 9.6 mg/dL (7.6-11.0); Carbon Dioxide 28.8 mmol/L (21.0-32.0); Chloride 103 mmol/L (98-108); Globulin 3.0 g/dL (2.2-4.2); Glucose 86 mg/dL (70-99); Potassium 4.2 mmol/L (3.3-5.1)
[2025-02-25 05:07] LABS: Prealbumin 22 mg/dL (9-32)
== END | disposition home or self-care (01) ==
LOC: LAB 10:29
PROVIDERS: PCP Internal Medicine; Referring Provider Surgery Plastic and Reconstructive Surgery; Visit Provider Surgery Plastic and Reconstructive Surgery
DX: Z01.818 Encounter for other preprocedural examination (principal); R79.0 Abnormal level of blood mineral
CPT/HCPCS: 36415; 71046; 80053; 83036; 84134; 85025

== ENCOUNTER 2025-03-10 15:19 | Observation (INO) | payer MEDICARE, SELFPAY ==
--- NOTE | 2025-03-04 11:41 | EKG12_ITS ---
Test Reason : PREOP Blood Pressure : */* mmHG Vent. Rate : 58 BPM Atrial Rate : 58 BPM P-R Int : 176 ms QRS Dur : 74 ms QT Int : 422 ms P-R-T Axes : 65 6 54 degrees QTcB Int : 414 ms Sinus bradycardia Low voltage QRS Borderline ECG Confirmed by JAIR ARAGON, PERCY ([id number]), slot editor KASSI ROSENBERG ([id number]) on 03/05/2025 6:35:57 AM Referred By: Donald Ortega Confirmed By: PERCY ADAM MD
--- NOTE | 2025-03-05 13:20 | PAT.ANE_ITS ---
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 When Was Last Pacemaker Check QUESTION #4 FULL TEXT: You/Your Family Experience fever (hyperthermia) with Anesthesia Last Oral Intake Last Oral intake: Last Oral Intake NPO since Meds taken in AM with sips of water? 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 Female Yes 03/05/25 13:14 HX of Motion Sickness Yes 03/05/25 13:14 HX of N/V After Surgery Yes 03/05/25 13:14 Non-Smoker Yes 03/05/25 13:14 Duration of Surgery greater Yes 03/05/25 13:14 than 60 minutes Number of Risk Factors 5 03/05/25 13:14 PONV Score Severe Risk 03/05/25 13:14 Height & Weight Height & Weight: Anesthesia: Height & Weight Height 5 ft 4 in 02/23/25 10:10 Respiratory Assessment Respiratory Assessment - mortgage protection sales: Respiratory Tract Infection Hx - mortgage protection sales Hx Respiratory Tract Infection No 03/05/25 13:14 STOP Sleep Apnea STOP Sleep Apnea - mortgage protection sales: STOP Sleep Apnea - mortgage protection sales Hx Hypertension No 03/05/25 13:14 Hx Sleep Apnea No 03/05/25 13:14 CPAP BIPAP Do you snore loudly (louder No 03/05/25 13:14 than talking or can be heard Do you often feel tired/ No 03/05/25 13:14 fatigued/ sleepy during daytime? Has anyone observed you stop No 03/05/25 13:14 breathing during sleep? STOP Results Negative 03/05/25 13:14 QUESTION #5 FULL TEXT : Do you snore loudly (louder than talking or can be heard through closed doors)? 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 Specify any problems Hx of Preganancy in last 3 No 03/05/25 13:14 Months Nurse Filling Out Transfusion VCHRISTIN 03/05/25 13:14 & Questions: Date: 03/05/25 03/05/25 13:14 Time: 13:15 03/05/25 13:14 Patient unable to answer at this time (ie. confused, unrespo /Reproduction History /Reproductive History - mortgage protection sales: /Reproductive Hx- mortgage protection sales Hx Now No 03/05/25 13:14 Gestational Age (in weeks): EDC: Hx Hx Para Hx Section SAB No 03/05/25 13:14 PFSH Medical History (Updated 03/05/25 @ 13:13 by Ursula Hemphill) Cancer Depression Anxiety Cardiology follow-up encounter Low serum ferritin level Hypokalemia Hypertension Chronic pain Early onset Alzheimer dementia Suicide attempt Left shoulder pain Atypical chest pain Skin tear Cellulitis of right lower extremity Recurrent UTI Anxiety and depression Health care maintenance Foul smelling urine Depression Decreased libido Climacteric Wears dentures Wears glasses History of renal disease History of stress test Encounter for screening for malignant neoplasm of colon Dry mouth and eyes Dry eyes CKD (chronic kidney disease), stage III Dementia Fall Headache MCI (mild cognitive impairment) Edema Restless leg syndrome Obesity (BMI 30-39.9) Venous insufficiency of both lower extremities Right ankle pain GERD (gastroesophageal reflux disease) Chronic diarrhea right rotaor cuff repair gallbladder removed Cancer, skin, squamous cell Gout Back pain Arthritis IBS (irritable bowel syndrome) Home Medications Medication Instructions Recorded Last Taken Type multivitamin 1 tab PO DAILY supplement 07/08/19 History estradiol 1 mg tablet 1 mg PO DAILY #90 tabs 03/16 Unknown Rx semaglutide 3.4 35 units subcut .weekly 08/1902/25/25 History cholecalciferol (vitamin D3) 50 50 mcg PO QDAY #90 cap s 02/25/25 Unknown Rx mcg (2,000 unit) capsule duloxetine 60 mg capsule,delayed 120 mg PO DAILY 03/05 Unknown History release gabapentin 300 mg capsule 1,200 - 1,500 mg PO QHS 02/17 12/11 Unknown History Allergy/AdvReac Type Severity Reaction Status Date / Time lactose Allergy Severe Diarrhea Verified 03/05/25 13:05 adhesive tape Allergy Intermediate blisters Verified 03/05/25 13:05 Family History Mother Hypertension COPD (chronic obstructive pulmonary disease) Father Lymphoma Grandmother Cancer, Onset Age: 90 Surgical History (Updated 03/05/25 @ 13:13 by Ursula Hemphill) History of cholecystectomy History of colonoscopy History of lumbar fusion History of cataract extraction History of eyelid surgery Status post right rotator cuff repair History of sleeve gastrectomy Status post left rotator cuff repair History of bilateral knee replacement History of hysterectomy Hx of breast reduction, elective Social History household members: spouse number of children: 2 current occupational status: retired Smoking Status: Never smoker alcohol intake: current alcohol intake frequency: a few times a month Alcohol type: hard liquor substance use type: does not use caffeine: No what type of physical activity do you participate in: none seatbelt use: always do you feel safe at home: Yes additional social history: -Nikhil Patient and are both retired Recommendation Anesthesia Recommendation Anesthesia recommendation: OPTIMIZED for anesthesia
[2025-03-10] VITALS (18 sets, daily range): BP systolic 94–135; BP diastolic 61–95; PULSE 61–106; RESP 15–18; TEMP 36.1–36.6; O2SAT 94–100; BMI 24.2; BMI 25.7
--- NOTE | 2025-03-10 10:41 | PCM.PRE.AN2 ---
ASA Classification* ASA Classification ASA Classification: 2 Assessment & Plan Anesthesia* Anesthesia Assessment Anesthesia Assessment: Discussed sedation and/or anesthesia options, risks, benefits, and alternatives with patient/parents/legal guardian/POA. Questions invited. The patient/parents/legal guardian/POA seems to understand and agrees to proceed with anesthesia plan. Reviewed the physical assessment, medical history, allergy history and patient home medications list prior to surgery/procedure/anesthetic and documented any changes. Performed airway and anesthesia risk assessments. Anesthesia Type Anesthesia Type: General Anesthesia Focused Assessment* Airway Assessment Mouth opens: >3 cm Mallampati Score: II Labs Anesthesia Preop lab: CBC WBC, (4.4-11.0) 5.6 K/mm3 02/24/25, 10: RBC, (4.2-5.4) 4.04 M/mm3 L 02/24/25, 10:32 Hgb, (12.0-15.0) 13.1 g/dL 02/24/25, 10: Hct, (37-47) 40.2 % 02/24/25, 10: Plt Count, (150-450) 217 K/mm3 02/24/25, 10:32 CHEMISTRY Potassium, (3.3-5.1) 4.2 mmol/L 02/24/25, 10:32 Sodium, (133-145) 140 mmol/L 02/24/25, 10:32 Magnesium, (1.8-2.4) 2.2 mg/dL 12/26/11, 06:28 Phosphorus, (2.5-4.9) 2.2 mg/dL L 12/26/11, 06:28 BUN, (4-19) 16 mg/dL 02/24/25, 10:32 Creatinine, (0.70-1.20) 1.00 mg/dL 02/24/25, 10: Glucose, (70-99) 86 mg/dL 02/24/25, 10:32 TSH, (0.300-4.200) 1.420 uIU/mL 09/22/24, 13:05 COAG PT, (11.9-14.4) 12.6 SECONDS 05/19/12, 11:39 Pre-Assessment Diagnosis/Proposed Procedure Planned Operative Procedure(s): (B) Josefina panniculectomy Anesthesia History Anesthesia History - hand mexican food maker: Anesthesia History - hand mexican food maker Hx Hospitalization No 03/05/25 13:14 Any Problems With Anesthesia Yes: N&V 03/05/25 13:14 Cholinesterase deficiency No 03/05/25 13:14 You/Your Family Experience No 03/05/25 13:14 fever (hyperthermia) with Relationship Recent Exposure to Contagious No 10/24/23 13:25 Disease Does patient have nerve No 03/05/25 13:14 stimulator Patient instructed to have device shut off --Does patient have Pacemaker or ICD? When Was Last Pacemaker Check QUESTION #4 FULL TEXT: You/Your Family Experience fever (hyperthermia) with Anesthesia Last Oral Intake Last Oral intake: Last Oral Intake NPO since Meds taken in AM with sips of water? Meds patient instructed to take am of surgery PONV PONV - hand mexican food maker: PONV - hand mexican food maker Female Yes 03/05/25 13:14 HX of Motion Sickness Yes 03/05/25 13:14 HX of N/V After Surgery Yes 03/05/25 13:14 Non-Smoker Yes 03/05/25 13:14 Duration of Surgery greater Yes 03/05/25 13:14 than 60 minutes Number of Risk Factors 5 03/05/25 13:14 PONV Score Severe Risk 03/05/25 13:14 Height & Weight Height & Weight: Anesthesia: Height & Weight Height 5 ft 4 in 03/05/25 11:15 Respiratory Assessment Respiratory Assessment - hand mexican food maker: Respiratory Tract Infection Hx - hand mexican food maker Hx Respiratory Tract Infection No 03/05/25 13:14 STOP Sleep Apnea STOP Sleep Apnea - hand mexican food maker: STOP Sleep Apnea - hand mexican food maker Hx Hypertension No 03/05/25 13:14 Hx Sleep Apnea No 03/05/25 13:14 CPAP BIPAP Do you snore loudly (louder No 03/05/25 13:14 than talking or can be heard Do you often feel tired/ No 03/05/25 13:14 fatigued/ sleepy during daytime? Has anyone observed you stop No 03/05/25 13:14 breathing during sleep? STOP Results Negative 03/05/25 13:14 QUESTION #5 FULL TEXT : Do you snore loudly (louder than talking or can be heard through closed doors)? 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 Specify any problems Hx of Preganancy in last 3 No 03/05/25 13:14 Months Nurse Filling Out Transfusion VCHRISTIN 03/05/25 13:14 & Questions: Date: 03/05/25 03/05/25 13:14 Time: 13:15 03/05/25 13:14 Patient unable to answer at this time (ie. confused, unrespo /Reproduction History /Reproductive History - hand mexican food maker: /Reproductive Hx- hand mexican food maker Hx Now No 03/05/25 13:14 Gestational Age (in weeks): EDC: Hx Hx Para Hx Section SAB No 03/05/25 13:14 Active Medications Active Medications: Current Medications Generic Name Dose Route Start Last Admin Trade Name Freq PRN Reason Stop Dose Admin Lidocaine HCl 50 ml/ 0 ml 03/10/25 12:00 Epinephrine HCl 1 mg/ Lactated OPERA.SITE 03/10/25 12:01 Ringer's 949 ml X1 ONE Cefazolin Sodium 2 gm/ Sodium 110 mls @ 200 mls/hr 03/10/25 12:00 Chloride IV 03/10/25 12:32 INTRAOP ONE PFSH Medical History Cancer Depression Anxiety Cardiology follow-up encounter Low serum ferritin level Hypokalemia Hypertension Chronic pain Early onset Alzheimer dementia Suicide attempt Left shoulder pain Atypical chest pain Skin tear Cellulitis of right lower extremity Recurrent UTI Anxiety and depression Health care maintenance Foul smelling urine Depression Decreased libido Climacteric Wears dentures Wears glasses History of renal disease History of stress test Encounter for screening for malignant neoplasm of colon Dry mouth and eyes Dry eyes CKD (chronic kidney disease), stage III Dementia Fall Headache MCI (mild cognitive impairment) Edema Restless leg syndrome Obesity (BMI 30-39.9) Venous insufficiency of both lower extremities Right ankle pain GERD (gastroesophageal reflux disease) Chronic diarrhea right rotaor cuff repair gallbladder removed Cancer, skin, squamous cell Gout Back pain Arthritis IBS (irritable bowel syndrome) Home Medications Medication Instructions Recorded Last Taken Type multivitamin 1 tab PO DAILY supplement 07/08/19 07/08/19 History estradiol 1 mg tablet 1 mg PO DAILY #90 tabs 03/16/24 Unknown Rx semaglutide 3.4 35 units subcut .weekly 09/14/24 02/25/25 History cholecalciferol (vitamin D3) 50 50 mcg PO QDAY #90 caps 02/25/25 Unknown Rx mcg (2,000 unit) capsule duloxetine 60 mg capsule,delayed 120 mg PO DAILY 03/05/25 Unknown History release gabapentin 300 mg capsule 1,200 - 1,500 mg PO QHS 03/05/25 Unknown History Allergy/AdvReac Type Severity Reaction Status Date / Time lactose Allergy Severe Diarrhea Verified 03/05/25 13:05 adhesive tape Allergy Intermediate blisters Verified 03/05/25 13:05 Family History Mother Hypertension COPD (chronic obstructive pulmonary disease) Father Lymphoma Grandmother Cancer, Onset Age: 90 Surgical History History of cholecystectomy History of colonoscopy History of lumbar fusion History of cataract extraction History of eyelid surgery Status post right rotator cuff repair History of sleeve gastrectomy Status post left rotator cuff repair History of bilateral knee replacement History of hysterectomy Hx of breast reduction, elective Social History household members: spouse number of children: 2 current occupational status: retired Smoking Status: Never smoker alcohol intake: current alcohol intake frequency: a few times a month Alcohol type: hard liquor substance use type: does not use caffeine: No what type of physical activity do you participate in: none seatbelt use: always do you feel safe at home: Yes additional social history: -Nikhil Patient and are both retired Review of Systems (Anesthesia) ROS Narrative System reviewed and no additional complaints, except as documented.
[2025-03-10] MEDS: Lactated Ringers 1,000 ML 15 ML IV (11:02)
--- NOTE | 2025-03-10 11:40 | PCM.HP.STD ---
HPI - General HPI Narrative LANRE PAT, is a 74 F who presents [place] panniculectomy with Dr. Ortega today Denies changes to her medical health since her last visit. Denies fever, chills, URI. HPI from 03/05/25: The patient is a 74-year-old female presenting with skin laxity and associated cosmetic concerns following significant weight loss. She has lost 80 pounds, leading to significant skin laxity, particularly around the abdomen, which she describes as having a "jelly" quality. This excess skin causes discomfort when sitting, as it scrunches up and is irritated by the seatbelt. He weight has now been stable for 6 months (I saw her about 8 months ago and she has lost about 20 lbs since then). The patient experiences recurrent rashes due to the excess skin. She is having trouble wearing clothing and it's causing significant discomfort. She also has pre-cancerous skin lesions that have been biopsied, resulting in a noticeable defect she wishes to have corrected. ROS: - Integumentary: Reports recurrent rashes due to excess skin. Reports pre-cancerous skin lesions. - Hematologic: Denies personal or family history of blood clots. History of reportedly rheumatoid arthritis but she has not been on any medicines for a long time and she is not sure if this was the correct diagnosis in the past. She is not a smoker. 05 March 2025: Dr. Ortega talked to the patient today extensively about the planned incisions for [id number] panniculectomy and risks benefits and alternatives of this procedure. She elected to proceed. All her questions were answered. I talked her about the postoperative protocol and drains, as well as plan for overnight admission. Her PCP has cleared her for surgery Dr. Ortega reviewed her labs which demonstrated stable hemoglobin of 13 and nutrition (albumin was 4 and prealbumin was 22), with a normal hemoglobin A1c (4.9). Caprini score is 4 [facility] Medical History Cancer Depression Anxiety Cardiology follow-up encounter Low serum ferritin level Hypokalemia Hypertension Chronic pain Early onset Alzheimer dementia Suicide attempt Left shoulder pain Atypical chest pain Skin tear Cellulitis of right lower extremity Recurrent UTI Anxiety and depression Health care maintenance Foul smelling urine Depression Decreased libido Climacteric Wears dentures Wears glasses History of renal disease History of stress test Encounter for screening for malignant neoplasm of colon Dry mouth and eyes Dry eyes CKD (chronic kidney disease), stage III Dementia Fall Headache MCI (mild cognitive impairment) Edema Restless leg syndrome Obesity (BMI 30-39.9) Venous insufficiency of both lower extremities Right ankle pain GERD (gastroesophageal reflux disease) Chronic diarrhea right rotaor cuff repair gallbladder removed Cancer, skin, squamous cell Gout Back pain Arthritis IBS (irritable bowel syndrome) Home Medications Medication Instructions Recorded Last Taken Type multivitamin 1 tab PO DAILY supplement 07/08/19 07/08/19 History estradiol 1 mg tablet 1 mg PO DAILY #90 tabs 03/16/24 Unknown Rx semaglutide 3.4 35 units subcut .weekly 09/14/24 02/25/25 History cholecalciferol (vitamin D3) 50 50 mcg PO QDAY #90 caps 02/25/25 Unknown Rx mcg (2,000 unit) capsule duloxetine 60 mg capsule,delayed 120 mg PO DAILY 03/05/25 Unknown History release gabapentin 300 mg capsule 1,200 - 1,500 mg PO QHS 03/05/25 Unknown History Allergy/AdvReac Type Severity Reaction Status Date / Time lactose Allergy Severe Diarrhea Verified 03/10/25 10:50 adhesive tape Allergy Intermediate blisters Verified 03/10/25 10:50 Family History Mother Hypertension COPD (chronic obstructive pulmonary disease) Father Lymphoma Grandmother Cancer, Onset Age: 90 Surgical History History of cholecystectomy History of colonoscopy History of lumbar fusion History of cataract extraction History of eyelid surgery Status post right rotator cuff repair History of sleeve gastrectomy Status post left rotator cuff repair History of bilateral knee replacement History of hysterectomy Hx of breast reduction, elective Social History household members: spouse number of children: 2 current occupational status: retired Smoking Status: Never smoker alcohol intake: current alcohol intake frequency: a few times a month Alcohol type: hard liquor substance use type: does not use caffeine: No what type of physical activity do you participate in: none seatbelt use: always do you feel safe at home: Yes additional social history: -Nikhil Patient and are both retired ROS ROS Narrative General: Denies fever, chills HEENT: Denies headaches, vision changes, sore throat Cardio: Denies chest pain, leg edema Pulmonary: Denies shortness of pain, cough, wheezing GI: Denies nausea, vomiting, diarrhea Vital Signs Vital Signs Vital Signs: 03/10/25 10:53 03/10/25 10:53 Temperature 97.8 F Temperature Source Temporal Pulse Rate 63 Respiratory Rate 18 Respiratory Pattern Normal Blood Pressure 119/85 H Blood Pressure Mean 96 Blood Pressure Source Monitor Blood Pressure Position Sitting Blood Pressure Location Left Arm Pulse Ox 100 Oxygen Delivery Method Room Air Weight Weight: 141 lb 1.533 oz Body Mass Index (BMI) 24.2 Physical Exam Narrative Abdomen: Previous hysterectomy incision, well-healed. She has significant tissue excess in her abdomen and would benefit from a horizontal incision panniculectomy with transposition of the bellybutton. Has more skin laxity today than last appointment, and therefore might benefit from FDL panniculectomy. No diathesis She has a high bellybutton and would need a small vertical component so as to close without tension. No palpable hernias on my exam. No obvious overhang of the pannus over the symphysis at this time. Assessment & Plan Assessment/Plan (1) Excess skin: PLAN: Will be admitted after panniculectomy with Dr. Ortega
[2025-03-10] MEDS: Lidocaine 1% (5 ml sdv) 5 ML Vial IV (12:05)
[2025-03-10] MEDS: Cefazolin 1 GM/5 ML Vial 2 GM IV (12:10)
[2025-03-10] MEDS: fentaNYL 100 MCG/2 ML Ampul IV (13:00)
[2025-03-10] MEDS: TAS 0.05% 1000 mls w/ LR OPERA.SITE (13:19)
[2025-03-10] MEDS: Bupiv/Epi 0.25% 30 ML Vial (14:12)
--- NOTE | 2025-03-10 15:08 | OP.PCM_ITS ---
Operative Report (Standard) Operative Information Date of Procedure: 03/10/25 Pre-Operative Diagnosis: Excess abdominal skin after massive weight loss Post-Operative Diagnosis: Same Surgery/Procedure Performed: [id number] panniculectomy business attorney: Yes Health Social Work Professor: Sariah Ramirez Tasks completed by rn first assistant: Closing Additional library technical assistant?: Yes Additional Deputy [place] Marshal #2: Zeb Eastman Tasks completed by library technical assistant #2: Closing, Dissecting tissue and Removing tissue Type of Anesthesia: General/Supplemental (400 cc tumescent solution (1 mg of epinephrine and 1 cc of saline, 949 cc of lactated Ringer's, and 50 cc of 1% lidocaine), and also 30 cc of quarter percent Marcaine with 1-200,000 epinephrine) RN Documented Start/Stop Times: Operation Date: 03/10/25 12:00 Case Time Into Pre-Op 03/10/25 10:52 Out of Pre-Op 03/10/25 11:55 Anesthesia Start 03/10/25 12:00 Into Room 03/10/25 12:00 Procedure Start 03/10/25 12:28 Procedure Start Time: 12:28 Procedure Stop Time: 15:08 Select all DRAINS/GRAFTS/IMPLANTS that apply: Drains (2 drains) Drain details: one 19 Tamazight Brandon drain from the left tunneled superiorly and one 19 Tamazight Brandon drain from the right tunnel transversely Estimated Blood Loss: 400 cc Specimen collected: No Description of surgery: Indications: Patient is delightful 74-year-old female with history of massive weight loss who presents today for [id number] panniculectomy. She understands the risks, benefits, and alternatives of the procedure, and would like to proceed. Procedure details: Patient was correct identified in preoperative holding and taken back to the operating room after she was marked. She was administered general anesthesia and she was prepped and draped in sterile fashion. Timeout was performed. Through 3 separate stab incisions, 400 cc of tumescent solution was injected in the lateral flanks and into the region around the superior aspect of the incision. 10 blade scalpel was used to make a vertical elliptical incision and dissection was carefully taken down to the abdominal wall with Bovie electrocautery. The vertical ellipse was removed and the umbilicus was dissected out with care taken to preserve a cuff of fat around the umbilicus for perfusion. The transverse aspect of the panniculectomy was then addressed, with an incision made from approximately the ASIS bilaterally over the pubic symphysis (with care taken to be 9 cm from the vulvar commissure). Fat was left on the hip and in the mons (to protect nerves and preserve lymphatics), as the tissue was dissected with a superior bevel. Bleeding vessels on the abdominal wall were tied with 2-0 silk sutures, and hemoblast was used for hemostasis. Once the flap was elevated, we measured the transverse panniculectomy based on what we could be safely closed without excess tension. This horizontal ellipse was then removed with a 10 blade scalpel and Bovie electrocautery. The total specimens weighed 818 g. Suction assisted lipectomy (which was a part of the panniculectomy and not a separate procedure) was then performed on the lateral flanks and the superior aspect of the incision (to prevent dogear). 200 cc of Lipo aspirate was obtained. The wounds were then irrigated with copious amounts normal saline as well as Irrisept. Two 19 Tamazight Brandon drains were placed. Hemostasis was further obtained with Bovie electrocautery. The vertical and horizontal incisions were then stapled (with care taken to remove katiuska at the end of the case). Erick's fascia sutures were then placed along the vertical and horizontal incisions with 2-0 Vicryl sutures. The mons was pexied to the abdominal wall with 2-0 Vicryl suture. The skin was then closed with 3-0 Monocryl deep dermals and the bellybutton inset into its table mountain location along the vertical incision. 4-0 Monocryl running subcuticular sutures were then placed. The drains were holding suction at the end of the case. Prineo tape was applied along the incisions. She was further anesthetized with 30 cc of quarter percent Marcaine with 1-200,000 epinephrine along the incision lines. The patient tolerated the procedure well. She was awakened and taken the PACU in stable condition. Postoperative plan: Admit overnight for pain control and to assist with ambulation (early ambulation to prevent DVT). We will continue SCDs throughout admission. Plan for patient to be taught drain care on the floor. Surgical Findings: Significant amount of tissue removed and [id number] panniculectomy 818 g of tissue removed 200 cc of Lipo aspirate (from bilateral flanks and superior aspect of the incision) Complications Complications: No
--- NOTE | 2025-03-10 15:28 | PCM.POST.ANE ---
Anesthesia: Postop Eval I Current Vital Signs Temperature: 97 F Pulse Rate: 106 Blood Pressure: 119/95 Respiratory Rate: 16 Pulse Ox: 99 Oxygen Delivery Method: Nasal Cannula Oxygen Flow Rate (L/min): 2 Assessment Airway patent: Yes Spontaneous unlabored respirations: Yes Mental status: Awake and Calm nausea: Yes Vomiting: No Anesthesia Complication: No Fluid Hydration Crystalloid volume administer (ml): 1,600 Total IV fluid infused: 1,600 Progress Note Anesthesia document: Postop Eval 1 completed: Yes
--- NOTE | 2025-03-10 16:18 | POSTOPAN2_ITS ---
Anesthesia Postop Eval I Sum Postop Eval Completion status Anesthesia document: Postop Eval 1 completed: Yes Anesthesia Postop Eval I Summary Anesthesia Postop Eval I Summary: Anesthesia Postop Eval I: Assessment Summary Airway patent Yes 03/10/25 15:29 STERILE PROCESSING TECHNICIAN.SHOF Spontaneous unlabored Yes 03/10/25 15:29 STERILE PROCESSING TECHNICIAN.SHOF respirations Mental status Awake,Calm 03/10/25 15:29 STERILE PROCESSING TECHNICIAN.SHOF nausea Yes 03/10/25 15:29 STERILE PROCESSING TECHNICIAN.SHOF Vomiting No 03/10/25 15:29 STERILE PROCESSING TECHNICIAN.SHOF Anesthesia Postop Eval I: Fluid Summary Crystalloid volume administer 1,600 03/10/25 15:29 STERILE PROCESSING TECHNICIAN.SHOF (ml) Colloids volume administered ( ml) Blood Product volume administered (ml) Total IV fluid infused 1,600 03/10/25 15:29 STERILE PROCESSING TECHNICIAN.SHOF Anesthesia Postop Eval I: Summary Notes Anesthesia Complication No 03/10/25 15:29 STERILE PROCESSING TECHNICIAN.SHOF Anesthesia Complication Comment: Post-operative progress note Anesthesia: Postop Eval II Evaluation Mental status: Awake Pain Level: 1 nausea: No Vomiting: No
--- NOTE | 2025-03-10 16:18 | PCM.POSTANE2 ---
Anesthesia Postop Eval I Sum Postop Eval Completion status Anesthesia document: Postop Eval 1 completed: Yes Anesthesia Postop Eval I Summary Anesthesia Postop Eval I Summary: Anesthesia Postop Eval I: Assessment Summary Airway patent Yes 03/10/25 15:29 PACKING MACHINE FEEDER.SHOF Spontaneous unlabored Yes 03/10/25 15:29 PACKING MACHINE FEEDER.SHOF respirations Mental status Awake,Calm 03/10/25 15:29 PACKING MACHINE FEEDER.SHOF nausea Yes 03/10/25 15:29 PACKING MACHINE FEEDER.SHOF Vomiting No 03/10/25 15:29 PACKING MACHINE FEEDER.SHOF Anesthesia Postop Eval I: Fluid Summary Crystalloid volume administer 1,600 03/10/25 15:29 PACKING MACHINE FEEDER.SHOF (ml) Colloids volume administered ( ml) Blood Product volume administered (ml) Total IV fluid infused 1,600 03/10/25 15:29 PACKING MACHINE FEEDER.SHOF Anesthesia Postop Eval I: Summary Notes Anesthesia Complication No 03/10/25 15:29 PACKING MACHINE FEEDER.SHOF Anesthesia Complication Comment: Post-operative progress note Anesthesia: Postop Eval II Evaluation Mental status: Awake Pain Level: 1 nausea: No Vomiting: No
[2025-03-10] MEDS: 0.9% Normal Saline (1000mL) 1,000 ML 75 ML IV (16:31)
[2025-03-10] MEDS: HYDROmorphone Inj 0.2 MG/ML SYRINGE 0.1 MG IV (18:53)
[2025-03-10] MEDS: Cefazolin 1 GM/50 ML BAG IV (20:25)
[2025-03-11 00:42] LABS: Hematocrit 30.6 % (37-47); Hemoglobin 10.1 g/dL (12.0-15.0); Mean Corp Hgb Conc 33.0 g/dL (32-36); Mean Corpuscular Volume 101.3 fL (81-99); Mean Platelet Vol. 9.7 fl (6.2-12.0); Platelet Count 162 K/mm3 (150-450); RBC Distribution Width CV 12.6 % (11.6-14.6); RBC Distribution Width SD 47.0 fl (35.1-43.9); Red Blood Count 3.02 M/mm3 (4.2-5.4); White Blood Count 11.8 K/mm3 (4.4-11.0)
[2025-03-11 04:00] VITALS: BP 98/62; PULSE 68; RESP 15; TEMP 36.6; O2SAT 98
[2025-03-11] MEDS: 0.9% Normal Saline (1000mL) 1,000 ML 75 ML IV (06:51)
[2025-03-11] MEDS: Cefazolin 1 GM/50 ML BAG IV (06:55)
[2025-03-11 08:18] VITALS: BP 101/57; PULSE 60; RESP 16; TEMP 36.6; O2SAT 95
--- NOTE | 2025-03-11 08:40 | DS.PCM_ITS ---
Providers Date of Admission: 03/10/25 Primary Care Physician: Dr. Swathi Lagunas MD Reason For Visit: Josefina panniculectomy Diagnosis Discharge Diagnosis (1) Excess skin: Status: Acute Code(s): L98.7 - Excessive and redundant skin and subcutaneous tissue Plan: Will be admitted after panniculectomy with Dr. Ortega Medications at Discharge Home Medications multivitamin 1 tab PO DAILY supplement 07/08/19 estradiol 1 mg tablet 1 mg PO DAILY #90 tabs 03/16/24 semaglutide 3.4 35 units subcut .weekly 09/14/24 cholecalciferol (vitamin D3) 50 mcg (2,000 unit) capsule 50 mcg PO QDAY #90 caps 02/25/25 duloxetine 60 mg capsule,delayed release 120 mg PO DAILY 03/05/25 gabapentin 300 mg capsule 1,200 - 1,500 mg PO QHS 03/05/25 oxycodone 5 mg tablet 5 mg PO Q4H PRN PRN pain 7 days #30 tabs 03/11/25 Hospital Course Operations - (Cassandra araiza panniculectomy) Summary of Care Provided Hospital Course: Patient underwent above-mentioned surgery with Dr. Ortega with bilateral drain placement on 03/10/2025 without any intraoperative complications. Patient was kept overnight for pain control and close monitoring. There were no overnight concerns. Today is postop day 1 and she was seen at bedside with Dr. Ortega at bedside. Her pain is well-controlled on regimen, she has been ambulating, tolerating oral intake. Drain output all was 90 mL however right side was noted to be disconnected this morning. She denies significant pain, nausea, vomiting she will receive 1 dose of subcutaneous Lovenox prior to discharge. [place] left in place overnight and nurse and aware to remove it. Remove pending success of her urination she will be discharged home today. Patient was instructed on wound and activity precautions. Discharged home with oxycodone as needed for pain control. Physical Exam Narrative Afebrile/VSS. Lying in bed in no acute distress incisions are clean, dry, intact. Spotting on ABD dressing without strikethrough Abdomen is soft, nontender, no fluid collection Right drain was disconnected which I reconnected. Bilateral drain output total was 90ml. Drains were stripped No lower extremity swelling. SCD's in place. Weight / BMI Weight Weight: 149 lb 11.102 oz Body Mass Index (BMI) 25.7 ABG / Lab / Microbiology Data 03/11/25 00:27 Laboratory: Laboratory Results - last 24 hr 03/11/25 00:27: WBC 11.8 H, RBC 3.02 L, Hgb 10.1 L, Hct 30.6 L, MCV 101.3 H, MCH 33.4 H, MCHC 33.0, RDW Std Deviation 47.0 H, RDW Coeff of Samuel 12.6, Plt Count 162, MPV 9.7 D/C Instructions DC O2, CPAP, BIPAP Needs Home O2 Discharge instructions: No Meaningful Use Info Meaningful Use Meaningful Use Diagnoses (Choose all that apply): None applicable Discharge Plan Admission Admit Date/Time: 03/10/25 15:19 Primary Reason for Your Visit: Cassandra araiza panniculectomy Attending Provider: Donald Ortega Primary Care Provider: Swathi Lagunas Instructions Additional Instructions / Restrictions: Operations Performed: Cassandra araiza panniculectomy Instructions for My Care at Home The following instructions will help you know what to expect in the days following surgery. These are general instructions. Your surgeon and therapist may give you special instructions, which vary to some degree based on your specific procedure -- follow those as directed. Do not, however, hesitate to call if you have any questions or concerns. Splint Care/Dressing Care/Wound Care * Change ABD dressing daily and keep abdominal binder on. It should be snug but not suffocating. * OK to shower starting tomorrow. No soaking, submerging or scrubbing the incision. Let soap and water run over the area and pat dry gently. * Record drain output and bring the log with you to your appointment. [ ] Activities * Walk frequently daily! * For the first 4 weeks after surgery, try to balance your activity, allowing time for rest. * Avoid lifting, pushing, or pulling anything over 5 pounds. * Do not drive or operate heavy machinery within 24 hrs of surgery or while taking narcotic pain medication. Pain Control/Medications * You are prescribed Oxycodone as needed for pain. * If you received an anesthetic block, your hand or arm may be numb for several hours. You will be discharged to home with medications, including an oral pain medication (analgesic). Rest and elevation are still one of the most important factors for pain control. Take your pain medication as needed, but do not wait for the pain to become out of control. * For severe pain, you may take prescription pain medication as directed, but please note that this may also contain Tylenol (e.g. Percocet). Do not take more than 4000mg of Tylenol (acetaminophen) from all sources daily. * Pain medication may cause some lethargy, nausea, and or constipation. You should not drive/operate dangerous machinery while taking these medications. If these or other symptoms become significantly problematic, please your surgeon's office. * If prescribed oral antibiotics (Keflex, Clindamycin, or others), please take prescription for full duration as instructed. You should not have any pills remaining once completed (refills are written for your convenience should the course need to be extended, but generally they are not required). Diet (what I can eat): Resume normal diet Follow up * We will follow up with you next 03/18 Follow-up appointment reminders: (A list of any scheduled appointments is at the end of this document) At your earliest convenience, please call [phone] to confirm/schedule a follow-up appointment with [ ] in clinic. When to call your surgeon: * If any signs of surgical site infection develop: redness, pus, pain, increased swelling or foul odor at the incision site, fever, cold and clammy skin, or confusion. * Consistent temperature above 101°F (38.3°C). * The affected area gets swollen or much more painful. * You have excessive bleeding from surgical site (soaking through). If you experience difficulty breathing and/or shortness of breath, seek immediate medical attention. If experiencing any of the above complications or if you have any questions, call [phone] Discharge Orders/Prescriptions Prescriptions: New oxycodone 5 mg Tablet 5 mg PO Q4H PRN PRN (Reason: pain) 7 Days Qty: 30 0RF Rx Instructions: For acute postoperative pain. Take as needed No Action semaglutide 3.4 35 units subcut .weekly Patient Comments: TAKES ON FRIDAYS Rx Instructions: 3.4 mg /100 mg/1ml multivitamin 1 EACH tablet 1 tab PO DAILY gabapentin 300 mg capsule 1,200 - 1,500 mg PO QHS duloxetine [Cymbalta] 60 mg capsule,delayed release(DR/EC) 120 mg PO DAILY estradiol 1 mg tablet 1 mg PO DAILY Qty: 90 4RF cholecalciferol (vitamin D3) 50 mcg (2,000 unit) capsule 50 mcg PO QDAY Qty: 90 1RF Referrals / Follow Up: Swathi Lagunas MD [Primary Care Provider, Internal Medicine] Disposition Disposition (needs filled in before D/C Order can be placed): Home, Self Care Charges/Coding Procedures Integumentary [id number]: [id number] Global Visit
--- NOTE | 2025-03-11 09:14 | CASEMGMT ---
ELVIS CM into pt room, pt sitting up in chair. Pt states she feels comfortable with her drains and the care of them. Pt denies any homegoing needs at this time.
--- NOTE | 2025-03-11 10:21 | PHA.DC.COU.R ---
Pharmacy [facility] has performed discharge medication counseling for this patient. The patient was counseled on the following discharge medications and changes in medications for homegoing review. - Oxycodone 5 mg tablet The Reason for Use, instructions for use, and potential side effects were reviewed for all new medications. The patient's questions regarding all of their medications were answered. The patient was able to verbally demonstrate an understanding of their discharge medications. Medications at Discharge Home Medications multivitamin 1 tab PO DAILY supplement 07/08/19 estradiol 1 mg tablet 1 mg PO DAILY #90 tabs 03/16/24 semaglutide 3.4 35 units subcut .weekly 09/14/24 cholecalciferol (vitamin D3) 50 mcg (2,000 unit) capsule 50 mcg PO QDAY #90 caps 02/25/25 duloxetine 60 mg capsule,delayed release 120 mg PO DAILY 03/05/25 gabapentin 300 mg capsule 1,200 - 1,500 mg PO QHS 03/05/25 oxycodone 5 mg tablet 5 mg PO Q4H PRN PRN pain 7 days #30 tabs 03/11/25
[2025-03-11 11:15] VITALS: BP 107/63; PULSE 60; RESP 12; TEMP 36.4
[2025-03-11 13:48] VITALS: BP 96/60; PULSE 62; RESP 16; TEMP 36.6; O2SAT 100
== END 2025-03-11 14:20 | disposition home or self-care (01) ==
LOC: SDC 17:49 → MS3 03-11 06:57
PROVIDERS: Admitting Provider Surgery Plastic and Reconstructive Surgery; PCP Internal Medicine; Referring Provider Surgery Plastic and Reconstructive Surgery; Visit Provider Surgery Plastic and Reconstructive Surgery
DX: L98.7 Excessive and redundant skin and subcutaneous tissue (principal); G30.0 Alzheimer's disease with early onset; F02.80 Dementia in other diseases classified elsewhere, unspecified severity, without behavioral disturbance, psychotic disturbance, mood disturbance, and anxiety; N18.30 Chronic kidney disease, stage 3 unspecified; I12.9 Hypertensive chronic kidney disease with stage 1 through stage 4 chronic kidney disease, or unspecified chronic kidney disease; Z98.84 Bariatric surgery status; Z79.899 Other long term (current) drug therapy; R21 Rash and other nonspecific skin eruption; K21.9 Gastro-esophageal reflux disease without esophagitis
CPT/HCPCS: 15830; 00802; 36415; 85027; 93005; 94668; 96361; 96365; 96366; 96372; 96375; 99221; G0378; J2405

== ENCOUNTER → 2025-05-17 | Outpatient (CLI) | payer MEDICARE, SELFPAY ==
[2025-05-17 11:57] LABS: Cholesterol 218 mg/dL (<=200); Low Density Lipoprotein Calc. 89 mg/dL; Triglycerides 56 mg/dL; Very Low Density Lipoprotein 11 mg/dL (5-40); cholesterol:hdl ratio screen 1.83
== END | disposition home or self-care (01) ==
LOC: LAB 09:37
PROVIDERS: PCP Internal Medicine; Referring Provider Nurse Practitioner Women's Health; Visit Provider Nurse Practitioner Women's Health
DX: Z13.220 Encounter for screening for lipoid disorders (principal); E66.9 Obesity, unspecified; R68.82 Decreased libido
CPT/HCPCS: 36415; 80061; 84402